=== PATIENT | male | born 1950 | race Caucasian/White ===

== ENCOUNTER 2018-02-07 23:52 | Emergency (ER) | payer OTHER ==
[~2018-02-07] VITALS: Ht 172.7 cm; Wt 72.7 kg
[~2018-02-07 23:52] MED LIST: AMLO-511 PO; ARIP15TA2 PO; ASPI81TA39 PO; DIVA-76 PO; ENAL20 PO; LORA10TA7 PO; METO25XL PO; SIMV-261 PO; SODI44SP18 NASAL
[2018-02-08 00:36] VITALS: BP 155/62
[2018-02-08 00:49] LABS: GLUCOSE,POINT OF CARE 134 MG/DL (70-110)
[2018-02-08 01:28] LABS: BASOPHILS % (AUTO) 0.8 % (0.0-2.0); EOSINOPHILS % (AUTO) 2.4 % (1.0-6.0); HEMATOCRIT 37.9 % (41-53); LYMPHOCYTES # (AUTO) 2.6 K/uL (1.0-4.8); LYMPHOCYTES % (AUTO) 29.2 % (22.0-44.0); MEAN CORPUSCULAR HEMOGLOBIN 30.4 pg (26.0-34.0); MEAN CORPUSCULAR HGB CONC 34.3 G/dL (31.0-37.0); MEAN CORPUSCULAR VOLUME 89 fL (80-100); MONOCYTES % (AUTO) 10.6 % (2.0-9.0); NEUTROPHILS # (AUTO) 5.2 K/uL (1.8-7.7); PLATELET COUNT (AUTO) 280 K/uL (150-450); RED BLOOD CELL COUNT(AUTO) 4.27 MIL/uL (4.50-5.90); RED CELL DISTRIBUTION WIDTH 13.3 % (11.5-14.5)
[2018-02-08 01:39] LABS: ANION GAP 3 mmol/L (8-16); CALCIUM, TOTAL 8.7 mg/dL (8.8-10.5); CARBON DIOXIDE 33 mmol/L (22-29); CHLORIDE 104 mmol/L (98-107); CREATININE 1.07 mg/dL (0.60-1.30); GLOMERULAR FILTR. RATE CALC > 60 mL/min (>60); GLUCOSE,RANDOM 106 mg/dL (70-110); SODIUM SERUM 140 mmol/L (136-145); UREA NITROGEN, BLOOD 24 mg/dL (7-18)
[2018-02-08 01:46] LABS: ALANINE AMINOTRANSFERASE 38 U/L (12-78); ALBUMIN 3.6 g/dL (3.4-5.0); ALKALINE PHOSPHATASE 73 U/L (46-116); ASPARTATE AMINOTRANSFERASE 43 U/L (15-37); BILIRUBIN,TOTAL 0.5 mg/dL (0.1-1.0); VALPROIC ACID 25 mcg/mL (50-100)
== END 2018-02-08 02:21 | disposition home or self-care (01) ==
LOC: EMS 23:58
DX: F25.1 Schizoaffective disorder, depressive type (principal); I10 Essential (primary) hypertension; E11.9 Type 2 diabetes mellitus without complications; E78.00 Pure hypercholesterolemia, unspecified; Z79.899 Other long term (current) drug therapy
CPT/HCPCS: 36415; 80053; 80164; 82962; 85025; 99284; G0480

== ENCOUNTER 2018-02-09 16:33 | Inpatient (IN) | payer OTHER, MEDICAID ==
[~2018-02-09] VITALS: Ht 172.7 cm; Wt 74.5 kg
[2018-02-09 18:00] VITALS: BP 153/82
[2018-02-09] MEDS ORDERED: MAGNESIUM HYDROXIDE SUSPENSION 30 ML UDCUP PO PRN (18:00)
[2018-02-09] MEDS ORDERED: NICOTINE 14 MG/24 HOUR PATCH TD PRN (18:00)
[2018-02-09] MEDS ORDERED: DOCUSATE SODIUM 100 MG CAPSULE PO PRN (18:00)
[2018-02-09] MEDS ORDERED: ACETAMINOPHEN 325 MG TABLET PO PRN (18:00)
[2018-02-09] MEDS ORDERED: CloNIDine HCL 0.1 MG TABLET PO PRN (18:00)
[2018-02-09] MEDS ORDERED: MAG HYDROX/AL HYDROX/SIMETH ES 30 ML SUSPENSION UDCUP PO PRN (18:00)
[2018-02-09] MEDS ORDERED: PETROLATUM,WHITE 71 GM JELLY TP PRN (18:00)
[2018-02-09] MEDS ORDERED: ONDANSETRON HCL 4 MG TABLET PO PRN (18:00)
[2018-02-09] MEDS ORDERED: LOPERAMIDE HCL 2 MG CAPSULE PO PRN (18:00)
[2018-02-09] MEDS ORDERED: ALBUTEROL SULFATE HFA 90 MCG/PUFF 8 GM INHALER IH PRN (18:00)
[2018-02-09] MEDS ORDERED: GuaiFENesin/D-METHORPHAN [SUGAR-FREE] 200-20MG/10 ML SYRUP UDCUP PO PRN (18:00)
[2018-02-09] MEDS ORDERED: PNEUMOCOCCAL VACCINE POLYVALENT 0.5 ML VIAL [PPSV23] IM ONE (19:30)
[2018-02-09] MEDS: AmLODIPine BESYLATE 5 MG TABLET PO SCH (20:57)
[2018-02-09] MEDS ORDERED: SIMVASTATIN 40 MG TABLET PO SCH (21:00)
[2018-02-09] MEDS ORDERED: SIMVASTATIN 20 MG TABLET PO SCH ×3 (21:00→21:15)
[2018-02-10 01:01] VITALS: BP 145/80
[2018-02-10] MEDS: ZOLPIDEM TARTRATE 10 MG TABLET PO PRN (01:07)
[2018-02-10 08:14] VITALS: BP 126/65
[2018-02-10] MEDS: AmLODIPine BESYLATE 5 MG TABLET PO SCH (08:17)
[2018-02-10] MEDS: ENALAPRIL MALEATE 20 MG TABLET PO SCH (08:17)
[2018-02-10] MEDS: ASPIRIN 81 MG CHEWABLE TABLET PO SCH (08:17)
[2018-02-10] MEDS: LORATADINE 10 MG TABLET PO SCH (08:17)
[2018-02-10] MEDS: METOPROLOL SUCCINATE 25 MG ER TABLET PO SCH (08:17)
[2018-02-10 08:31] LABS: BASOPHILS % (AUTO) 0.5 % (0.0-2.0); EOSINOPHILS % (AUTO) 4.4 % (1.0-6.0); HEMOGLOBIN 12.1 g/dL (13.5-17.5); LYMPHOCYTES # (AUTO) 2.6 K/uL (1.0-4.8); LYMPHOCYTES % (AUTO) 29.6 % (22.0-44.0); MEAN CORPUSCULAR HEMOGLOBIN 30.2 pg (26.0-34.0); MEAN CORPUSCULAR HGB CONC 34.6 G/dL (31.0-37.0); MEAN CORPUSCULAR VOLUME 88 fL (80-100); MONOCYTES # (AUTO) 0.8 K/uL (0.1-1.0); MONOCYTES % (AUTO) 8.9 % (2.0-9.0); NEUTROPHILS % (AUTO) 56.6 % (40.0-70.0); PLATELET COUNT (AUTO) 239 K/uL (150-450); RED CELL DISTRIBUTION WIDTH 13.6 % (11.5-14.5)
[2018-02-10 08:36] LABS: HEMOGLOBIN A1C 6.2 % (4.5-6.2)
[2018-02-10 08:55] LABS: ALANINE AMINOTRANSFERASE 35 U/L (12-78); ALKALINE PHOSPHATASE 57 U/L (46-116); ANION GAP 3 mmol/L (8-16); ASPARTATE AMINOTRANSFERASE 25 U/L (15-37); BILIRUBIN,TOTAL 0.2 mg/dL (0.1-1.0); CALCIUM, TOTAL 8.1 mg/dL (8.8-10.5); CARBON DIOXIDE 29 mmol/L (22-29); CHLORIDE 105 mmol/L (98-107); CHOL/HDL RATIO 2.7 (4.2-7.3); CHOLESTEROL 123 mg/dL (131-200); CREATININE 0.85 mg/dL (0.60-1.30); FREE T4 (FREE THYROXINE) 0.94 ng/dL (0.76-1.46); GLOMERULAR FILTR. RATE CALC > 60 mL/min (>60); GLUCOSE,RANDOM 137 mg/dL (70-110); HDL CHOLESTEROL 46 mg/dL (40-60); LDL CHOL (CALC.) 56 mg/dL (0-130); POTASSIUM 3.7 mmol/L (3.5-5.1); SODIUM SERUM 137 mmol/L (136-145); THYROID STIMULATING HORMONE 1.85 uIU/mL (0.36-3.74); TOTAL PROTEIN, SERUM 5.9 g/dL (6.4-8.2); TRIGLYCERIDES 105 mg/dL (15-150); UREA NITROGEN, BLOOD 17 mg/dL (7-18)
[2018-02-10] MEDS: ARIPiprazole 15 MG TABLET PO SCH (10:17)
[2018-02-10] MEDS: DIVALPROEX SODIUM 250 MG DR TABLET PO SCH ×2 (10:20→17:04)
[2018-02-10 16:00] VITALS: BP 121/66
[2018-02-10] MEDS: LORazepam 2 MG TABLET PO PRN (17:04)
[2018-02-10] MEDS: SIMVASTATIN 40 MG TABLET PO SCH (20:03)
[2018-02-11 00:45] VITALS: BP 133/69
[2018-02-11] MEDS: ZOLPIDEM TARTRATE 10 MG TABLET PO PRN ×2 (00:45→20:39)
[2018-02-11] MEDS: LORazepam 2 MG TABLET PO PRN ×4 (00:45→20:39)
[2018-02-11] MEDS: DENTURE ADHESIVE 68 GM CREAM DT PRN (06:45)
[2018-02-11 08:05] VITALS: BP 128/67
[2018-02-11] MEDS: ENALAPRIL MALEATE 20 MG TABLET PO SCH (08:30)
[2018-02-11] MEDS: ASPIRIN 81 MG CHEWABLE TABLET PO SCH (08:31)
[2018-02-11] MEDS: AmLODIPine BESYLATE 5 MG TABLET PO SCH (08:31)
[2018-02-11] MEDS: DIVALPROEX SODIUM 250 MG DR TABLET PO SCH ×2 (08:31→16:22)
[2018-02-11] MEDS: LORATADINE 10 MG TABLET PO SCH (08:31)
[2018-02-11] MEDS: ARIPiprazole 15 MG TABLET PO SCH (08:31)
[2018-02-11] MEDS: METOPROLOL SUCCINATE 25 MG ER TABLET PO SCH (08:31)
[2018-02-11 16:00] VITALS: BP 132/69
[2018-02-11] MEDS: SIMVASTATIN 40 MG TABLET PO SCH (20:39)
[2018-02-12 01:14] VITALS: BP 144/79
[2018-02-12 08:09] VITALS: BP 140/80
[2018-02-12] MEDS: LORATADINE 10 MG TABLET PO SCH (08:27)
[2018-02-12] MEDS: METOPROLOL SUCCINATE 25 MG ER TABLET PO SCH (08:27)
[2018-02-12] MEDS: DIVALPROEX SODIUM 250 MG DR TABLET PO SCH ×2 (08:27→16:47)
[2018-02-12] MEDS: ASPIRIN 81 MG CHEWABLE TABLET PO SCH (08:27)
[2018-02-12] MEDS: ARIPiprazole 15 MG TABLET PO SCH (08:27)
[2018-02-12] MEDS: AmLODIPine BESYLATE 5 MG TABLET PO SCH (08:27)
[2018-02-12] MEDS: ENALAPRIL MALEATE 20 MG TABLET PO SCH (08:28)
[2018-02-12 16:00] VITALS: BP 127/66
[2018-02-12] MEDS: FERROUS SULFATE 325 MG EC TABLET PO SCH (16:47)
[2018-02-12] MEDS: LORazepam 2 MG TABLET PO PRN ×2 (16:47→20:52)
[2018-02-12] MEDS: ZOLPIDEM TARTRATE 10 MG TABLET PO PRN (20:52)
[2018-02-12] MEDS: SIMVASTATIN 40 MG TABLET PO SCH (20:52)
[2018-02-13 00:15] VITALS: BP 136/92
[2018-02-13] MEDS: LORazepam 2 MG TABLET PO PRN ×2 (03:38→16:48)
[2018-02-13] MEDS: FERROUS SULFATE 325 MG EC TABLET PO SCH ×3 (06:59→16:48)
[2018-02-13 08:03] VITALS: BP 131/73
[2018-02-13] MEDS: ARIPiprazole 15 MG TABLET PO SCH (09:05)
[2018-02-13] MEDS: METOPROLOL SUCCINATE 25 MG ER TABLET PO SCH (09:05)
[2018-02-13] MEDS: ENALAPRIL MALEATE 20 MG TABLET PO SCH (09:05)
[2018-02-13] MEDS: DIVALPROEX SODIUM 250 MG DR TABLET PO SCH ×2 (09:05→16:48)
[2018-02-13] MEDS: AmLODIPine BESYLATE 5 MG TABLET PO SCH (09:05)
[2018-02-13] MEDS: LORATADINE 10 MG TABLET PO SCH (09:05)
[2018-02-13] MEDS: ASPIRIN 81 MG CHEWABLE TABLET PO SCH (09:05)
[2018-02-13] MEDS: DENTURE ADHESIVE 68 GM CREAM DT PRN (09:28)
[2018-02-13] MEDS ORDERED: ARIPiprazole LAUROXIL ER SUSPENSION 882 MG/3.2 ML SYRINGE IM SCH (12:00)
[2018-02-13 16:00] VITALS: BP 130/77
[2018-02-13] MEDS: SIMVASTATIN 40 MG TABLET PO SCH (20:25)
[2018-02-14 00:39] VITALS: BP 132/79
[2018-02-14] MEDS: FERROUS SULFATE 325 MG EC TABLET PO SCH ×3 (07:00→16:23)
[2018-02-14 08:03] VITALS: BP 136/68
[2018-02-14] MEDS: ARIPiprazole 15 MG TABLET PO SCH (08:10)
[2018-02-14] MEDS: AmLODIPine BESYLATE 5 MG TABLET PO SCH (08:10)
[2018-02-14] MEDS: DIVALPROEX SODIUM 250 MG DR TABLET PO SCH ×2 (08:10→16:23)
[2018-02-14] MEDS: METOPROLOL SUCCINATE 25 MG ER TABLET PO SCH (08:10)
[2018-02-14] MEDS: LORATADINE 10 MG TABLET PO SCH (08:10)
[2018-02-14] MEDS: ASPIRIN 81 MG CHEWABLE TABLET PO SCH (08:10)
[2018-02-14] MEDS: ENALAPRIL MALEATE 20 MG TABLET PO SCH (08:11)
[2018-02-14 16:00] VITALS: BP 136/75
[2018-02-14] MEDS: LORazepam 2 MG TABLET PO PRN (16:23)
[2018-02-14] MEDS: ZOLPIDEM TARTRATE 10 MG TABLET PO PRN (20:42)
[2018-02-14] MEDS: SIMVASTATIN 40 MG TABLET PO SCH (20:42)
[2018-02-14] MEDS: IBUPROFEN 400 MG TABLET PO PRN (21:50)
[2018-02-15 00:26] VITALS: BP 134/74
[2018-02-15] MEDS: LORazepam 2 MG TABLET PO PRN ×2 (00:28→06:15)
[2018-02-15] MEDS: FERROUS SULFATE 325 MG EC TABLET PO SCH ×3 (06:15→16:44)
[2018-02-15] MEDS: DENTURE ADHESIVE 68 GM CREAM DT PRN (06:17)
[2018-02-15] MEDS: DIVALPROEX SODIUM 250 MG DR TABLET PO SCH ×2 (08:22→16:44)
[2018-02-15] MEDS: ARIPiprazole 15 MG TABLET PO SCH (08:22)
[2018-02-15] MEDS: LORATADINE 10 MG TABLET PO SCH (08:22)
[2018-02-15] MEDS: ASPIRIN 81 MG CHEWABLE TABLET PO SCH (08:22)
[2018-02-15] MEDS: AmLODIPine BESYLATE 5 MG TABLET PO SCH (08:23)
[2018-02-15] MEDS: METOPROLOL SUCCINATE 25 MG ER TABLET PO SCH (08:23)
[2018-02-15] MEDS: ENALAPRIL MALEATE 20 MG TABLET PO SCH (08:23)
[2018-02-15 08:44] VITALS: BP 125/61
[2018-02-15 16:04] VITALS: BP 158/55
[2018-02-15] MEDS: SIMVASTATIN 40 MG TABLET PO SCH (20:11)
[2018-02-16 00:48] VITALS: BP 133/76
[2018-02-16] MEDS: LORazepam 2 MG TABLET PO PRN ×2 (04:35→16:43)
[2018-02-16] MEDS: FERROUS SULFATE 325 MG EC TABLET PO SCH ×3 (06:09→16:43)
[2018-02-16] MEDS: DENTURE ADHESIVE 68 GM CREAM DT PRN (06:09)
[2018-02-16] MEDS: DIVALPROEX SODIUM 250 MG DR TABLET PO SCH ×2 (08:07→16:43)
[2018-02-16] MEDS: ASPIRIN 81 MG CHEWABLE TABLET PO SCH (08:07)
[2018-02-16] MEDS: LORATADINE 10 MG TABLET PO SCH (08:07)
[2018-02-16] MEDS: AmLODIPine BESYLATE 5 MG TABLET PO SCH (08:07)
[2018-02-16] MEDS: ENALAPRIL MALEATE 20 MG TABLET PO SCH (08:07)
[2018-02-16] MEDS: METOPROLOL SUCCINATE 25 MG ER TABLET PO SCH (08:07)
[2018-02-16] MEDS: ARIPiprazole 15 MG TABLET PO SCH (08:07)
[2018-02-16 09:06] VITALS: BP 114/70
[2018-02-16 17:16] VITALS: BP 139/81
[2018-02-16] MEDS: SIMVASTATIN 40 MG TABLET PO SCH (20:42)
[2018-02-17 04:53] VITALS: BP 133/67
[2018-02-17] MEDS: LORazepam 2 MG TABLET PO PRN ×3 (04:58→20:33)
[2018-02-17] MEDS: DENTURE ADHESIVE 68 GM CREAM DT PRN (05:57)
[2018-02-17] MEDS: FERROUS SULFATE 325 MG EC TABLET PO SCH ×3 (06:10→16:33)
[2018-02-17 08:04] VITALS: BP 131/60
[2018-02-17] MEDS: DIVALPROEX SODIUM 250 MG DR TABLET PO SCH (08:31)
[2018-02-17] MEDS: LORATADINE 10 MG TABLET PO SCH (08:31)
[2018-02-17] MEDS: AmLODIPine BESYLATE 5 MG TABLET PO SCH (08:31)
[2018-02-17] MEDS: METOPROLOL SUCCINATE 25 MG ER TABLET PO SCH (08:31)
[2018-02-17] MEDS: ARIPiprazole 15 MG TABLET PO SCH (08:31)
[2018-02-17] MEDS: ASPIRIN 81 MG CHEWABLE TABLET PO SCH (08:31)
[2018-02-17] MEDS: ENALAPRIL MALEATE 20 MG TABLET PO SCH (08:31)
[2018-02-17 16:00] VITALS: BP 125/76
[2018-02-17] MEDS: IBUPROFEN 400 MG TABLET PO PRN (20:33)
[2018-02-17] MEDS: SIMVASTATIN 40 MG TABLET PO SCH (20:33)
[2018-02-17] MEDS: DIVALPROEX SODIUM 500 MG DR TABLET PO SCH (20:35)
[2018-02-18 00:25] VITALS: BP 130/83
[2018-02-18] MEDS: DENTURE ADHESIVE 68 GM CREAM DT PRN (00:55)
[2018-02-18] MEDS: LORazepam 2 MG TABLET PO PRN ×2 (03:07→21:18)
[2018-02-18] MEDS: FERROUS SULFATE 325 MG EC TABLET PO SCH ×3 (06:40→16:29)
[2018-02-18] MEDS: AmLODIPine BESYLATE 5 MG TABLET PO SCH (08:09)
[2018-02-18] MEDS: ARIPiprazole 15 MG TABLET PO SCH (08:09)
[2018-02-18] MEDS: METOPROLOL SUCCINATE 25 MG ER TABLET PO SCH (08:09)
[2018-02-18] MEDS: LORATADINE 10 MG TABLET PO SCH (08:10)
[2018-02-18] MEDS: DIVALPROEX SODIUM 500 MG DR TABLET PO SCH ×2 (08:10→20:11)
[2018-02-18] MEDS: ENALAPRIL MALEATE 20 MG TABLET PO SCH (08:10)
[2018-02-18] MEDS: ASPIRIN 81 MG CHEWABLE TABLET PO SCH (08:10)
[2018-02-18 16:00] VITALS: BP 136/87
[2018-02-18] MEDS: SIMVASTATIN 40 MG TABLET PO SCH (20:09)
[2018-02-19] MEDS: ZOLPIDEM TARTRATE 10 MG TABLET PO PRN (00:58)
[2018-02-19] MEDS: LORazepam 2 MG TABLET PO PRN (03:31)
[2018-02-19] MEDS: DENTURE ADHESIVE 68 GM CREAM DT PRN (04:27)
[2018-02-19] MEDS: FERROUS SULFATE 325 MG EC TABLET PO SCH ×2 (06:29→12:20)
[2018-02-19 06:42] VITALS: BP 132/86
[2018-02-19] MEDS: ARIPiprazole 15 MG TABLET PO SCH (08:04)
[2018-02-19 08:05] VITALS: BP 130/82
[2018-02-19] MEDS: DIVALPROEX SODIUM 500 MG DR TABLET PO SCH (08:05)
[2018-02-19] MEDS: AmLODIPine BESYLATE 5 MG TABLET PO SCH (08:05)
[2018-02-19] MEDS: LORATADINE 10 MG TABLET PO SCH (08:05)
[2018-02-19] MEDS: ENALAPRIL MALEATE 20 MG TABLET PO SCH (08:05)
[2018-02-19] MEDS: ASPIRIN 81 MG CHEWABLE TABLET PO SCH (08:05)
[2018-02-19] MEDS: METOPROLOL SUCCINATE 25 MG ER TABLET PO SCH (08:05)
[2018-02-19] MEDS ORDERED: ARIP882S IM ×2 (10:57→11:33)
[2018-02-19] MEDS ORDERED: DIVA-78 PO ×2 (10:57→11:31)
[2018-02-19] MEDS ORDERED: ARIP15TA2 PO (10:57)
[2018-02-19] MEDS ORDERED: FERR-89 PO (11:31)
== END 2018-02-19 13:15 | disposition home or self-care (01) | DRG 885 ==
LOC: B3A 16:50
PROVIDERS: ADMIT Psychiatry & Neurology Child & Adolescent Psychiatry
PROC: 3E0234Z Introduction of Serum, Toxoid and Vaccine into Muscle, Percutaneous Approach (ICD-10-PCS; principal; 2018-02-10)
PROC: 3E02340 Introduction of Influenza Vaccine into Muscle, Percutaneous Approach (ICD-10-PCS; 2018-02-10)
DX: F25.0 Schizoaffective disorder, bipolar type (principal); F15.20 Other stimulant dependence, uncomplicated; F17.200 Nicotine dependence, unspecified, uncomplicated; Z79.899 Other long term (current) drug therapy; I10 Essential (primary) hypertension; E78.5 Hyperlipidemia, unspecified; E78.00 Pure hypercholesterolemia, unspecified; D64.9 Anemia, unspecified; J30.9 Allergic rhinitis, unspecified; Z71.6 Tobacco abuse counseling; Z23 Encounter for immunization
CPT/HCPCS: 83036; 84439; 84443; 87081; 90686; 90732

== ENCOUNTER 2018-04-05 02:17 | Inpatient (IN) | payer OTHER, MEDICAID ==
[~2018-04-05] VITALS: Ht 172.7 cm; Wt 71.7 kg
[~2018-04-05 02:17] MED LIST changes: +ARIP882S IM; -DIVA-76 PO; +DIVA-78 PO; +FERR-89 PO; -SODI44SP18 NASAL
[2018-04-05 03:14] LABS: BASOPHILS % (AUTO) 0.5 % (0.0-2.0); EOSINOPHILS % (AUTO) 1.2 % (1.0-6.0); HEMATOCRIT 39.5 % (41-53); HEMOGLOBIN 13.6 g/dL (13.5-17.5); LYMPHOCYTES # (AUTO) 1.9 K/uL (1.0-4.8); LYMPHOCYTES % (AUTO) 14.4 % (22.0-44.0); MEAN CORPUSCULAR HEMOGLOBIN 30.1 pg (26.0-34.0); MEAN CORPUSCULAR HGB CONC 34.5 G/dL (31.0-37.0); MEAN CORPUSCULAR VOLUME 87 fL (80-100); MONOCYTES # (AUTO) 1.2 K/uL (0.1-1.0); MONOCYTES % (AUTO) 9.5 % (2.0-9.0); NEUTROPHILS # (AUTO) 9.8 K/uL (1.8-7.7); NEUTROPHILS % (AUTO) 74.4 % (40.0-70.0); PLATELET COUNT (AUTO) 252 K/uL (150-450); RED BLOOD CELL COUNT(AUTO) 4.52 MIL/uL (4.50-5.90); RED CELL DISTRIBUTION WIDTH 13.7 % (11.5-14.5)
[2018-04-05 03:23] LABS: ANION GAP 9 mmol/L (8-16); CALCIUM, TOTAL 9.5 mg/dL (8.8-10.5); CARBON DIOXIDE 27 mmol/L (22-29); CHLORIDE 102 mmol/L (98-107); CREATININE 0.94 mg/dL (0.60-1.30); GLOMERULAR FILTR. RATE CALC > 60 mL/min (>60); GLUCOSE,RANDOM 140 mg/dL (70-110); POTASSIUM 4.5 mmol/L (3.5-5.1); SODIUM SERUM 138 mmol/L (136-145); UREA NITROGEN, BLOOD 22 mg/dL (7-18)
[2018-04-05 03:29] LABS: ALANINE AMINOTRANSFERASE 31 U/L (12-78); ALBUMIN 3.7 g/dL (3.4-5.0); ALKALINE PHOSPHATASE 70 U/L (46-116); ASPARTATE AMINOTRANSFERASE 26 U/L (15-37); BILIRUBIN,TOTAL 0.2 mg/dL (0.1-1.0); TOTAL PROTEIN, SERUM 7.4 g/dL (6.4-8.2)
[2018-04-05 03:31] LABS: VALPROIC ACID < 3 mcg/mL (50-100)
[2018-04-05 03:41] LABS: AMPHET/METH SCREEN,URINE NEGATIVE (NEGATIVE); BARBITURATE SCREEN, URINE NEGATIVE (NEGATIVE); BENZODIAZEPINES SCREEN,URINE NEGATIVE (NEGATIVE); CANNABINOID SCREEN,URINE POSITIVE (NEGATIVE); COCAINE SCREEN,URINE NEGATIVE (NEGATIVE); METHADONE SCREEN, URINE NEGATIVE (NEGATIVE); OPIATE SCREEN,URINE NEGATIVE (NEGATIVE)
[2018-04-05 03:42] LABS: PHENCYCLIDINE SCREEN,URINE NEGATIVE (NEGATIVE)
[2018-04-05] MEDS ORDERED: HALOPERIDOL 5 MG TABLET PO PRN (04:45)
[2018-04-05 10:11] VITALS: BP 140/82
[2018-04-05] MEDS ORDERED: DOCUSATE SODIUM 100 MG CAPSULE PO PRN (14:45)
[2018-04-05] MEDS ORDERED: GuaiFENesin/D-METHORPHAN [SUGAR-FREE] 200-20MG/10 ML SYRUP UDCUP PO PRN (14:45)
[2018-04-05] MEDS ORDERED: NICOTINE 14 MG/24 HOUR PATCH TD PRN (14:45)
[2018-04-05] MEDS ORDERED: ALBUTEROL SULFATE HFA 90 MCG/PUFF 8 GM INHALER IH PRN (14:45)
[2018-04-05] MEDS ORDERED: ACETAMINOPHEN 325 MG TABLET PO PRN (14:45)
[2018-04-05] MEDS ORDERED: MAGNESIUM HYDROXIDE SUSPENSION 30 ML UDCUP PO PRN (14:45)
[2018-04-05] MEDS ORDERED: PETROLATUM,WHITE 71 GM JELLY TP PRN (14:45)
[2018-04-05] MEDS ORDERED: IBUPROFEN 400 MG TABLET PO PRN (14:45)
[2018-04-05] MEDS ORDERED: ONDANSETRON HCL 4 MG TABLET PO PRN (14:45)
[2018-04-05] MEDS ORDERED: CloNIDine HCL 0.1 MG TABLET PO PRN (14:45)
[2018-04-05 14:54] LABS: GLUCOMETER DEV NAME(LOC) BV3N.; GLUCOSE,POINT OF CARE 129 MG/DL (70-110)
[2018-04-05 16:09] VITALS: BP 137/75
[2018-04-05] MEDS: FERROUS SULFATE 325 MG EC TABLET PO SCH (17:02)
[2018-04-05] MEDS: LORazepam 2 MG TABLET PO PRN (17:02)
[2018-04-05] MEDS: SIMVASTATIN 40 MG TABLET PO SCH (20:18)
[2018-04-05] MEDS: ZOLPIDEM TARTRATE 10 MG TABLET PO PRN (20:18)
[2018-04-06 03:58] VITALS: BP 140/72
[2018-04-06] MEDS: DENTURE ADHESIVE 68 GM CREAM DT PRN (06:09)
[2018-04-06] MEDS: FERROUS SULFATE 325 MG EC TABLET PO SCH ×3 (06:09→16:35)
[2018-04-06 09:06] VITALS: BP 140/77
[2018-04-06] MEDS: LORATADINE 10 MG TABLET PO SCH (09:34)
[2018-04-06] MEDS: AmLODIPine BESYLATE 5 MG TABLET PO SCH (09:34)
[2018-04-06] MEDS: METOPROLOL SUCCINATE 25 MG ER TABLET PO SCH (09:35)
[2018-04-06] MEDS: ASPIRIN 81 MG CHEWABLE TABLET PO SCH (09:35)
[2018-04-06] MEDS: ENALAPRIL MALEATE 20 MG TABLET PO SCH (09:35)
[2018-04-06] MEDS: ARIPiprazole 15 MG TABLET PO SCH (13:05)
[2018-04-06 16:24] VITALS: BP 129/77
[2018-04-06] MEDS: LORazepam 2 MG TABLET PO PRN (16:35)
[2018-04-06] MEDS: SIMVASTATIN 40 MG TABLET PO SCH (20:39)
[2018-04-06] MEDS: ZOLPIDEM TARTRATE 10 MG TABLET PO PRN (20:39)
[2018-04-06] MEDS: DIVALPROEX SODIUM 500 MG DR TABLET PO SCH (20:39)
[2018-04-07 01:15] VITALS: BP 135/72
[2018-04-07] MEDS: FERROUS SULFATE 325 MG EC TABLET PO SCH ×3 (06:00→16:30)
[2018-04-07] MEDS: DENTURE ADHESIVE 68 GM CREAM DT PRN (06:01)
[2018-04-07 08:06] VITALS: BP 135/67
[2018-04-07] MEDS: ARIPiprazole 15 MG TABLET PO SCH (08:46)
[2018-04-07] MEDS: METOPROLOL SUCCINATE 25 MG ER TABLET PO SCH (08:46)
[2018-04-07] MEDS: LORATADINE 10 MG TABLET PO SCH (08:46)
[2018-04-07] MEDS: ENALAPRIL MALEATE 20 MG TABLET PO SCH (08:47)
[2018-04-07] MEDS: AmLODIPine BESYLATE 5 MG TABLET PO SCH (08:47)
[2018-04-07] MEDS: ASPIRIN 81 MG CHEWABLE TABLET PO SCH (08:47)
[2018-04-07] MEDS: DIVALPROEX SODIUM 500 MG DR TABLET PO SCH ×2 (08:47→20:16)
[2018-04-07 16:00] VITALS: BP 109/75
[2018-04-07] MEDS: SIMVASTATIN 40 MG TABLET PO SCH (20:16)
[2018-04-07] MEDS: LOPERAMIDE HCL 2 MG CAPSULE PO PRN (21:54)
[2018-04-08] MEDS: MAG HYDROX/AL HYDROX/SIMETH ES 30 ML SUSPENSION UDCUP PO PRN ×2 (01:02→10:28)
[2018-04-08 01:33] VITALS: BP 133/78
[2018-04-08] MEDS: LOPERAMIDE HCL 2 MG CAPSULE PO PRN ×3 (04:07→17:46)
[2018-04-08] MEDS: FERROUS SULFATE 325 MG EC TABLET PO SCH ×3 (06:13→16:34)
[2018-04-08] MEDS: DENTURE ADHESIVE 68 GM CREAM DT PRN (06:13)
[2018-04-08] MEDS: LORATADINE 10 MG TABLET PO SCH (08:48)
[2018-04-08] MEDS: ENALAPRIL MALEATE 20 MG TABLET PO SCH (08:48)
[2018-04-08] MEDS: DIVALPROEX SODIUM 500 MG DR TABLET PO SCH ×2 (08:48→20:45)
[2018-04-08] MEDS: ASPIRIN 81 MG CHEWABLE TABLET PO SCH (08:48)
[2018-04-08] MEDS: AmLODIPine BESYLATE 5 MG TABLET PO SCH (08:48)
[2018-04-08] MEDS: METOPROLOL SUCCINATE 25 MG ER TABLET PO SCH (08:48)
[2018-04-08] MEDS: ARIPiprazole 15 MG TABLET PO SCH (08:48)
[2018-04-08 09:00] VITALS: BP 129/64
[2018-04-08 16:00] VITALS: BP 116/62
[2018-04-08] MEDS: LORazepam 2 MG TABLET PO PRN (16:34)
[2018-04-08] MEDS: SIMVASTATIN 40 MG TABLET PO SCH (20:45)
[2018-04-09 01:56] VITALS: BP 122/68
[2018-04-09] MEDS: LOPERAMIDE HCL 2 MG CAPSULE PO PRN ×3 (01:59→17:15)
[2018-04-09] MEDS: LORazepam 2 MG TABLET PO PRN (01:59)
[2018-04-09] MEDS: ZOLPIDEM TARTRATE 10 MG TABLET PO PRN (02:00)
[2018-04-09] MEDS: FERROUS SULFATE 325 MG EC TABLET PO SCH ×3 (06:49→16:55)
[2018-04-09 08:04] VITALS: BP 118/62
[2018-04-09] MEDS: ARIPiprazole 15 MG TABLET PO SCH (08:41)
[2018-04-09] MEDS: ASPIRIN 81 MG CHEWABLE TABLET PO SCH (08:41)
[2018-04-09] MEDS: LORATADINE 10 MG TABLET PO SCH (08:41)
[2018-04-09] MEDS: METOPROLOL SUCCINATE 25 MG ER TABLET PO SCH (08:41)
[2018-04-09] MEDS: DIVALPROEX SODIUM 500 MG DR TABLET PO SCH ×2 (08:41→20:31)
[2018-04-09] MEDS: ENALAPRIL MALEATE 20 MG TABLET PO SCH (08:41)
[2018-04-09] MEDS: AmLODIPine BESYLATE 5 MG TABLET PO SCH (08:41)
[2018-04-09 16:00] VITALS: BP 112/67
[2018-04-09] MEDS: SIMVASTATIN 40 MG TABLET PO SCH (20:31)
[2018-04-10 00:10] VITALS: BP 128/65
[2018-04-10] MEDS: LOPERAMIDE HCL 2 MG CAPSULE PO PRN (03:07)
[2018-04-10] MEDS: MAG HYDROX/AL HYDROX/SIMETH ES 30 ML SUSPENSION UDCUP PO PRN (05:18)
[2018-04-10] MEDS: FERROUS SULFATE 325 MG EC TABLET PO SCH ×2 (06:23→12:03)
[2018-04-10 08:23] LABS: BASOPHILS % (AUTO) 0.4 % (0.0-2.0); EOSINOPHILS % (AUTO) 6.7 % (1.0-6.0); HEMATOCRIT 42.6 % (41-53); HEMOGLOBIN 14.7 g/dL (13.5-17.5); LYMPHOCYTES # (AUTO) 2.2 K/uL (1.0-4.8); LYMPHOCYTES % (AUTO) 24.7 % (22.0-44.0); MEAN CORPUSCULAR HEMOGLOBIN 30.4 pg (26.0-34.0); MEAN CORPUSCULAR HGB CONC 34.4 G/dL (31.0-37.0); MEAN CORPUSCULAR VOLUME 88 fL (80-100); MONOCYTES # (AUTO) 1.3 K/uL (0.1-1.0); MONOCYTES % (AUTO) 14.3 % (2.0-9.0); NEUTROPHILS # (AUTO) 4.9 K/uL (1.8-7.7); NEUTROPHILS % (AUTO) 53.9 % (40.0-70.0); PLATELET COUNT (AUTO) 299 K/uL (150-450); RED BLOOD CELL COUNT(AUTO) 4.83 MIL/uL (4.50-5.90)
[2018-04-10 08:24] VITALS: BP 117/71
[2018-04-10] MEDS: LORATADINE 10 MG TABLET PO SCH (09:02)
[2018-04-10] MEDS: AmLODIPine BESYLATE 5 MG TABLET PO SCH (09:02)
[2018-04-10] MEDS: ENALAPRIL MALEATE 20 MG TABLET PO SCH (09:02)
[2018-04-10] MEDS: DIVALPROEX SODIUM 500 MG DR TABLET PO SCH (09:02)
[2018-04-10] MEDS: METOPROLOL SUCCINATE 25 MG ER TABLET PO SCH (09:02)
[2018-04-10] MEDS: ARIPiprazole 15 MG TABLET PO SCH (09:02)
[2018-04-10] MEDS: ASPIRIN 81 MG CHEWABLE TABLET PO SCH (09:04)
[2018-04-11] MEDS ORDERED: CEPH250 PO (20:02)
[2018-04-11] MEDS ORDERED: SILD25 PO (20:02)
[2018-04-11] MEDS ORDERED: HYDR-4031 PO (20:02)
[2018-04-13] MEDS ORDERED: ONDA4 PO (10:38)
[2018-04-13] MEDS ORDERED: CIP250 PO (10:39)
[2018-04-13] MEDS ORDERED: METR500 PO (10:40)
== END 2018-04-10 16:05 | disposition home or self-care (01) | DRG 885 ==
LOC: EMS 02:18 → B3A 06:00
PROVIDERS: ADMIT Psychiatry & Neurology Child & Adolescent Psychiatry; ATTEND Psychiatry & Neurology Child & Adolescent Psychiatry
DX: F25.1 Schizoaffective disorder, depressive type (principal); R45.851 Suicidal ideations; E78.00 Pure hypercholesterolemia, unspecified; E78.5 Hyperlipidemia, unspecified; F17.200 Nicotine dependence, unspecified, uncomplicated; E11.9 Type 2 diabetes mellitus without complications; D72.829 Elevated white blood cell count, unspecified; D64.9 Anemia, unspecified; J30.9 Allergic rhinitis, unspecified; I10 Essential (primary) hypertension; Z71.6 Tobacco abuse counseling
CPT/HCPCS: 84443; G0480

== ENCOUNTER 2018-04-28 22:06 | Emergency (ER) | payer OTHER ==
[~2018-04-28] VITALS: Ht 175.3 cm; Wt 105.0 kg
[~2018-04-28 22:06] MED LIST changes: -ARIP882S IM; +CEPH250 PO; +CIP250 PO; +HYDR-4031 PO; +METR500 PO; +ONDA4 PO; +SILD25 PO
[2018-04-28 22:13] VITALS: BP 154/100
== END 2018-04-29 01:09 | disposition left against medical advice (07) ==
LOC: EMS 22:07
DX: F29 Unspecified psychosis not due to a substance or known physiological condition (principal); F31.9 Bipolar disorder, unspecified; E11.9 Type 2 diabetes mellitus without complications; E78.00 Pure hypercholesterolemia, unspecified; I10 Essential (primary) hypertension; F17.210 Nicotine dependence, cigarettes, uncomplicated; Z53.21 Procedure and treatment not carried out due to patient leaving prior to being seen by health care provider

== ENCOUNTER 2018-06-05 14:41 | Emergency (ER) | payer MEDICARE, MEDICAID | END 2018-06-05 16:02 | disposition left against medical advice (07) | LOC: EMS 14:41 | DX: Z53.21 Procedure and treatment not carried out due to patient leaving prior to being seen by health care provider (principal) ==

== ENCOUNTER 2018-06-19 16:31 | Emergency (ER) | payer MEDICARE, MEDICAID ==
[~2018-06-19] VITALS: Ht 172.7 cm; Wt 68.2 kg
[2018-06-19 17:32] VITALS: BP 150/93
== END 2018-06-19 18:03 | disposition home or self-care (01) ==
LOC: EMS 16:32
DX: M54.41 Lumbago with sciatica, right side (principal); G89.29 Other chronic pain; E11.9 Type 2 diabetes mellitus without complications; I10 Essential (primary) hypertension; F32.9 Major depressive disorder, single episode, unspecified; E78.00 Pure hypercholesterolemia, unspecified; Z79.82 Long term (current) use of aspirin

== ENCOUNTER 2018-06-30 10:24 | Inpatient (IN) | payer MEDICARE, OTHER, MEDICAID ==
[~2018-06-30] VITALS: Ht 172.7 cm; Wt 66.2 kg
[~2018-06-30 10:24] MED LIST changes: -CEPH250 PO; -METR500 PO; -ONDA4 PO
[2018-06-30] MEDS ORDERED: HALOPERIDOL LACTATE 5 MG/ML VIAL IM ONE ×2 (10:45→11:15)
[2018-06-30] MEDS ORDERED: DiphenhydrAMINE HCL 50 MG/ML VIAL IM ONE (10:45)
[2018-06-30] MEDS ORDERED: LORazepam 2 MG/ML VIAL IM ONE ×2 (10:45→11:15)
[2018-06-30 11:03] LABS: AMPHET/METH SCREEN,URINE NEGATIVE (NEGATIVE); BARBITURATE SCREEN, URINE NEGATIVE (NEGATIVE); BENZODIAZEPINES SCREEN,URINE NEGATIVE (NEGATIVE); CANNABINOID SCREEN,URINE NEGATIVE (NEGATIVE); COCAINE SCREEN,URINE NEGATIVE (NEGATIVE); METHADONE SCREEN, URINE NEGATIVE (NEGATIVE); OPIATE SCREEN,URINE NEGATIVE (NEGATIVE)
[2018-06-30 11:04] LABS: BASOPHILS % (AUTO) 1.2 % (0.0-2.0); HEMATOCRIT 43.6 % (41-53); HEMOGLOBIN 14.6 g/dL (13.5-17.5); LYMPHOCYTES # (AUTO) 2.7 K/uL (1.0-4.8); LYMPHOCYTES % (AUTO) 23.6 % (22.0-44.0); MEAN CORPUSCULAR HEMOGLOBIN 29.2 pg (26.0-34.0); MEAN CORPUSCULAR HGB CONC 33.5 G/dL (31.0-37.0); MEAN CORPUSCULAR VOLUME 87 fL (80-100); MONOCYTES # (AUTO) 0.8 K/uL (0.1-1.0); MONOCYTES % (AUTO) 6.5 % (2.0-9.0); NEUTROPHILS # (AUTO) 7.7 K/uL (1.8-7.7); NEUTROPHILS % (AUTO) 66.7 % (40.0-70.0); PLATELET COUNT (AUTO) 334 K/uL (150-450); RED BLOOD CELL COUNT(AUTO) 4.99 MIL/uL (4.50-5.90); RED CELL DISTRIBUTION WIDTH 13.5 % (11.5-14.5)
[2018-06-30 11:08] LABS: PHENCYCLIDINE SCREEN,URINE NEGATIVE (NEGATIVE)
[2018-06-30 11:24] LABS: ANION GAP 13 mmol/L (8-16); CALCIUM, TOTAL 9.2 mg/dL (8.8-10.5); CARBON DIOXIDE 25 mmol/L (22-29); CHLORIDE 104 mmol/L (98-107); CREATININE 0.85 mg/dL (0.60-1.30); GLOMERULAR FILTR. RATE CALC > 60 mL/min (>60); GLUCOSE,RANDOM 119 mg/dL (70-110); POTASSIUM 3.9 mmol/L (3.5-5.1); SODIUM SERUM 142 mmol/L (136-145); UREA NITROGEN, BLOOD 16 mg/dL (7-18)
[2018-06-30 11:30] LABS: ALANINE AMINOTRANSFERASE 30 U/L (12-78); ALKALINE PHOSPHATASE 111 U/L (46-116); ASPARTATE AMINOTRANSFERASE 21 U/L (15-37); BILIRUBIN,TOTAL 0.3 mg/dL (0.1-1.0); TOTAL PROTEIN, SERUM 7.5 g/dL (6.4-8.2)
[2018-06-30 11:31] LABS: VALPROIC ACID < 3 mcg/mL (50-100)
[2018-06-30 17:40] VITALS: BP 160/100
[2018-06-30 17:59] LABS: GLUCOMETER DEV NAME(LOC) BV3N.; GLUCOSE,POINT OF CARE 85 MG/DL (70-110)
[2018-06-30] MEDS ORDERED: DOCUSATE SODIUM 100 MG CAPSULE PO PRN (18:00)
[2018-06-30] MEDS ORDERED: ACETAMINOPHEN 325 MG TABLET PO PRN (18:00)
[2018-06-30] MEDS ORDERED: MAGNESIUM HYDROXIDE SUSPENSION 30 ML UDCUP PO PRN (18:00)
[2018-06-30] MEDS ORDERED: ALBUTEROL SULFATE HFA 90 MCG/PUFF 8 GM INHALER IH PRN (18:00)
[2018-06-30] MEDS ORDERED: GuaiFENesin/D-METHORPHAN [SUGAR-FREE] 200-20MG/10 ML SYRUP UDCUP PO PRN (18:00)
[2018-06-30] MEDS ORDERED: ONDANSETRON HCL 4 MG TABLET PO PRN (18:00)
[2018-06-30] MEDS: ENALAPRIL MALEATE 20 MG TABLET PO SCH (18:00)
[2018-06-30] MEDS ORDERED: CloNIDine HCL 0.1 MG TABLET PO PRN (18:00)
[2018-06-30] MEDS ORDERED: NICOTINE 14 MG/24 HOUR PATCH TD PRN (18:00)
[2018-06-30] MEDS ORDERED: PETROLATUM,WHITE 28 GM JELLY TP PRN (18:00)
[2018-06-30] MEDS: METOPROLOL SUCCINATE 25 MG ER TABLET PO SCH (18:27)
[2018-06-30] MEDS: AmLODIPine BESYLATE 5 MG TABLET PO SCH (18:28)
[2018-06-30 18:40] VITALS: BP 160/76
[2018-06-30 19:40] VITALS: BP 148/92
[2018-06-30 20:40] VITALS: BP 155/84
[2018-06-30] MEDS ORDERED: SIMVASTATIN 20 MG TABLET PO SCH (21:00)
[2018-06-30] MEDS ORDERED: SIMVASTATIN 40 MG TABLET PO SCH (21:00)
[2018-07-01] VITALS (8 sets, daily range): BP systolic 113–150; BP diastolic 64–79
[2018-07-01] MEDS: IBUPROFEN 400 MG TABLET PO PRN ×2 (06:28→14:53)
[2018-07-01] MEDS ORDERED: FERROUS SULFATE 325 MG EC TABLET PO SCH (07:00)
[2018-07-01] MEDS: METOPROLOL SUCCINATE 25 MG ER TABLET PO SCH (08:34)
[2018-07-01] MEDS: LORATADINE 10 MG TABLET PO SCH (08:34)
[2018-07-01] MEDS: ENALAPRIL MALEATE 20 MG TABLET PO SCH (08:34)
[2018-07-01] MEDS: AmLODIPine BESYLATE 5 MG TABLET PO SCH (08:34)
[2018-07-01 08:39] LABS: BASOPHILS % (AUTO) 0.7 % (0.0-2.0); EOSINOPHILS % (AUTO) 2.3 % (1.0-6.0); HEMATOCRIT 43.5 % (41-53); HEMOGLOBIN 14.5 g/dL (13.5-17.5); LYMPHOCYTES # (AUTO) 2.3 K/uL (1.0-4.8); LYMPHOCYTES % (AUTO) 21.1 % (22.0-44.0); MEAN CORPUSCULAR HEMOGLOBIN 29.3 pg (26.0-34.0); MEAN CORPUSCULAR HGB CONC 33.4 G/dL (31.0-37.0); MEAN CORPUSCULAR VOLUME 88 fL (80-100); MONOCYTES # (AUTO) 0.9 K/uL (0.1-1.0); MONOCYTES % (AUTO) 8.2 % (2.0-9.0); NEUTROPHILS # (AUTO) 7.5 K/uL (1.8-7.7); NEUTROPHILS % (AUTO) 67.7 % (40.0-70.0); PLATELET COUNT (AUTO) 314 K/uL (150-450); RED BLOOD CELL COUNT(AUTO) 4.96 MIL/uL (4.50-5.90); RED CELL DISTRIBUTION WIDTH 13.7 % (11.5-14.5)
[2018-07-01] MEDS ORDERED: ASPIRIN 81 MG CHEWABLE TABLET PO SCH (09:00)
[2018-07-01 09:04] LABS: ALANINE AMINOTRANSFERASE 26 U/L (12-78); ALBUMIN 3.4 g/dL (3.4-5.0); ALKALINE PHOSPHATASE 114 U/L (46-116); ANION GAP 7 mmol/L (8-16); ASPARTATE AMINOTRANSFERASE 20 U/L (15-37); BILIRUBIN,TOTAL 0.8 mg/dL (0.1-1.0); CALCIUM, TOTAL 9.2 mg/dL (8.8-10.5); CARBON DIOXIDE 28 mmol/L (22-29); CHLORIDE 106 mmol/L (98-107); CHOL/HDL RATIO 3.9 (4.2-7.3); CHOLESTEROL 185 mg/dL (131-200); CREATININE 1.02 mg/dL (0.60-1.30); GLOMERULAR FILTR. RATE CALC > 60 mL/min (>60); GLUCOSE,RANDOM 90 mg/dL (70-110); HDL CHOLESTEROL 48 mg/dL (40-60); HEMOGLOBIN A1C 5.9 % (4.5-6.2); LDL CHOL (CALC.) 121 mg/dL (0-130); POTASSIUM 4.5 mmol/L (3.5-5.1); SODIUM SERUM 141 mmol/L (136-145); THYROID STIMULATING HORMONE 2.26 uIU/mL (0.36-3.74); TOTAL PROTEIN, SERUM 6.7 g/dL (6.4-8.2); TRIGLYCERIDES 82 mg/dL (15-150); UREA NITROGEN, BLOOD 20 mg/dL (7-18)
[2018-07-01] MEDS: ARIPiprazole 15 MG TABLET PO SCH (12:37)
[2018-07-01] MEDS: FERROUS SULFATE 325 MG EC TABLET PO SCH ×2 (12:37→16:43)
[2018-07-01] MEDS: HALOPERIDOL 5 MG TABLET PO PRN (16:42)
[2018-07-01] MEDS: LORazepam 2 MG TABLET PO PRN (16:43)
[2018-07-01] MEDS: SIMVASTATIN 40 MG TABLET PO SCH (20:31)
[2018-07-01] MEDS: DIVALPROEX SODIUM 500 MG DR TABLET PO SCH (20:31)
[2018-07-02] VITALS (7 sets, daily range): BP systolic 128–135; BP diastolic 60–74
[2018-07-02] MEDS: FERROUS SULFATE 325 MG EC TABLET PO SCH ×3 (06:29→16:51)
[2018-07-02] MEDS: ENALAPRIL MALEATE 20 MG TABLET PO SCH (09:13)
[2018-07-02] MEDS: ARIPiprazole 15 MG TABLET PO SCH (09:13)
[2018-07-02] MEDS: DIVALPROEX SODIUM 500 MG DR TABLET PO SCH ×2 (09:13→20:38)
[2018-07-02] MEDS: LORATADINE 10 MG TABLET PO SCH (09:13)
[2018-07-02] MEDS: AmLODIPine BESYLATE 5 MG TABLET PO SCH (09:13)
[2018-07-02] MEDS: METOPROLOL SUCCINATE 25 MG ER TABLET PO SCH (09:14)
[2018-07-02] MEDS: ASPIRIN 81 MG CHEWABLE TABLET PO SCH (09:14)
[2018-07-02] MEDS: IBUPROFEN 400 MG TABLET PO PRN ×2 (09:59→18:16)
[2018-07-02] MEDS: LORazepam 2 MG TABLET PO PRN (16:51)
[2018-07-02] MEDS: SIMVASTATIN 40 MG TABLET PO SCH (20:38)
[2018-07-02] MEDS: ZOLPIDEM TARTRATE 10 MG TABLET PO PRN (20:38)
[2018-07-03 01:13] VITALS: BP 158/71
[2018-07-03 01:20] VITALS: BP 158/71
[2018-07-03] MEDS: MAG HYDROX/AL HYDROX/SIMETH ES 30 ML SUSPENSION UDCUP PO PRN ×2 (02:14→14:00)
[2018-07-03] MEDS: FERROUS SULFATE 325 MG EC TABLET PO SCH ×3 (06:38→16:57)
[2018-07-03 08:29] VITALS: BP 150/69
[2018-07-03 09:24] VITALS: BP 150/69
[2018-07-03] MEDS: DIVALPROEX SODIUM 500 MG DR TABLET PO SCH ×2 (09:26→20:24)
[2018-07-03] MEDS: LORATADINE 10 MG TABLET PO SCH (09:26)
[2018-07-03] MEDS: ARIPiprazole 15 MG TABLET PO SCH (09:26)
[2018-07-03] MEDS: METOPROLOL SUCCINATE 25 MG ER TABLET PO SCH (09:26)
[2018-07-03] MEDS: ENALAPRIL MALEATE 20 MG TABLET PO SCH (09:26)
[2018-07-03] MEDS: AmLODIPine BESYLATE 5 MG TABLET PO SCH (09:26)
[2018-07-03] MEDS: ASPIRIN 81 MG CHEWABLE TABLET PO SCH (09:27)
[2018-07-03 16:13] VITALS: BP 156/76
[2018-07-03] MEDS: HALOPERIDOL 5 MG TABLET PO PRN (16:57)
[2018-07-03] MEDS: LORazepam 2 MG TABLET PO PRN (16:58)
[2018-07-03] MEDS ORDERED: ONDANSETRON HCL 4 MG/2 ML VIAL IM ONE (18:45)
[2018-07-03] MEDS: SIMVASTATIN 40 MG TABLET PO SCH (20:25)
[2018-07-03] MEDS: ZOLPIDEM TARTRATE 10 MG TABLET PO PRN (21:08)
[2018-07-03] MEDS: LOPERAMIDE HCL 2 MG CAPSULE PO PRN (23:26)
[2018-07-04 05:03] VITALS: BP 148/72
[2018-07-04] MEDS: FERROUS SULFATE 325 MG EC TABLET PO SCH ×3 (06:39→16:51)
[2018-07-04 08:00] VITALS: BP 156/79
[2018-07-04] MEDS: ARIPiprazole 15 MG TABLET PO SCH (08:19)
[2018-07-04] MEDS: ASPIRIN 81 MG CHEWABLE TABLET PO SCH (08:19)
[2018-07-04] MEDS: METOPROLOL SUCCINATE 25 MG ER TABLET PO SCH (08:19)
[2018-07-04] MEDS: ENALAPRIL MALEATE 20 MG TABLET PO SCH (08:19)
[2018-07-04] MEDS: AmLODIPine BESYLATE 5 MG TABLET PO SCH (08:19)
[2018-07-04] MEDS: LORATADINE 10 MG TABLET PO SCH (08:21)
[2018-07-04] MEDS: DIVALPROEX SODIUM 500 MG DR TABLET PO SCH ×2 (09:16→20:40)
[2018-07-04 16:24] VITALS: BP 116/67
[2018-07-04] MEDS: SIMVASTATIN 40 MG TABLET PO SCH (20:40)
[2018-07-05 06:10] VITALS: BP 130/74
[2018-07-05 06:16] VITALS: BP 130/74
[2018-07-05] MEDS: FERROUS SULFATE 325 MG EC TABLET PO SCH ×3 (06:26→16:54)
[2018-07-05 08:17] VITALS: BP 130/60
[2018-07-05 08:20] VITALS: BP 130/60
[2018-07-05] MEDS: ARIPiprazole 15 MG TABLET PO SCH (09:08)
[2018-07-05] MEDS: DIVALPROEX SODIUM 500 MG DR TABLET PO SCH ×2 (09:08→20:25)
[2018-07-05] MEDS: LORATADINE 10 MG TABLET PO SCH (09:09)
[2018-07-05] MEDS: AmLODIPine BESYLATE 5 MG TABLET PO SCH (09:09)
[2018-07-05] MEDS: ASPIRIN 81 MG CHEWABLE TABLET PO SCH (09:09)
[2018-07-05] MEDS: METOPROLOL SUCCINATE 25 MG ER TABLET PO SCH (09:09)
[2018-07-05] MEDS: ENALAPRIL MALEATE 20 MG TABLET PO SCH (09:09)
[2018-07-05 16:02] VITALS: BP 135/66
[2018-07-05 16:29] VITALS: BP 135/66
[2018-07-05] MEDS: SIMVASTATIN 40 MG TABLET PO SCH (20:25)
[2018-07-06 00:10] VITALS: BP 132/74
[2018-07-06 00:12] VITALS: BP 132/74
[2018-07-06] MEDS: FERROUS SULFATE 325 MG EC TABLET PO SCH ×3 (06:33→16:50)
[2018-07-06 08:05] VITALS: BP 131/61
[2018-07-06 08:17] VITALS: BP 131/61
[2018-07-06] MEDS: AmLODIPine BESYLATE 5 MG TABLET PO SCH (08:57)
[2018-07-06] MEDS: LORATADINE 10 MG TABLET PO SCH (08:57)
[2018-07-06] MEDS: ARIPiprazole 15 MG TABLET PO SCH (08:57)
[2018-07-06] MEDS: METOPROLOL SUCCINATE 25 MG ER TABLET PO SCH (08:57)
[2018-07-06] MEDS: ENALAPRIL MALEATE 20 MG TABLET PO SCH (08:57)
[2018-07-06] MEDS: DIVALPROEX SODIUM 500 MG DR TABLET PO SCH ×2 (08:57→20:59)
[2018-07-06] MEDS: ASPIRIN 81 MG CHEWABLE TABLET PO SCH (09:02)
[2018-07-06 17:18] VITALS: BP 112/63
[2018-07-06] MEDS: LOPERAMIDE HCL 2 MG CAPSULE PO PRN (17:20)
[2018-07-06] MEDS: SIMVASTATIN 40 MG TABLET PO SCH (20:59)
[2018-07-07 02:22] VITALS: BP 133/77
[2018-07-07] MEDS: FERROUS SULFATE 325 MG EC TABLET PO SCH ×3 (06:15→16:28)
[2018-07-07 08:39] VITALS: BP 122/55
[2018-07-07] MEDS: METOPROLOL SUCCINATE 25 MG ER TABLET PO SCH (08:49)
[2018-07-07] MEDS: LORATADINE 10 MG TABLET PO SCH (08:49)
[2018-07-07] MEDS: ENALAPRIL MALEATE 20 MG TABLET PO SCH (08:49)
[2018-07-07] MEDS: ASPIRIN 81 MG CHEWABLE TABLET PO SCH (08:49)
[2018-07-07] MEDS: DIVALPROEX SODIUM 500 MG DR TABLET PO SCH ×2 (08:49→20:06)
[2018-07-07] MEDS: ARIPiprazole 15 MG TABLET PO SCH (08:49)
[2018-07-07] MEDS: AmLODIPine BESYLATE 5 MG TABLET PO SCH (08:49)
[2018-07-07 16:00] VITALS: BP 120/85
[2018-07-07] MEDS: LORazepam 2 MG TABLET PO PRN (16:28)
[2018-07-07] MEDS: SIMVASTATIN 40 MG TABLET PO SCH (20:07)
[2018-07-07] MEDS: ZOLPIDEM TARTRATE 10 MG TABLET PO PRN (20:07)
[2018-07-08 01:35] VITALS: BP 136/82
[2018-07-08] MEDS: FERROUS SULFATE 325 MG EC TABLET PO SCH ×3 (06:19→16:09)
[2018-07-08 08:17] VITALS: BP 135/61
[2018-07-08] MEDS: ARIPiprazole 15 MG TABLET PO SCH (08:27)
[2018-07-08] MEDS: LORATADINE 10 MG TABLET PO SCH (08:28)
[2018-07-08] MEDS: AmLODIPine BESYLATE 5 MG TABLET PO SCH (08:28)
[2018-07-08] MEDS: DIVALPROEX SODIUM 500 MG DR TABLET PO SCH ×2 (08:28→20:06)
[2018-07-08] MEDS: ENALAPRIL MALEATE 20 MG TABLET PO SCH (08:28)
[2018-07-08] MEDS: ASPIRIN 81 MG CHEWABLE TABLET PO SCH (08:28)
[2018-07-08] MEDS: METOPROLOL SUCCINATE 25 MG ER TABLET PO SCH (08:28)
[2018-07-08 16:18] VITALS: BP 128/66
[2018-07-08] MEDS: SIMVASTATIN 40 MG TABLET PO SCH (20:06)
[2018-07-09 00:01] VITALS: BP 136/82
[2018-07-09] MEDS: ZOLPIDEM TARTRATE 10 MG TABLET PO PRN ×2 (00:04→20:32)
[2018-07-09] MEDS: LOPERAMIDE HCL 2 MG CAPSULE PO PRN (04:33)
[2018-07-09] MEDS: FERROUS SULFATE 325 MG EC TABLET PO SCH ×3 (06:13→16:24)
[2018-07-09 07:58] VITALS: BP 110/76
[2018-07-09] MEDS: ARIPiprazole 15 MG TABLET PO SCH (08:12)
[2018-07-09] MEDS: DIVALPROEX SODIUM 500 MG DR TABLET PO SCH ×2 (08:12→20:32)
[2018-07-09] MEDS: METOPROLOL SUCCINATE 25 MG ER TABLET PO SCH (08:13)
[2018-07-09] MEDS: ENALAPRIL MALEATE 20 MG TABLET PO SCH (08:13)
[2018-07-09] MEDS: ASPIRIN 81 MG CHEWABLE TABLET PO SCH (08:13)
[2018-07-09] MEDS: LORATADINE 10 MG TABLET PO SCH (08:13)
[2018-07-09] MEDS: AmLODIPine BESYLATE 5 MG TABLET PO SCH (08:17)
[2018-07-09] MEDS ORDERED: MAGNESIUM OXIDE 400 MG TABLET PO ONE (13:15)
[2018-07-09 16:00] VITALS: BP 135/90
[2018-07-09] MEDS: LORazepam 2 MG TABLET PO PRN (16:24)
[2018-07-09] MEDS: SIMVASTATIN 40 MG TABLET PO SCH (20:32)
[2018-07-10 02:53] VITALS: BP 125/79
[2018-07-10] MEDS: FERROUS SULFATE 325 MG EC TABLET PO SCH ×3 (06:51→16:54)
[2018-07-10] MEDS: METOPROLOL SUCCINATE 25 MG ER TABLET PO SCH (08:42)
[2018-07-10] MEDS: AmLODIPine BESYLATE 5 MG TABLET PO SCH (08:42)
[2018-07-10] MEDS: ASPIRIN 81 MG CHEWABLE TABLET PO SCH (08:42)
[2018-07-10] MEDS: ENALAPRIL MALEATE 20 MG TABLET PO SCH (08:43)
[2018-07-10] MEDS: LORATADINE 10 MG TABLET PO SCH (08:43)
[2018-07-10] MEDS: ARIPiprazole 15 MG TABLET PO SCH (08:43)
[2018-07-10] MEDS: DIVALPROEX SODIUM 500 MG DR TABLET PO SCH ×2 (08:43→20:55)
[2018-07-10 09:15] LABS: ALANINE AMINOTRANSFERASE 19 U/L (12-78); ALBUMIN 3.4 g/dL (3.4-5.0); ALKALINE PHOSPHATASE 72 U/L (46-116); ANION GAP 7 mmol/L (8-16); ASPARTATE AMINOTRANSFERASE 11 U/L (15-37); BILIRUBIN,TOTAL 0.3 mg/dL (0.1-1.0); CALCIUM, TOTAL 9.1 mg/dL (8.8-10.5); CARBON DIOXIDE 30 mmol/L (22-29); CHLORIDE 106 mmol/L (98-107); GLOMERULAR FILTR. RATE CALC > 60 mL/min (>60); GLUCOSE,RANDOM 129 mg/dL (70-110); POTASSIUM 4.2 mmol/L (3.5-5.1); SODIUM SERUM 143 mmol/L (136-145); TOTAL PROTEIN, SERUM 6.9 g/dL (6.4-8.2); UREA NITROGEN, BLOOD 20 mg/dL (7-18)
[2018-07-10 09:25] VITALS: BP 145/71
[2018-07-10 16:00] VITALS: BP 134/83
[2018-07-10] MEDS: LORazepam 2 MG TABLET PO PRN (16:54)
[2018-07-10] MEDS: HALOPERIDOL 5 MG TABLET PO PRN (16:54)
[2018-07-10] MEDS: SIMVASTATIN 40 MG TABLET PO SCH (20:55)
[2018-07-10] MEDS: ZOLPIDEM TARTRATE 10 MG TABLET PO PRN (20:55)
[2018-07-11 05:37] VITALS: BP 128/81
[2018-07-11] MEDS: FERROUS SULFATE 325 MG EC TABLET PO SCH ×3 (06:56→16:20)
[2018-07-11] MEDS: DENTURE ADHESIVE 68 GM CREAM DT PRN (07:17)
[2018-07-11 08:07] VITALS: BP 135/79
[2018-07-11] MEDS: ASPIRIN 81 MG CHEWABLE TABLET PO SCH (08:07)
[2018-07-11] MEDS: LORazepam 2 MG TABLET PO PRN ×2 (08:07→16:21)
[2018-07-11] MEDS: ARIPiprazole 15 MG TABLET PO SCH (08:07)
[2018-07-11] MEDS: AmLODIPine BESYLATE 5 MG TABLET PO SCH (08:07)
[2018-07-11] MEDS: METOPROLOL SUCCINATE 25 MG ER TABLET PO SCH (08:07)
[2018-07-11] MEDS: LORATADINE 10 MG TABLET PO SCH (08:07)
[2018-07-11] MEDS: ENALAPRIL MALEATE 20 MG TABLET PO SCH (08:07)
[2018-07-11] MEDS: DIVALPROEX SODIUM 500 MG DR TABLET PO SCH (08:07)
[2018-07-11 16:02] VITALS: BP 137/90
[2018-07-11] MEDS: HALOPERIDOL 5 MG TABLET PO PRN (16:21)
[2018-07-11] MEDS: DIVALPROEX SODIUM 250 MG ER TABLET PO SCH (16:21)
[2018-07-11] MEDS: ZOLPIDEM TARTRATE 10 MG TABLET PO PRN (20:30)
[2018-07-11] MEDS: SIMVASTATIN 40 MG TABLET PO SCH (20:30)
[2018-07-12 04:44] VITALS: BP 136/82
[2018-07-12] MEDS: FERROUS SULFATE 325 MG EC TABLET PO SCH ×3 (06:22→17:03)
[2018-07-12] MEDS: DENTURE ADHESIVE 68 GM CREAM DT PRN (06:35)
[2018-07-12] MEDS: IBUPROFEN 400 MG TABLET PO PRN (06:36)
[2018-07-12] MEDS: ASPIRIN 81 MG CHEWABLE TABLET PO SCH (08:13)
[2018-07-12 08:16] VITALS: BP 133/68
[2018-07-12] MEDS: METOPROLOL SUCCINATE 25 MG ER TABLET PO SCH (08:17)
[2018-07-12] MEDS: DIVALPROEX SODIUM 250 MG ER TABLET PO SCH ×4 (08:17→17:03)
[2018-07-12] MEDS: LORATADINE 10 MG TABLET PO SCH (08:17)
[2018-07-12] MEDS: AmLODIPine BESYLATE 5 MG TABLET PO SCH (08:17)
[2018-07-12] MEDS: ARIPiprazole 15 MG TABLET PO SCH (08:17)
[2018-07-12] MEDS: ENALAPRIL MALEATE 20 MG TABLET PO SCH (08:20)
[2018-07-12 16:19] VITALS: BP 134/79
[2018-07-12] MEDS: HALOPERIDOL 5 MG TABLET PO PRN (17:04)
[2018-07-12] MEDS: LORazepam 2 MG TABLET PO PRN (17:04)
[2018-07-12] MEDS: SIMVASTATIN 40 MG TABLET PO SCH (20:59)
[2018-07-12] MEDS: ZOLPIDEM TARTRATE 10 MG TABLET PO PRN (21:00)
[2018-07-13 01:08] VITALS: BP 142/96
[2018-07-13] MEDS: LORazepam 2 MG TABLET PO PRN ×3 (01:14→16:55)
[2018-07-13] MEDS: IBUPROFEN 400 MG TABLET PO PRN (01:14)
[2018-07-13] MEDS: DENTURE ADHESIVE 68 GM CREAM DT PRN ×3 (05:41→12:28)
[2018-07-13] MEDS: FERROUS SULFATE 325 MG EC TABLET PO SCH ×3 (06:26→16:55)
[2018-07-13] MEDS: DIVALPROEX SODIUM 250 MG ER TABLET PO SCH ×4 (08:04→16:55)
[2018-07-13] MEDS: ARIPiprazole 15 MG TABLET PO SCH (08:04)
[2018-07-13] MEDS: ENALAPRIL MALEATE 20 MG TABLET PO SCH (08:05)
[2018-07-13] MEDS: LORATADINE 10 MG TABLET PO SCH (08:05)
[2018-07-13] MEDS: AmLODIPine BESYLATE 5 MG TABLET PO SCH (08:05)
[2018-07-13] MEDS: METOPROLOL SUCCINATE 25 MG ER TABLET PO SCH (08:05)
[2018-07-13] MEDS: ASPIRIN 81 MG CHEWABLE TABLET PO SCH (08:05)
[2018-07-13 08:10] VITALS: BP 142/72
[2018-07-13 16:49] VITALS: BP 124/60
[2018-07-13] MEDS: HALOPERIDOL 5 MG TABLET PO PRN (16:55)
[2018-07-13] MEDS: SIMVASTATIN 40 MG TABLET PO SCH (20:07)
[2018-07-13] MEDS: ZOLPIDEM TARTRATE 10 MG TABLET PO PRN (20:07)
[2018-07-14 01:02] VITALS: BP 122/72
[2018-07-14] MEDS: DENTURE ADHESIVE 68 GM CREAM DT PRN ×2 (01:25→12:22)
[2018-07-14] MEDS: HALOPERIDOL 5 MG TABLET PO PRN (01:25)
[2018-07-14] MEDS: LORazepam 2 MG TABLET PO PRN (01:25)
[2018-07-14] MEDS: FERROUS SULFATE 325 MG EC TABLET PO SCH ×2 (06:26→12:22)
[2018-07-14] MEDS: ARIPiprazole 15 MG TABLET PO SCH (08:40)
[2018-07-14] MEDS: LORATADINE 10 MG TABLET PO SCH (08:40)
[2018-07-14] MEDS: ENALAPRIL MALEATE 20 MG TABLET PO SCH (08:40)
[2018-07-14] MEDS: AmLODIPine BESYLATE 5 MG TABLET PO SCH (08:41)
[2018-07-14] MEDS: ASPIRIN 81 MG CHEWABLE TABLET PO SCH (08:44)
[2018-07-14 08:52] VITALS: BP 110/68
[2018-07-14] MEDS: DIVALPROEX SODIUM 250 MG ER TABLET PO SCH (09:56)
[2018-07-14] MEDS: METOPROLOL SUCCINATE 25 MG ER TABLET PO SCH (09:56)
[2018-07-14] MEDS ORDERED: DIVA250T45 PO (13:23)
[2018-07-14] MEDS ORDERED: ENAL20 PO (13:25)
== END 2018-07-14 16:05 | disposition home or self-care (01) | DRG 885 ==
LOC: EMS 10:24 → B3A 15:56 → UNDOADMIN 15:56 → B3A 07-06 16:11
PROVIDERS: ADMIT Psychiatry & Neurology Psychiatry; ATTEND Psychiatry & Neurology Psychiatry
DX: F25.0 Schizoaffective disorder, bipolar type (principal); D64.9 Anemia, unspecified; E11.9 Type 2 diabetes mellitus without complications; E78.00 Pure hypercholesterolemia, unspecified; E78.5 Hyperlipidemia, unspecified; F41.9 Anxiety disorder, unspecified; F10.10 Alcohol abuse, uncomplicated; R11.2 Nausea with vomiting, unspecified; G89.29 Other chronic pain; R25.2 Cramp and spasm; I10 Essential (primary) hypertension; M54.30 Sciatica, unspecified side; Z79.899 Other long term (current) drug therapy; Z91.19 Patient's noncompliance with other medical treatment and regimen; Z78.1 Physical restraint status
CPT/HCPCS: 83036; 84443; 96372; 99291; G0480; J1200; J1630; J2060; J2405; Q0162

== ENCOUNTER 2019-03-21 08:59 | Inpatient (IN) | payer OTHER, MEDICAID ==
[~2019-03-21] VITALS: Ht 172.7 cm; Wt 78.9 kg
[~2019-03-21 08:59] MED LIST changes: -AMLO-511 PO; +AMLO5TAB9 PO; -CIP250 PO; -DIVA-78 PO; +DIVA250T45 PO; -HYDR-4031 PO; -SILD25 PO
[2019-03-21] MEDS ORDERED: GABA-529 PO (09:53)
[2019-03-21 10:16] LABS: BASOPHILS % (AUTO) 0.7 % (0.0-2.0); EOSINOPHILS % (AUTO) 0.7 % (1.0-6.0); HEMATOCRIT 43.2 % (41-53); HEMOGLOBIN 14.6 g/dL (13.5-17.5); LYMPHOCYTES # (AUTO) 2.1 K/uL (1.0-4.8); LYMPHOCYTES % (AUTO) 14.7 % (22.0-44.0); MEAN CORPUSCULAR HEMOGLOBIN 29.4 pg (26.0-34.0); MEAN CORPUSCULAR HGB CONC 33.8 G/dL (31.0-37.0); MEAN CORPUSCULAR VOLUME 87 fL (80-100); MONOCYTES # (AUTO) 0.9 K/uL (0.1-1.0); MONOCYTES % (AUTO) 6.2 % (2.0-9.0); NEUTROPHILS # (AUTO) 10.9 K/uL (1.8-7.7); NEUTROPHILS % (AUTO) 77.7 % (40.0-70.0); PLATELET COUNT (AUTO) 297 K/uL (150-450); RED BLOOD CELL COUNT(AUTO) 4.96 MIL/uL (4.50-5.90)
[2019-03-21 10:19] LABS: ANION GAP 8 mmol/L (8-16); CALCIUM, TOTAL 9.4 mg/dL (8.8-10.5); CARBON DIOXIDE 25 mmol/L (22-29); CHLORIDE 104 mmol/L (98-107); CREATININE 0.87 mg/dL (0.60-1.30); GLOMERULAR FILTR. RATE CALC > 60 mL/min (>60); GLUCOSE,RANDOM 126 mg/dL (70-110); POTASSIUM 3.9 mmol/L (3.5-5.1); SODIUM SERUM 137 mmol/L (136-145); UREA NITROGEN, BLOOD 16 mg/dL (7-18)
[2019-03-21 10:24] LABS: GLUCOSE,POINT OF CARE 123 MG/DL (70-110)
[2019-03-21 10:25] LABS: ALANINE AMINOTRANSFERASE 30 U/L (12-78); ALKALINE PHOSPHATASE 113 U/L (46-116); ASPARTATE AMINOTRANSFERASE 10 U/L (15-37); BILIRUBIN,TOTAL 0.4 mg/dL (0.1-1.0); TOTAL PROTEIN, SERUM 7.6 g/dL (6.4-8.2); VALPROIC ACID < 3 mcg/mL (50-100)
[2019-03-21] MEDS: DiphenhydrAMINE HCL 25 MG CAPSULE PO ONE ×2 (12:39→12:45)
[2019-03-21] MEDS: HALOPERIDOL 5 MG TABLET PO ONE ×2 (12:40→12:45)
[2019-03-21 12:58] LABS: APPEARANCE,URINE CLEAR (CLEAR); BILIRUBIN,URINE NEGATIVE (NEGATIVE); GLUCOSE, URINE (UA) NEGATIVE (NEGATIVE); KETONES,URINE NEGATIVE (NEGATIVE); LEUKOCYTE ESTERASE ,URINE NEGATIVE (NEGATIVE); NITRATE,URINE NEGATIVE (NEGATIVE); OCCULT BLOOD,URINE NEGATIVE (NEGATIVE); PH,URINE 5.5 (5.0-8.0); UROBILINOGEN,URINE 0.2 mg/dL (<=1.0)
[2019-03-21 13:04] LABS: AMPHET/METH SCREEN,URINE NEGATIVE (NEGATIVE); BARBITURATE SCREEN, URINE NEGATIVE (NEGATIVE); BENZODIAZEPINES SCREEN,URINE NEGATIVE (NEGATIVE); CANNABINOID SCREEN,URINE NEGATIVE (NEGATIVE); COCAINE SCREEN,URINE NEGATIVE (NEGATIVE); METHADONE SCREEN, URINE NEGATIVE (NEGATIVE); OPIATE SCREEN,URINE NEGATIVE (NEGATIVE); PHENCYCLIDINE SCREEN,URINE NEGATIVE (NEGATIVE)
[2019-03-21 13:13] LABS: PROTEIN,URINE NEGATIVE (NEGATIVE)
[2019-03-21] MEDS ORDERED: MAGNESIUM HYDROXIDE SUSPENSION 30 ML UDCUP PO PRN (23:30)
[2019-03-21] MEDS ORDERED: GuaiFENesin/D-METHORPHAN [SUGAR-FREE] 200-20MG/10 ML SYRUP UDCUP PO PRN (23:30)
[2019-03-21] MEDS ORDERED: CloNIDine HCL 0.1 MG TABLET PO PRN (23:30)
[2019-03-21] MEDS ORDERED: ONDANSETRON HCL 4 MG TABLET PO PRN (23:30)
[2019-03-21] MEDS ORDERED: DOCUSATE SODIUM 100 MG CAPSULE PO PRN (23:30)
[2019-03-21] MEDS ORDERED: MAG HYDROX/AL HYDROX/SIMETH ES 30 ML SUSPENSION UDCUP PO PRN (23:30)
[2019-03-21] MEDS ORDERED: LOPERAMIDE HCL 2 MG CAPSULE PO PRN (23:30)
[2019-03-21] MEDS ORDERED: ALBUTEROL SULFATE HFA 90 MCG/PUFF 8 GM INHALER IH PRN (23:30)
[2019-03-21] MEDS ORDERED: NICOTINE 14 MG/24 HOUR PATCH TD PRN (23:30)
[2019-03-22] MEDS ORDERED: -PHARMACY VACCINE NOTE- MISC ONE (04:45)
[2019-03-22] MEDS ORDERED: INFLUENZA VIRUS VACCINE QVS 2019-20 (3YR+)/PF 60 MCG/0.5 ML SYRINGE IM ONE (04:45)
[2019-03-22] MEDS: FERROUS SULFATE 325 MG EC TABLET PO SCH ×3 (06:55→16:30)
[2019-03-22 07:04] VITALS: BP 151/83
[2019-03-22 07:43] LABS: BASOPHILS % (AUTO) 0.6 % (0.0-2.0); EOSINOPHILS % (AUTO) 3.4 % (1.0-6.0); HEMATOCRIT 39.9 % (41-53); HEMOGLOBIN 13.5 g/dL (13.5-17.5); LYMPHOCYTES # (AUTO) 2.4 K/uL (1.0-4.8); LYMPHOCYTES % (AUTO) 29.9 % (22.0-44.0); MEAN CORPUSCULAR HEMOGLOBIN 29.1 pg (26.0-34.0); MEAN CORPUSCULAR HGB CONC 33.7 G/dL (31.0-37.0); MEAN CORPUSCULAR VOLUME 86 fL (80-100); MONOCYTES # (AUTO) 0.8 K/uL (0.1-1.0); MONOCYTES % (AUTO) 9.6 % (2.0-9.0); NEUTROPHILS # (AUTO) 4.5 K/uL (1.8-7.7); NEUTROPHILS % (AUTO) 56.5 % (40.0-70.0); PLATELET COUNT (AUTO) 272 K/uL (150-450); RED BLOOD CELL COUNT(AUTO) 4.62 MIL/uL (4.50-5.90); RED CELL DISTRIBUTION WIDTH 14.5 % (11.5-14.5)
[2019-03-22 08:07] LABS: HEMOGLOBIN A1C 6.2 % (4.5-6.2)
[2019-03-22 08:10] VITALS: BP 154/95
[2019-03-22 08:12] LABS: ALANINE AMINOTRANSFERASE 25 U/L (12-78); ALBUMIN 3.5 g/dL (3.4-5.0); ALKALINE PHOSPHATASE 109 U/L (46-116); ANION GAP 8 mmol/L (8-16); ASPARTATE AMINOTRANSFERASE 14 U/L (15-37); BILIRUBIN,TOTAL 0.7 mg/dL (0.1-1.0); CARBON DIOXIDE 26 mmol/L (22-29); CHLORIDE 104 mmol/L (98-107); CHOL/HDL RATIO 4.4 (4.2-7.3); CHOLESTEROL 171 mg/dL (131-200); CREATININE 0.81 mg/dL (0.60-1.30); GLOMERULAR FILTR. RATE CALC > 60 mL/min (>60); GLUCOSE,RANDOM 109 mg/dL (70-110); HDL CHOLESTEROL 39 mg/dL (40-60); LDL CHOL (CALC.) 121 mg/dL (0-130); POTASSIUM 3.9 mmol/L (3.5-5.1); SODIUM SERUM 138 mmol/L (136-145); THYROID STIMULATING HORMONE 1.14 uIU/mL (0.36-3.74); TOTAL PROTEIN, SERUM 6.8 g/dL (6.4-8.2); TRIGLYCERIDES 55 mg/dL (15-150); UREA NITROGEN, BLOOD 15 mg/dL (7-18)
[2019-03-22] MEDS: ENALAPRIL MALEATE 20 MG TABLET PO SCH (08:17)
[2019-03-22] MEDS: AmLODIPine BESYLATE 5 MG TABLET PO SCH (08:17)
[2019-03-22] MEDS: ASPIRIN 81 MG CHEWABLE TABLET PO SCH (08:17)
[2019-03-22] MEDS: METOPROLOL SUCCINATE 25 MG ER TABLET PO SCH (08:17)
[2019-03-22] MEDS: IBUPROFEN 400 MG TABLET PO PRN (08:55)
[2019-03-22] MEDS: LORATADINE 10 MG TABLET PO SCH (09:00)
[2019-03-22 12:30] VITALS: BP 147/78
[2019-03-22 16:03] VITALS: BP 110/68
[2019-03-22] MEDS: DIVALPROEX SODIUM 500 MG ER TABLET PO SCH (16:30)
[2019-03-22] MEDS: SIMVASTATIN 40 MG TABLET PO SCH (20:36)
[2019-03-22] MEDS: ZOLPIDEM TARTRATE 10 MG TABLET PO PRN (21:12)
[2019-03-23 06:36] VITALS: BP 16/125
[2019-03-23] MEDS: FERROUS SULFATE 325 MG EC TABLET PO SCH ×3 (06:43→16:32)
[2019-03-23 07:44] LABS: BASOPHILS % (AUTO) 0.6 % (0.0-2.0); EOSINOPHILS % (AUTO) 2.9 % (1.0-6.0); HEMATOCRIT 41.5 % (41-53); HEMOGLOBIN 14.1 g/dL (13.5-17.5); LYMPHOCYTES # (AUTO) 2.8 K/uL (1.0-4.8); LYMPHOCYTES % (AUTO) 32.4 % (22.0-44.0); MEAN CORPUSCULAR HEMOGLOBIN 29.5 pg (26.0-34.0); MEAN CORPUSCULAR HGB CONC 34.1 G/dL (31.0-37.0); MEAN CORPUSCULAR VOLUME 87 fL (80-100); MONOCYTES # (AUTO) 0.7 K/uL (0.1-1.0); MONOCYTES % (AUTO) 8.6 % (2.0-9.0); NEUTROPHILS # (AUTO) 4.8 K/uL (1.8-7.7); NEUTROPHILS % (AUTO) 55.5 % (40.0-70.0); PLATELET COUNT (AUTO) 309 K/uL (150-450); RED BLOOD CELL COUNT(AUTO) 4.78 MIL/uL (4.50-5.90); RED CELL DISTRIBUTION WIDTH 14.1 % (11.5-14.5)
[2019-03-23] MEDS: ARIPiprazole 15 MG TABLET PO SCH (08:24)
[2019-03-23] MEDS: METOPROLOL SUCCINATE 25 MG ER TABLET PO SCH (08:25)
[2019-03-23] MEDS: AmLODIPine BESYLATE 5 MG TABLET PO SCH (08:25)
[2019-03-23] MEDS: ASPIRIN 81 MG CHEWABLE TABLET PO SCH (08:25)
[2019-03-23] MEDS: DIVALPROEX SODIUM 500 MG ER TABLET PO SCH ×2 (08:25→16:32)
[2019-03-23] MEDS: LORATADINE 10 MG TABLET PO SCH (08:25)
[2019-03-23] MEDS: ENALAPRIL MALEATE 20 MG TABLET PO SCH (08:25)
[2019-03-23 08:44] VITALS: BP 130/82
[2019-03-23] MEDS: DENTURE ADHESIVE 68 GM CREAM DT PRN (12:36)
[2019-03-23 16:04] VITALS: BP 136/60
[2019-03-23] MEDS: SIMVASTATIN 40 MG TABLET PO SCH (20:33)
[2019-03-24 01:05] VITALS: BP 145/85
[2019-03-24] MEDS: ZOLPIDEM TARTRATE 10 MG TABLET PO PRN ×2 (01:07→23:58)
[2019-03-24] MEDS: FERROUS SULFATE 325 MG EC TABLET PO SCH ×3 (06:53→16:19)
[2019-03-24 08:10] VITALS: BP 157/78
[2019-03-24] MEDS: ARIPiprazole 15 MG TABLET PO SCH (08:51)
[2019-03-24] MEDS: ENALAPRIL MALEATE 20 MG TABLET PO SCH (08:51)
[2019-03-24] MEDS: METOPROLOL SUCCINATE 25 MG ER TABLET PO SCH (08:51)
[2019-03-24] MEDS: ASPIRIN 81 MG CHEWABLE TABLET PO SCH (08:51)
[2019-03-24] MEDS: DIVALPROEX SODIUM 500 MG ER TABLET PO SCH ×2 (08:51→16:19)
[2019-03-24] MEDS: AmLODIPine BESYLATE 5 MG TABLET PO SCH (08:51)
[2019-03-24] MEDS: LORATADINE 10 MG TABLET PO SCH (10:51)
[2019-03-24] MEDS: LORazepam 2 MG TABLET PO PRN (14:11)
[2019-03-24 16:19] VITALS: BP 136/88
[2019-03-24] MEDS: ACETAMINOPHEN 325 MG TABLET PO PRN (16:19)
[2019-03-24] MEDS: DENTURE ADHESIVE 68 GM CREAM DT PRN (16:19)
[2019-03-24 16:49] VITALS: BP 136/88
[2019-03-24] MEDS: IBUPROFEN 400 MG TABLET PO PRN (19:02)
[2019-03-24] MEDS: SIMVASTATIN 40 MG TABLET PO SCH (20:25)
[2019-03-25 00:29] VITALS: BP 154/74
[2019-03-25] MEDS: FERROUS SULFATE 325 MG EC TABLET PO SCH ×3 (06:50→16:35)
[2019-03-25 08:15] VITALS: BP 127/72
[2019-03-25] MEDS: DIVALPROEX SODIUM 500 MG ER TABLET PO SCH ×2 (08:19→16:35)
[2019-03-25] MEDS: ENALAPRIL MALEATE 20 MG TABLET PO SCH (08:19)
[2019-03-25] MEDS: ASPIRIN 81 MG CHEWABLE TABLET PO SCH (08:19)
[2019-03-25] MEDS: METOPROLOL SUCCINATE 25 MG ER TABLET PO SCH (08:19)
[2019-03-25] MEDS: LORATADINE 10 MG TABLET PO SCH (08:19)
[2019-03-25] MEDS: ARIPiprazole 15 MG TABLET PO SCH (08:20)
[2019-03-25] MEDS: AmLODIPine BESYLATE 5 MG TABLET PO SCH (08:20)
[2019-03-25 11:19] VITALS: BP 145/70
[2019-03-25] MEDS: IBUPROFEN 400 MG TABLET PO PRN ×2 (11:19→19:55)
[2019-03-25 16:04] VITALS: BP 119/80
[2019-03-25] MEDS: ACETAMINOPHEN 325 MG TABLET PO PRN (16:04)
[2019-03-25 19:52] VITALS: BP 142/72
[2019-03-25] MEDS: SIMVASTATIN 40 MG TABLET PO SCH (20:55)
[2019-03-25] MEDS: DENTURE ADHESIVE 68 GM CREAM DT PRN (21:06)
[2019-03-25] MEDS: ZOLPIDEM TARTRATE 10 MG TABLET PO PRN (22:37)
[2019-03-26] MEDS: FERROUS SULFATE 325 MG EC TABLET PO SCH ×3 (06:19→16:37)
[2019-03-26 06:40] VITALS: BP 138/79
[2019-03-26 08:18] VITALS: BP 131/70
[2019-03-26] MEDS: LORATADINE 10 MG TABLET PO SCH (08:27)
[2019-03-26] MEDS: ENALAPRIL MALEATE 20 MG TABLET PO SCH (08:27)
[2019-03-26] MEDS: ASPIRIN 81 MG CHEWABLE TABLET PO SCH (08:27)
[2019-03-26] MEDS: METOPROLOL SUCCINATE 25 MG ER TABLET PO SCH (08:27)
[2019-03-26] MEDS: DIVALPROEX SODIUM 500 MG ER TABLET PO SCH ×2 (08:27→16:37)
[2019-03-26] MEDS: AmLODIPine BESYLATE 5 MG TABLET PO SCH (08:28)
[2019-03-26] MEDS: ARIPiprazole 15 MG TABLET PO SCH (08:28)
[2019-03-26 16:24] VITALS: BP 148/75
[2019-03-26] MEDS: IBUPROFEN 400 MG TABLET PO PRN (16:37)
[2019-03-26] MEDS: ACETAMINOPHEN 325 MG TABLET PO PRN (19:03)
[2019-03-26] MEDS: SIMVASTATIN 40 MG TABLET PO SCH (20:15)
[2019-03-26] MEDS: DENTURE ADHESIVE 68 GM CREAM DT PRN (20:16)
[2019-03-27 00:35] VITALS: BP 150/88
[2019-03-27] MEDS: IBUPROFEN 400 MG TABLET PO PRN (00:41)
[2019-03-27] MEDS: FERROUS SULFATE 325 MG EC TABLET PO SCH ×3 (06:54→17:10)
[2019-03-27] MEDS: LORATADINE 10 MG TABLET PO SCH (08:04)
[2019-03-27] MEDS: METOPROLOL SUCCINATE 25 MG ER TABLET PO SCH (08:04)
[2019-03-27] MEDS: ENALAPRIL MALEATE 20 MG TABLET PO SCH (08:04)
[2019-03-27] MEDS: AmLODIPine BESYLATE 5 MG TABLET PO SCH (08:04)
[2019-03-27] MEDS: DIVALPROEX SODIUM 500 MG ER TABLET PO SCH ×2 (08:04→17:10)
[2019-03-27] MEDS: ARIPiprazole 15 MG TABLET PO SCH (08:04)
[2019-03-27] MEDS: ASPIRIN 81 MG CHEWABLE TABLET PO SCH (08:04)
[2019-03-27 08:08] VITALS: BP 137/97
[2019-03-27 16:20] VITALS: BP 145/75
[2019-03-27] MEDS: SIMVASTATIN 40 MG TABLET PO SCH (20:11)
[2019-03-27] MEDS: ZOLPIDEM TARTRATE 10 MG TABLET PO PRN (21:06)
[2019-03-28 01:09] VITALS: BP 150/76
[2019-03-28] MEDS: FERROUS SULFATE 325 MG EC TABLET PO SCH ×3 (06:54→16:11)
[2019-03-28 08:23] VITALS: BP 132/73
[2019-03-28] MEDS: ARIPiprazole 15 MG TABLET PO SCH (08:55)
[2019-03-28] MEDS: METOPROLOL SUCCINATE 25 MG ER TABLET PO SCH (08:56)
[2019-03-28] MEDS: ASPIRIN 81 MG CHEWABLE TABLET PO SCH (08:56)
[2019-03-28] MEDS: DIVALPROEX SODIUM 500 MG ER TABLET PO SCH ×2 (08:56→16:11)
[2019-03-28] MEDS: LORATADINE 10 MG TABLET PO SCH (08:57)
[2019-03-28] MEDS: ENALAPRIL MALEATE 20 MG TABLET PO SCH (09:51)
[2019-03-28] MEDS: AmLODIPine BESYLATE 5 MG TABLET PO SCH (09:51)
[2019-03-28] MEDS: ACETAMINOPHEN 325 MG TABLET PO PRN (12:17)
[2019-03-28 16:06] VITALS: BP 124/62
[2019-03-28 16:11] VITALS: BP 124/62
[2019-03-28] MEDS: IBUPROFEN 400 MG TABLET PO PRN (16:11)
[2019-03-28] MEDS: SIMVASTATIN 40 MG TABLET PO SCH (20:56)
[2019-03-28] MEDS: ZOLPIDEM TARTRATE 10 MG TABLET PO PRN (22:03)
[2019-03-29 05:17] VITALS: BP 140/93
[2019-03-29] MEDS: FERROUS SULFATE 325 MG EC TABLET PO SCH ×3 (07:10→16:36)
[2019-03-29 08:41] VITALS: BP 137/77
[2019-03-29] MEDS: AmLODIPine BESYLATE 5 MG TABLET PO SCH (08:44)
[2019-03-29] MEDS: ENALAPRIL MALEATE 20 MG TABLET PO SCH (08:44)
[2019-03-29] MEDS: ASPIRIN 81 MG CHEWABLE TABLET PO SCH (08:44)
[2019-03-29] MEDS: ARIPiprazole 15 MG TABLET PO SCH (08:44)
[2019-03-29] MEDS: METOPROLOL SUCCINATE 25 MG ER TABLET PO SCH (08:44)
[2019-03-29] MEDS: DIVALPROEX SODIUM 500 MG ER TABLET PO SCH ×2 (08:44→16:36)
[2019-03-29] MEDS: LORATADINE 10 MG TABLET PO SCH (08:44)
[2019-03-29] MEDS: ACETAMINOPHEN 325 MG TABLET PO PRN (13:45)
[2019-03-29] MEDS: IBUPROFEN 400 MG TABLET PO PRN (14:56)
[2019-03-29] MEDS: LORazepam 2 MG TABLET PO PRN (14:56)
[2019-03-29 16:01] VITALS: BP 122/65
[2019-03-29] MEDS: SIMVASTATIN 40 MG TABLET PO SCH (20:45)
[2019-03-30 02:34] VITALS: BP 137/92
[2019-03-30] MEDS: FERROUS SULFATE 325 MG EC TABLET PO SCH ×3 (07:07→16:45)
[2019-03-30 08:13] VITALS: BP 160/74
[2019-03-30] MEDS: DIVALPROEX SODIUM 500 MG ER TABLET PO SCH ×2 (09:53→16:45)
[2019-03-30] MEDS: LORATADINE 10 MG TABLET PO SCH (09:53)
[2019-03-30] MEDS: ARIPiprazole 15 MG TABLET PO SCH (09:53)
[2019-03-30] MEDS: AmLODIPine BESYLATE 5 MG TABLET PO SCH (09:53)
[2019-03-30] MEDS: METOPROLOL SUCCINATE 25 MG ER TABLET PO SCH (09:53)
[2019-03-30] MEDS: ENALAPRIL MALEATE 20 MG TABLET PO SCH (09:53)
[2019-03-30] MEDS: ASPIRIN 81 MG CHEWABLE TABLET PO SCH (09:53)
[2019-03-30] MEDS ORDERED: TUBERCULIN, PURIFIED PROTEIN DERIVATIVE 5 TU/0.1 ML SYRINGE ID ONE (11:15)
[2019-03-30] MEDS: ACETAMINOPHEN 325 MG TABLET PO PRN ×2 (13:32→23:04)
[2019-03-30] MEDS: IBUPROFEN 400 MG TABLET PO PRN (14:39)
[2019-03-30 16:10] VITALS: BP 140/63
[2019-03-30] MEDS: SIMVASTATIN 40 MG TABLET PO SCH (20:44)
[2019-03-31 01:04] VITALS: BP 114/77
[2019-03-31] MEDS: FERROUS SULFATE 325 MG EC TABLET PO SCH ×3 (06:53→16:08)
[2019-03-31] MEDS: LORATADINE 10 MG TABLET PO SCH (08:05)
[2019-03-31] MEDS: DIVALPROEX SODIUM 500 MG ER TABLET PO SCH ×2 (08:06→16:08)
[2019-03-31] MEDS: METOPROLOL SUCCINATE 25 MG ER TABLET PO SCH (08:06)
[2019-03-31] MEDS: ASPIRIN 81 MG CHEWABLE TABLET PO SCH (08:06)
[2019-03-31] MEDS: ENALAPRIL MALEATE 20 MG TABLET PO SCH (08:06)
[2019-03-31] MEDS: AmLODIPine BESYLATE 5 MG TABLET PO SCH (08:06)
[2019-03-31] MEDS: ARIPiprazole 15 MG TABLET PO SCH (08:12)
[2019-03-31 08:24] VITALS: BP 139/71
[2019-03-31 16:22] VITALS: BP 126/67
[2019-03-31] MEDS: SIMVASTATIN 40 MG TABLET PO SCH (20:05)
[2019-04-01 00:08] VITALS: BP 145/97
[2019-04-01] MEDS: FERROUS SULFATE 325 MG EC TABLET PO SCH ×3 (06:44→16:18)
[2019-04-01] MEDS: ARIPiprazole 15 MG TABLET PO SCH (08:09)
[2019-04-01] MEDS: LORATADINE 10 MG TABLET PO SCH (08:10)
[2019-04-01] MEDS: AmLODIPine BESYLATE 5 MG TABLET PO SCH (08:10)
[2019-04-01] MEDS: DIVALPROEX SODIUM 500 MG ER TABLET PO SCH ×2 (08:10→16:18)
[2019-04-01] MEDS: ENALAPRIL MALEATE 20 MG TABLET PO SCH (08:10)
[2019-04-01] MEDS: ASPIRIN 81 MG CHEWABLE TABLET PO SCH (08:10)
[2019-04-01] MEDS: METOPROLOL SUCCINATE 25 MG ER TABLET PO SCH (08:10)
[2019-04-01 08:17] VITALS: BP 143/85
[2019-04-01 16:04] VITALS: BP 140/75
[2019-04-01] MEDS: SIMVASTATIN 40 MG TABLET PO SCH (20:25)
[2019-04-02 01:30] VITALS: BP 138/82
[2019-04-02] MEDS: FERROUS SULFATE 325 MG EC TABLET PO SCH ×3 (06:51→16:18)
[2019-04-02] MEDS: ENALAPRIL MALEATE 20 MG TABLET PO SCH (08:24)
[2019-04-02] MEDS: METOPROLOL SUCCINATE 25 MG ER TABLET PO SCH (08:24)
[2019-04-02] MEDS: ARIPiprazole 15 MG TABLET PO SCH (08:24)
[2019-04-02] MEDS: AmLODIPine BESYLATE 5 MG TABLET PO SCH (08:24)
[2019-04-02] MEDS: DIVALPROEX SODIUM 500 MG ER TABLET PO SCH ×2 (08:25→16:18)
[2019-04-02] MEDS: LORATADINE 10 MG TABLET PO SCH (08:25)
[2019-04-02] MEDS: ASPIRIN 81 MG CHEWABLE TABLET PO SCH (08:25)
[2019-04-02 08:41] VITALS: BP 148/81
[2019-04-02 16:05] VITALS: BP 133/84
[2019-04-02] MEDS: DENTURE ADHESIVE 68 GM CREAM DT PRN (16:20)
[2019-04-02] MEDS: ACETAMINOPHEN 325 MG TABLET PO PRN (17:37)
[2019-04-02] MEDS: SIMVASTATIN 40 MG TABLET PO SCH (20:26)
[2019-04-03 00:03] VITALS: BP 137/82
[2019-04-03] MEDS: FERROUS SULFATE 325 MG EC TABLET PO SCH ×3 (06:55→16:55)
[2019-04-03 08:12] VITALS: BP 109/92
[2019-04-03] MEDS: METOPROLOL SUCCINATE 25 MG ER TABLET PO SCH (08:34)
[2019-04-03] MEDS: ARIPiprazole 15 MG TABLET PO SCH (08:34)
[2019-04-03] MEDS: ASPIRIN 81 MG CHEWABLE TABLET PO SCH (08:34)
[2019-04-03] MEDS: DIVALPROEX SODIUM 500 MG ER TABLET PO SCH ×2 (08:34→16:55)
[2019-04-03] MEDS: LORATADINE 10 MG TABLET PO SCH (08:35)
[2019-04-03] MEDS: AmLODIPine BESYLATE 5 MG TABLET PO SCH (08:36)
[2019-04-03] MEDS: ENALAPRIL MALEATE 20 MG TABLET PO SCH (10:00)
[2019-04-03 18:00] VITALS: BP 140/85
[2019-04-03] MEDS: SIMVASTATIN 40 MG TABLET PO SCH (21:47)
[2019-04-04 00:52] VITALS: BP 140/72
[2019-04-04] MEDS: FERROUS SULFATE 325 MG EC TABLET PO SCH ×3 (06:18→16:15)
[2019-04-04] MEDS: METOPROLOL SUCCINATE 25 MG ER TABLET PO SCH (08:23)
[2019-04-04] MEDS: AmLODIPine BESYLATE 5 MG TABLET PO SCH (08:24)
[2019-04-04] MEDS: DIVALPROEX SODIUM 500 MG ER TABLET PO SCH ×2 (08:24→16:15)
[2019-04-04] MEDS: ARIPiprazole 15 MG TABLET PO SCH (08:24)
[2019-04-04] MEDS: ENALAPRIL MALEATE 20 MG TABLET PO SCH (08:24)
[2019-04-04] MEDS: ASPIRIN 81 MG CHEWABLE TABLET PO SCH (08:24)
[2019-04-04] MEDS: LORATADINE 10 MG TABLET PO SCH (09:30)
[2019-04-04 10:01] VITALS: BP 160/73
[2019-04-04 11:02] VITALS: BP 150/78
[2019-04-04] MEDS ORDERED: AmLODIPine BESYLATE 5 MG TABLET PO ONE (11:15)
[2019-04-04 12:42] VITALS: BP 139/76
[2019-04-04] MEDS: HALOPERIDOL 5 MG TABLET PO PRN (13:15)
[2019-04-04] MEDS: LORazepam 2 MG TABLET PO PRN (13:15)
[2019-04-04 16:16] VITALS: BP 160/85
[2019-04-04] MEDS: SIMVASTATIN 40 MG TABLET PO SCH (20:04)
[2019-04-04 20:43] VITALS: BP 151/82
[2019-04-05] MEDS: DENTURE ADHESIVE 68 GM CREAM DT PRN (00:45)
[2019-04-05] MEDS: ZOLPIDEM TARTRATE 10 MG TABLET PO PRN (00:54)
[2019-04-05 00:59] VITALS: BP 141/87
[2019-04-05] MEDS: FERROUS SULFATE 325 MG EC TABLET PO SCH ×3 (06:59→19:36)
[2019-04-05] MEDS: ARIPiprazole 15 MG TABLET PO SCH (08:01)
[2019-04-05] MEDS: METOPROLOL SUCCINATE 25 MG ER TABLET PO SCH (08:02)
[2019-04-05] MEDS: LORATADINE 10 MG TABLET PO SCH (08:02)
[2019-04-05] MEDS: AmLODIPine BESYLATE 10 MG TABLET PO SCH (08:02)
[2019-04-05] MEDS: ENALAPRIL MALEATE 20 MG TABLET PO SCH (08:02)
[2019-04-05] MEDS: DIVALPROEX SODIUM 500 MG ER TABLET PO SCH ×2 (08:02→19:36)
[2019-04-05] MEDS: ASPIRIN 81 MG CHEWABLE TABLET PO SCH (08:03)
[2019-04-05 08:51] VITALS: BP 135/65
[2019-04-05] MEDS: LORazepam 2 MG TABLET PO PRN (12:18)
[2019-04-05 14:43] LABS: GLUCOMETER DEV NAME(LOC) BV2S.; GLUCOSE,POINT OF CARE 161 MG/DL (70-110)
[2019-04-05] MEDS: SIMVASTATIN 40 MG TABLET PO SCH (20:00)
[2019-04-06] MEDS: ZOLPIDEM TARTRATE 10 MG TABLET PO PRN (00:13)
[2019-04-06 00:16] VITALS: BP 132/84
[2019-04-06] MEDS: HALOPERIDOL 5 MG TABLET PO PRN ×2 (00:58→08:32)
[2019-04-06] MEDS: FERROUS SULFATE 325 MG EC TABLET PO SCH ×3 (07:20→16:03)
[2019-04-06] MEDS: ARIPiprazole 15 MG TABLET PO SCH (08:31)
[2019-04-06] MEDS: ASPIRIN 81 MG CHEWABLE TABLET PO SCH (08:31)
[2019-04-06] MEDS: AmLODIPine BESYLATE 10 MG TABLET PO SCH (08:31)
[2019-04-06] MEDS: METOPROLOL SUCCINATE 25 MG ER TABLET PO SCH (08:31)
[2019-04-06] MEDS: LORATADINE 10 MG TABLET PO SCH (08:32)
[2019-04-06] MEDS: ENALAPRIL MALEATE 20 MG TABLET PO SCH (08:32)
[2019-04-06] MEDS: DIVALPROEX SODIUM 500 MG ER TABLET PO SCH ×2 (08:32→16:03)
[2019-04-06 08:46] VITALS: BP 148/85
[2019-04-06] MEDS: LORazepam 2 MG TABLET PO PRN ×2 (09:39→20:39)
[2019-04-06 16:02] VITALS: BP 122/68
[2019-04-06] MEDS: SIMVASTATIN 40 MG TABLET PO SCH (20:10)
[2019-04-07 05:38] VITALS: BP 140/76
[2019-04-07] MEDS: FERROUS SULFATE 325 MG EC TABLET PO SCH ×3 (06:56→16:52)
[2019-04-07] MEDS: ARIPiprazole 15 MG TABLET PO SCH (08:23)
[2019-04-07] MEDS: AmLODIPine BESYLATE 10 MG TABLET PO SCH (08:24)
[2019-04-07] MEDS: ASPIRIN 81 MG CHEWABLE TABLET PO SCH (08:24)
[2019-04-07] MEDS: LORATADINE 10 MG TABLET PO SCH (08:24)
[2019-04-07] MEDS: METOPROLOL SUCCINATE 25 MG ER TABLET PO SCH (08:24)
[2019-04-07] MEDS: ENALAPRIL MALEATE 20 MG TABLET PO SCH (08:25)
[2019-04-07] MEDS: DIVALPROEX SODIUM 500 MG ER TABLET PO SCH ×2 (08:27→16:52)
[2019-04-07 08:39] VITALS: BP 146/79
[2019-04-07 16:05] VITALS: BP 128/67
[2019-04-07] MEDS: SIMVASTATIN 40 MG TABLET PO SCH (20:21)
[2019-04-07] MEDS: ZOLPIDEM TARTRATE 10 MG TABLET PO PRN (21:07)
[2019-04-07] MEDS: DENTURE ADHESIVE 68 GM CREAM DT PRN (21:21)
[2019-04-08 00:21] VITALS: BP 128/80
[2019-04-08] MEDS: FERROUS SULFATE 325 MG EC TABLET PO SCH ×3 (06:08→17:11)
[2019-04-08] MEDS: DENTURE ADHESIVE 68 GM CREAM DT PRN (06:09)
[2019-04-08] MEDS: AmLODIPine BESYLATE 10 MG TABLET PO SCH (08:06)
[2019-04-08] MEDS: METOPROLOL SUCCINATE 25 MG ER TABLET PO SCH (08:06)
[2019-04-08] MEDS: ENALAPRIL MALEATE 20 MG TABLET PO SCH (08:06)
[2019-04-08] MEDS: ARIPiprazole 15 MG TABLET PO SCH (08:06)
[2019-04-08] MEDS: LORATADINE 10 MG TABLET PO SCH (08:06)
[2019-04-08] MEDS: DIVALPROEX SODIUM 500 MG ER TABLET PO SCH ×2 (08:06→17:11)
[2019-04-08] MEDS: ASPIRIN 81 MG CHEWABLE TABLET PO SCH (08:06)
[2019-04-08 08:20] VITALS: BP 167/102
[2019-04-08] MEDS ORDERED: TUBERCULIN, PURIFIED PROTEIN DERIVATIVE 5 TU/0.1 ML SYRINGE ID ONE (13:30)
[2019-04-08 14:00] VITALS: BP 137/96
[2019-04-08 16:18] VITALS: BP 147/94
[2019-04-08] MEDS: SIMVASTATIN 40 MG TABLET PO SCH (20:05)
[2019-04-08 21:04] VITALS: BP 134/74
[2019-04-08] MEDS: ZOLPIDEM TARTRATE 10 MG TABLET PO PRN (21:44)
[2019-04-09 00:10] VITALS: BP 142/84
[2019-04-09] MEDS: FERROUS SULFATE 325 MG EC TABLET PO SCH ×3 (06:58→16:20)
[2019-04-09 07:47] LABS: APPEARANCE,URINE CLEAR (CLEAR); BILIRUBIN,URINE NEGATIVE (NEGATIVE); GLUCOSE, URINE (UA) NEGATIVE (NEGATIVE); KETONES,URINE NEGATIVE (NEGATIVE); LEUKOCYTE ESTERASE ,URINE NEGATIVE (NEGATIVE); NITRATE,URINE NEGATIVE (NEGATIVE); OCCULT BLOOD,URINE NEGATIVE (NEGATIVE); PH,URINE 7.5 (5.0-8.0); PROTEIN,URINE NEGATIVE (NEGATIVE); UROBILINOGEN,URINE 0.2 mg/dL (<=1.0)
[2019-04-09] MEDS: METOPROLOL SUCCINATE 25 MG ER TABLET PO SCH (08:02)
[2019-04-09] MEDS: ENALAPRIL MALEATE 20 MG TABLET PO SCH (08:02)
[2019-04-09] MEDS: AmLODIPine BESYLATE 10 MG TABLET PO SCH (08:02)
[2019-04-09] MEDS: ASPIRIN 81 MG CHEWABLE TABLET PO SCH (08:02)
[2019-04-09] MEDS: DIVALPROEX SODIUM 500 MG ER TABLET PO SCH ×2 (08:02→16:20)
[2019-04-09] MEDS: LORATADINE 10 MG TABLET PO SCH (08:02)
[2019-04-09] MEDS: ARIPiprazole 15 MG TABLET PO SCH (08:02)
[2019-04-09 08:09] VITALS: BP 140/75
[2019-04-09] MEDS ORDERED: PredniSONE 10 MG TABLET PO ONE (09:15)
[2019-04-09] MEDS ORDERED: DiphenhydrAMINE HCL 25 MG CAPSULE PO ONE (09:15)
[2019-04-09] MEDS ORDERED: FAMOTIDINE 20 MG TABLET PO ONE (09:15)
[2019-04-09] MEDS: LORazepam 2 MG TABLET PO PRN ×2 (13:56→18:37)
[2019-04-09 16:08] VITALS: BP 138/76
[2019-04-09] MEDS: DENTURE ADHESIVE 68 GM CREAM DT PRN (17:21)
[2019-04-09] MEDS: SIMVASTATIN 40 MG TABLET PO SCH (20:12)
[2019-04-09] MEDS: ZOLPIDEM TARTRATE 10 MG TABLET PO PRN (20:47)
[2019-04-10 00:42] VITALS: BP 136/75
[2019-04-10] MEDS: FERROUS SULFATE 325 MG EC TABLET PO SCH ×3 (07:10→17:10)
[2019-04-10] MEDS: ASPIRIN 81 MG CHEWABLE TABLET PO SCH (08:07)
[2019-04-10] MEDS: LORATADINE 10 MG TABLET PO SCH (08:07)
[2019-04-10] MEDS: ARIPiprazole 15 MG TABLET PO SCH (08:07)
[2019-04-10] MEDS: ENALAPRIL MALEATE 20 MG TABLET PO SCH (08:07)
[2019-04-10] MEDS: METOPROLOL SUCCINATE 25 MG ER TABLET PO SCH (08:07)
[2019-04-10] MEDS: AmLODIPine BESYLATE 10 MG TABLET PO SCH (08:07)
[2019-04-10] MEDS: DIVALPROEX SODIUM 500 MG ER TABLET PO SCH ×2 (08:07→17:10)
[2019-04-10 08:52] VITALS: BP 160/75
[2019-04-10] MEDS: PETROLATUM,WHITE 28 GM JELLY TP PRN (09:39)
[2019-04-10] MEDS: LORazepam 2 MG TABLET PO PRN (10:58)
[2019-04-10] MEDS: DENTURE ADHESIVE 68 GM CREAM DT PRN (13:04)
[2019-04-10 16:05] VITALS: BP 138/72
[2019-04-10] MEDS: ZOLPIDEM TARTRATE 10 MG TABLET PO PRN (20:36)
[2019-04-10] MEDS: SIMVASTATIN 40 MG TABLET PO SCH (20:36)
[2019-04-11 01:02] VITALS: BP 138/79
[2019-04-11] MEDS: FERROUS SULFATE 325 MG EC TABLET PO SCH ×3 (06:43→17:00)
[2019-04-11] MEDS: METOPROLOL SUCCINATE 25 MG ER TABLET PO SCH (08:10)
[2019-04-11] MEDS: DIVALPROEX SODIUM 500 MG ER TABLET PO SCH ×2 (08:10→17:00)
[2019-04-11] MEDS: AmLODIPine BESYLATE 10 MG TABLET PO SCH (08:10)
[2019-04-11] MEDS: ENALAPRIL MALEATE 20 MG TABLET PO SCH (08:10)
[2019-04-11] MEDS: ARIPiprazole 15 MG TABLET PO SCH (08:10)
[2019-04-11] MEDS: LORATADINE 10 MG TABLET PO SCH (08:10)
[2019-04-11] MEDS: ASPIRIN 81 MG CHEWABLE TABLET PO SCH (08:10)
[2019-04-11] MEDS: LORazepam 2 MG TABLET PO PRN (08:10)
[2019-04-11 08:16] VITALS: BP 140/65
[2019-04-11] MEDS: DENTURE ADHESIVE 68 GM CREAM DT PRN (17:01)
[2019-04-11 17:57] VITALS: BP 137/81
[2019-04-11] MEDS: SIMVASTATIN 40 MG TABLET PO SCH (20:12)
[2019-04-12] MEDS: DENTURE ADHESIVE 68 GM CREAM DT PRN (00:04)
[2019-04-12] MEDS: HALOPERIDOL 5 MG TABLET PO PRN (01:03)
[2019-04-12] MEDS: LORazepam 2 MG TABLET PO PRN (05:16)
[2019-04-12] MEDS: FERROUS SULFATE 325 MG EC TABLET PO SCH ×3 (07:08→16:43)
[2019-04-12] MEDS: ENALAPRIL MALEATE 20 MG TABLET PO SCH (08:12)
[2019-04-12] MEDS: ASPIRIN 81 MG CHEWABLE TABLET PO SCH (08:13)
[2019-04-12] MEDS: AmLODIPine BESYLATE 10 MG TABLET PO SCH (08:13)
[2019-04-12] MEDS: LORATADINE 10 MG TABLET PO SCH (08:13)
[2019-04-12] MEDS: METOPROLOL SUCCINATE 25 MG ER TABLET PO SCH (08:13)
[2019-04-12] MEDS: ARIPiprazole 15 MG TABLET PO SCH (08:13)
[2019-04-12] MEDS: DIVALPROEX SODIUM 500 MG ER TABLET PO SCH ×2 (08:13→16:43)
[2019-04-12 08:39] VITALS: BP_SYST 128; BP_SYST 157; BP_DIAS 77
[2019-04-12 16:05] VITALS: BP 120/53
[2019-04-12] MEDS: SIMVASTATIN 40 MG TABLET PO SCH (20:03)
[2019-04-12] MEDS: ZOLPIDEM TARTRATE 10 MG TABLET PO PRN (21:27)
[2019-04-13] MEDS: DENTURE ADHESIVE 68 GM CREAM DT PRN ×2 (03:24→18:32)
[2019-04-13] MEDS: LORazepam 2 MG TABLET PO PRN (04:06)
[2019-04-13 06:16] VITALS: BP 144/93
[2019-04-13] MEDS: FERROUS SULFATE 325 MG EC TABLET PO SCH ×3 (06:51→17:27)
[2019-04-13 08:22] VITALS: BP 142/77
[2019-04-13] MEDS: METOPROLOL SUCCINATE 25 MG ER TABLET PO SCH (08:30)
[2019-04-13] MEDS: ARIPiprazole 15 MG TABLET PO SCH (08:30)
[2019-04-13] MEDS: ENALAPRIL MALEATE 20 MG TABLET PO SCH (08:30)
[2019-04-13] MEDS: ASPIRIN 81 MG CHEWABLE TABLET PO SCH (08:30)
[2019-04-13] MEDS: DIVALPROEX SODIUM 500 MG ER TABLET PO SCH ×2 (08:30→17:27)
[2019-04-13] MEDS: LORATADINE 10 MG TABLET PO SCH (08:31)
[2019-04-13] MEDS: AmLODIPine BESYLATE 10 MG TABLET PO SCH (08:35)
[2019-04-13 16:27] VITALS: BP 130/71
[2019-04-13] MEDS: PETROLATUM,WHITE 28 GM JELLY TP PRN (19:57)
[2019-04-13] MEDS: ZOLPIDEM TARTRATE 10 MG TABLET PO PRN (20:38)
[2019-04-13] MEDS: SIMVASTATIN 40 MG TABLET PO SCH (20:38)
[2019-04-14 00:01] VITALS: BP 140/88
[2019-04-14] MEDS: LORazepam 2 MG TABLET PO PRN (01:50)
[2019-04-14] MEDS: FERROUS SULFATE 325 MG EC TABLET PO SCH ×3 (06:42→16:47)
[2019-04-14 07:45] VITALS: BP 139/66
[2019-04-14] MEDS: DIVALPROEX SODIUM 500 MG ER TABLET PO SCH ×2 (09:58→16:47)
[2019-04-14] MEDS: ENALAPRIL MALEATE 20 MG TABLET PO SCH (09:58)
[2019-04-14] MEDS: LORATADINE 10 MG TABLET PO SCH (09:58)
[2019-04-14] MEDS: ARIPiprazole 15 MG TABLET PO SCH (09:58)
[2019-04-14] MEDS: AmLODIPine BESYLATE 10 MG TABLET PO SCH (09:58)
[2019-04-14] MEDS: METOPROLOL SUCCINATE 25 MG ER TABLET PO SCH (09:58)
[2019-04-14] MEDS: ASPIRIN 81 MG CHEWABLE TABLET PO SCH (09:59)
[2019-04-14 16:04] VITALS: BP 123/70
[2019-04-14] MEDS: SIMVASTATIN 40 MG TABLET PO SCH (20:38)
[2019-04-15 00:01] VITALS: BP 138/78
[2019-04-15] MEDS: ZOLPIDEM TARTRATE 10 MG TABLET PO PRN ×2 (00:02→21:25)
[2019-04-15] MEDS: LORazepam 2 MG TABLET PO PRN ×2 (00:02→16:35)
[2019-04-15] MEDS: FERROUS SULFATE 325 MG EC TABLET PO SCH ×3 (06:48→16:35)
[2019-04-15] MEDS: AmLODIPine BESYLATE 10 MG TABLET PO SCH (08:23)
[2019-04-15] MEDS: METOPROLOL SUCCINATE 25 MG ER TABLET PO SCH (08:23)
[2019-04-15] MEDS: ARIPiprazole 15 MG TABLET PO SCH (08:24)
[2019-04-15] MEDS: ASPIRIN 81 MG CHEWABLE TABLET PO SCH (08:24)
[2019-04-15] MEDS: LORATADINE 10 MG TABLET PO SCH (08:24)
[2019-04-15] MEDS: DIVALPROEX SODIUM 500 MG ER TABLET PO SCH ×2 (08:24→16:35)
[2019-04-15] MEDS: ENALAPRIL MALEATE 20 MG TABLET PO SCH (08:24)
[2019-04-15 08:30] VITALS: BP 145/94
[2019-04-15 16:00] VITALS: BP 141/73
[2019-04-15] MEDS: SIMVASTATIN 40 MG TABLET PO SCH (20:18)
[2019-04-16] MEDS: FERROUS SULFATE 325 MG EC TABLET PO SCH ×3 (06:34→16:37)
[2019-04-16 06:46] VITALS: BP 135/92
[2019-04-16] MEDS: ENALAPRIL MALEATE 20 MG TABLET PO SCH (08:05)
[2019-04-16] MEDS: ARIPiprazole 15 MG TABLET PO SCH (08:05)
[2019-04-16] MEDS: METOPROLOL SUCCINATE 25 MG ER TABLET PO SCH (08:05)
[2019-04-16] MEDS: ASPIRIN 81 MG CHEWABLE TABLET PO SCH (08:05)
[2019-04-16] MEDS: DIVALPROEX SODIUM 500 MG ER TABLET PO SCH ×2 (08:05→16:37)
[2019-04-16] MEDS: AmLODIPine BESYLATE 10 MG TABLET PO SCH (08:06)
[2019-04-16 08:54] VITALS: BP 151/80
[2019-04-16] MEDS: LORATADINE 10 MG TABLET PO SCH (09:07)
[2019-04-16] MEDS: LORazepam 2 MG TABLET PO PRN ×2 (11:27→23:01)
[2019-04-16 16:00] VITALS: BP 132/70
[2019-04-16] MEDS: SIMVASTATIN 40 MG TABLET PO SCH (20:51)
[2019-04-16] MEDS: HALOPERIDOL 5 MG TABLET PO PRN (23:01)
[2019-04-17] MEDS: ZOLPIDEM TARTRATE 10 MG TABLET PO PRN (00:11)
[2019-04-17 00:12] VITALS: BP 133/85
[2019-04-17] MEDS: FERROUS SULFATE 325 MG EC TABLET PO SCH ×3 (06:51→17:05)
[2019-04-17] MEDS: ARIPiprazole 15 MG TABLET PO SCH (09:00)
[2019-04-17] MEDS: LORATADINE 10 MG TABLET PO SCH (09:00)
[2019-04-17] MEDS: ASPIRIN 81 MG CHEWABLE TABLET PO SCH (09:00)
[2019-04-17] MEDS ORDERED: HALOPERIDOL LACTATE 5 MG/ML VIAL IM ONE (09:00)
[2019-04-17] MEDS: ENALAPRIL MALEATE 20 MG TABLET PO SCH (09:00)
[2019-04-17] MEDS: DIVALPROEX SODIUM 500 MG ER TABLET PO SCH ×2 (09:00→17:05)
[2019-04-17] MEDS: METOPROLOL SUCCINATE 25 MG ER TABLET PO SCH (09:00)
[2019-04-17] MEDS: AmLODIPine BESYLATE 10 MG TABLET PO SCH (09:00)
[2019-04-17] MEDS: LORazepam 2 MG TABLET PO PRN (12:22)
[2019-04-17] MEDS ORDERED: HALOPERIDOL LACTATE 5 MG/ML VIAL IM PRN ×2 (12:45)
[2019-04-17 16:11] VITALS: BP 105/60
[2019-04-17] MEDS: SIMVASTATIN 40 MG TABLET PO SCH (20:29)
[2019-04-18] MEDS: ZOLPIDEM TARTRATE 10 MG TABLET PO PRN
[2019-04-18] MEDS: HALOPERIDOL 5 MG TABLET PO PRN
[2019-04-18 05:33] VITALS: BP 147/95
[2019-04-18] MEDS: FERROUS SULFATE 325 MG EC TABLET PO SCH ×3 (06:26→16:22)
[2019-04-18 08:50] VITALS: BP 141/92
[2019-04-18] MEDS: ENALAPRIL MALEATE 20 MG TABLET PO SCH (08:51)
[2019-04-18] MEDS: AmLODIPine BESYLATE 10 MG TABLET PO SCH (08:52)
[2019-04-18] MEDS: METOPROLOL SUCCINATE 25 MG ER TABLET PO SCH (08:52)
[2019-04-18] MEDS: ASPIRIN 81 MG CHEWABLE TABLET PO SCH (08:52)
[2019-04-18] MEDS: LORATADINE 10 MG TABLET PO SCH (08:52)
[2019-04-18] MEDS: DIVALPROEX SODIUM 500 MG ER TABLET PO SCH ×2 (08:52→16:22)
[2019-04-18] MEDS: LORazepam 2 MG TABLET PO PRN ×2 (08:52→16:22)
[2019-04-18] MEDS: ARIPiprazole 15 MG TABLET PO SCH (08:52)
[2019-04-18] MEDS ORDERED: DiphenhydrAMINE HCL 50 MG/ML VIAL ONE (09:49)
[2019-04-18] MEDS ORDERED: LORazepam 2 MG/ML VIAL ONE (09:49)
[2019-04-18] MEDS ORDERED: LORazepam 2 MG/ML VIAL IM ONE ×2 (10:00→17:45)
[2019-04-18] MEDS ORDERED: DiphenhydrAMINE HCL 50 MG/ML VIAL IM ONE ×2 (10:00→17:45)
[2019-04-18] MEDS ORDERED: HALOPERIDOL LACTATE 5 MG/ML VIAL IM ONE ×3 (10:00→17:45)
[2019-04-18] MEDS: BACITRACIN 28.4 GM OINTMENT TP SCH (16:39)
[2019-04-18] MEDS: SIMVASTATIN 40 MG TABLET PO SCH (21:00)
[2019-04-19] MEDS: FERROUS SULFATE 325 MG EC TABLET PO SCH ×3 (07:00→17:36)
[2019-04-19 08:23] VITALS: BP 139/78
[2019-04-19] MEDS: ASPIRIN 81 MG CHEWABLE TABLET PO SCH (08:41)
[2019-04-19] MEDS: AmLODIPine BESYLATE 10 MG TABLET PO SCH (08:41)
[2019-04-19] MEDS: ENALAPRIL MALEATE 20 MG TABLET PO SCH (08:41)
[2019-04-19] MEDS: ARIPiprazole 15 MG TABLET PO SCH (08:41)
[2019-04-19] MEDS: DIVALPROEX SODIUM 500 MG ER TABLET PO SCH ×2 (08:41→17:36)
[2019-04-19] MEDS: METOPROLOL SUCCINATE 25 MG ER TABLET PO SCH (08:41)
[2019-04-19] MEDS: BACITRACIN 28.4 GM OINTMENT TP SCH ×2 (08:41→17:35)
[2019-04-19] MEDS: LORATADINE 10 MG TABLET PO SCH (08:41)
[2019-04-19 16:33] VITALS: BP 129/71
[2019-04-19] MEDS: LORazepam 2 MG TABLET PO PRN (17:36)
[2019-04-19] MEDS: SIMVASTATIN 40 MG TABLET PO SCH (20:44)
[2019-04-19] MEDS: ZOLPIDEM TARTRATE 10 MG TABLET PO PRN (20:44)
[2019-04-20 05:59] VITALS: BP 127/78
[2019-04-20] MEDS: FERROUS SULFATE 325 MG EC TABLET PO SCH ×3 (06:32→16:55)
[2019-04-20] MEDS: DIVALPROEX SODIUM 500 MG ER TABLET PO SCH ×2 (09:21→16:55)
[2019-04-20] MEDS: AmLODIPine BESYLATE 10 MG TABLET PO SCH (09:22)
[2019-04-20] MEDS: ASPIRIN 81 MG CHEWABLE TABLET PO SCH (09:22)
[2019-04-20] MEDS: ENALAPRIL MALEATE 20 MG TABLET PO SCH (09:22)
[2019-04-20] MEDS: METOPROLOL SUCCINATE 25 MG ER TABLET PO SCH (09:22)
[2019-04-20] MEDS: ARIPiprazole 15 MG TABLET PO SCH (09:22)
[2019-04-20] MEDS: BACITRACIN 28.4 GM OINTMENT TP SCH ×2 (09:25→17:00)
[2019-04-20] MEDS: LORATADINE 10 MG TABLET PO SCH (09:25)
[2019-04-20 15:11] VITALS: BP 148/70
[2019-04-20] MEDS: HALOPERIDOL 5 MG TABLET PO PRN (16:55)
[2019-04-20] MEDS: LORazepam 2 MG TABLET PO PRN ×2 (16:55→22:24)
[2019-04-20] MEDS: DENTURE ADHESIVE 68 GM CREAM DT PRN (17:39)
[2019-04-20] MEDS: SIMVASTATIN 40 MG TABLET PO SCH (20:31)
[2019-04-20] MEDS: ZOLPIDEM TARTRATE 10 MG TABLET PO PRN (22:24)
[2019-04-21 00:12] VITALS: BP 137/82
[2019-04-21] MEDS: FERROUS SULFATE 325 MG EC TABLET PO SCH ×3 (06:42→16:52)
[2019-04-21 08:00] VITALS: BP 125/61
[2019-04-21] MEDS: ARIPiprazole 15 MG TABLET PO SCH (09:04)
[2019-04-21] MEDS: MULTIVITAMINS WITH MINERALS, THERAPEUTIC TABLET PO SCH (09:05)
[2019-04-21] MEDS: AmLODIPine BESYLATE 10 MG TABLET PO SCH (09:05)
[2019-04-21] MEDS: ASPIRIN 81 MG CHEWABLE TABLET PO SCH (09:05)
[2019-04-21] MEDS: LORATADINE 10 MG TABLET PO SCH (09:05)
[2019-04-21] MEDS: ENALAPRIL MALEATE 20 MG TABLET PO SCH (09:05)
[2019-04-21] MEDS: DIVALPROEX SODIUM 500 MG ER TABLET PO SCH ×2 (09:05→16:52)
[2019-04-21] MEDS: METOPROLOL SUCCINATE 25 MG ER TABLET PO SCH (09:05)
[2019-04-21] MEDS: BACITRACIN 28.4 GM OINTMENT TP SCH ×2 (09:07→16:52)
[2019-04-21 16:00] VITALS: BP 120/68
[2019-04-21] MEDS: HALOPERIDOL 5 MG TABLET PO PRN (16:52)
[2019-04-21] MEDS: LORazepam 2 MG TABLET PO PRN (16:52)
[2019-04-21] MEDS: SIMVASTATIN 40 MG TABLET PO SCH (20:42)
[2019-04-21] MEDS: ZOLPIDEM TARTRATE 10 MG TABLET PO PRN (23:51)
[2019-04-22 00:22] VITALS: BP 135/78
[2019-04-22] MEDS: FERROUS SULFATE 325 MG EC TABLET PO SCH ×3 (06:42→17:06)
[2019-04-22] MEDS: IBUPROFEN 400 MG TABLET PO PRN (07:07)
[2019-04-22 08:00] VITALS: BP 109/61
[2019-04-22] MEDS: MULTIVITAMINS WITH MINERALS, THERAPEUTIC TABLET PO SCH (08:55)
[2019-04-22] MEDS: DIVALPROEX SODIUM 500 MG ER TABLET PO SCH ×2 (08:55→17:06)
[2019-04-22] MEDS: ASPIRIN 81 MG CHEWABLE TABLET PO SCH (08:55)
[2019-04-22] MEDS: LORATADINE 10 MG TABLET PO SCH (08:56)
[2019-04-22] MEDS: AmLODIPine BESYLATE 10 MG TABLET PO SCH (08:56)
[2019-04-22] MEDS: ARIPiprazole 15 MG TABLET PO SCH (08:56)
[2019-04-22] MEDS: METOPROLOL SUCCINATE 25 MG ER TABLET PO SCH (08:56)
[2019-04-22] MEDS: ENALAPRIL MALEATE 20 MG TABLET PO SCH (08:56)
[2019-04-22] MEDS: BACITRACIN 28.4 GM OINTMENT TP SCH ×2 (10:02→17:06)
[2019-04-22 16:09] VITALS: BP 133/74
[2019-04-22] MEDS ORDERED: FLUTICASONE PROPIONATE 50 MCG/SPRAY 16 GM NASAL SPRAY NASAL PRN (20:00)
[2019-04-22] MEDS: SIMVASTATIN 40 MG TABLET PO SCH (20:30)
[2019-04-22] MEDS: ZOLPIDEM TARTRATE 10 MG TABLET PO PRN (21:00)
[2019-04-23 00:19] VITALS: BP 140/70
[2019-04-23] MEDS: HALOPERIDOL 5 MG TABLET PO PRN ×2 (03:40→16:56)
[2019-04-23] MEDS: LORazepam 2 MG TABLET PO PRN ×2 (03:41→16:56)
[2019-04-23] MEDS: FERROUS SULFATE 325 MG EC TABLET PO SCH ×3 (06:38→16:56)
[2019-04-23 08:15] VITALS: BP 123/78
[2019-04-23] MEDS: MULTIVITAMINS WITH MINERALS, THERAPEUTIC TABLET PO SCH (08:27)
[2019-04-23] MEDS: ASPIRIN 81 MG CHEWABLE TABLET PO SCH (08:27)
[2019-04-23] MEDS: DIVALPROEX SODIUM 500 MG ER TABLET PO SCH ×2 (08:27→16:56)
[2019-04-23] MEDS: BACITRACIN 28.4 GM OINTMENT TP SCH ×2 (08:28→17:00)
[2019-04-23] MEDS: ARIPiprazole 15 MG TABLET PO SCH (08:28)
[2019-04-23] MEDS: AmLODIPine BESYLATE 10 MG TABLET PO SCH (08:28)
[2019-04-23] MEDS: ENALAPRIL MALEATE 20 MG TABLET PO SCH (08:28)
[2019-04-23] MEDS: METOPROLOL SUCCINATE 25 MG ER TABLET PO SCH (08:28)
[2019-04-23] MEDS: LORATADINE 10 MG TABLET PO SCH (12:24)
[2019-04-23 16:20] VITALS: BP 122/64
[2019-04-23] MEDS: SIMVASTATIN 40 MG TABLET PO SCH (20:12)
[2019-04-24 03:51] VITALS: BP 137/75
[2019-04-24] MEDS: FERROUS SULFATE 325 MG EC TABLET PO SCH ×3 (06:51→16:59)
[2019-04-24] MEDS: ARIPiprazole 15 MG TABLET PO SCH (09:01)
[2019-04-24] MEDS: AmLODIPine BESYLATE 10 MG TABLET PO SCH (09:01)
[2019-04-24] MEDS: ASPIRIN 81 MG CHEWABLE TABLET PO SCH (09:02)
[2019-04-24] MEDS: ENALAPRIL MALEATE 20 MG TABLET PO SCH (09:02)
[2019-04-24] MEDS: DIVALPROEX SODIUM 500 MG ER TABLET PO SCH ×3 (09:02→16:59)
[2019-04-24] MEDS: LORATADINE 10 MG TABLET PO SCH (09:02)
[2019-04-24] MEDS: MULTIVITAMINS WITH MINERALS, THERAPEUTIC TABLET PO SCH (09:02)
[2019-04-24] MEDS: BACITRACIN 28.4 GM OINTMENT TP SCH ×2 (09:02→16:59)
[2019-04-24] MEDS: METOPROLOL SUCCINATE 25 MG ER TABLET PO SCH (09:02)
[2019-04-24 10:12] VITALS: BP 123/72
[2019-04-24] MEDS: LORazepam 2 MG TABLET PO PRN ×2 (12:59→16:59)
[2019-04-24 16:30] VITALS: BP 119/67
[2019-04-24] MEDS: HALOPERIDOL 5 MG TABLET PO PRN (16:59)
[2019-04-24 18:36] VITALS: BP 119/67
[2019-04-24] MEDS: SIMVASTATIN 40 MG TABLET PO SCH (20:28)
[2019-04-25] MEDS: FERROUS SULFATE 325 MG EC TABLET PO SCH ×3 (06:52→16:40)
[2019-04-25 08:14] VITALS: BP 140/71
[2019-04-25] MEDS: BACITRACIN 28.4 GM OINTMENT TP SCH (09:00)
[2019-04-25] MEDS: ARIPiprazole 15 MG TABLET PO SCH (09:30)
[2019-04-25] MEDS: LORATADINE 10 MG TABLET PO SCH (09:30)
[2019-04-25] MEDS: ASPIRIN 81 MG CHEWABLE TABLET PO SCH (09:31)
[2019-04-25] MEDS: AmLODIPine BESYLATE 10 MG TABLET PO SCH (09:31)
[2019-04-25] MEDS: DIVALPROEX SODIUM 500 MG ER TABLET PO SCH ×3 (09:31→16:40)
[2019-04-25] MEDS: METOPROLOL SUCCINATE 25 MG ER TABLET PO SCH (09:31)
[2019-04-25] MEDS: MULTIVITAMINS WITH MINERALS, THERAPEUTIC TABLET PO SCH (09:31)
[2019-04-25] MEDS: ENALAPRIL MALEATE 20 MG TABLET PO SCH (09:33)
[2019-04-25] MEDS: LORazepam 2 MG TABLET PO PRN ×2 (10:10→16:40)
[2019-04-25 16:42] VITALS: BP 135/72
[2019-04-25] MEDS: ZOLPIDEM TARTRATE 10 MG TABLET PO PRN (21:22)
[2019-04-25] MEDS: SIMVASTATIN 40 MG TABLET PO SCH (21:22)
[2019-04-26] MEDS: LORazepam 2 MG TABLET PO PRN ×2 (03:46→10:10)
[2019-04-26 05:42] VITALS: BP 132/86
[2019-04-26] MEDS: IBUPROFEN 400 MG TABLET PO PRN ×2 (06:27→09:31)
[2019-04-26] MEDS: FERROUS SULFATE 325 MG EC TABLET PO SCH ×3 (06:48→16:50)
[2019-04-26 08:25] VITALS: BP 124/69
[2019-04-26] MEDS: ARIPiprazole 15 MG TABLET PO SCH (08:42)
[2019-04-26] MEDS: ENALAPRIL MALEATE 20 MG TABLET PO SCH (08:43)
[2019-04-26] MEDS: ASPIRIN 81 MG CHEWABLE TABLET PO SCH (08:43)
[2019-04-26] MEDS: DIVALPROEX SODIUM 500 MG ER TABLET PO SCH ×3 (08:43→16:50)
[2019-04-26] MEDS: AmLODIPine BESYLATE 10 MG TABLET PO SCH (08:43)
[2019-04-26] MEDS: METOPROLOL SUCCINATE 25 MG ER TABLET PO SCH (08:43)
[2019-04-26] MEDS: LORATADINE 10 MG TABLET PO SCH (08:43)
[2019-04-26] MEDS: MULTIVITAMINS WITH MINERALS, THERAPEUTIC TABLET PO SCH (08:44)
[2019-04-26] MEDS: DENTURE ADHESIVE 68 GM CREAM DT PRN (09:29)
[2019-04-26 16:06] VITALS: BP 128/69
[2019-04-26] MEDS: SIMVASTATIN 40 MG TABLET PO SCH (20:40)
[2019-04-27 05:39] VITALS: BP 151/94
[2019-04-27 06:24] VITALS: BP 136/84
[2019-04-27] MEDS: FERROUS SULFATE 325 MG EC TABLET PO SCH ×3 (06:36→16:04)
[2019-04-27] MEDS: METOPROLOL SUCCINATE 25 MG ER TABLET PO SCH (08:14)
[2019-04-27] MEDS: ENALAPRIL MALEATE 20 MG TABLET PO SCH (08:14)
[2019-04-27] MEDS: ASPIRIN 81 MG CHEWABLE TABLET PO SCH (08:14)
[2019-04-27] MEDS: LORATADINE 10 MG TABLET PO SCH (08:14)
[2019-04-27] MEDS: DIVALPROEX SODIUM 500 MG ER TABLET PO SCH ×3 (08:14→16:04)
[2019-04-27] MEDS: MULTIVITAMINS WITH MINERALS, THERAPEUTIC TABLET PO SCH (08:14)
[2019-04-27] MEDS: AmLODIPine BESYLATE 10 MG TABLET PO SCH (08:14)
[2019-04-27] MEDS: ARIPiprazole 15 MG TABLET PO SCH (08:14)
[2019-04-27 08:46] VITALS: BP 142/86
[2019-04-27] MEDS: DENTURE ADHESIVE 68 GM CREAM DT PRN (12:57)
[2019-04-27] MEDS: LORazepam 2 MG TABLET PO PRN (16:04)
[2019-04-27 16:19] VITALS: BP 141/88
[2019-04-27] MEDS: SIMVASTATIN 40 MG TABLET PO SCH (20:42)
[2019-04-28 05:59] VITALS: BP 140/75
[2019-04-28] MEDS: FERROUS SULFATE 325 MG EC TABLET PO SCH ×3 (06:03→16:44)
[2019-04-28] MEDS: DENTURE ADHESIVE 68 GM CREAM DT PRN ×2 (07:24→17:43)
[2019-04-28 08:31] VITALS: BP 127/76
[2019-04-28] MEDS: DIVALPROEX SODIUM 500 MG ER TABLET PO SCH ×3 (09:05→16:44)
[2019-04-28] MEDS: AmLODIPine BESYLATE 10 MG TABLET PO SCH (09:06)
[2019-04-28] MEDS: METOPROLOL SUCCINATE 25 MG ER TABLET PO SCH (09:06)
[2019-04-28] MEDS: ARIPiprazole 15 MG TABLET PO SCH (09:06)
[2019-04-28] MEDS: MULTIVITAMINS WITH MINERALS, THERAPEUTIC TABLET PO SCH (09:06)
[2019-04-28] MEDS: LORATADINE 10 MG TABLET PO SCH (09:06)
[2019-04-28] MEDS: ASPIRIN 81 MG CHEWABLE TABLET PO SCH (09:07)
[2019-04-28] MEDS: ENALAPRIL MALEATE 20 MG TABLET PO SCH (09:08)
[2019-04-28 16:11] VITALS: BP 127/73
[2019-04-28] MEDS: LORazepam 2 MG TABLET PO PRN (16:44)
[2019-04-28] MEDS: HALOPERIDOL 5 MG TABLET PO PRN (16:44)
[2019-04-28] MEDS: SIMVASTATIN 40 MG TABLET PO SCH (20:57)
[2019-04-29] MEDS: DENTURE ADHESIVE 68 GM CREAM DT PRN (04:58)
[2019-04-29 05:05] VITALS: BP 130/73
[2019-04-29] MEDS: FERROUS SULFATE 325 MG EC TABLET PO SCH ×3 (06:47→16:12)
[2019-04-29] MEDS: DIVALPROEX SODIUM 500 MG ER TABLET PO SCH ×3 (08:14→16:12)
[2019-04-29] MEDS: MULTIVITAMINS WITH MINERALS, THERAPEUTIC TABLET PO SCH (08:14)
[2019-04-29] MEDS: ENALAPRIL MALEATE 20 MG TABLET PO SCH (08:14)
[2019-04-29] MEDS: LORATADINE 10 MG TABLET PO SCH (08:14)
[2019-04-29] MEDS: METOPROLOL SUCCINATE 25 MG ER TABLET PO SCH (08:14)
[2019-04-29] MEDS: ARIPiprazole 15 MG TABLET PO SCH (08:14)
[2019-04-29] MEDS: AmLODIPine BESYLATE 10 MG TABLET PO SCH (08:14)
[2019-04-29] MEDS: ASPIRIN 81 MG CHEWABLE TABLET PO SCH (08:15)
[2019-04-29] MEDS: LORazepam 2 MG TABLET PO PRN ×2 (08:15→16:12)
[2019-04-29 08:29] VITALS: BP 138/74
[2019-04-29 16:25] VITALS: BP 148/72
[2019-04-29] MEDS: SIMVASTATIN 40 MG TABLET PO SCH (20:13)
[2019-04-29] MEDS: ZOLPIDEM TARTRATE 10 MG TABLET PO PRN (20:13)
[2019-04-30 00:20] VITALS: BP 139/88
[2019-04-30] MEDS: FERROUS SULFATE 325 MG EC TABLET PO SCH ×3 (06:56→17:03)
[2019-04-30] MEDS: ARIPiprazole 15 MG TABLET PO SCH (08:24)
[2019-04-30] MEDS: ASPIRIN 81 MG CHEWABLE TABLET PO SCH (08:25)
[2019-04-30] MEDS: LORazepam 2 MG TABLET PO PRN (08:25)
[2019-04-30] MEDS: MULTIVITAMINS WITH MINERALS, THERAPEUTIC TABLET PO SCH (08:25)
[2019-04-30] MEDS: AmLODIPine BESYLATE 10 MG TABLET PO SCH (08:25)
[2019-04-30] MEDS: ENALAPRIL MALEATE 20 MG TABLET PO SCH (08:25)
[2019-04-30] MEDS: LORATADINE 10 MG TABLET PO SCH (08:25)
[2019-04-30] MEDS: METOPROLOL SUCCINATE 25 MG ER TABLET PO SCH (08:25)
[2019-04-30] MEDS: DIVALPROEX SODIUM 500 MG ER TABLET PO SCH ×3 (08:25→17:03)
[2019-04-30 08:38] VITALS: BP 133/67
[2019-04-30 16:17] VITALS: BP 121/68
[2019-04-30] MEDS: ZOLPIDEM TARTRATE 10 MG TABLET PO PRN (20:45)
[2019-04-30] MEDS: SIMVASTATIN 40 MG TABLET PO SCH (20:45)
[2019-05-01 04:31] VITALS: BP 144/77
[2019-05-01] MEDS: FERROUS SULFATE 325 MG EC TABLET PO SCH ×3 (07:00→16:48)
[2019-05-01] MEDS: METOPROLOL SUCCINATE 25 MG ER TABLET PO SCH (08:44)
[2019-05-01] MEDS: LORATADINE 10 MG TABLET PO SCH (08:44)
[2019-05-01] MEDS: ASPIRIN 81 MG CHEWABLE TABLET PO SCH (08:44)
[2019-05-01] MEDS: DIVALPROEX SODIUM 500 MG ER TABLET PO SCH ×3 (08:44→16:48)
[2019-05-01] MEDS: ARIPiprazole 15 MG TABLET PO SCH (08:44)
[2019-05-01] MEDS: AmLODIPine BESYLATE 10 MG TABLET PO SCH (08:44)
[2019-05-01] MEDS: MULTIVITAMINS WITH MINERALS, THERAPEUTIC TABLET PO SCH (08:44)
[2019-05-01] MEDS: ENALAPRIL MALEATE 20 MG TABLET PO SCH (08:45)
[2019-05-01] MEDS: DENTURE ADHESIVE 68 GM CREAM DT PRN ×2 (08:53→21:56)
[2019-05-01] MEDS: PETROLATUM,WHITE 28 GM JELLY TP PRN (08:53)
[2019-05-01 13:08] VITALS: BP 136/82
[2019-05-01 16:11] VITALS: BP 130/68
[2019-05-01] MEDS: SIMVASTATIN 40 MG TABLET PO SCH (20:09)
[2019-05-02 00:51] VITALS: BP 126/82
[2019-05-02] MEDS: FERROUS SULFATE 325 MG EC TABLET PO SCH ×3 (06:23→16:14)
[2019-05-02 08:00] VITALS: BP 150/79
[2019-05-02] MEDS: ARIPiprazole 15 MG TABLET PO SCH (08:19)
[2019-05-02] MEDS: LORazepam 2 MG TABLET PO PRN (08:19)
[2019-05-02] MEDS: DIVALPROEX SODIUM 500 MG ER TABLET PO SCH ×3 (08:20→16:14)
[2019-05-02] MEDS: AmLODIPine BESYLATE 10 MG TABLET PO SCH (08:20)
[2019-05-02] MEDS: LORATADINE 10 MG TABLET PO SCH (08:20)
[2019-05-02] MEDS: HALOPERIDOL 5 MG TABLET PO PRN (08:20)
[2019-05-02] MEDS: ENALAPRIL MALEATE 20 MG TABLET PO SCH (08:20)
[2019-05-02] MEDS: ASPIRIN 81 MG CHEWABLE TABLET PO SCH (08:20)
[2019-05-02] MEDS: METOPROLOL SUCCINATE 25 MG ER TABLET PO SCH (08:20)
[2019-05-02] MEDS: MULTIVITAMINS WITH MINERALS, THERAPEUTIC TABLET PO SCH (08:20)
[2019-05-02 16:07] VITALS: BP 147/95
[2019-05-02] MEDS: SIMVASTATIN 40 MG TABLET PO SCH (20:14)
[2019-05-03] MEDS: DENTURE ADHESIVE 68 GM CREAM DT PRN ×3 (00:46→20:16)
[2019-05-03 02:10] VITALS: BP 133/68
[2019-05-03] MEDS: PETROLATUM,WHITE 28 GM JELLY TP PRN (06:36)
[2019-05-03] MEDS: FERROUS SULFATE 325 MG EC TABLET PO SCH ×3 (06:51→16:20)
[2019-05-03] MEDS: ASPIRIN 81 MG CHEWABLE TABLET PO SCH (08:25)
[2019-05-03] MEDS: METOPROLOL SUCCINATE 25 MG ER TABLET PO SCH (08:26)
[2019-05-03] MEDS: LORATADINE 10 MG TABLET PO SCH (08:26)
[2019-05-03] MEDS: LORazepam 2 MG TABLET PO PRN (08:26)
[2019-05-03] MEDS: ARIPiprazole 15 MG TABLET PO SCH (08:26)
[2019-05-03] MEDS: MULTIVITAMINS WITH MINERALS, THERAPEUTIC TABLET PO SCH (08:26)
[2019-05-03] MEDS: ENALAPRIL MALEATE 20 MG TABLET PO SCH (08:26)
[2019-05-03] MEDS: AmLODIPine BESYLATE 10 MG TABLET PO SCH (08:26)
[2019-05-03] MEDS: DIVALPROEX SODIUM 500 MG ER TABLET PO SCH ×3 (08:26→16:20)
[2019-05-03 09:09] VITALS: BP 139/71
[2019-05-03 16:09] VITALS: BP 123/60
[2019-05-03] MEDS: SIMVASTATIN 40 MG TABLET PO SCH (20:12)
[2019-05-03] MEDS: ZOLPIDEM TARTRATE 10 MG TABLET PO PRN (20:12)
[2019-05-04 00:19] VITALS: BP 135/67
[2019-05-04] MEDS ORDERED: DiphenhydrAMINE HCL 50 MG/ML VIAL ONE (05:21)
[2019-05-04] MEDS ORDERED: LORazepam 2 MG/ML VIAL ONE (05:21)
[2019-05-04] MEDS ORDERED: HALOPERIDOL LACTATE 5 MG/ML VIAL IM ONE (05:30)
[2019-05-04] MEDS ORDERED: DiphenhydrAMINE HCL 50 MG/ML VIAL IM ONE (05:30)
[2019-05-04] MEDS ORDERED: LORazepam 2 MG/ML VIAL IM ONE (05:30)
[2019-05-04] MEDS: FERROUS SULFATE 325 MG EC TABLET PO SCH ×3 (06:17→16:03)
[2019-05-04 08:00] VITALS: BP 131/66
[2019-05-04] MEDS: DIVALPROEX SODIUM 500 MG ER TABLET PO SCH ×3 (09:16→16:03)
[2019-05-04] MEDS: ENALAPRIL MALEATE 20 MG TABLET PO SCH (09:17)
[2019-05-04] MEDS: AmLODIPine BESYLATE 10 MG TABLET PO SCH (09:17)
[2019-05-04] MEDS: LORazepam 2 MG TABLET PO PRN ×3 (09:17→21:00)
[2019-05-04] MEDS: ARIPiprazole 15 MG TABLET PO SCH (09:17)
[2019-05-04] MEDS: ASPIRIN 81 MG CHEWABLE TABLET PO SCH (09:18)
[2019-05-04] MEDS: LORATADINE 10 MG TABLET PO SCH (09:18)
[2019-05-04] MEDS: HALOPERIDOL 5 MG TABLET PO PRN (09:21)
[2019-05-04] MEDS: METOPROLOL SUCCINATE 25 MG ER TABLET PO SCH (09:21)
[2019-05-04] MEDS: MULTIVITAMINS WITH MINERALS, THERAPEUTIC TABLET PO SCH (09:26)
[2019-05-04 16:10] VITALS: BP 142/72
[2019-05-04] MEDS: SIMVASTATIN 40 MG TABLET PO SCH (20:40)
[2019-05-04] MEDS: ZOLPIDEM TARTRATE 10 MG TABLET PO PRN (20:40)
[2019-05-05 02:21] VITALS: BP 141/88
[2019-05-05] MEDS: FERROUS SULFATE 325 MG EC TABLET PO SCH ×3 (06:59→16:36)
[2019-05-05] MEDS: DIVALPROEX SODIUM 500 MG ER TABLET PO SCH ×3 (08:05→16:36)
[2019-05-05] MEDS: ASPIRIN 81 MG CHEWABLE TABLET PO SCH (08:05)
[2019-05-05] MEDS: METOPROLOL SUCCINATE 25 MG ER TABLET PO SCH (08:05)
[2019-05-05] MEDS: LORATADINE 10 MG TABLET PO SCH (08:05)
[2019-05-05] MEDS: MULTIVITAMINS WITH MINERALS, THERAPEUTIC TABLET PO SCH (08:05)
[2019-05-05] MEDS: ARIPiprazole 15 MG TABLET PO SCH (08:06)
[2019-05-05] MEDS: AmLODIPine BESYLATE 10 MG TABLET PO SCH (08:06)
[2019-05-05] MEDS: ENALAPRIL MALEATE 20 MG TABLET PO SCH (08:06)
[2019-05-05 08:18] VITALS: BP 139/72
[2019-05-05 16:00] VITALS: BP 127/72
[2019-05-05] MEDS: LORazepam 2 MG TABLET PO PRN (16:36)
[2019-05-05] MEDS: SIMVASTATIN 40 MG TABLET PO SCH (20:31)
[2019-05-06 03:50] VITALS: BP 136/96
[2019-05-06] MEDS: FERROUS SULFATE 325 MG EC TABLET PO SCH ×3 (06:53→16:17)
[2019-05-06] MEDS: AmLODIPine BESYLATE 10 MG TABLET PO SCH (08:36)
[2019-05-06] MEDS: ASPIRIN 81 MG CHEWABLE TABLET PO SCH (08:36)
[2019-05-06] MEDS: LORATADINE 10 MG TABLET PO SCH (08:36)
[2019-05-06] MEDS: MULTIVITAMINS WITH MINERALS, THERAPEUTIC TABLET PO SCH (08:36)
[2019-05-06] MEDS: DIVALPROEX SODIUM 500 MG ER TABLET PO SCH ×3 (08:36→16:17)
[2019-05-06] MEDS: ARIPiprazole 15 MG TABLET PO SCH (08:37)
[2019-05-06] MEDS: METOPROLOL SUCCINATE 25 MG ER TABLET PO SCH (08:37)
[2019-05-06 08:48] VITALS: BP 108/64
[2019-05-06] MEDS: ENALAPRIL MALEATE 20 MG TABLET PO SCH (08:55)
[2019-05-06] MEDS: DENTURE ADHESIVE 68 GM CREAM DT PRN (09:19)
[2019-05-06] MEDS: LORazepam 2 MG TABLET PO PRN (16:17)
[2019-05-06 16:24] VITALS: BP 148/83
[2019-05-06] MEDS: SIMVASTATIN 40 MG TABLET PO SCH (20:49)
[2019-05-07 05:14] VITALS: BP 135/87
[2019-05-07] MEDS: FERROUS SULFATE 325 MG EC TABLET PO SCH ×3 (06:32→16:37)
[2019-05-07 07:50] LABS: ALANINE AMINOTRANSFERASE 33 U/L (12-78); ALBUMIN 3.7 g/dL (3.4-5.0); ALKALINE PHOSPHATASE 79 U/L (46-116); ANION GAP 9 mmol/L (8-16); ASPARTATE AMINOTRANSFERASE 20 U/L (15-37); BILIRUBIN,TOTAL 0.2 mg/dL (0.1-1.0); CALCIUM, TOTAL 9.1 mg/dL (8.8-10.5); CARBON DIOXIDE 27 mmol/L (22-29); CHLORIDE 102 mmol/L (98-107); CREATININE 0.89 mg/dL (0.60-1.30); GLOMERULAR FILTR. RATE CALC > 60 mL/min (>60); GLUCOSE,RANDOM 138 mg/dL (70-110); POTASSIUM 4.4 mmol/L (3.5-5.1); SODIUM SERUM 138 mmol/L (136-145); TOTAL PROTEIN, SERUM 7.2 g/dL (6.4-8.2); UREA NITROGEN, BLOOD 24 mg/dL (7-18); VALPROIC ACID 63 mcg/mL (50-100)
[2019-05-07 08:15] VITALS: BP 118/63
[2019-05-07] MEDS: ARIPiprazole 15 MG TABLET PO SCH (08:38)
[2019-05-07] MEDS: METOPROLOL SUCCINATE 25 MG ER TABLET PO SCH (08:38)
[2019-05-07] MEDS: AmLODIPine BESYLATE 10 MG TABLET PO SCH (08:39)
[2019-05-07] MEDS: DIVALPROEX SODIUM 500 MG ER TABLET PO SCH ×3 (08:39→16:37)
[2019-05-07] MEDS: MULTIVITAMINS WITH MINERALS, THERAPEUTIC TABLET PO SCH (08:39)
[2019-05-07] MEDS: ASPIRIN 81 MG CHEWABLE TABLET PO SCH (08:39)
[2019-05-07] MEDS: LORATADINE 10 MG TABLET PO SCH (08:40)
[2019-05-07] MEDS: ENALAPRIL MALEATE 20 MG TABLET PO SCH (08:41)
[2019-05-07 16:27] VITALS: BP 130/69
[2019-05-07] MEDS: LORazepam 2 MG TABLET PO PRN (16:37)
[2019-05-07] MEDS: SIMVASTATIN 40 MG TABLET PO SCH (20:13)
[2019-05-08 01:37] VITALS: BP 147/79
[2019-05-08] MEDS: FERROUS SULFATE 325 MG EC TABLET PO SCH ×3 (06:15→17:15)
[2019-05-08] MEDS: METOPROLOL SUCCINATE 25 MG ER TABLET PO SCH (08:15)
[2019-05-08] MEDS: DIVALPROEX SODIUM 500 MG ER TABLET PO SCH ×3 (08:15→17:16)
[2019-05-08] MEDS: AmLODIPine BESYLATE 10 MG TABLET PO SCH (08:15)
[2019-05-08] MEDS: ENALAPRIL MALEATE 20 MG TABLET PO SCH (08:15)
[2019-05-08] MEDS: ASPIRIN 81 MG CHEWABLE TABLET PO SCH (08:16)
[2019-05-08] MEDS: ARIPiprazole 15 MG TABLET PO SCH (08:16)
[2019-05-08] MEDS: MULTIVITAMINS WITH MINERALS, THERAPEUTIC TABLET PO SCH (08:16)
[2019-05-08] MEDS: LORATADINE 10 MG TABLET PO SCH (08:24)
[2019-05-08 09:07] VITALS: BP 130/63
[2019-05-08 16:12] VITALS: BP 136/86
[2019-05-08] MEDS: LORazepam 2 MG TABLET PO PRN (17:15)
[2019-05-08] MEDS: HALOPERIDOL 5 MG TABLET PO PRN (17:15)
[2019-05-08] MEDS: SIMVASTATIN 40 MG TABLET PO SCH (20:17)
[2019-05-09 01:30] VITALS: BP 144/74
[2019-05-09] MEDS: FERROUS SULFATE 325 MG EC TABLET PO SCH ×3 (06:46→16:02)
[2019-05-09] MEDS: DENTURE ADHESIVE 68 GM CREAM DT PRN ×2 (06:55→13:31)
[2019-05-09 08:15] VITALS: BP 119/79
[2019-05-09] MEDS: AmLODIPine BESYLATE 10 MG TABLET PO SCH (09:34)
[2019-05-09] MEDS: LORATADINE 10 MG TABLET PO SCH (09:34)
[2019-05-09] MEDS: ARIPiprazole 15 MG TABLET PO SCH (09:34)
[2019-05-09] MEDS: MULTIVITAMINS WITH MINERALS, THERAPEUTIC TABLET PO SCH (09:34)
[2019-05-09] MEDS: METOPROLOL SUCCINATE 25 MG ER TABLET PO SCH (09:34)
[2019-05-09] MEDS: ASPIRIN 81 MG CHEWABLE TABLET PO SCH (09:35)
[2019-05-09] MEDS: DIVALPROEX SODIUM 500 MG ER TABLET PO SCH ×3 (09:35→16:02)
[2019-05-09] MEDS: ENALAPRIL MALEATE 20 MG TABLET PO SCH (11:30)
[2019-05-09] MEDS: PETROLATUM,WHITE 28 GM JELLY TP PRN (11:32)
[2019-05-09 16:00] VITALS: BP 145/75
[2019-05-09] MEDS: LORazepam 2 MG TABLET PO PRN (16:02)
[2019-05-09] MEDS: HALOPERIDOL 5 MG TABLET PO PRN (16:02)
[2019-05-09] MEDS: SIMVASTATIN 40 MG TABLET PO SCH (20:13)
[2019-05-10 03:00] VITALS: BP 137/78
[2019-05-10] MEDS: FERROUS SULFATE 325 MG EC TABLET PO SCH ×3 (06:43→16:35)
[2019-05-10] MEDS: DENTURE ADHESIVE 68 GM CREAM DT PRN ×3 (06:50→19:22)
[2019-05-10 08:00] VITALS: BP 113/68
[2019-05-10] MEDS: DIVALPROEX SODIUM 500 MG ER TABLET PO SCH ×3 (09:22→16:35)
[2019-05-10] MEDS: METOPROLOL SUCCINATE 25 MG ER TABLET PO SCH (09:22)
[2019-05-10] MEDS: LORATADINE 10 MG TABLET PO SCH (09:22)
[2019-05-10] MEDS: AmLODIPine BESYLATE 10 MG TABLET PO SCH (09:22)
[2019-05-10] MEDS: MULTIVITAMINS WITH MINERALS, THERAPEUTIC TABLET PO SCH (09:22)
[2019-05-10] MEDS: ARIPiprazole 15 MG TABLET PO SCH (09:22)
[2019-05-10] MEDS: ASPIRIN 81 MG CHEWABLE TABLET PO SCH (09:22)
[2019-05-10] MEDS: ENALAPRIL MALEATE 20 MG TABLET PO SCH (12:42)
[2019-05-10 16:35] VITALS: BP 160/90
[2019-05-10] MEDS: HALOPERIDOL 5 MG TABLET PO PRN (16:36)
[2019-05-10] MEDS: LORazepam 2 MG TABLET PO PRN (16:36)
[2019-05-10] MEDS: SIMVASTATIN 40 MG TABLET PO SCH (20:11)
[2019-05-11 04:54] VITALS: BP 142/79
[2019-05-11] MEDS: FERROUS SULFATE 325 MG EC TABLET PO SCH ×3 (06:48→17:19)
[2019-05-11] MEDS: MULTIVITAMINS WITH MINERALS, THERAPEUTIC TABLET PO SCH (09:09)
[2019-05-11] MEDS: METOPROLOL SUCCINATE 25 MG ER TABLET PO SCH (09:09)
[2019-05-11] MEDS: AmLODIPine BESYLATE 10 MG TABLET PO SCH (09:09)
[2019-05-11] MEDS: ARIPiprazole 15 MG TABLET PO SCH (09:09)
[2019-05-11] MEDS: ASPIRIN 81 MG CHEWABLE TABLET PO SCH (09:10)
[2019-05-11] MEDS: ENALAPRIL MALEATE 20 MG TABLET PO SCH (09:11)
[2019-05-11] MEDS: DIVALPROEX SODIUM 500 MG ER TABLET PO SCH ×3 (09:11→17:18)
[2019-05-11] MEDS: LORATADINE 10 MG TABLET PO SCH (09:11)
[2019-05-11 09:32] VITALS: BP 134/75
[2019-05-11] MEDS: HALOPERIDOL 5 MG TABLET PO PRN (09:57)
[2019-05-11] MEDS: LORazepam 2 MG TABLET PO PRN (09:57)
[2019-05-11 16:35] VITALS: BP 145/80
[2019-05-11] MEDS: DENTURE ADHESIVE 68 GM CREAM DT PRN (19:43)
[2019-05-11] MEDS: SIMVASTATIN 40 MG TABLET PO SCH (21:26)
[2019-05-12 00:35] VITALS: BP 137/82
[2019-05-12] MEDS: FERROUS SULFATE 325 MG EC TABLET PO SCH ×3 (06:21→17:38)
[2019-05-12 08:26] VITALS: BP 144/78
[2019-05-12] MEDS: DIVALPROEX SODIUM 500 MG ER TABLET PO SCH ×2 (09:08→12:41)
[2019-05-12] MEDS: MULTIVITAMINS WITH MINERALS, THERAPEUTIC TABLET PO SCH (09:08)
[2019-05-12] MEDS: LORATADINE 10 MG TABLET PO SCH (09:08)
[2019-05-12] MEDS: METOPROLOL SUCCINATE 25 MG ER TABLET PO SCH (09:08)
[2019-05-12] MEDS: AmLODIPine BESYLATE 10 MG TABLET PO SCH (09:08)
[2019-05-12] MEDS: ARIPiprazole 15 MG TABLET PO SCH (09:08)
[2019-05-12] MEDS: ENALAPRIL MALEATE 20 MG TABLET PO SCH (09:09)
[2019-05-12] MEDS: ASPIRIN 81 MG CHEWABLE TABLET PO SCH (09:09)
[2019-05-12 16:19] VITALS: BP 138/78
[2019-05-12] MEDS: DIVALPROEX SODIUM 250 MG ER TABLET PO SCH (17:38)
[2019-05-12] MEDS: SIMVASTATIN 40 MG TABLET PO SCH (21:27)
[2019-05-12] MEDS: PETROLATUM,WHITE 28 GM JELLY TP PRN (22:21)
[2019-05-13] MEDS: ZOLPIDEM TARTRATE 10 MG TABLET PO PRN ×2 (02:56→20:28)
[2019-05-13 06:44] VITALS: BP 143/68
[2019-05-13] MEDS: FERROUS SULFATE 325 MG EC TABLET PO SCH ×3 (06:44→16:44)
[2019-05-13] MEDS: DENTURE ADHESIVE 68 GM CREAM DT PRN (07:12)
[2019-05-13] MEDS: ENALAPRIL MALEATE 20 MG TABLET PO SCH (08:10)
[2019-05-13] MEDS: MULTIVITAMINS WITH MINERALS, THERAPEUTIC TABLET PO SCH (08:10)
[2019-05-13] MEDS: LORATADINE 10 MG TABLET PO SCH (08:11)
[2019-05-13] MEDS: AmLODIPine BESYLATE 10 MG TABLET PO SCH (08:11)
[2019-05-13] MEDS: DIVALPROEX SODIUM 250 MG ER TABLET PO SCH ×3 (08:11→16:44)
[2019-05-13] MEDS: METOPROLOL SUCCINATE 25 MG ER TABLET PO SCH (08:11)
[2019-05-13] MEDS: ARIPiprazole 15 MG TABLET PO SCH (08:11)
[2019-05-13] MEDS: ASPIRIN 81 MG CHEWABLE TABLET PO SCH (08:12)
[2019-05-13 08:36] VITALS: BP 119/73
[2019-05-13 16:13] VITALS: BP 148/75
[2019-05-13] MEDS: LORazepam 2 MG TABLET PO PRN ×2 (16:44→20:44)
[2019-05-13] MEDS: HALOPERIDOL 5 MG TABLET PO PRN (16:44)
[2019-05-13] MEDS: SIMVASTATIN 40 MG TABLET PO SCH (20:28)
[2019-05-14 01:08] VITALS: BP 137/72
[2019-05-14] MEDS: FERROUS SULFATE 325 MG EC TABLET PO SCH ×3 (07:21→16:14)
[2019-05-14] MEDS: MULTIVITAMINS WITH MINERALS, THERAPEUTIC TABLET PO SCH (08:18)
[2019-05-14] MEDS: AmLODIPine BESYLATE 10 MG TABLET PO SCH (08:18)
[2019-05-14] MEDS: ARIPiprazole 15 MG TABLET PO SCH (08:18)
[2019-05-14] MEDS: METOPROLOL SUCCINATE 25 MG ER TABLET PO SCH (08:19)
[2019-05-14] MEDS: ASPIRIN 81 MG CHEWABLE TABLET PO SCH (08:19)
[2019-05-14] MEDS: LORATADINE 10 MG TABLET PO SCH (08:19)
[2019-05-14] MEDS: DIVALPROEX SODIUM 250 MG ER TABLET PO SCH ×3 (08:23→16:14)
[2019-05-14] MEDS: ENALAPRIL MALEATE 20 MG TABLET PO SCH (08:24)
[2019-05-14 09:18] VITALS: BP 142/79
[2019-05-14] MEDS: LORazepam 2 MG TABLET PO PRN ×3 (09:18→20:31)
[2019-05-14] MEDS: HALOPERIDOL 5 MG TABLET PO PRN ×2 (09:18→16:14)
[2019-05-14] MEDS ORDERED: FluPHENAZine DECANOATE 25 MG/ML IM ONE (10:15)
[2019-05-14 16:45] VITALS: BP 150/76
[2019-05-14] MEDS: SIMVASTATIN 40 MG TABLET PO SCH (20:30)
[2019-05-14] MEDS: ZOLPIDEM TARTRATE 10 MG TABLET PO PRN (20:31)
[2019-05-15 02:34] VITALS: BP 136/70
[2019-05-15] MEDS ORDERED: LORazepam 2 MG/ML VIAL ONE (06:11)
[2019-05-15] MEDS ORDERED: DiphenhydrAMINE HCL 50 MG/ML VIAL ONE (06:12)
[2019-05-15] MEDS ORDERED: LORazepam 2 MG/ML VIAL IM ONE (06:15)
[2019-05-15] MEDS ORDERED: DiphenhydrAMINE HCL 50 MG/ML VIAL IM ONE (06:15)
[2019-05-15] MEDS: FERROUS SULFATE 325 MG EC TABLET PO SCH ×3 (06:30→16:07)
[2019-05-15 08:37] VITALS: BP 117/61
[2019-05-15] MEDS: AmLODIPine BESYLATE 10 MG TABLET PO SCH (08:58)
[2019-05-15] MEDS: LORATADINE 10 MG TABLET PO SCH (08:58)
[2019-05-15] MEDS: METOPROLOL SUCCINATE 25 MG ER TABLET PO SCH (08:58)
[2019-05-15] MEDS: MULTIVITAMINS WITH MINERALS, THERAPEUTIC TABLET PO SCH (08:58)
[2019-05-15] MEDS: ASPIRIN 81 MG CHEWABLE TABLET PO SCH (08:59)
[2019-05-15] MEDS: ENALAPRIL MALEATE 20 MG TABLET PO SCH (08:59)
[2019-05-15] MEDS: DIVALPROEX SODIUM 250 MG ER TABLET PO SCH ×3 (08:59→16:07)
[2019-05-15] MEDS: ARIPiprazole 15 MG TABLET PO SCH (08:59)
[2019-05-15] MEDS: HALOPERIDOL 5 MG TABLET PO PRN (16:07)
[2019-05-15] MEDS: LORazepam 2 MG TABLET PO PRN ×2 (16:07→21:33)
[2019-05-15 16:17] VITALS: BP 117/60
[2019-05-15] MEDS: SIMVASTATIN 40 MG TABLET PO SCH (20:40)
[2019-05-15] MEDS: ZOLPIDEM TARTRATE 10 MG TABLET PO PRN (21:34)
[2019-05-16 03:10] VITALS: BP 137/87
[2019-05-16] MEDS: FERROUS SULFATE 325 MG EC TABLET PO SCH ×3 (06:43→16:36)
[2019-05-16] MEDS: ARIPiprazole 15 MG TABLET PO SCH (08:00)
[2019-05-16] MEDS: LORazepam 2 MG TABLET PO PRN ×3 (08:00→20:55)
[2019-05-16] MEDS: LORATADINE 10 MG TABLET PO SCH (08:01)
[2019-05-16] MEDS: MULTIVITAMINS WITH MINERALS, THERAPEUTIC TABLET PO SCH (08:01)
[2019-05-16] MEDS: METOPROLOL SUCCINATE 25 MG ER TABLET PO SCH (08:01)
[2019-05-16] MEDS: AmLODIPine BESYLATE 10 MG TABLET PO SCH (08:02)
[2019-05-16] MEDS: DIVALPROEX SODIUM 250 MG ER TABLET PO SCH ×3 (08:02→16:35)
[2019-05-16] MEDS: ASPIRIN 81 MG CHEWABLE TABLET PO SCH (08:02)
[2019-05-16] MEDS: ENALAPRIL MALEATE 20 MG TABLET PO SCH (08:03)
[2019-05-16 08:30] VITALS: BP 130/58
[2019-05-16] MEDS: HALOPERIDOL 5 MG TABLET PO PRN (16:36)
[2019-05-16] MEDS: ZOLPIDEM TARTRATE 10 MG TABLET PO PRN (20:54)
[2019-05-16] MEDS: SIMVASTATIN 40 MG TABLET PO SCH (20:54)
[2019-05-17] MEDS: FERROUS SULFATE 325 MG EC TABLET PO SCH ×3 (06:36→17:57)
[2019-05-17 07:25] VITALS: BP 137/56
[2019-05-17] MEDS: LORATADINE 10 MG TABLET PO SCH (08:05)
[2019-05-17] MEDS: METOPROLOL SUCCINATE 25 MG ER TABLET PO SCH (08:05)
[2019-05-17] MEDS: DIVALPROEX SODIUM 250 MG ER TABLET PO SCH ×3 (08:06→18:28)
[2019-05-17] MEDS: MULTIVITAMINS WITH MINERALS, THERAPEUTIC TABLET PO SCH (08:06)
[2019-05-17] MEDS: ENALAPRIL MALEATE 20 MG TABLET PO SCH (08:06)
[2019-05-17] MEDS: ASPIRIN 81 MG CHEWABLE TABLET PO SCH (08:06)
[2019-05-17] MEDS: AmLODIPine BESYLATE 10 MG TABLET PO SCH (08:13)
[2019-05-17] MEDS: ARIPiprazole 15 MG TABLET PO SCH (08:13)
[2019-05-17 09:01] VITALS: BP 137/56
[2019-05-17] MEDS ORDERED: LORazepam 2 MG/ML VIAL ONE (12:05)
[2019-05-17] MEDS ORDERED: LORazepam 2 MG/ML VIAL IM ONE (12:15)
[2019-05-17] MEDS ORDERED: DiphenhydrAMINE HCL 50 MG/ML VIAL IM ONE (12:15)
[2019-05-17] MEDS ORDERED: HALOPERIDOL LACTATE 5 MG/ML VIAL IM ONE (12:15)
[2019-05-17] MEDS: SIMVASTATIN 40 MG TABLET PO SCH (21:12)
[2019-05-18 01:59] VITALS: BP 155/71
[2019-05-18] MEDS: FERROUS SULFATE 325 MG EC TABLET PO SCH ×3 (06:42→16:44)
[2019-05-18 08:33] VITALS: BP 142/83
[2019-05-18] MEDS: DIVALPROEX SODIUM 250 MG ER TABLET PO SCH ×3 (10:10→16:44)
[2019-05-18] MEDS: ARIPiprazole 15 MG TABLET PO SCH (10:10)
[2019-05-18] MEDS: LORATADINE 10 MG TABLET PO SCH (10:11)
[2019-05-18] MEDS: ENALAPRIL MALEATE 20 MG TABLET PO SCH (10:11)
[2019-05-18] MEDS: METOPROLOL SUCCINATE 25 MG ER TABLET PO SCH (10:11)
[2019-05-18] MEDS: AmLODIPine BESYLATE 10 MG TABLET PO SCH (10:11)
[2019-05-18] MEDS: MULTIVITAMINS WITH MINERALS, THERAPEUTIC TABLET PO SCH (10:11)
[2019-05-18] MEDS: ASPIRIN 81 MG CHEWABLE TABLET PO SCH (10:11)
[2019-05-18 16:23] VITALS: BP 148/78
[2019-05-18] MEDS: HALOPERIDOL 5 MG TABLET PO PRN (16:44)
[2019-05-18] MEDS: LORazepam 2 MG TABLET PO PRN (16:44)
[2019-05-18] MEDS: DENTURE ADHESIVE 68 GM CREAM DT PRN ×2 (16:46→20:18)
[2019-05-18 17:43] VITALS: BP 141/81
[2019-05-18] MEDS: SIMVASTATIN 40 MG TABLET PO SCH (20:17)
[2019-05-18] MEDS: ZOLPIDEM TARTRATE 10 MG TABLET PO PRN (20:17)
[2019-05-19 01:55] VITALS: BP 139/89
[2019-05-19] MEDS: FERROUS SULFATE 325 MG EC TABLET PO SCH ×3 (07:02→16:29)
[2019-05-19] MEDS: DIVALPROEX SODIUM 250 MG ER TABLET PO SCH ×3 (08:50→16:29)
[2019-05-19] MEDS: ARIPiprazole 15 MG TABLET PO SCH (08:50)
[2019-05-19] MEDS: MULTIVITAMINS WITH MINERALS, THERAPEUTIC TABLET PO SCH (08:50)
[2019-05-19] MEDS: LORATADINE 10 MG TABLET PO SCH (08:51)
[2019-05-19] MEDS: ASPIRIN 81 MG CHEWABLE TABLET PO SCH (08:51)
[2019-05-19] MEDS: AmLODIPine BESYLATE 10 MG TABLET PO SCH (08:51)
[2019-05-19] MEDS: METOPROLOL SUCCINATE 25 MG ER TABLET PO SCH (08:51)
[2019-05-19] MEDS: ENALAPRIL MALEATE 20 MG TABLET PO SCH (08:55)
[2019-05-19] MEDS ORDERED: DiphenhydrAMINE HCL 50 MG/ML VIAL IM ONE (09:00)
[2019-05-19] MEDS ORDERED: LORazepam 2 MG/ML VIAL IM ONE (09:00)
[2019-05-19 09:05] VITALS: BP 157/78
[2019-05-19 16:09] VITALS: BP 145/72
[2019-05-19] MEDS: LORazepam 2 MG TABLET PO PRN (16:29)
[2019-05-19] MEDS: HALOPERIDOL 5 MG TABLET PO PRN (16:29)
[2019-05-19] MEDS: DENTURE ADHESIVE 68 GM CREAM DT PRN (17:28)
[2019-05-19] MEDS: SIMVASTATIN 40 MG TABLET PO SCH (20:54)
[2019-05-20 00:02] VITALS: BP 137/91
[2019-05-20] MEDS: LORazepam 2 MG TABLET PO PRN ×3 (01:33→20:37)
[2019-05-20] MEDS: ZOLPIDEM TARTRATE 10 MG TABLET PO PRN ×2 (01:33→20:37)
[2019-05-20] MEDS: FERROUS SULFATE 325 MG EC TABLET PO SCH ×3 (06:36→16:14)
[2019-05-20 08:08] VITALS: BP 144/68
[2019-05-20] MEDS: LORATADINE 10 MG TABLET PO SCH (09:33)
[2019-05-20] MEDS: DIVALPROEX SODIUM 250 MG ER TABLET PO SCH ×3 (09:33→16:14)
[2019-05-20] MEDS: METOPROLOL SUCCINATE 25 MG ER TABLET PO SCH (09:33)
[2019-05-20] MEDS: ARIPiprazole 15 MG TABLET PO SCH (09:34)
[2019-05-20] MEDS: ENALAPRIL MALEATE 20 MG TABLET PO SCH (09:34)
[2019-05-20] MEDS: MULTIVITAMINS WITH MINERALS, THERAPEUTIC TABLET PO SCH (09:34)
[2019-05-20] MEDS: AmLODIPine BESYLATE 10 MG TABLET PO SCH (09:34)
[2019-05-20] MEDS: ASPIRIN 81 MG CHEWABLE TABLET PO SCH (09:34)
[2019-05-20] MEDS: HALOPERIDOL 5 MG TABLET PO PRN (16:14)
[2019-05-20 16:23] VITALS: BP 131/77
[2019-05-20] MEDS: DENTURE ADHESIVE 68 GM CREAM DT PRN (18:08)
[2019-05-20] MEDS: SIMVASTATIN 40 MG TABLET PO SCH (20:37)
[2019-05-21 05:59] VITALS: BP 136/69
[2019-05-21] MEDS: FERROUS SULFATE 325 MG EC TABLET PO SCH ×3 (07:26→16:45)
[2019-05-21] MEDS: AmLODIPine BESYLATE 10 MG TABLET PO SCH (09:22)
[2019-05-21] MEDS: LORazepam 2 MG TABLET PO PRN ×3 (09:22→20:46)
[2019-05-21] MEDS: MULTIVITAMINS WITH MINERALS, THERAPEUTIC TABLET PO SCH (09:22)
[2019-05-21] MEDS: ENALAPRIL MALEATE 20 MG TABLET PO SCH (09:22)
[2019-05-21] MEDS: LORATADINE 10 MG TABLET PO SCH (09:22)
[2019-05-21] MEDS: ASPIRIN 81 MG CHEWABLE TABLET PO SCH (09:23)
[2019-05-21] MEDS: ARIPiprazole 15 MG TABLET PO SCH (09:23)
[2019-05-21] MEDS: DIVALPROEX SODIUM 250 MG ER TABLET PO SCH ×3 (09:23→16:44)
[2019-05-21] MEDS: METOPROLOL SUCCINATE 25 MG ER TABLET PO SCH (09:23)
[2019-05-21 16:12] VITALS: BP 139/70
[2019-05-21] MEDS: HALOPERIDOL 5 MG TABLET PO PRN (16:45)
[2019-05-21] MEDS: DENTURE ADHESIVE 68 GM CREAM DT PRN (16:45)
[2019-05-21] MEDS: SIMVASTATIN 40 MG TABLET PO SCH (20:30)
[2019-05-22] MEDS: FERROUS SULFATE 325 MG EC TABLET PO SCH ×3 (07:05→16:25)
[2019-05-22 08:53] VITALS: BP 131/107
[2019-05-22 08:57] LABS: BASOPHILS % (AUTO) 0.4 % (0.0-2.0); EOSINOPHILS % (AUTO) 1.6 % (1.0-6.0); HEMATOCRIT 39.6 % (41-53); HEMOGLOBIN 13.3 g/dL (13.5-17.5); LYMPHOCYTES # (AUTO) 1.9 K/uL (1.0-4.8); LYMPHOCYTES % (AUTO) 13.3 % (22.0-44.0); MEAN CORPUSCULAR HEMOGLOBIN 30.1 pg (26.0-34.0); MEAN CORPUSCULAR HGB CONC 33.4 G/dL (31.0-37.0); MEAN CORPUSCULAR VOLUME 90 fL (80-100); MONOCYTES # (AUTO) 1.7 K/uL (0.1-1.0); MONOCYTES % (AUTO) 11.8 % (2.0-9.0); NEUTROPHILS # (AUTO) 10.4 K/uL (1.8-7.7); NEUTROPHILS % (AUTO) 72.9 % (40.0-70.0); PLATELET COUNT (AUTO) 197 K/uL (150-450); RED BLOOD CELL COUNT(AUTO) 4.41 MIL/uL (4.50-5.90); RED CELL DISTRIBUTION WIDTH 14.6 % (11.5-14.5)
[2019-05-22] MEDS: ARIPiprazole 15 MG TABLET PO SCH (09:24)
[2019-05-22] MEDS: AmLODIPine BESYLATE 10 MG TABLET PO SCH (09:25)
[2019-05-22] MEDS: MULTIVITAMINS WITH MINERALS, THERAPEUTIC TABLET PO SCH (09:25)
[2019-05-22] MEDS: ENALAPRIL MALEATE 20 MG TABLET PO SCH (09:26)
[2019-05-22] MEDS: DIVALPROEX SODIUM 250 MG ER TABLET PO SCH ×3 (09:26→16:25)
[2019-05-22] MEDS: METOPROLOL SUCCINATE 25 MG ER TABLET PO SCH (09:26)
[2019-05-22] MEDS: ASPIRIN 81 MG CHEWABLE TABLET PO SCH (09:26)
[2019-05-22] MEDS: LORATADINE 10 MG TABLET PO SCH (09:26)
[2019-05-22 10:07] VITALS: BP 142/76
[2019-05-22] MEDS: LORazepam 2 MG TABLET PO PRN (16:26)
[2019-05-22 17:57] VITALS: BP 125/66
[2019-05-22] MEDS: SIMVASTATIN 40 MG TABLET PO SCH (20:30)
[2019-05-23 05:46] VITALS: BP 126/84
[2019-05-23] MEDS: DENTURE ADHESIVE 68 GM CREAM DT PRN (06:04)
[2019-05-23] MEDS: FERROUS SULFATE 325 MG EC TABLET PO SCH ×3 (06:25→16:15)
[2019-05-23] MEDS: LORazepam 2 MG TABLET PO PRN ×2 (06:25→16:15)
[2019-05-23 07:43] LABS: BASOPHILS % (AUTO) 0.2 % (0.0-2.0); EOSINOPHILS % (AUTO) 0.8 % (1.0-6.0); HEMATOCRIT 34.6 % (41-53); HEMOGLOBIN 11.5 g/dL (13.5-17.5); LYMPHOCYTES # (AUTO) 2.1 K/uL (1.0-4.8); MEAN CORPUSCULAR HEMOGLOBIN 29.7 pg (26.0-34.0); MEAN CORPUSCULAR HGB CONC 33.3 G/dL (31.0-37.0); MEAN CORPUSCULAR VOLUME 89 fL (80-100); MONOCYTES # (AUTO) 2.1 K/uL (0.1-1.0); MONOCYTES % (AUTO) 13.4 % (2.0-9.0); NEUTROPHILS # (AUTO) 11.5 K/uL (1.8-7.7); NEUTROPHILS % (AUTO) 72.6 % (40.0-70.0); PLATELET COUNT (AUTO) 156 K/uL (150-450); RED BLOOD CELL COUNT(AUTO) 3.88 MIL/uL (4.50-5.90); RED CELL DISTRIBUTION WIDTH 14.6 % (11.5-14.5)
[2019-05-23 08:00] VITALS: BP 147/75
[2019-05-23] MEDS ORDERED: CloZAPine 25 MG TABLET PO SCH (09:00)
[2019-05-23] MEDS: LORATADINE 10 MG TABLET PO SCH (09:25)
[2019-05-23] MEDS: ENALAPRIL MALEATE 20 MG TABLET PO SCH (09:25)
[2019-05-23] MEDS: METOPROLOL SUCCINATE 25 MG ER TABLET PO SCH (09:25)
[2019-05-23] MEDS: ASPIRIN 81 MG CHEWABLE TABLET PO SCH (09:26)
[2019-05-23] MEDS: DIVALPROEX SODIUM 250 MG ER TABLET PO SCH ×3 (09:27→16:14)
[2019-05-23] MEDS: AmLODIPine BESYLATE 10 MG TABLET PO SCH (09:27)
[2019-05-23] MEDS: MULTIVITAMINS WITH MINERALS, THERAPEUTIC TABLET PO SCH (09:27)
[2019-05-23] MEDS: ARIPiprazole 15 MG TABLET PO SCH (09:27)
[2019-05-23 16:00] VITALS: BP 116/66
[2019-05-23] MEDS: HALOPERIDOL 5 MG TABLET PO PRN (16:14)
[2019-05-23] MEDS: SIMVASTATIN 40 MG TABLET PO SCH (21:00)
[2019-05-24] MEDS: FERROUS SULFATE 325 MG EC TABLET PO SCH ×3 (06:35→17:13)
[2019-05-24] MEDS: AmLODIPine BESYLATE 10 MG TABLET PO SCH (08:20)
[2019-05-24] MEDS: ASPIRIN 81 MG CHEWABLE TABLET PO SCH (08:21)
[2019-05-24] MEDS: DIVALPROEX SODIUM 250 MG ER TABLET PO SCH ×3 (08:21→17:13)
[2019-05-24] MEDS: ENALAPRIL MALEATE 20 MG TABLET PO SCH (08:21)
[2019-05-24] MEDS: LORATADINE 10 MG TABLET PO SCH (08:22)
[2019-05-24] MEDS: MULTIVITAMINS WITH MINERALS, THERAPEUTIC TABLET PO SCH (08:22)
[2019-05-24] MEDS: ARIPiprazole 15 MG TABLET PO SCH (08:22)
[2019-05-24] MEDS: METOPROLOL SUCCINATE 25 MG ER TABLET PO SCH (08:23)
[2019-05-24 08:31] VITALS: BP 152/64
[2019-05-24] MEDS ORDERED: CloZAPine 25 MG TABLET PO SCH ×2 (09:00→21:00)
[2019-05-24 14:33] VITALS: BP 130/73
[2019-05-24] MEDS: LORazepam 2 MG TABLET PO PRN (17:14)
[2019-05-24] MEDS: SIMVASTATIN 40 MG TABLET PO SCH ×2 (21:00→22:22)
[2019-05-25 00:30] VITALS: BP 132/78
[2019-05-25] MEDS: FERROUS SULFATE 325 MG EC TABLET PO SCH ×3 (06:54→16:40)
[2019-05-25 07:45] LABS: BASOPHILS % (AUTO) 0.6 % (0.0-2.0); EOSINOPHILS % (AUTO) 2.8 % (1.0-6.0); HEMATOCRIT 37.2 % (41-53); HEMOGLOBIN 12.3 g/dL (13.5-17.5); LYMPHOCYTES # (AUTO) 2.4 K/uL (1.0-4.8); LYMPHOCYTES % (AUTO) 21.7 % (22.0-44.0); MEAN CORPUSCULAR HEMOGLOBIN 29.7 pg (26.0-34.0); MEAN CORPUSCULAR HGB CONC 33.1 G/dL (31.0-37.0); MEAN CORPUSCULAR VOLUME 90 fL (80-100); MONOCYTES # (AUTO) 1.5 K/uL (0.1-1.0); MONOCYTES % (AUTO) 13.1 % (2.0-9.0); NEUTROPHILS # (AUTO) 6.9 K/uL (1.8-7.7); NEUTROPHILS % (AUTO) 61.8 % (40.0-70.0); PLATELET COUNT (AUTO) 203 K/uL (150-450); RED BLOOD CELL COUNT(AUTO) 4.15 MIL/uL (4.50-5.90)
[2019-05-25] MEDS: LORATADINE 10 MG TABLET PO SCH (08:25)
[2019-05-25] MEDS: METOPROLOL SUCCINATE 25 MG ER TABLET PO SCH (08:25)
[2019-05-25] MEDS: MULTIVITAMINS WITH MINERALS, THERAPEUTIC TABLET PO SCH (08:25)
[2019-05-25] MEDS: AmLODIPine BESYLATE 10 MG TABLET PO SCH (08:26)
[2019-05-25] MEDS: ARIPiprazole 15 MG TABLET PO SCH (08:26)
[2019-05-25] MEDS: DIVALPROEX SODIUM 250 MG ER TABLET PO SCH ×3 (08:26→16:40)
[2019-05-25] MEDS: ASPIRIN 81 MG CHEWABLE TABLET PO SCH (08:26)
[2019-05-25] MEDS: CEPHALEXIN MONOHYDRATE 500 MG CAPSULE PO SCH ×2 (08:27→16:40)
[2019-05-25] MEDS: ENALAPRIL MALEATE 20 MG TABLET PO SCH (08:30)
[2019-05-25 08:40] VITALS: BP 129/86
[2019-05-25 08:52] LABS: INFLUENZA TYPE A NEGATIVE FOR TYPE A (NEGATIVE); INFLUENZA TYPE B NEGATIVE FOR TYPE B (NEGATIVE)
[2019-05-25] MEDS ORDERED: CloZAPine 25 MG TABLET PO SCH ×2 (09:00→21:00)
[2019-05-25 16:17] VITALS: BP 127/66
[2019-05-25] MEDS: LORazepam 2 MG TABLET PO PRN ×2 (16:40→20:42)
[2019-05-25] MEDS: SIMVASTATIN 40 MG TABLET PO SCH (20:36)
[2019-05-25] MEDS: ZOLPIDEM TARTRATE 10 MG TABLET PO PRN (20:37)
[2019-05-26 00:18] VITALS: BP 121/60
[2019-05-26] MEDS: DENTURE ADHESIVE 68 GM CREAM DT PRN ×2 (04:24→16:37)
[2019-05-26] MEDS: FERROUS SULFATE 325 MG EC TABLET PO SCH ×3 (06:41→16:37)
[2019-05-26 08:25] VITALS: BP 137/72
[2019-05-26] MEDS: DIVALPROEX SODIUM 250 MG ER TABLET PO SCH ×3 (09:05→16:37)
[2019-05-26] MEDS: ARIPiprazole 15 MG TABLET PO SCH (09:05)
[2019-05-26] MEDS: ASPIRIN 81 MG CHEWABLE TABLET PO SCH (09:06)
[2019-05-26] MEDS: MULTIVITAMINS WITH MINERALS, THERAPEUTIC TABLET PO SCH (09:06)
[2019-05-26] MEDS: METOPROLOL SUCCINATE 25 MG ER TABLET PO SCH (09:06)
[2019-05-26] MEDS: CloZAPine 25 MG TABLET PO SCH ×2 (09:06→21:49)
[2019-05-26] MEDS: AmLODIPine BESYLATE 10 MG TABLET PO SCH (09:06)
[2019-05-26] MEDS: LORATADINE 10 MG TABLET PO SCH (09:06)
[2019-05-26] MEDS: CEPHALEXIN MONOHYDRATE 500 MG CAPSULE PO SCH ×2 (09:06→16:37)
[2019-05-26] MEDS: ENALAPRIL MALEATE 20 MG TABLET PO SCH (09:10)
[2019-05-26] MEDS ORDERED: AMLO10TA7 PO (11:50)
[2019-05-26 16:25] VITALS: BP 125/65
[2019-05-26] MEDS: SIMVASTATIN 40 MG TABLET PO SCH (21:48)
[2019-05-26] MEDS: PETROLATUM,WHITE 28 GM JELLY TP PRN (21:54)
[2019-05-27 01:58] VITALS: BP 149/80
[2019-05-27] MEDS: FERROUS SULFATE 325 MG EC TABLET PO SCH ×3 (06:26→16:48)
[2019-05-27 08:33] VITALS: BP 134/64
[2019-05-27] MEDS: DIVALPROEX SODIUM 250 MG ER TABLET PO SCH ×3 (08:34→16:47)
[2019-05-27] MEDS: LORATADINE 10 MG TABLET PO SCH (08:34)
[2019-05-27] MEDS: ARIPiprazole 15 MG TABLET PO SCH (08:35)
[2019-05-27] MEDS: CEPHALEXIN MONOHYDRATE 500 MG CAPSULE PO SCH ×2 (08:36→16:48)
[2019-05-27] MEDS: ASPIRIN 81 MG CHEWABLE TABLET PO SCH (08:36)
[2019-05-27] MEDS: MULTIVITAMINS WITH MINERALS, THERAPEUTIC TABLET PO SCH (08:36)
[2019-05-27] MEDS: CloZAPine 25 MG TABLET PO SCH ×2 (08:36→20:50)
[2019-05-27] MEDS: AmLODIPine BESYLATE 10 MG TABLET PO SCH (08:36)
[2019-05-27] MEDS: METOPROLOL SUCCINATE 25 MG ER TABLET PO SCH (08:36)
[2019-05-27] MEDS: ENALAPRIL MALEATE 20 MG TABLET PO SCH (08:37)
[2019-05-27 16:14] VITALS: BP 140/60
[2019-05-27] MEDS: LORazepam 2 MG TABLET PO PRN ×2 (16:48→20:50)
[2019-05-27] MEDS: HALOPERIDOL 5 MG TABLET PO PRN (16:48)
[2019-05-27] MEDS: SIMVASTATIN 40 MG TABLET PO SCH (20:50)
[2019-05-28] MEDS: FERROUS SULFATE 325 MG EC TABLET PO SCH ×3 (07:01→17:05)
[2019-05-28 08:46] VITALS: BP 135/66
[2019-05-28] MEDS ORDERED: CloZAPine 25 MG TABLET PO SCH (09:00)
[2019-05-28] MEDS: MULTIVITAMINS WITH MINERALS, THERAPEUTIC TABLET PO SCH (09:22)
[2019-05-28] MEDS: DIVALPROEX SODIUM 250 MG ER TABLET PO SCH ×3 (09:23→17:05)
[2019-05-28] MEDS: CEPHALEXIN MONOHYDRATE 500 MG CAPSULE PO SCH ×2 (09:23→17:05)
[2019-05-28] MEDS: METOPROLOL SUCCINATE 25 MG ER TABLET PO SCH (09:24)
[2019-05-28] MEDS: ARIPiprazole 15 MG TABLET PO SCH (09:24)
[2019-05-28] MEDS: LORATADINE 10 MG TABLET PO SCH (09:24)
[2019-05-28] MEDS: ASPIRIN 81 MG CHEWABLE TABLET PO SCH (09:25)
[2019-05-28] MEDS: ENALAPRIL MALEATE 20 MG TABLET PO SCH (09:25)
[2019-05-28] MEDS: AmLODIPine BESYLATE 10 MG TABLET PO SCH (09:25)
[2019-05-28 16:00] VITALS: BP 126/68
[2019-05-28] MEDS: LORazepam 2 MG TABLET PO PRN ×2 (17:05→21:45)
[2019-05-28] MEDS: SIMVASTATIN 40 MG TABLET PO SCH (20:25)
[2019-05-28] MEDS: ZOLPIDEM TARTRATE 10 MG TABLET PO PRN (20:26)
[2019-05-28] MEDS ORDERED: CloZAPine 100 MG TABLET PO SCH (21:00)
[2019-05-29 03:22] VITALS: BP 125/55
[2019-05-29] MEDS: FERROUS SULFATE 325 MG EC TABLET PO SCH ×3 (06:33→16:14)
[2019-05-29] MEDS: ASPIRIN 81 MG CHEWABLE TABLET PO SCH (08:34)
[2019-05-29] MEDS: ARIPiprazole 15 MG TABLET PO SCH (08:34)
[2019-05-29] MEDS: LORATADINE 10 MG TABLET PO SCH (08:35)
[2019-05-29] MEDS: DIVALPROEX SODIUM 250 MG ER TABLET PO SCH ×3 (08:35→16:14)
[2019-05-29] MEDS: AmLODIPine BESYLATE 10 MG TABLET PO SCH (08:35)
[2019-05-29] MEDS: CEPHALEXIN MONOHYDRATE 500 MG CAPSULE PO SCH ×2 (08:35→16:14)
[2019-05-29] MEDS: MULTIVITAMINS WITH MINERALS, THERAPEUTIC TABLET PO SCH (08:35)
[2019-05-29] MEDS: METOPROLOL SUCCINATE 25 MG ER TABLET PO SCH (08:35)
[2019-05-29] MEDS ORDERED: CloZAPine 25 MG TABLET PO SCH (09:00)
[2019-05-29] MEDS: ENALAPRIL MALEATE 20 MG TABLET PO SCH (09:55)
[2019-05-29 10:31] VITALS: BP 110/68
[2019-05-29 16:00] VITALS: BP 135/84
[2019-05-29] MEDS: LORazepam 2 MG TABLET PO PRN ×2 (16:14→20:50)
[2019-05-29] MEDS: HALOPERIDOL 5 MG TABLET PO PRN (16:14)
[2019-05-29] MEDS: DENTURE ADHESIVE 68 GM CREAM DT PRN (17:38)
[2019-05-29] MEDS: SIMVASTATIN 40 MG TABLET PO SCH (20:50)
[2019-05-29] MEDS ORDERED: CloZAPine 100 MG TABLET PO SCH (21:00)
[2019-05-30 04:26] VITALS: BP 127/60
[2019-05-30] MEDS: FERROUS SULFATE 325 MG EC TABLET PO SCH ×3 (06:44→16:40)
[2019-05-30] MEDS: ARIPiprazole 15 MG TABLET PO SCH (08:02)
[2019-05-30] MEDS: LORATADINE 10 MG TABLET PO SCH (08:02)
[2019-05-30] MEDS: METOPROLOL SUCCINATE 25 MG ER TABLET PO SCH (08:02)
[2019-05-30] MEDS: AmLODIPine BESYLATE 10 MG TABLET PO SCH (08:02)
[2019-05-30] MEDS: DIVALPROEX SODIUM 250 MG ER TABLET PO SCH ×3 (08:02→16:40)
[2019-05-30] MEDS: MULTIVITAMINS WITH MINERALS, THERAPEUTIC TABLET PO SCH (08:02)
[2019-05-30] MEDS: ENALAPRIL MALEATE 20 MG TABLET PO SCH (08:03)
[2019-05-30] MEDS: LORazepam 2 MG TABLET PO PRN (08:03)
[2019-05-30] MEDS: ASPIRIN 81 MG CHEWABLE TABLET PO SCH (08:03)
[2019-05-30 08:29] LABS: BASOPHILS % (AUTO) 0.4 % (0.0-2.0); EOSINOPHILS % (AUTO) 3.5 % (1.0-6.0); HEMOGLOBIN 12.8 g/dL (13.5-17.5); LYMPHOCYTES # (AUTO) 1.9 K/uL (1.0-4.8); MEAN CORPUSCULAR HEMOGLOBIN 29.9 pg (26.0-34.0); MEAN CORPUSCULAR HGB CONC 33.6 G/dL (31.0-37.0); MEAN CORPUSCULAR VOLUME 89 fL (80-100); MONOCYTES # (AUTO) 1.6 K/uL (0.1-1.0); MONOCYTES % (AUTO) 10.3 % (2.0-9.0); NEUTROPHILS # (AUTO) 11.7 K/uL (1.8-7.7); NEUTROPHILS % (AUTO) 73.8 % (40.0-70.0); PLATELET COUNT (AUTO) 283 K/uL (150-450); RED BLOOD CELL COUNT(AUTO) 4.27 MIL/uL (4.50-5.90)
[2019-05-30 08:45] VITALS: BP 121/57
[2019-05-30] MEDS: CEPHALEXIN MONOHYDRATE 500 MG CAPSULE PO SCH ×2 (08:51→16:40)
[2019-05-30] MEDS ORDERED: CloZAPine 25 MG TABLET PO SCH (09:00)
[2019-05-30] MEDS ORDERED: FluPHENAZine DECANOATE 25 MG/ML IM SCH (09:00)
[2019-05-30] MEDS: DENTURE ADHESIVE 68 GM CREAM DT PRN (10:13)
[2019-05-30 16:36] VITALS: BP 122/66
[2019-05-30] MEDS: SIMVASTATIN 40 MG TABLET PO SCH (20:52)
[2019-05-30] MEDS ORDERED: CloZAPine 100 MG TABLET PO SCH (21:00)
[2019-05-31 06:22] VITALS: BP 136/84
[2019-05-31] MEDS: FERROUS SULFATE 325 MG EC TABLET PO SCH ×3 (07:03→17:05)
[2019-05-31] MEDS: MULTIVITAMINS WITH MINERALS, THERAPEUTIC TABLET PO SCH (08:13)
[2019-05-31] MEDS: METOPROLOL SUCCINATE 25 MG ER TABLET PO SCH (08:13)
[2019-05-31] MEDS: CEPHALEXIN MONOHYDRATE 500 MG CAPSULE PO SCH ×2 (08:13→17:05)
[2019-05-31] MEDS: ASPIRIN 81 MG CHEWABLE TABLET PO SCH (08:13)
[2019-05-31] MEDS: ARIPiprazole 15 MG TABLET PO SCH (08:14)
[2019-05-31] MEDS: AmLODIPine BESYLATE 10 MG TABLET PO SCH (08:14)
[2019-05-31] MEDS: LORazepam 2 MG TABLET PO PRN ×2 (08:14→17:07)
[2019-05-31] MEDS: DIVALPROEX SODIUM 250 MG ER TABLET PO SCH ×3 (08:14→17:05)
[2019-05-31] MEDS: ENALAPRIL MALEATE 20 MG TABLET PO SCH (08:14)
[2019-05-31] MEDS: CloZAPine 100 MG TABLET PO SCH ×2 (08:14→21:07)
[2019-05-31] MEDS: LORATADINE 10 MG TABLET PO SCH (08:16)
[2019-05-31 16:13] VITALS: BP 125/68
[2019-05-31] MEDS: SIMVASTATIN 40 MG TABLET PO SCH (21:06)
[2019-05-31] MEDS: ZOLPIDEM TARTRATE 10 MG TABLET PO PRN (21:07)
[2019-06-01 00:22] VITALS: BP 103/57
[2019-06-01] MEDS: FERROUS SULFATE 325 MG EC TABLET PO SCH ×3 (06:29→16:48)
[2019-06-01 08:29] VITALS: BP 117/58
[2019-06-01] MEDS: ARIPiprazole 15 MG TABLET PO SCH (09:01)
[2019-06-01] MEDS: LORATADINE 10 MG TABLET PO SCH (09:01)
[2019-06-01] MEDS: CloZAPine 100 MG TABLET PO SCH ×2 (09:02→20:22)
[2019-06-01] MEDS: ENALAPRIL MALEATE 20 MG TABLET PO SCH (09:02)
[2019-06-01] MEDS: AmLODIPine BESYLATE 10 MG TABLET PO SCH (09:02)
[2019-06-01] MEDS: ASPIRIN 81 MG CHEWABLE TABLET PO SCH (09:02)
[2019-06-01] MEDS: DIVALPROEX SODIUM 250 MG ER TABLET PO SCH ×3 (09:02→16:48)
[2019-06-01] MEDS: METOPROLOL SUCCINATE 25 MG ER TABLET PO SCH (09:02)
[2019-06-01] MEDS: CEPHALEXIN MONOHYDRATE 500 MG CAPSULE PO SCH ×2 (09:03→16:48)
[2019-06-01] MEDS: MULTIVITAMINS WITH MINERALS, THERAPEUTIC TABLET PO SCH (09:03)
[2019-06-01 16:17] VITALS: BP 127/63
[2019-06-01] MEDS ORDERED: DiphenhydrAMINE HCL 50 MG/ML VIAL IM ONE (18:00)
[2019-06-01] MEDS ORDERED: LORazepam 2 MG/ML VIAL ONE (18:00)
[2019-06-01] MEDS ORDERED: DiphenhydrAMINE HCL 50 MG/ML VIAL ONE (18:00)
[2019-06-01] MEDS ORDERED: LORazepam 2 MG/ML VIAL IM ONE (18:00)
[2019-06-01] MEDS: SIMVASTATIN 40 MG TABLET PO SCH (20:22)
[2019-06-02] MEDS: FERROUS SULFATE 325 MG EC TABLET PO SCH ×3 (05:54→16:54)
[2019-06-02] MEDS ORDERED: CloZAPine 25 MG TABLET PO SCH (09:00)
[2019-06-02 09:20] VITALS: BP 132/69
[2019-06-02] MEDS: LORATADINE 10 MG TABLET PO SCH (10:01)
[2019-06-02] MEDS: METOPROLOL SUCCINATE 25 MG ER TABLET PO SCH (10:01)
[2019-06-02] MEDS: DIVALPROEX SODIUM 250 MG ER TABLET PO SCH ×3 (10:01→17:00)
[2019-06-02] MEDS: MULTIVITAMINS WITH MINERALS, THERAPEUTIC TABLET PO SCH (10:01)
[2019-06-02] MEDS: ARIPiprazole 15 MG TABLET PO SCH (10:01)
[2019-06-02] MEDS: ASPIRIN 81 MG CHEWABLE TABLET PO SCH (10:02)
[2019-06-02] MEDS: AmLODIPine BESYLATE 10 MG TABLET PO SCH (10:02)
[2019-06-02] MEDS: ENALAPRIL MALEATE 20 MG TABLET PO SCH (10:03)
[2019-06-02] MEDS: CEPHALEXIN MONOHYDRATE 500 MG CAPSULE PO SCH ×2 (10:03→16:54)
[2019-06-02 17:59] VITALS: BP 121/76
[2019-06-02] MEDS ORDERED: CloZAPine 100 MG TABLET PO SCH (21:00)
[2019-06-02] MEDS: SIMVASTATIN 40 MG TABLET PO SCH (21:45)
[2019-06-03 01:28] VITALS: BP 125/72
[2019-06-03] MEDS: FERROUS SULFATE 325 MG EC TABLET PO SCH ×3 (06:37→16:45)
[2019-06-03 08:13] VITALS: BP 126/61
[2019-06-03] MEDS ORDERED: CloZAPine 25 MG TABLET PO SCH (09:00)
[2019-06-03] MEDS: CEPHALEXIN MONOHYDRATE 500 MG CAPSULE PO SCH (09:02)
[2019-06-03] MEDS: ARIPiprazole 15 MG TABLET PO SCH (09:02)
[2019-06-03] MEDS: LORazepam 2 MG TABLET PO PRN (09:02)
[2019-06-03] MEDS: AmLODIPine BESYLATE 10 MG TABLET PO SCH (09:02)
[2019-06-03] MEDS: LORATADINE 10 MG TABLET PO SCH (09:02)
[2019-06-03] MEDS: ENALAPRIL MALEATE 20 MG TABLET PO SCH (09:02)
[2019-06-03] MEDS: DIVALPROEX SODIUM 250 MG ER TABLET PO SCH ×3 (09:02→16:45)
[2019-06-03] MEDS: METOPROLOL SUCCINATE 25 MG ER TABLET PO SCH (09:02)
[2019-06-03] MEDS: MULTIVITAMINS WITH MINERALS, THERAPEUTIC TABLET PO SCH (09:03)
[2019-06-03] MEDS: ASPIRIN 81 MG CHEWABLE TABLET PO SCH (09:03)
[2019-06-03 16:46] VITALS: BP 100/60
[2019-06-03] MEDS: DENTURE ADHESIVE 68 GM CREAM DT PRN (17:17)
[2019-06-03] MEDS: CloZAPine 100 MG TABLET PO SCH (22:20)
[2019-06-03] MEDS: SIMVASTATIN 40 MG TABLET PO SCH (22:20)
[2019-06-03] MEDS: BENZTROPINE MESYLATE 1 MG TABLET PO SCH (22:20)
[2019-06-04 05:45] VITALS: BP 122/58
[2019-06-04] MEDS: FERROUS SULFATE 325 MG EC TABLET PO SCH ×3 (07:00→16:56)
[2019-06-04 08:23] VITALS: BP 137/71
[2019-06-04] MEDS: AmLODIPine BESYLATE 10 MG TABLET PO SCH (08:40)
[2019-06-04] MEDS: DIVALPROEX SODIUM 250 MG ER TABLET PO SCH ×3 (08:40→16:55)
[2019-06-04] MEDS: METOPROLOL SUCCINATE 25 MG ER TABLET PO SCH (08:40)
[2019-06-04] MEDS: ARIPiprazole 15 MG TABLET PO SCH (08:41)
[2019-06-04] MEDS: LORATADINE 10 MG TABLET PO SCH (08:41)
[2019-06-04] MEDS: ASPIRIN 81 MG CHEWABLE TABLET PO SCH (08:41)
[2019-06-04] MEDS: MULTIVITAMINS WITH MINERALS, THERAPEUTIC TABLET PO SCH (08:41)
[2019-06-04] MEDS: ENALAPRIL MALEATE 20 MG TABLET PO SCH (08:42)
[2019-06-04] MEDS ORDERED: CloZAPine 100 MG TABLET PO SCH ×2 (09:00→21:00)
[2019-06-04 16:12] VITALS: BP 134/69
[2019-06-04] MEDS: DENTURE ADHESIVE 68 GM CREAM DT PRN (16:55)
[2019-06-04] MEDS: LORazepam 2 MG TABLET PO PRN (16:56)
[2019-06-04] MEDS: CloZAPine 100 MG TABLET PO SCH (20:28)
[2019-06-04] MEDS: BENZTROPINE MESYLATE 1 MG TABLET PO SCH (20:28)
[2019-06-04] MEDS: SIMVASTATIN 40 MG TABLET PO SCH (20:29)
[2019-06-05 00:54] VITALS: BP 115/56
[2019-06-05] MEDS: FERROUS SULFATE 325 MG EC TABLET PO SCH ×3 (07:11→16:27)
[2019-06-05] MEDS: MULTIVITAMINS WITH MINERALS, THERAPEUTIC TABLET PO SCH (08:19)
[2019-06-05] MEDS: LORATADINE 10 MG TABLET PO SCH (08:19)
[2019-06-05] MEDS: ENALAPRIL MALEATE 20 MG TABLET PO SCH (08:19)
[2019-06-05] MEDS: ARIPiprazole 15 MG TABLET PO SCH (08:19)
[2019-06-05] MEDS: METOPROLOL SUCCINATE 25 MG ER TABLET PO SCH (08:19)
[2019-06-05] MEDS: AmLODIPine BESYLATE 10 MG TABLET PO SCH (08:19)
[2019-06-05] MEDS: ASPIRIN 81 MG CHEWABLE TABLET PO SCH (08:20)
[2019-06-05] MEDS: DIVALPROEX SODIUM 250 MG ER TABLET PO SCH ×3 (08:20→16:27)
[2019-06-05 08:38] VITALS: BP 120/67
[2019-06-05 16:16] VITALS: BP 117/62
[2019-06-05] MEDS: SIMVASTATIN 40 MG TABLET PO SCH (20:37)
[2019-06-05] MEDS: BENZTROPINE MESYLATE 1 MG TABLET PO SCH (20:38)
[2019-06-05] MEDS: CloZAPine 100 MG TABLET PO SCH (20:38)
[2019-06-06 04:44] VITALS: BP 134/62
[2019-06-06] MEDS: FERROUS SULFATE 325 MG EC TABLET PO SCH ×3 (07:17→16:32)
[2019-06-06 07:26] LABS: BASOPHILS % (AUTO) 0.4 % (0.0-2.0); EOSINOPHILS % (AUTO) 3.8 % (1.0-6.0); HEMATOCRIT 37.2 % (41-53); HEMOGLOBIN 12.3 g/dL (13.5-17.5); LYMPHOCYTES # (AUTO) 2.1 K/uL (1.0-4.8); LYMPHOCYTES % (AUTO) 14.4 % (22.0-44.0); MEAN CORPUSCULAR HEMOGLOBIN 29.4 pg (26.0-34.0); MEAN CORPUSCULAR VOLUME 89 fL (80-100); MONOCYTES # (AUTO) 1.1 K/uL (0.1-1.0); MONOCYTES % (AUTO) 7.5 % (2.0-9.0); NEUTROPHILS # (AUTO) 10.8 K/uL (1.8-7.7); NEUTROPHILS % (AUTO) 73.9 % (40.0-70.0); PLATELET COUNT (AUTO) 298 K/uL (150-450); RED BLOOD CELL COUNT(AUTO) 4.17 MIL/uL (4.50-5.90); RED CELL DISTRIBUTION WIDTH 14.4 % (11.5-14.5)
[2019-06-06 08:19] VITALS: BP 143/78
[2019-06-06] MEDS: ASPIRIN 81 MG CHEWABLE TABLET PO SCH (08:53)
[2019-06-06] MEDS: LORATADINE 10 MG TABLET PO SCH (08:53)
[2019-06-06] MEDS: DIVALPROEX SODIUM 250 MG ER TABLET PO SCH ×3 (08:53→16:32)
[2019-06-06] MEDS: MULTIVITAMINS WITH MINERALS, THERAPEUTIC TABLET PO SCH (08:53)
[2019-06-06] MEDS: ARIPiprazole 15 MG TABLET PO SCH (08:53)
[2019-06-06] MEDS: METOPROLOL SUCCINATE 25 MG ER TABLET PO SCH (08:54)
[2019-06-06] MEDS: AmLODIPine BESYLATE 10 MG TABLET PO SCH (08:54)
[2019-06-06 09:22] LABS: BAND NEUTROPHILS % (MANUAL) 6 % (0-5); BASOPHILS % (MANUAL) 1 % (0-2); EOSINOPHILS % (MANUAL) 3 % (1-6); LYMPHOCYTES % (MANUAL) 20 % (22-44); MONOCYTES % (MANUAL) 3 % (2-9); SEGMENTED NEUTROPHILS % 67 % (40-70)
[2019-06-06] MEDS: ENALAPRIL MALEATE 20 MG TABLET PO SCH (09:51)
[2019-06-06 16:00] VITALS: BP 139/68
[2019-06-06] MEDS: DENTURE ADHESIVE 68 GM CREAM DT PRN (16:33)
[2019-06-06] MEDS: LORazepam 2 MG TABLET PO PRN (16:33)
[2019-06-06] MEDS: BENZTROPINE MESYLATE 1 MG TABLET PO SCH (20:15)
[2019-06-06] MEDS: SIMVASTATIN 40 MG TABLET PO SCH (20:15)
[2019-06-06] MEDS: CloZAPine 100 MG TABLET PO SCH (20:15)
[2019-06-07 02:24] VITALS: BP 129/80
[2019-06-07] MEDS: FERROUS SULFATE 325 MG EC TABLET PO SCH ×3 (06:50→16:10)
[2019-06-07 08:26] VITALS: BP 101/68
[2019-06-07] MEDS: DIVALPROEX SODIUM 250 MG ER TABLET PO SCH ×3 (09:24→16:10)
[2019-06-07] MEDS: LORATADINE 10 MG TABLET PO SCH (09:25)
[2019-06-07] MEDS: ASPIRIN 81 MG CHEWABLE TABLET PO SCH (09:25)
[2019-06-07] MEDS: ARIPiprazole 15 MG TABLET PO SCH (09:25)
[2019-06-07] MEDS: METOPROLOL SUCCINATE 25 MG ER TABLET PO SCH (09:27)
[2019-06-07] MEDS: MULTIVITAMINS WITH MINERALS, THERAPEUTIC TABLET PO SCH (09:27)
[2019-06-07] MEDS: AmLODIPine BESYLATE 10 MG TABLET PO SCH (09:27)
[2019-06-07] MEDS: ENALAPRIL MALEATE 20 MG TABLET PO SCH (09:28)
[2019-06-07 16:00] VITALS: BP 105/65
[2019-06-07] MEDS: LORazepam 2 MG TABLET PO PRN ×2 (16:10→20:20)
[2019-06-07] MEDS: DENTURE ADHESIVE 68 GM CREAM DT PRN (19:41)
[2019-06-07] MEDS: BENZTROPINE MESYLATE 1 MG TABLET PO SCH (20:19)
[2019-06-07] MEDS: SIMVASTATIN 40 MG TABLET PO SCH (20:19)
[2019-06-07] MEDS: CloZAPine 100 MG TABLET PO SCH (20:19)
[2019-06-08 05:20] VITALS: BP 114/67
[2019-06-08] MEDS: FERROUS SULFATE 325 MG EC TABLET PO SCH ×3 (06:45→16:27)
[2019-06-08] MEDS: DENTURE ADHESIVE 68 GM CREAM DT PRN (07:11)
[2019-06-08] MEDS: ASPIRIN 81 MG CHEWABLE TABLET PO SCH (09:18)
[2019-06-08] MEDS: METOPROLOL SUCCINATE 25 MG ER TABLET PO SCH (09:18)
[2019-06-08] MEDS: AmLODIPine BESYLATE 10 MG TABLET PO SCH (09:18)
[2019-06-08] MEDS: DIVALPROEX SODIUM 250 MG ER TABLET PO SCH ×3 (09:18→16:28)
[2019-06-08] MEDS: MULTIVITAMINS WITH MINERALS, THERAPEUTIC TABLET PO SCH (09:18)
[2019-06-08] MEDS: ARIPiprazole 15 MG TABLET PO SCH (09:18)
[2019-06-08] MEDS: LORATADINE 10 MG TABLET PO SCH (09:18)
[2019-06-08] MEDS: ENALAPRIL MALEATE 20 MG TABLET PO SCH (09:19)
[2019-06-08 10:11] VITALS: BP 123/72
[2019-06-08 16:16] VITALS: BP 113/64
[2019-06-08] MEDS: LORazepam 2 MG TABLET PO PRN (18:44)
[2019-06-08] MEDS: BENZTROPINE MESYLATE 1 MG TABLET PO SCH (20:18)
[2019-06-08] MEDS: CloZAPine 100 MG TABLET PO SCH (20:19)
[2019-06-08] MEDS: SIMVASTATIN 40 MG TABLET PO SCH (20:20)
[2019-06-09 01:23] VITALS: BP 110/68
[2019-06-09] MEDS: FERROUS SULFATE 325 MG EC TABLET PO SCH ×3 (06:46→18:22)
[2019-06-09] MEDS: METOPROLOL SUCCINATE 25 MG ER TABLET PO SCH (08:27)
[2019-06-09] MEDS: ARIPiprazole 15 MG TABLET PO SCH (08:28)
[2019-06-09] MEDS: AmLODIPine BESYLATE 10 MG TABLET PO SCH (08:28)
[2019-06-09] MEDS: LORATADINE 10 MG TABLET PO SCH (08:28)
[2019-06-09] MEDS: MULTIVITAMINS WITH MINERALS, THERAPEUTIC TABLET PO SCH (08:28)
[2019-06-09] MEDS: ENALAPRIL MALEATE 20 MG TABLET PO SCH (08:28)
[2019-06-09] MEDS: DIVALPROEX SODIUM 250 MG ER TABLET PO SCH ×3 (08:28→18:22)
[2019-06-09] MEDS: ASPIRIN 81 MG CHEWABLE TABLET PO SCH (08:28)
[2019-06-09 10:09] VITALS: BP 139/68
[2019-06-09 16:19] VITALS: BP 139/73
[2019-06-09] MEDS: SIMVASTATIN 40 MG TABLET PO SCH (21:36)
[2019-06-09] MEDS: BENZTROPINE MESYLATE 1 MG TABLET PO SCH (21:36)
[2019-06-09] MEDS: CloZAPine 100 MG TABLET PO SCH (21:36)
[2019-06-10 05:05] VITALS: BP 131/72
[2019-06-10] MEDS: FERROUS SULFATE 325 MG EC TABLET PO SCH ×3 (06:00→16:56)
[2019-06-10 08:07] VITALS: BP 98/52
[2019-06-10] MEDS: METOPROLOL SUCCINATE 25 MG ER TABLET PO SCH (08:40)
[2019-06-10] MEDS: MULTIVITAMINS WITH MINERALS, THERAPEUTIC TABLET PO SCH (08:40)
[2019-06-10] MEDS: ASPIRIN 81 MG CHEWABLE TABLET PO SCH (08:41)
[2019-06-10] MEDS: DIVALPROEX SODIUM 250 MG ER TABLET PO SCH ×3 (08:42→16:56)
[2019-06-10] MEDS: AmLODIPine BESYLATE 10 MG TABLET PO SCH (08:42)
[2019-06-10] MEDS: LORATADINE 10 MG TABLET PO SCH (08:42)
[2019-06-10] MEDS: ARIPiprazole 15 MG TABLET PO SCH (08:42)
[2019-06-10] MEDS ORDERED: BENZTROPINE MESYLATE 1 MG TABLET PO SCH (09:30)
[2019-06-10] MEDS: ENALAPRIL MALEATE 20 MG TABLET PO SCH (09:46)
[2019-06-10] MEDS: BENZTROPINE MESYLATE 1 MG TABLET PO SCH ×2 (09:47→16:56)
[2019-06-10] MEDS ORDERED: BENZTROPINE MESYLATE 2 MG TABLET PO SCH (17:00)
[2019-06-10 17:09] VITALS: BP 112/60
[2019-06-10] MEDS: SIMVASTATIN 40 MG TABLET PO SCH (21:14)
[2019-06-10] MEDS: CloZAPine 100 MG TABLET PO SCH (21:14)
[2019-06-11 01:38] VITALS: BP 114/71
[2019-06-11] MEDS: FERROUS SULFATE 325 MG EC TABLET PO SCH ×3 (06:52→16:43)
[2019-06-11] MEDS: ARIPiprazole 15 MG TABLET PO SCH (08:41)
[2019-06-11] MEDS: LORATADINE 10 MG TABLET PO SCH (08:41)
[2019-06-11] MEDS: METOPROLOL SUCCINATE 25 MG ER TABLET PO SCH (08:41)
[2019-06-11] MEDS: AmLODIPine BESYLATE 10 MG TABLET PO SCH (08:41)
[2019-06-11] MEDS: BENZTROPINE MESYLATE 1 MG TABLET PO SCH ×2 (08:41→16:43)
[2019-06-11] MEDS: ENALAPRIL MALEATE 20 MG TABLET PO SCH (08:41)
[2019-06-11] MEDS: DIVALPROEX SODIUM 250 MG ER TABLET PO SCH ×3 (08:41→16:43)
[2019-06-11] MEDS: LORazepam 2 MG TABLET PO PRN ×2 (08:41→16:44)
[2019-06-11] MEDS: ASPIRIN 81 MG CHEWABLE TABLET PO SCH (08:42)
[2019-06-11] MEDS: MULTIVITAMINS WITH MINERALS, THERAPEUTIC TABLET PO SCH (08:42)
[2019-06-11 09:04] VITALS: BP 124/62
[2019-06-11] MEDS: CloZAPine 25 MG TABLET PO SCH (10:30)
[2019-06-11 16:19] VITALS: BP 116/62
[2019-06-11] MEDS: DENTURE ADHESIVE 68 GM CREAM DT PRN (18:08)
[2019-06-11] MEDS: SIMVASTATIN 40 MG TABLET PO SCH (20:27)
[2019-06-11] MEDS: CloZAPine 100 MG TABLET PO SCH (20:27)
[2019-06-11] MEDS: ZOLPIDEM TARTRATE 10 MG TABLET PO PRN (20:27)
[2019-06-12 03:38] VITALS: BP 134/75
[2019-06-12] MEDS: FERROUS SULFATE 325 MG EC TABLET PO SCH ×2 (06:45→12:00)
[2019-06-12 08:00] VITALS: BP 143/89
[2019-06-12] MEDS: ARIPiprazole 15 MG TABLET PO SCH (09:01)
[2019-06-12] MEDS: METOPROLOL SUCCINATE 25 MG ER TABLET PO SCH (09:01)
[2019-06-12] MEDS: CloZAPine 25 MG TABLET PO SCH (09:01)
[2019-06-12] MEDS: ASPIRIN 81 MG CHEWABLE TABLET PO SCH (09:01)
[2019-06-12] MEDS: LORATADINE 10 MG TABLET PO SCH (09:01)
[2019-06-12] MEDS: ENALAPRIL MALEATE 20 MG TABLET PO SCH (09:01)
[2019-06-12] MEDS: AmLODIPine BESYLATE 10 MG TABLET PO SCH (09:01)
[2019-06-12] MEDS: DIVALPROEX SODIUM 250 MG ER TABLET PO SCH ×2 (09:01→13:00)
[2019-06-12] MEDS: BENZTROPINE MESYLATE 1 MG TABLET PO SCH (09:01)
[2019-06-12] MEDS: MULTIVITAMINS WITH MINERALS, THERAPEUTIC TABLET PO SCH (09:02)
[2019-06-13] MEDS ORDERED: CloZAPine 100 MG TABLET PO SCH (09:00)
== END 2019-06-12 20:45 | disposition short-term general hospital (02) | DRG 885 ==
LOC: EMS 09:01 → B2X 16:48 → B2S 03-25 20:25 → B3A 04-18 10:30
PROVIDERS: ADMIT Psychiatry & Neurology Child & Adolescent Psychiatry; ATTEND Psychiatry & Neurology Child & Adolescent Psychiatry
DX: F25.1 Schizoaffective disorder, depressive type (principal); G93.40 Encephalopathy, unspecified; N39.0 Urinary tract infection, site not specified; I10 Essential (primary) hypertension; E11.9 Type 2 diabetes mellitus without complications; D64.9 Anemia, unspecified; E78.5 Hyperlipidemia, unspecified; E78.00 Pure hypercholesterolemia, unspecified; F41.9 Anxiety disorder, unspecified; R45.850 Homicidal ideations; Z59.0 Homelessness; Z74.01 Bed confinement status; Z91.19 Patient's noncompliance with other medical treatment and regimen; Z79.899 Other long term (current) drug therapy
CPT/HCPCS: 83036; 84443; 85007; 87086; 87804; G0480; J1200; J1630; J2060; J2680; J3230

== ENCOUNTER 2019-04-05 15:12 | Emergency (ER) | payer OTHER ==
[~2019-04-05] VITALS: Ht 182.9 cm; Wt 80.5 kg
[~2019-04-05 15:12] MED LIST changes: +GABA-529 PO
[2019-04-05 15:44] LABS: BASOPHILS % (AUTO) 0.6 % (0.0-2.0); EOSINOPHILS % (AUTO) 1.4 % (1.0-6.0); HEMATOCRIT 39.8 % (41-53); HEMOGLOBIN 13.8 g/dL (13.5-17.5); LYMPHOCYTES # (AUTO) 2.4 K/uL (1.0-4.8); LYMPHOCYTES % (AUTO) 22.4 % (22.0-44.0); MEAN CORPUSCULAR HEMOGLOBIN 29.9 pg (26.0-34.0); MEAN CORPUSCULAR HGB CONC 34.6 G/dL (31.0-37.0); MEAN CORPUSCULAR VOLUME 87 fL (80-100); MONOCYTES # (AUTO) 0.8 K/uL (0.1-1.0); MONOCYTES % (AUTO) 7.7 % (2.0-9.0); NEUTROPHILS # (AUTO) 7.2 K/uL (1.8-7.7); NEUTROPHILS % (AUTO) 67.9 % (40.0-70.0); PLATELET COUNT (AUTO) 244 K/uL (150-450); RED CELL DISTRIBUTION WIDTH 13.8 % (11.5-14.5)
[2019-04-05 15:51] LABS: APPEARANCE,URINE CLEAR (CLEAR); BILIRUBIN,URINE NEGATIVE (NEGATIVE); GLUCOSE, URINE (UA) NEGATIVE (NEGATIVE); KETONES,URINE NEGATIVE (NEGATIVE); LEUKOCYTE ESTERASE ,URINE NEGATIVE (NEGATIVE); NITRATE,URINE NEGATIVE (NEGATIVE); OCCULT BLOOD,URINE NEGATIVE (NEGATIVE); PROTEIN,URINE NEGATIVE (NEGATIVE); UROBILINOGEN,URINE 0.2 mg/dL (<=1.0)
[2019-04-05 15:53] LABS: ANION GAP 5 mmol/L (8-16); CALCIUM, TOTAL 9.1 mg/dL (8.8-10.5); CARBON DIOXIDE 31 mmol/L (22-29); CHLORIDE 104 mmol/L (98-107); CREATININE 1.02 mg/dL (0.60-1.30); GLOMERULAR FILTR. RATE CALC > 60 mL/min (>60); GLUCOSE,RANDOM 76 mg/dL (70-110); SODIUM SERUM 140 mmol/L (136-145); UREA NITROGEN, BLOOD 24 mg/dL (7-18)
[2019-04-05 15:58] LABS: AMPHET/METH SCREEN,URINE NEGATIVE (NEGATIVE); BARBITURATE SCREEN, URINE NEGATIVE (NEGATIVE); BENZODIAZEPINES SCREEN,URINE NEGATIVE (NEGATIVE); CANNABINOID SCREEN,URINE NEGATIVE (NEGATIVE); COCAINE SCREEN,URINE NEGATIVE (NEGATIVE); METHADONE SCREEN, URINE NEGATIVE (NEGATIVE); OPIATE SCREEN,URINE NEGATIVE (NEGATIVE)
[2019-04-05 15:58] LABS: ALANINE AMINOTRANSFERASE 25 U/L (12-78); ALBUMIN 3.7 g/dL (3.4-5.0); ALKALINE PHOSPHATASE 82 U/L (46-116); ASPARTATE AMINOTRANSFERASE 12 U/L (15-37); BILIRUBIN,TOTAL 0.2 mg/dL (0.1-1.0); TOTAL PROTEIN, SERUM 7.1 g/dL (6.4-8.2); VALPROIC ACID 77 mcg/mL (50-100)
[2019-04-05 15:59] LABS: PHENCYCLIDINE SCREEN,URINE NEGATIVE (NEGATIVE)
[2019-04-05 16:09] LABS: GLUCOSE,POINT OF CARE 92 MG/DL (70-110)
[2019-04-05 17:00] VITALS: BP 151/88
== END 2019-04-05 18:32 | disposition home or self-care (01) ==
LOC: EMS 15:14
DX: F25.1 Schizoaffective disorder, depressive type (principal); E11.9 Type 2 diabetes mellitus without complications; E78.00 Pure hypercholesterolemia, unspecified; I10 Essential (primary) hypertension; F31.9 Bipolar disorder, unspecified; Z79.899 Other long term (current) drug therapy; Z79.82 Long term (current) use of aspirin; Z98.890 Other specified postprocedural states
CPT/HCPCS: 36415; 80053; 80164; 80307; 81003; 82962; 85025; 99284; G0480

== ENCOUNTER 2019-05-24 18:47 | Emergency (ER) | payer OTHER ==
[~2019-05-24] VITALS: Ht 182.9 cm; Wt 77.3 kg
[2019-05-24 20:36] LABS: APPEARANCE,URINE CLEAR (CLEAR); BILIRUBIN,URINE NEGATIVE (NEGATIVE); GLUCOSE, URINE (UA) NEGATIVE (NEGATIVE); KETONES,URINE NEGATIVE (NEGATIVE); LEUKOCYTE ESTERASE ,URINE SMALL (NEGATIVE); NITRATE,URINE NEGATIVE (NEGATIVE); OCCULT BLOOD,URINE NEGATIVE (NEGATIVE); PH,URINE 7.5 (5.0-8.0); PROTEIN,URINE NEGATIVE (NEGATIVE); UROBILINOGEN,URINE 0.2 mg/dL (<=1.0)
[2019-05-24 20:40] LABS: BACTERIA,URINE None Seen /HPF (None Seen); RBC,URINE None Seen /HPF (0-2)
[2019-05-24 20:41] LABS: SQUAMOUS EPITHELIAL CELL,UR Rare /LPF (None Seen)
[2019-05-24 20:51] VITALS: BP 135/78
[2019-05-24] MEDS ORDERED: CEPHALEXIN MONOHYDRATE 500 MG CAPSULE PO ONE (21:15)
== END 2019-05-24 21:57 | disposition home or self-care (01) ==
LOC: EMS 18:48
DX: N39.0 Urinary tract infection, site not specified (principal); E11.9 Type 2 diabetes mellitus without complications; E78.00 Pure hypercholesterolemia, unspecified; I10 Essential (primary) hypertension; F20.9 Schizophrenia, unspecified; F31.9 Bipolar disorder, unspecified; Z79.899 Other long term (current) drug therapy
CPT/HCPCS: 87086

== ENCOUNTER 2019-06-16 14:33 | Inpatient (IN) | payer OTHER, MEDICAID ==
[~2019-06-16] VITALS: Ht 172.7 cm; Wt 76.1 kg
[~2019-06-16 14:33] MED LIST changes: +AMLO-258 PO; -AMLO5TAB9 PO; +DIVA-85 PO; -DIVA250T45 PO; +GABA-1216 PO; -GABA-529 PO
[2019-06-16] MEDS ORDERED: HALOPERIDOL 5 MG TABLET PO PRN (16:30)
[2019-06-16 21:28] VITALS: BP 154/86
[2019-06-16] MEDS ORDERED: CloNIDine HCL 0.1 MG TABLET PO PRN (22:00)
[2019-06-17] MEDS: MULTIVITAMINS WITH IRON TABLET PO SCH (08:41)
[2019-06-17] MEDS: LEVOFLOXACIN 750 MG TABLET PO SCH (08:41)
[2019-06-17] MEDS: FAMOTIDINE 20 MG TABLET PO SCH (08:42)
[2019-06-17] MEDS ORDERED: CloZAPine 25 MG TABLET PO SCH ×2 (09:00→21:00)
[2019-06-17] MEDS ORDERED: PETROLATUM,WHITE 28 GM JELLY TP PRN (09:15)
[2019-06-17] MEDS ORDERED: ONDANSETRON HCL 4 MG TABLET PO PRN (09:15)
[2019-06-17] MEDS ORDERED: GuaiFENesin/D-METHORPHAN [SUGAR-FREE] 200-20MG/10 ML SYRUP UDCUP PO PRN (09:15)
[2019-06-17] MEDS ORDERED: NICOTINE 14 MG/24 HOUR PATCH TD PRN (09:15)
[2019-06-17] MEDS ORDERED: CloNIDine HCL 0.1 MG TABLET PO PRN (09:15)
[2019-06-17] MEDS ORDERED: LOPERAMIDE HCL 2 MG CAPSULE PO PRN (09:15)
[2019-06-17] MEDS ORDERED: ALBUTEROL SULFATE HFA 90 MCG/PUFF 8 GM INHALER IH PRN (09:15)
[2019-06-17 10:36] VITALS: BP 150/83
[2019-06-17] MEDS: FERROUS SULFATE 325 MG EC TABLET PO SCH ×2 (12:50→17:16)
[2019-06-17] MEDS: LORATADINE 10 MG TABLET PO SCH (12:50)
[2019-06-17] MEDS: DIVALPROEX SODIUM 250 MG DR TABLET PO SCH ×2 (12:50→17:15)
[2019-06-17] MEDS: BENZTROPINE MESYLATE 1 MG TABLET PO SCH (17:15)
[2019-06-17 21:02] VITALS: BP 148/85
[2019-06-17] MEDS: SIMVASTATIN 40 MG TABLET PO SCH (21:11)
[2019-06-18] MEDS: FERROUS SULFATE 325 MG EC TABLET PO SCH ×3 (07:00→16:16)
[2019-06-18 08:00] VITALS: BP 105/69
[2019-06-18] MEDS ORDERED: ENALAPRIL MALEATE 20 MG TABLET PO SCH (09:00)
[2019-06-18] MEDS: ARIPiprazole 15 MG TABLET PO SCH (09:10)
[2019-06-18] MEDS: BENZTROPINE MESYLATE 1 MG TABLET PO SCH ×2 (09:10→16:16)
[2019-06-18] MEDS: CloZAPine 25 MG TABLET PO SCH ×2 (09:10→20:09)
[2019-06-18] MEDS: AmLODIPine BESYLATE 10 MG TABLET PO SCH ×2 (09:10→09:28)
[2019-06-18] MEDS: ASPIRIN 81 MG CHEWABLE TABLET PO SCH (09:10)
[2019-06-18] MEDS: LEVOFLOXACIN 750 MG TABLET PO SCH (09:11)
[2019-06-18] MEDS: LORATADINE 10 MG TABLET PO SCH (09:11)
[2019-06-18] MEDS: DIVALPROEX SODIUM 250 MG DR TABLET PO SCH ×3 (09:11→16:16)
[2019-06-18] MEDS: MULTIVITAMINS WITH IRON TABLET PO SCH (09:11)
[2019-06-18] MEDS: FAMOTIDINE 20 MG TABLET PO SCH (09:11)
[2019-06-18 09:25] VITALS: BP 141/75
[2019-06-18] MEDS: METOPROLOL SUCCINATE 25 MG ER TABLET PO SCH (09:27)
[2019-06-18 16:41] VITALS: BP 140/90
[2019-06-18] MEDS: SIMVASTATIN 40 MG TABLET PO SCH (20:09)
[2019-06-19] MEDS: FERROUS SULFATE 325 MG EC TABLET PO SCH ×3 (06:46→17:55)
[2019-06-19 08:00] VITALS: BP 136/78
[2019-06-19] MEDS: BENZTROPINE MESYLATE 1 MG TABLET PO SCH ×2 (09:05→15:54)
[2019-06-19] MEDS: LORATADINE 10 MG TABLET PO SCH (09:05)
[2019-06-19] MEDS: DIVALPROEX SODIUM 250 MG DR TABLET PO SCH ×3 (09:05→15:54)
[2019-06-19] MEDS: MULTIVITAMINS WITH IRON TABLET PO SCH (09:05)
[2019-06-19] MEDS: AmLODIPine BESYLATE 10 MG TABLET PO SCH (09:05)
[2019-06-19] MEDS: ARIPiprazole 15 MG TABLET PO SCH (09:05)
[2019-06-19] MEDS: FAMOTIDINE 20 MG TABLET PO SCH (09:05)
[2019-06-19] MEDS: METOPROLOL SUCCINATE 25 MG ER TABLET PO SCH (09:05)
[2019-06-19] MEDS: CloZAPine 25 MG TABLET PO SCH ×2 (09:06→20:09)
[2019-06-19] MEDS: LEVOFLOXACIN 750 MG TABLET PO SCH (09:06)
[2019-06-19] MEDS: ASPIRIN 81 MG CHEWABLE TABLET PO SCH (09:06)
[2019-06-19 16:35] VITALS: BP 114/64
[2019-06-19] MEDS: SIMVASTATIN 40 MG TABLET PO SCH (20:09)
[2019-06-20] MEDS: FERROUS SULFATE 325 MG EC TABLET PO SCH ×3 (06:52→18:45)
[2019-06-20 07:16] LABS: EOSINOPHILS % (AUTO) 4.7 % (1.0-6.0); HEMATOCRIT 34.5 % (41-53); HEMOGLOBIN 11.8 g/dL (13.5-17.5); LYMPHOCYTES # (AUTO) 2.5 K/uL (1.0-4.8); LYMPHOCYTES % (AUTO) 30.2 % (22.0-44.0); MEAN CORPUSCULAR HEMOGLOBIN 30.3 pg (26.0-34.0); MEAN CORPUSCULAR HGB CONC 34.2 G/dL (31.0-37.0); MEAN CORPUSCULAR VOLUME 89 fL (80-100); MONOCYTES # (AUTO) 0.9 K/uL (0.1-1.0); MONOCYTES % (AUTO) 11.5 % (2.0-9.0); NEUTROPHILS # (AUTO) 4.3 K/uL (1.8-7.7); NEUTROPHILS % (AUTO) 52.6 % (40.0-70.0); PLATELET COUNT (AUTO) 236 K/uL (150-450); RED BLOOD CELL COUNT(AUTO) 3.89 MIL/uL (4.50-5.90); RED CELL DISTRIBUTION WIDTH 14.5 % (11.5-14.5)
[2019-06-20] MEDS: LEVOFLOXACIN 750 MG TABLET PO SCH (07:43)
[2019-06-20] MEDS: FAMOTIDINE 20 MG TABLET PO SCH (07:54)
[2019-06-20] MEDS: DENTURE ADHESIVE 68 GM CREAM DT PRN (07:54)
[2019-06-20] MEDS: BENZTROPINE MESYLATE 1 MG TABLET PO SCH ×2 (07:55→16:00)
[2019-06-20] MEDS: ASPIRIN 81 MG CHEWABLE TABLET PO SCH (07:55)
[2019-06-20] MEDS: AmLODIPine BESYLATE 10 MG TABLET PO SCH (07:55)
[2019-06-20] MEDS: ARIPiprazole 15 MG TABLET PO SCH (07:57)
[2019-06-20] MEDS: LORATADINE 10 MG TABLET PO SCH (07:58)
[2019-06-20] MEDS: DIVALPROEX SODIUM 250 MG DR TABLET PO SCH ×3 (07:59→16:00)
[2019-06-20 08:02] VITALS: BP 133/70
[2019-06-20] MEDS: MULTIVITAMINS WITH IRON TABLET PO SCH (08:07)
[2019-06-20] MEDS: METOPROLOL SUCCINATE 25 MG ER TABLET PO SCH (08:14)
[2019-06-20] MEDS ORDERED: CloZAPine 25 MG TABLET PO SCH (09:00)
[2019-06-20 18:49] VITALS: BP 147/87
[2019-06-20] MEDS: SIMVASTATIN 40 MG TABLET PO SCH (20:23)
[2019-06-20] MEDS ORDERED: CloZAPine 100 MG TABLET PO SCH (21:00)
[2019-06-21] MEDS: FERROUS SULFATE 325 MG EC TABLET PO SCH ×3 (06:36→17:35)
[2019-06-21 08:05] VITALS: BP 143/83
[2019-06-21] MEDS: LEVOFLOXACIN 750 MG TABLET PO SCH (08:24)
[2019-06-21] MEDS: METOPROLOL SUCCINATE 25 MG ER TABLET PO SCH (08:24)
[2019-06-21] MEDS: DIVALPROEX SODIUM 250 MG DR TABLET PO SCH ×3 (08:25→16:49)
[2019-06-21] MEDS: ASPIRIN 81 MG CHEWABLE TABLET PO SCH (08:25)
[2019-06-21] MEDS: MULTIVITAMINS WITH IRON TABLET PO SCH (08:25)
[2019-06-21] MEDS: AmLODIPine BESYLATE 10 MG TABLET PO SCH (08:25)
[2019-06-21] MEDS: FAMOTIDINE 20 MG TABLET PO SCH (08:25)
[2019-06-21] MEDS: ARIPiprazole 15 MG TABLET PO SCH (08:25)
[2019-06-21] MEDS: LORATADINE 10 MG TABLET PO SCH (08:25)
[2019-06-21] MEDS: BENZTROPINE MESYLATE 1 MG TABLET PO SCH ×2 (08:26→16:49)
[2019-06-21] MEDS ORDERED: CloZAPine 25 MG TABLET PO SCH (09:00)
[2019-06-21 16:19] VITALS: BP 141/81
[2019-06-21] MEDS: SIMVASTATIN 40 MG TABLET PO SCH (20:15)
[2019-06-21] MEDS ORDERED: CloZAPine 100 MG TABLET PO SCH (21:00)
[2019-06-22] MEDS: FERROUS SULFATE 325 MG EC TABLET PO SCH ×3 (06:53→16:37)
[2019-06-22] MEDS ORDERED: CloZAPine 25 MG TABLET PO SCH (09:00)
[2019-06-22] MEDS: MULTIVITAMINS WITH IRON TABLET PO SCH (09:28)
[2019-06-22] MEDS: LORATADINE 10 MG TABLET PO SCH (09:28)
[2019-06-22] MEDS: BENZTROPINE MESYLATE 1 MG TABLET PO SCH ×2 (09:28→16:37)
[2019-06-22] MEDS: ARIPiprazole 15 MG TABLET PO SCH (09:28)
[2019-06-22] MEDS: FAMOTIDINE 20 MG TABLET PO SCH (09:28)
[2019-06-22] MEDS: DIVALPROEX SODIUM 250 MG DR TABLET PO SCH ×3 (09:28→16:37)
[2019-06-22] MEDS: AmLODIPine BESYLATE 10 MG TABLET PO SCH (09:28)
[2019-06-22] MEDS: LEVOFLOXACIN 750 MG TABLET PO SCH (09:29)
[2019-06-22] MEDS: METOPROLOL SUCCINATE 25 MG ER TABLET PO SCH (09:29)
[2019-06-22] MEDS: ASPIRIN 81 MG CHEWABLE TABLET PO SCH (09:29)
[2019-06-22 10:16] VITALS: BP 121/81
[2019-06-22 16:26] VITALS: BP 136/63
[2019-06-22] MEDS: SIMVASTATIN 40 MG TABLET PO SCH (20:10)
[2019-06-22] MEDS ORDERED: CloZAPine 100 MG TABLET PO SCH (21:00)
[2019-06-23 02:45] VITALS: BP 142/79
[2019-06-23] MEDS: FERROUS SULFATE 325 MG EC TABLET PO SCH ×3 (06:52→16:42)
[2019-06-23] MEDS: CloZAPine 100 MG TABLET PO SCH ×2 (08:34→20:14)
[2019-06-23] MEDS: LORATADINE 10 MG TABLET PO SCH (08:34)
[2019-06-23] MEDS: METOPROLOL SUCCINATE 25 MG ER TABLET PO SCH (08:34)
[2019-06-23] MEDS: ASPIRIN 81 MG CHEWABLE TABLET PO SCH (08:34)
[2019-06-23] MEDS: FAMOTIDINE 20 MG TABLET PO SCH (08:35)
[2019-06-23] MEDS: ARIPiprazole 15 MG TABLET PO SCH (08:35)
[2019-06-23] MEDS: BENZTROPINE MESYLATE 1 MG TABLET PO SCH ×2 (08:35→16:42)
[2019-06-23] MEDS: AmLODIPine BESYLATE 10 MG TABLET PO SCH (08:35)
[2019-06-23] MEDS: DIVALPROEX SODIUM 250 MG DR TABLET PO SCH ×3 (08:35→16:42)
[2019-06-23] MEDS: MULTIVITAMINS WITH IRON TABLET PO SCH (08:35)
[2019-06-23 10:16] VITALS: BP 128/64
[2019-06-23 17:53] VITALS: BP 157/93
[2019-06-23] MEDS: DENTURE ADHESIVE 68 GM CREAM DT PRN (17:56)
[2019-06-23] MEDS: SIMVASTATIN 40 MG TABLET PO SCH (20:14)
[2019-06-24] MEDS: DENTURE ADHESIVE 68 GM CREAM DT PRN (04:10)
[2019-06-24] MEDS: FERROUS SULFATE 325 MG EC TABLET PO SCH ×3 (07:03→16:13)
[2019-06-24 08:37] VITALS: BP 151/80
[2019-06-24] MEDS: ARIPiprazole 15 MG TABLET PO SCH (08:43)
[2019-06-24] MEDS: MULTIVITAMINS WITH IRON TABLET PO SCH (08:43)
[2019-06-24] MEDS: FAMOTIDINE 20 MG TABLET PO SCH (08:43)
[2019-06-24] MEDS: CloZAPine 100 MG TABLET PO SCH ×2 (08:43→20:21)
[2019-06-24] MEDS: ASPIRIN 81 MG CHEWABLE TABLET PO SCH (08:44)
[2019-06-24] MEDS: DIVALPROEX SODIUM 250 MG DR TABLET PO SCH ×3 (08:44→16:13)
[2019-06-24] MEDS: LORATADINE 10 MG TABLET PO SCH (08:44)
[2019-06-24] MEDS: BENZTROPINE MESYLATE 1 MG TABLET PO SCH ×2 (08:44→16:13)
[2019-06-24] MEDS: METOPROLOL SUCCINATE 25 MG ER TABLET PO SCH (08:44)
[2019-06-24] MEDS: AmLODIPine BESYLATE 10 MG TABLET PO SCH (08:44)
[2019-06-24] MEDS: SIMVASTATIN 40 MG TABLET PO SCH (20:21)
[2019-06-25] MEDS: FERROUS SULFATE 325 MG EC TABLET PO SCH ×3 (06:54→16:10)
[2019-06-25 07:09] LABS: ANION GAP 10 mmol/L (8-16); CALCIUM, TOTAL 8.8 mg/dL (8.8-10.5); CARBON DIOXIDE 25 mmol/L (22-29); CHLORIDE 103 mmol/L (98-107); CREATININE 0.95 mg/dL (0.60-1.30); GLOMERULAR FILTR. RATE CALC > 60 mL/min (>60); GLUCOSE,RANDOM 119 mg/dL (70-110); POTASSIUM 4.2 mmol/L (3.5-5.1); SODIUM SERUM 138 mmol/L (136-145); UREA NITROGEN, BLOOD 23 mg/dL (7-18)
[2019-06-25 08:00] VITALS: BP 151/67
[2019-06-25] MEDS: METOPROLOL SUCCINATE 25 MG ER TABLET PO SCH (08:09)
[2019-06-25] MEDS: BENZTROPINE MESYLATE 1 MG TABLET PO SCH ×2 (08:10→16:10)
[2019-06-25] MEDS: ASPIRIN 81 MG CHEWABLE TABLET PO SCH (08:11)
[2019-06-25] MEDS: ARIPiprazole 15 MG TABLET PO SCH (08:11)
[2019-06-25] MEDS: DIVALPROEX SODIUM 250 MG DR TABLET PO SCH ×3 (08:11→16:10)
[2019-06-25] MEDS: FAMOTIDINE 20 MG TABLET PO SCH (08:12)
[2019-06-25] MEDS: MULTIVITAMINS WITH IRON TABLET PO SCH (08:12)
[2019-06-25] MEDS: LORATADINE 10 MG TABLET PO SCH (08:12)
[2019-06-25] MEDS: AmLODIPine BESYLATE 10 MG TABLET PO SCH (08:14)
[2019-06-25] MEDS ORDERED: CloZAPine 25 MG TABLET PO SCH (09:00)
[2019-06-25 16:50] VITALS: BP 106/53
[2019-06-25] MEDS: SIMVASTATIN 40 MG TABLET PO SCH (20:03)
[2019-06-25] MEDS ORDERED: CloZAPine 100 MG TABLET PO SCH (21:00)
[2019-06-26] MEDS: FERROUS SULFATE 325 MG EC TABLET PO SCH ×3 (06:55→17:27)
[2019-06-26 08:00] VITALS: BP 147/85
[2019-06-26] MEDS: MULTIVITAMINS WITH IRON TABLET PO SCH (08:03)
[2019-06-26] MEDS: LORATADINE 10 MG TABLET PO SCH (08:03)
[2019-06-26] MEDS: ASPIRIN 81 MG CHEWABLE TABLET PO SCH (08:03)
[2019-06-26] MEDS: FAMOTIDINE 20 MG TABLET PO SCH (08:03)
[2019-06-26] MEDS: ARIPiprazole 15 MG TABLET PO SCH (08:03)
[2019-06-26] MEDS: AmLODIPine BESYLATE 10 MG TABLET PO SCH (08:03)
[2019-06-26] MEDS: DIVALPROEX SODIUM 250 MG DR TABLET PO SCH ×3 (08:04→16:07)
[2019-06-26] MEDS: BENZTROPINE MESYLATE 1 MG TABLET PO SCH ×2 (08:04→16:06)
[2019-06-26] MEDS: METOPROLOL SUCCINATE 25 MG ER TABLET PO SCH (08:04)
[2019-06-26] MEDS ORDERED: CloZAPine 25 MG TABLET PO SCH (09:00)
[2019-06-26 16:36] VITALS: BP 140/70
[2019-06-26] MEDS: SIMVASTATIN 40 MG TABLET PO SCH (20:22)
[2019-06-26] MEDS ORDERED: CloZAPine 100 MG TABLET PO SCH (21:00)
[2019-06-27] MEDS: FERROUS SULFATE 325 MG EC TABLET PO SCH ×3 (06:50→16:26)
[2019-06-27] MEDS: ARIPiprazole 15 MG TABLET PO SCH (08:55)
[2019-06-27] MEDS: BENZTROPINE MESYLATE 1 MG TABLET PO SCH ×2 (08:56→16:26)
[2019-06-27] MEDS: FAMOTIDINE 20 MG TABLET PO SCH (08:56)
[2019-06-27] MEDS: AmLODIPine BESYLATE 10 MG TABLET PO SCH (08:56)
[2019-06-27] MEDS: METOPROLOL SUCCINATE 25 MG ER TABLET PO SCH (08:56)
[2019-06-27] MEDS: ASPIRIN 81 MG CHEWABLE TABLET PO SCH (08:56)
[2019-06-27] MEDS: MULTIVITAMINS WITH IRON TABLET PO SCH (08:56)
[2019-06-27] MEDS: CloZAPine 100 MG TABLET PO SCH ×2 (08:57→20:23)
[2019-06-27] MEDS: DIVALPROEX SODIUM 250 MG DR TABLET PO SCH ×3 (08:58→16:26)
[2019-06-27] MEDS: LORATADINE 10 MG TABLET PO SCH (08:58)
[2019-06-27 09:56] VITALS: BP 147/79
[2019-06-27 19:05] VITALS: BP 138/72
[2019-06-27] MEDS: SIMVASTATIN 40 MG TABLET PO SCH (20:23)
[2019-06-28 04:31] VITALS: BP 136/74
[2019-06-28] MEDS: FERROUS SULFATE 325 MG EC TABLET PO SCH ×3 (06:35→17:48)
[2019-06-28] MEDS: ASPIRIN 81 MG CHEWABLE TABLET PO SCH (09:14)
[2019-06-28] MEDS: BENZTROPINE MESYLATE 1 MG TABLET PO SCH ×2 (09:14→17:48)
[2019-06-28] MEDS: AmLODIPine BESYLATE 10 MG TABLET PO SCH (09:14)
[2019-06-28] MEDS: CloZAPine 100 MG TABLET PO SCH ×2 (09:14→20:48)
[2019-06-28] MEDS: LORATADINE 10 MG TABLET PO SCH (09:14)
[2019-06-28] MEDS: ARIPiprazole 15 MG TABLET PO SCH (09:15)
[2019-06-28] MEDS: FAMOTIDINE 20 MG TABLET PO SCH (09:15)
[2019-06-28] MEDS: DIVALPROEX SODIUM 250 MG DR TABLET PO SCH ×3 (09:15→17:48)
[2019-06-28] MEDS: MULTIVITAMINS WITH IRON TABLET PO SCH (09:15)
[2019-06-28] MEDS: METOPROLOL SUCCINATE 25 MG ER TABLET PO SCH (09:16)
[2019-06-28 09:24] LABS: EOSINOPHILS % (AUTO) 6.8 % (1.0-6.0); HEMATOCRIT 40.2 % (41-53); HEMOGLOBIN 13.4 g/dL (13.5-17.5); LYMPHOCYTES # (AUTO) 2.2 K/uL (1.0-4.8); MEAN CORPUSCULAR HEMOGLOBIN 29.8 pg (26.0-34.0); MEAN CORPUSCULAR HGB CONC 33.3 G/dL (31.0-37.0); MEAN CORPUSCULAR VOLUME 89 fL (80-100); MONOCYTES # (AUTO) 0.5 K/uL (0.1-1.0); NEUTROPHILS # (AUTO) 4.4 K/uL (1.8-7.7); NEUTROPHILS % (AUTO) 57.2 % (40.0-70.0); PLATELET COUNT (AUTO) 170 K/uL (150-450); RED BLOOD CELL COUNT(AUTO) 4.49 MIL/uL (4.50-5.90); RED CELL DISTRIBUTION WIDTH 14.7 % (11.5-14.5)
[2019-06-28 10:51] VITALS: BP 143/72
[2019-06-28] MEDS: DENTURE ADHESIVE 68 GM CREAM DT PRN (12:59)
[2019-06-28 17:35] VITALS: BP 142/76
[2019-06-28] MEDS ORDERED: DiphenhydrAMINE HCL 50 MG/ML VIAL ONE (20:42)
[2019-06-28] MEDS ORDERED: LORazepam 2 MG/ML VIAL ONE (20:42)
[2019-06-28] MEDS ORDERED: HALOPERIDOL LACTATE 5 MG/ML VIAL ONE (20:42)
[2019-06-28] MEDS: DiphenhydrAMINE HCL 50 MG/ML VIAL IM PRN (20:45)
[2019-06-28] MEDS: HALOPERIDOL LACTATE 5 MG/ML VIAL IM PRN (20:45)
[2019-06-28] MEDS: LORazepam 2 MG/ML VIAL IM PRN (20:45)
[2019-06-28] MEDS: SIMVASTATIN 40 MG TABLET PO SCH (20:48)
[2019-06-29] MEDS: FERROUS SULFATE 325 MG EC TABLET PO SCH ×3 (06:51→16:22)
[2019-06-29] MEDS: LORATADINE 10 MG TABLET PO SCH (08:02)
[2019-06-29] MEDS: AmLODIPine BESYLATE 10 MG TABLET PO SCH (08:02)
[2019-06-29] MEDS: FAMOTIDINE 20 MG TABLET PO SCH (08:02)
[2019-06-29] MEDS: MULTIVITAMINS WITH IRON TABLET PO SCH (08:02)
[2019-06-29] MEDS: METOPROLOL SUCCINATE 25 MG ER TABLET PO SCH (08:03)
[2019-06-29] MEDS: BENZTROPINE MESYLATE 1 MG TABLET PO SCH ×2 (08:03→16:22)
[2019-06-29] MEDS: ASPIRIN 81 MG CHEWABLE TABLET PO SCH (08:03)
[2019-06-29] MEDS: DIVALPROEX SODIUM 250 MG DR TABLET PO SCH ×3 (08:03→16:22)
[2019-06-29] MEDS: CloZAPine 100 MG TABLET PO SCH ×2 (09:00→20:30)
[2019-06-29] MEDS: ARIPiprazole 15 MG TABLET PO SCH (09:00)
[2019-06-29 09:43] VITALS: BP 137/66
[2019-06-29] MEDS: DiphenhydrAMINE HCL 50 MG/ML VIAL IM PRN (10:00)
[2019-06-29] MEDS: HALOPERIDOL LACTATE 5 MG/ML VIAL IM PRN (10:00)
[2019-06-29] MEDS: LORazepam 2 MG/ML VIAL IM PRN (10:00)
[2019-06-29 16:00] VITALS: BP 140/74
[2019-06-29] MEDS: SIMVASTATIN 40 MG TABLET PO SCH (20:30)
[2019-06-29 22:45] LABS: GLUCOMETER DEV NAME(LOC) 3E.C; GLUCOSE,POINT OF CARE 139 MG/DL (70-110)
[2019-06-30 03:02] VITALS: BP 150/80
[2019-06-30] MEDS: FERROUS SULFATE 325 MG EC TABLET PO SCH ×2 (06:37→17:44)
[2019-06-30 08:00] VITALS: BP 135/72
[2019-06-30] MEDS: DIVALPROEX SODIUM 250 MG DR TABLET PO SCH ×3 (09:00→17:45)
[2019-06-30] MEDS: ARIPiprazole 10 MG TABLET PO SCH (09:00)
[2019-06-30] MEDS: CloZAPine 100 MG TABLET PO SCH ×2 (09:00→20:28)
[2019-06-30] MEDS: AmLODIPine BESYLATE 10 MG TABLET PO SCH (09:00)
[2019-06-30] MEDS: METOPROLOL SUCCINATE 25 MG ER TABLET PO SCH (09:00)
[2019-06-30] MEDS: LORATADINE 10 MG TABLET PO SCH (09:00)
[2019-06-30] MEDS: ASPIRIN 81 MG CHEWABLE TABLET PO SCH (09:00)
[2019-06-30] MEDS: BENZTROPINE MESYLATE 1 MG TABLET PO SCH ×2 (09:00→17:45)
[2019-06-30] MEDS: MULTIVITAMINS WITH IRON TABLET PO SCH (09:00)
[2019-06-30] MEDS: FAMOTIDINE 20 MG TABLET PO SCH (09:00)
[2019-06-30] MEDS: DiphenhydrAMINE HCL 50 MG/ML VIAL IM PRN ×2 (11:51→20:19)
[2019-06-30] MEDS: HALOPERIDOL LACTATE 5 MG/ML VIAL IM PRN ×2 (11:54→20:20)
[2019-06-30 16:34] VITALS: BP 146/76
[2019-06-30] MEDS: SIMVASTATIN 40 MG TABLET PO SCH (20:16)
[2019-07-01 03:14] VITALS: BP 115/63
[2019-07-01] MEDS: FERROUS SULFATE 325 MG EC TABLET PO SCH ×2 (07:04→17:48)
[2019-07-01] MEDS: MULTIVITAMINS WITH IRON TABLET PO SCH (08:28)
[2019-07-01] MEDS: FAMOTIDINE 20 MG TABLET PO SCH (08:28)
[2019-07-01] MEDS: DIVALPROEX SODIUM 250 MG DR TABLET PO SCH ×3 (08:29→17:47)
[2019-07-01] MEDS: CloZAPine 100 MG TABLET PO SCH ×2 (08:29→20:01)
[2019-07-01] MEDS: AmLODIPine BESYLATE 10 MG TABLET PO SCH (08:29)
[2019-07-01] MEDS: LORATADINE 10 MG TABLET PO SCH (08:30)
[2019-07-01] MEDS: BENZTROPINE MESYLATE 1 MG TABLET PO SCH ×2 (08:30→17:47)
[2019-07-01] MEDS: ASPIRIN 81 MG CHEWABLE TABLET PO SCH (08:30)
[2019-07-01] MEDS: ARIPiprazole 10 MG TABLET PO SCH (08:34)
[2019-07-01 09:27] VITALS: BP 121/61
[2019-07-01] MEDS: METOPROLOL SUCCINATE 25 MG ER TABLET PO SCH (09:42)
[2019-07-01 16:33] VITALS: BP 119/60
[2019-07-01] MEDS: SIMVASTATIN 40 MG TABLET PO SCH (20:00)
[2019-07-01] MEDS: DENTURE ADHESIVE 68 GM CREAM DT PRN (20:04)
[2019-07-02] MEDS: FERROUS SULFATE 325 MG EC TABLET PO SCH ×2 (06:44→16:46)
[2019-07-02] MEDS: ARIPiprazole 10 MG TABLET PO SCH (08:08)
[2019-07-02] MEDS: AmLODIPine BESYLATE 10 MG TABLET PO SCH (08:09)
[2019-07-02] MEDS: MULTIVITAMINS WITH IRON TABLET PO SCH (08:09)
[2019-07-02] MEDS: LORATADINE 10 MG TABLET PO SCH (08:09)
[2019-07-02] MEDS: CloZAPine 100 MG TABLET PO SCH ×2 (08:09→20:09)
[2019-07-02] MEDS: FAMOTIDINE 20 MG TABLET PO SCH (08:09)
[2019-07-02] MEDS: ASPIRIN 81 MG CHEWABLE TABLET PO SCH (08:09)
[2019-07-02] MEDS: DIVALPROEX SODIUM 250 MG DR TABLET PO SCH ×3 (08:10→16:47)
[2019-07-02] MEDS: BENZTROPINE MESYLATE 1 MG TABLET PO SCH ×2 (08:42→16:46)
[2019-07-02] MEDS: METOPROLOL SUCCINATE 25 MG ER TABLET PO SCH (08:42)
[2019-07-02 09:36] VITALS: BP 139/79
[2019-07-02 19:13] VITALS: BP 115/82
[2019-07-02] MEDS: SIMVASTATIN 40 MG TABLET PO SCH (20:09)
[2019-07-02] MEDS: DENTURE ADHESIVE 68 GM CREAM DT PRN (20:26)
[2019-07-03 01:50] VITALS: BP 145/80
[2019-07-03] MEDS: FERROUS SULFATE 325 MG EC TABLET PO SCH ×2 (06:56→17:45)
[2019-07-03 08:00] VITALS: BP 122/63
[2019-07-03] MEDS: FAMOTIDINE 20 MG TABLET PO SCH (09:24)
[2019-07-03] MEDS: BENZTROPINE MESYLATE 1 MG TABLET PO SCH ×2 (09:24→17:45)
[2019-07-03] MEDS: MULTIVITAMINS WITH IRON TABLET PO SCH (09:24)
[2019-07-03] MEDS: LORATADINE 10 MG TABLET PO SCH (09:24)
[2019-07-03] MEDS: AmLODIPine BESYLATE 10 MG TABLET PO SCH (09:25)
[2019-07-03] MEDS: DIVALPROEX SODIUM 250 MG DR TABLET PO SCH ×3 (09:25→17:45)
[2019-07-03] MEDS: ARIPiprazole 10 MG TABLET PO SCH (09:25)
[2019-07-03] MEDS: ASPIRIN 81 MG CHEWABLE TABLET PO SCH (09:25)
[2019-07-03] MEDS: CloZAPine 100 MG TABLET PO SCH ×2 (09:25→21:00)
[2019-07-03] MEDS: METOPROLOL SUCCINATE 25 MG ER TABLET PO SCH (09:28)
[2019-07-03 18:02] VITALS: BP 135/81
[2019-07-03] MEDS: SIMVASTATIN 40 MG TABLET PO SCH (22:07)
[2019-07-03] MEDS: HALOPERIDOL LACTATE 5 MG/ML VIAL IM PRN (22:09)
[2019-07-03] MEDS: DiphenhydrAMINE HCL 50 MG/ML VIAL IM PRN (22:09)
[2019-07-04] MEDS: FERROUS SULFATE 325 MG EC TABLET PO SCH ×2 (07:01→17:20)
[2019-07-04 08:50] VITALS: BP 122/62
[2019-07-04] MEDS: METOPROLOL SUCCINATE 25 MG ER TABLET PO SCH ×2 (09:00→09:22)
[2019-07-04] MEDS: FAMOTIDINE 20 MG TABLET PO SCH ×2 (09:00→09:28)
[2019-07-04] MEDS: LORATADINE 10 MG TABLET PO SCH ×2 (09:00→09:26)
[2019-07-04] MEDS: ASPIRIN 81 MG CHEWABLE TABLET PO SCH ×2 (09:00→09:26)
[2019-07-04] MEDS: ARIPiprazole 10 MG TABLET PO SCH ×2 (09:00→09:25)
[2019-07-04] MEDS: MULTIVITAMINS WITH IRON TABLET PO SCH ×2 (09:00→09:25)
[2019-07-04] MEDS: AmLODIPine BESYLATE 10 MG TABLET PO SCH ×2 (09:00→09:26)
[2019-07-04] MEDS: DIVALPROEX SODIUM 250 MG DR TABLET PO SCH ×4 (09:00→17:21)
[2019-07-04] MEDS: CloZAPine 100 MG TABLET PO SCH ×3 (09:00→20:43)
[2019-07-04] MEDS: BENZTROPINE MESYLATE 1 MG TABLET PO SCH ×3 (09:00→17:21)
[2019-07-04] MEDS: DiphenhydrAMINE HCL 50 MG/ML VIAL IM PRN ×2 (12:47→20:57)
[2019-07-04] MEDS: HALOPERIDOL LACTATE 5 MG/ML VIAL IM PRN ×2 (12:47→20:57)
[2019-07-04 16:30] VITALS: BP 150/76
[2019-07-04] MEDS: SIMVASTATIN 40 MG TABLET PO SCH (20:42)
[2019-07-05] MEDS: FERROUS SULFATE 325 MG EC TABLET PO SCH ×2 (06:39→17:45)
[2019-07-05 07:06] LABS: BASOPHILS % (AUTO) 1.1 % (0.0-2.0); EOSINOPHILS % (AUTO) 6.9 % (1.0-6.0); HEMOGLOBIN 13.7 g/dL (13.5-17.5); LYMPHOCYTES # (AUTO) 2.2 K/uL (1.0-4.8); LYMPHOCYTES % (AUTO) 32.4 % (22.0-44.0); MEAN CORPUSCULAR HEMOGLOBIN 30.5 pg (26.0-34.0); MEAN CORPUSCULAR HGB CONC 34.2 G/dL (31.0-37.0); MEAN CORPUSCULAR VOLUME 89 fL (80-100); MONOCYTES # (AUTO) 0.7 K/uL (0.1-1.0); MONOCYTES % (AUTO) 10.8 % (2.0-9.0); NEUTROPHILS # (AUTO) 3.3 K/uL (1.8-7.7); NEUTROPHILS % (AUTO) 48.8 % (40.0-70.0); PLATELET COUNT (AUTO) 198 K/uL (150-450); RED BLOOD CELL COUNT(AUTO) 4.48 MIL/uL (4.50-5.90); RED CELL DISTRIBUTION WIDTH 14.4 % (11.5-14.5)
[2019-07-05] MEDS: AmLODIPine BESYLATE 10 MG TABLET PO SCH (07:37)
[2019-07-05] MEDS: BENZTROPINE MESYLATE 1 MG TABLET PO SCH ×2 (07:37→16:34)
[2019-07-05] MEDS: FAMOTIDINE 20 MG TABLET PO SCH (07:37)
[2019-07-05] MEDS: MULTIVITAMINS WITH IRON TABLET PO SCH (07:37)
[2019-07-05] MEDS: DIVALPROEX SODIUM 250 MG DR TABLET PO SCH ×3 (07:37→16:34)
[2019-07-05] MEDS: ASPIRIN 81 MG CHEWABLE TABLET PO SCH (07:37)
[2019-07-05] MEDS: LORATADINE 10 MG TABLET PO SCH (07:37)
[2019-07-05] MEDS: METOPROLOL SUCCINATE 25 MG ER TABLET PO SCH (07:41)
[2019-07-05 08:43] VITALS: BP 133/74
[2019-07-05] MEDS: CloZAPine 100 MG TABLET PO SCH ×2 (09:00→20:53)
[2019-07-05] MEDS: ARIPiprazole 10 MG TABLET PO SCH (09:00)
[2019-07-05] MEDS: DiphenhydrAMINE HCL 50 MG/ML VIAL IM PRN (10:21)
[2019-07-05] MEDS: HALOPERIDOL LACTATE 5 MG/ML VIAL IM PRN (10:23)
[2019-07-05 17:43] VITALS: BP 150/98
[2019-07-05] MEDS: SIMVASTATIN 40 MG TABLET PO SCH (20:53)
[2019-07-06] MEDS: FERROUS SULFATE 325 MG EC TABLET PO SCH ×2 (06:32→17:39)
[2019-07-06] MEDS: AmLODIPine BESYLATE 10 MG TABLET PO SCH (09:00)
[2019-07-06] MEDS: FAMOTIDINE 20 MG TABLET PO SCH (09:00)
[2019-07-06] MEDS: DIVALPROEX SODIUM 250 MG DR TABLET PO SCH ×3 (10:25→17:38)
[2019-07-06] MEDS: LORATADINE 10 MG TABLET PO SCH (10:26)
[2019-07-06] MEDS: MULTIVITAMINS WITH IRON TABLET PO SCH (10:26)
[2019-07-06] MEDS: ASPIRIN 81 MG CHEWABLE TABLET PO SCH (10:26)
[2019-07-06] MEDS: CloZAPine 100 MG TABLET PO SCH ×2 (10:26→20:40)
[2019-07-06] MEDS: BENZTROPINE MESYLATE 1 MG TABLET PO SCH ×2 (10:26→17:38)
[2019-07-06] MEDS: ARIPiprazole 10 MG TABLET PO SCH (10:26)
[2019-07-06] MEDS: METOPROLOL SUCCINATE 25 MG ER TABLET PO SCH (10:30)
[2019-07-06 11:30] VITALS: BP 145/77
[2019-07-06 17:00] VITALS: BP 123/72
[2019-07-06] MEDS: SIMVASTATIN 40 MG TABLET PO SCH (20:27)
[2019-07-06] MEDS: DiphenhydrAMINE HCL 50 MG/ML VIAL IM PRN (20:41)
[2019-07-06] MEDS: HALOPERIDOL LACTATE 5 MG/ML VIAL IM PRN (20:41)
[2019-07-07] MEDS: FERROUS SULFATE 325 MG EC TABLET PO SCH ×2 (07:06→17:35)
[2019-07-07 08:00] VITALS: BP 164/90
[2019-07-07] MEDS ORDERED: METOPROLOL SUCCINATE 25 MG ER TABLET PO SCH (09:00)
[2019-07-07] MEDS: METOPROLOL SUCCINATE 25 MG ER TABLET PO SCH (09:08)
[2019-07-07] MEDS: MULTIVITAMINS WITH IRON TABLET PO SCH (09:11)
[2019-07-07] MEDS: CloZAPine 100 MG TABLET PO SCH ×2 (09:11→20:54)
[2019-07-07] MEDS: BENZTROPINE MESYLATE 1 MG TABLET PO SCH ×2 (09:11→17:35)
[2019-07-07] MEDS: AmLODIPine BESYLATE 10 MG TABLET PO SCH (09:11)
[2019-07-07] MEDS: FAMOTIDINE 20 MG TABLET PO SCH (09:11)
[2019-07-07] MEDS: LORATADINE 10 MG TABLET PO SCH (09:11)
[2019-07-07] MEDS: ASPIRIN 81 MG CHEWABLE TABLET PO SCH (09:11)
[2019-07-07] MEDS: DIVALPROEX SODIUM 250 MG DR TABLET PO SCH ×3 (09:12→17:35)
[2019-07-07 16:53] VITALS: BP 127/66
[2019-07-07] MEDS: SIMVASTATIN 40 MG TABLET PO SCH (20:54)
[2019-07-07] MEDS: DiphenhydrAMINE HCL 50 MG/ML VIAL IM PRN (20:55)
[2019-07-07] MEDS: HALOPERIDOL LACTATE 5 MG/ML VIAL IM PRN (20:56)
[2019-07-08] MEDS: FERROUS SULFATE 325 MG EC TABLET PO SCH ×2 (06:48→16:49)
[2019-07-08] MEDS: METOPROLOL SUCCINATE 25 MG ER TABLET PO SCH (08:11)
[2019-07-08] MEDS: LORATADINE 10 MG TABLET PO SCH (08:12)
[2019-07-08] MEDS: ASPIRIN 81 MG CHEWABLE TABLET PO SCH (08:12)
[2019-07-08] MEDS: AmLODIPine BESYLATE 10 MG TABLET PO SCH (08:12)
[2019-07-08] MEDS: BENZTROPINE MESYLATE 1 MG TABLET PO SCH ×2 (08:12→16:49)
[2019-07-08] MEDS: CloZAPine 100 MG TABLET PO SCH ×2 (08:12→20:58)
[2019-07-08] MEDS: MULTIVITAMINS WITH IRON TABLET PO SCH (08:12)
[2019-07-08] MEDS: DIVALPROEX SODIUM 250 MG DR TABLET PO SCH ×3 (08:12→16:49)
[2019-07-08] MEDS: FAMOTIDINE 20 MG TABLET PO SCH (08:12)
[2019-07-08 08:49] VITALS: BP 146/77
[2019-07-08 17:26] VITALS: BP 107/73
[2019-07-08] MEDS: SIMVASTATIN 40 MG TABLET PO SCH (20:58)
[2019-07-09] MEDS: FERROUS SULFATE 325 MG EC TABLET PO SCH ×2 (06:51→17:00)
[2019-07-09] MEDS: FAMOTIDINE 20 MG TABLET PO SCH (08:53)
[2019-07-09] MEDS: MULTIVITAMINS WITH IRON TABLET PO SCH (08:53)
[2019-07-09] MEDS: BENZTROPINE MESYLATE 1 MG TABLET PO SCH ×2 (08:53→17:00)
[2019-07-09] MEDS: DIVALPROEX SODIUM 250 MG DR TABLET PO SCH ×3 (08:54→16:59)
[2019-07-09] MEDS: CloZAPine 100 MG TABLET PO SCH ×2 (08:54→21:00)
[2019-07-09] MEDS: LORATADINE 10 MG TABLET PO SCH (08:54)
[2019-07-09] MEDS: ASPIRIN 81 MG CHEWABLE TABLET PO SCH (08:54)
[2019-07-09] MEDS: AmLODIPine BESYLATE 10 MG TABLET PO SCH (08:54)
[2019-07-09] MEDS: METOPROLOL SUCCINATE 25 MG ER TABLET PO SCH (08:57)
[2019-07-09 13:06] VITALS: BP 140/62
[2019-07-09 15:30] VITALS: BP 150/80
[2019-07-09] MEDS: SIMVASTATIN 40 MG TABLET PO SCH (21:00)
[2019-07-10] MEDS: FERROUS SULFATE 325 MG EC TABLET PO SCH ×2 (06:50→16:21)
[2019-07-10 08:00] VITALS: BP 133/61
[2019-07-10] MEDS: METOPROLOL SUCCINATE 25 MG ER TABLET PO SCH (10:07)
[2019-07-10] MEDS: BENZTROPINE MESYLATE 1 MG TABLET PO SCH ×2 (10:08→16:21)
[2019-07-10] MEDS: CloZAPine 100 MG TABLET PO SCH ×2 (10:09→20:22)
[2019-07-10] MEDS: ASPIRIN 81 MG CHEWABLE TABLET PO SCH (10:09)
[2019-07-10] MEDS: AmLODIPine BESYLATE 10 MG TABLET PO SCH (10:09)
[2019-07-10] MEDS: DIVALPROEX SODIUM 250 MG DR TABLET PO SCH ×3 (10:10→16:21)
[2019-07-10] MEDS: LORATADINE 10 MG TABLET PO SCH (10:10)
[2019-07-10] MEDS: MULTIVITAMINS WITH IRON TABLET PO SCH (10:10)
[2019-07-10] MEDS: FAMOTIDINE 20 MG TABLET PO SCH (10:10)
[2019-07-10 17:52] VITALS: BP 103/73
[2019-07-10] MEDS: SIMVASTATIN 40 MG TABLET PO SCH (20:22)
[2019-07-11] MEDS: FERROUS SULFATE 325 MG EC TABLET PO SCH ×2 (07:05→16:47)
[2019-07-11] MEDS: FAMOTIDINE 20 MG TABLET PO SCH (09:00)
[2019-07-11] MEDS: MULTIVITAMINS WITH IRON TABLET PO SCH (09:05)
[2019-07-11] MEDS: DIVALPROEX SODIUM 250 MG DR TABLET PO SCH ×3 (09:06→16:47)
[2019-07-11] MEDS: ASPIRIN 81 MG CHEWABLE TABLET PO SCH (09:07)
[2019-07-11] MEDS: BENZTROPINE MESYLATE 1 MG TABLET PO SCH ×2 (09:07→16:47)
[2019-07-11] MEDS: AmLODIPine BESYLATE 10 MG TABLET PO SCH (09:07)
[2019-07-11] MEDS: LORATADINE 10 MG TABLET PO SCH (09:07)
[2019-07-11] MEDS: METOPROLOL SUCCINATE 25 MG ER TABLET PO SCH (09:08)
[2019-07-11 09:24] VITALS: BP 135/73
[2019-07-11] MEDS: CloZAPine 100 MG TABLET PO SCH ×2 (09:31→20:12)
[2019-07-11] MEDS: DENTURE ADHESIVE 68 GM CREAM DT PRN (13:24)
[2019-07-11] MEDS: SIMVASTATIN 40 MG TABLET PO SCH (20:07)
[2019-07-11] MEDS: DiphenhydrAMINE HCL 50 MG/ML VIAL IM PRN (20:14)
[2019-07-11] MEDS: HALOPERIDOL LACTATE 5 MG/ML VIAL IM PRN (20:15)
[2019-07-12] MEDS: FERROUS SULFATE 325 MG EC TABLET PO SCH ×2 (06:41→16:27)
[2019-07-12 07:57] LABS: BASOPHILS % (AUTO) 0.5 % (0.0-2.0); EOSINOPHILS % (AUTO) 8.7 % (1.0-6.0); HEMATOCRIT 41.7 % (41-53); HEMOGLOBIN 13.6 g/dL (13.5-17.5); LYMPHOCYTES # (AUTO) 2.5 K/uL (1.0-4.8); LYMPHOCYTES % (AUTO) 25.8 % (22.0-44.0); MEAN CORPUSCULAR HEMOGLOBIN 29.4 pg (26.0-34.0); MEAN CORPUSCULAR HGB CONC 32.6 G/dL (31.0-37.0); MEAN CORPUSCULAR VOLUME 90 fL (80-100); MONOCYTES # (AUTO) 0.9 K/uL (0.1-1.0); MONOCYTES % (AUTO) 9.3 % (2.0-9.0); NEUTROPHILS # (AUTO) 5.3 K/uL (1.8-7.7); NEUTROPHILS % (AUTO) 55.7 % (40.0-70.0); PLATELET COUNT (AUTO) 222 K/uL (150-450); RED BLOOD CELL COUNT(AUTO) 4.62 MIL/uL (4.50-5.90); RED CELL DISTRIBUTION WIDTH 14.4 % (11.5-14.5)
[2019-07-12] MEDS: FAMOTIDINE 20 MG TABLET PO SCH (09:00)
[2019-07-12] MEDS: ASPIRIN 81 MG CHEWABLE TABLET PO SCH (09:01)
[2019-07-12] MEDS: LORATADINE 10 MG TABLET PO SCH (09:01)
[2019-07-12] MEDS: DIVALPROEX SODIUM 250 MG DR TABLET PO SCH ×3 (09:01→16:27)
[2019-07-12] MEDS: BENZTROPINE MESYLATE 1 MG TABLET PO SCH ×2 (09:01→16:27)
[2019-07-12] MEDS: MULTIVITAMINS WITH IRON TABLET PO SCH (09:01)
[2019-07-12] MEDS: AmLODIPine BESYLATE 10 MG TABLET PO SCH (09:02)
[2019-07-12] MEDS: METOPROLOL SUCCINATE 25 MG ER TABLET PO SCH (09:02)
[2019-07-12] MEDS: CloZAPine 100 MG TABLET PO SCH ×2 (09:02→20:59)
[2019-07-12 09:36] VITALS: BP 153/62
[2019-07-12 16:13] VITALS: BP 135/72
[2019-07-12] MEDS: SIMVASTATIN 40 MG TABLET PO SCH (20:59)
[2019-07-12] MEDS: HALOPERIDOL LACTATE 5 MG/ML VIAL IM PRN (21:06)
[2019-07-12] MEDS: DiphenhydrAMINE HCL 50 MG/ML VIAL IM PRN (21:07)
[2019-07-13] MEDS: FERROUS SULFATE 325 MG EC TABLET PO SCH ×2 (06:59→16:50)
[2019-07-13] MEDS: DENTURE ADHESIVE 68 GM CREAM DT PRN (08:47)
[2019-07-13] MEDS: METOPROLOL SUCCINATE 25 MG ER TABLET PO SCH (08:47)
[2019-07-13] MEDS: ASPIRIN 81 MG CHEWABLE TABLET PO SCH (08:50)
[2019-07-13] MEDS: BENZTROPINE MESYLATE 1 MG TABLET PO SCH ×2 (08:50→16:50)
[2019-07-13] MEDS: LORATADINE 10 MG TABLET PO SCH (08:50)
[2019-07-13] MEDS: AmLODIPine BESYLATE 10 MG TABLET PO SCH (08:50)
[2019-07-13] MEDS: DIVALPROEX SODIUM 250 MG DR TABLET PO SCH ×3 (08:50→16:50)
[2019-07-13] MEDS: MULTIVITAMINS WITH IRON TABLET PO SCH (08:50)
[2019-07-13] MEDS: CloZAPine 100 MG TABLET PO SCH ×2 (08:51→20:42)
[2019-07-13] MEDS: FAMOTIDINE 20 MG TABLET PO SCH (08:51)
[2019-07-13 10:00] VITALS: BP 155/74
[2019-07-13 16:42] VITALS: BP 131/65
[2019-07-13] MEDS: SIMVASTATIN 40 MG TABLET PO SCH (20:42)
[2019-07-14] MEDS: FERROUS SULFATE 325 MG EC TABLET PO SCH ×2 (06:53→17:36)
[2019-07-14] MEDS: FAMOTIDINE 20 MG TABLET PO SCH (07:33)
[2019-07-14] MEDS: LORATADINE 10 MG TABLET PO SCH (07:33)
[2019-07-14] MEDS: MULTIVITAMINS WITH IRON TABLET PO SCH (07:33)
[2019-07-14] MEDS: BENZTROPINE MESYLATE 1 MG TABLET PO SCH ×2 (07:34→16:35)
[2019-07-14] MEDS: CloZAPine 100 MG TABLET PO SCH ×2 (07:34→21:14)
[2019-07-14] MEDS: ASPIRIN 81 MG CHEWABLE TABLET PO SCH (07:34)
[2019-07-14] MEDS: METOPROLOL SUCCINATE 25 MG ER TABLET PO SCH (07:34)
[2019-07-14] MEDS: DIVALPROEX SODIUM 250 MG DR TABLET PO SCH ×3 (07:34→16:34)
[2019-07-14] MEDS: AmLODIPine BESYLATE 10 MG TABLET PO SCH (07:34)
[2019-07-14] MEDS: DENTURE ADHESIVE 68 GM CREAM DT PRN (07:35)
[2019-07-14 08:00] VITALS: BP 160/76
[2019-07-14 16:22] VITALS: BP 163/91
[2019-07-14] MEDS: SIMVASTATIN 40 MG TABLET PO SCH (21:14)
[2019-07-15] MEDS: FERROUS SULFATE 325 MG EC TABLET PO SCH ×2 (06:58→17:30)
[2019-07-15 08:00] VITALS: BP 101/52
[2019-07-15] MEDS: FAMOTIDINE 20 MG TABLET PO SCH (10:41)
[2019-07-15] MEDS: BENZTROPINE MESYLATE 1 MG TABLET PO SCH ×2 (10:41→17:00)
[2019-07-15] MEDS: AmLODIPine BESYLATE 10 MG TABLET PO SCH (10:41)
[2019-07-15] MEDS: ASPIRIN 81 MG CHEWABLE TABLET PO SCH (10:41)
[2019-07-15] MEDS: DIVALPROEX SODIUM 250 MG DR TABLET PO SCH ×3 (10:41→17:00)
[2019-07-15] MEDS: CloZAPine 100 MG TABLET PO SCH ×2 (10:42→20:32)
[2019-07-15] MEDS: LORATADINE 10 MG TABLET PO SCH (10:42)
[2019-07-15] MEDS: METOPROLOL SUCCINATE 25 MG ER TABLET PO SCH (10:42)
[2019-07-15] MEDS: MULTIVITAMINS WITH IRON TABLET PO SCH (10:42)
[2019-07-15] MEDS: SIMVASTATIN 40 MG TABLET PO SCH (20:32)
[2019-07-16] MEDS: FERROUS SULFATE 325 MG EC TABLET PO SCH ×2 (07:00→16:16)
[2019-07-16] MEDS: MULTIVITAMINS WITH IRON TABLET PO SCH (09:00)
[2019-07-16] MEDS: DIVALPROEX SODIUM 250 MG DR TABLET PO SCH ×3 (09:00→16:17)
[2019-07-16] MEDS: BENZTROPINE MESYLATE 1 MG TABLET PO SCH ×2 (09:00→16:16)
[2019-07-16] MEDS: ASPIRIN 81 MG CHEWABLE TABLET PO SCH (09:00)
[2019-07-16] MEDS: AmLODIPine BESYLATE 10 MG TABLET PO SCH (09:00)
[2019-07-16] MEDS: METOPROLOL SUCCINATE 25 MG ER TABLET PO SCH (09:00)
[2019-07-16] MEDS: CloZAPine 100 MG TABLET PO SCH ×2 (09:00→20:13)
[2019-07-16] MEDS: LORATADINE 10 MG TABLET PO SCH (09:00)
[2019-07-16] MEDS: FAMOTIDINE 20 MG TABLET PO SCH (09:00)
[2019-07-16] MEDS: DiphenhydrAMINE HCL 50 MG/ML VIAL IM PRN (10:15)
[2019-07-16] MEDS: HALOPERIDOL LACTATE 5 MG/ML VIAL IM PRN (10:18)
[2019-07-16 18:24] VITALS: BP 144/78
[2019-07-16] MEDS: SIMVASTATIN 40 MG TABLET PO SCH (20:15)
[2019-07-17] MEDS: FERROUS SULFATE 325 MG EC TABLET PO SCH ×2 (07:01→16:41)
[2019-07-17 08:00] VITALS: BP 125/61
[2019-07-17] MEDS: AmLODIPine BESYLATE 10 MG TABLET PO SCH (09:00)
[2019-07-17] MEDS: METOPROLOL SUCCINATE 25 MG ER TABLET PO SCH (09:00)
[2019-07-17] MEDS: DIVALPROEX SODIUM 250 MG DR TABLET PO SCH ×3 (09:00→16:42)
[2019-07-17] MEDS: CloZAPine 100 MG TABLET PO SCH ×2 (09:00→20:06)
[2019-07-17] MEDS: LORATADINE 10 MG TABLET PO SCH (09:00)
[2019-07-17] MEDS: FAMOTIDINE 20 MG TABLET PO SCH (09:00)
[2019-07-17] MEDS: MULTIVITAMINS WITH IRON TABLET PO SCH (09:00)
[2019-07-17] MEDS: BENZTROPINE MESYLATE 1 MG TABLET PO SCH ×2 (09:00→16:41)
[2019-07-17] MEDS: ASPIRIN 81 MG CHEWABLE TABLET PO SCH (09:00)
[2019-07-17] MEDS: DENTURE ADHESIVE 68 GM CREAM DT PRN (11:18)
[2019-07-17] MEDS: DiphenhydrAMINE HCL 50 MG/ML VIAL IM PRN (11:21)
[2019-07-17] MEDS: HALOPERIDOL LACTATE 5 MG/ML VIAL IM PRN (11:21)
[2019-07-17] MEDS: DOCUSATE SODIUM 100 MG CAPSULE PO PRN (16:41)
[2019-07-17 16:42] VITALS: BP 132/77
[2019-07-17] MEDS: SIMVASTATIN 40 MG TABLET PO SCH (20:06)
[2019-07-18] MEDS: FERROUS SULFATE 325 MG EC TABLET PO SCH ×2 (06:52→18:33)
[2019-07-18 08:00] VITALS: BP 132/63
[2019-07-18] MEDS: ASPIRIN 81 MG CHEWABLE TABLET PO SCH (09:00)
[2019-07-18] MEDS: CloZAPine 100 MG TABLET PO SCH ×2 (09:00→20:31)
[2019-07-18] MEDS: METOPROLOL SUCCINATE 25 MG ER TABLET PO SCH (09:00)
[2019-07-18] MEDS: MULTIVITAMINS WITH IRON TABLET PO SCH (09:00)
[2019-07-18] MEDS: BENZTROPINE MESYLATE 1 MG TABLET PO SCH ×2 (09:00→16:21)
[2019-07-18] MEDS: AmLODIPine BESYLATE 10 MG TABLET PO SCH (09:00)
[2019-07-18] MEDS: DIVALPROEX SODIUM 250 MG DR TABLET PO SCH ×3 (09:00→16:21)
[2019-07-18] MEDS: LORATADINE 10 MG TABLET PO SCH (09:00)
[2019-07-18] MEDS: FAMOTIDINE 20 MG TABLET PO SCH (09:00)
[2019-07-18] MEDS: DiphenhydrAMINE HCL 50 MG/ML VIAL IM PRN (11:36)
[2019-07-18] MEDS: HALOPERIDOL LACTATE 5 MG/ML VIAL IM PRN (11:37)
[2019-07-18 16:30] VITALS: BP 128/72
[2019-07-18] MEDS: SIMVASTATIN 40 MG TABLET PO SCH (20:32)
[2019-07-19] MEDS: ZOLPIDEM TARTRATE 10 MG TABLET PO PRN (00:42)
[2019-07-19 00:44] VITALS: BP 139/72
[2019-07-19] MEDS: FERROUS SULFATE 325 MG EC TABLET PO SCH ×2 (07:02→17:30)
[2019-07-19 07:39] LABS: BASOPHILS % (AUTO) 0.8 % (0.0-2.0); EOSINOPHILS % (AUTO) 7.1 % (1.0-6.0); HEMATOCRIT 36.8 % (41-53); HEMOGLOBIN 12.8 g/dL (13.5-17.5); LYMPHOCYTES # (AUTO) 2.5 K/uL (1.0-4.8); LYMPHOCYTES % (AUTO) 28.9 % (22.0-44.0); MEAN CORPUSCULAR HGB CONC 34.8 G/dL (31.0-37.0); MEAN CORPUSCULAR VOLUME 89 fL (80-100); MONOCYTES # (AUTO) 0.9 K/uL (0.1-1.0); MONOCYTES % (AUTO) 10.4 % (2.0-9.0); NEUTROPHILS # (AUTO) 4.5 K/uL (1.8-7.7); NEUTROPHILS % (AUTO) 52.8 % (40.0-70.0); PLATELET COUNT (AUTO) 214 K/uL (150-450); RED BLOOD CELL COUNT(AUTO) 4.13 MIL/uL (4.50-5.90); RED CELL DISTRIBUTION WIDTH 14.1 % (11.5-14.5)
[2019-07-19] MEDS: METOPROLOL SUCCINATE 25 MG ER TABLET PO SCH (09:00)
[2019-07-19] MEDS: MULTIVITAMINS WITH IRON TABLET PO SCH (09:00)
[2019-07-19] MEDS: DIVALPROEX SODIUM 250 MG DR TABLET PO SCH ×3 (09:00→17:29)
[2019-07-19] MEDS: AmLODIPine BESYLATE 10 MG TABLET PO SCH (09:00)
[2019-07-19] MEDS: LORATADINE 10 MG TABLET PO SCH (09:00)
[2019-07-19] MEDS: CloZAPine 100 MG TABLET PO SCH ×2 (09:00→20:52)
[2019-07-19] MEDS: BENZTROPINE MESYLATE 1 MG TABLET PO SCH ×2 (09:00→17:29)
[2019-07-19] MEDS: FAMOTIDINE 20 MG TABLET PO SCH (09:00)
[2019-07-19] MEDS: ASPIRIN 81 MG CHEWABLE TABLET PO SCH (09:00)
[2019-07-19 09:29] VITALS: BP 116/58
[2019-07-19] MEDS: DiphenhydrAMINE HCL 50 MG/ML VIAL IM PRN (11:30)
[2019-07-19] MEDS: HALOPERIDOL LACTATE 5 MG/ML VIAL IM PRN (11:32)
[2019-07-19] MEDS: SIMVASTATIN 40 MG TABLET PO SCH (20:52)
[2019-07-20] MEDS: FERROUS SULFATE 325 MG EC TABLET PO SCH ×2 (06:36→16:25)
[2019-07-20 08:30] VITALS: BP 134/80
[2019-07-20] MEDS: METOPROLOL SUCCINATE 25 MG ER TABLET PO SCH (09:00)
[2019-07-20] MEDS: LORATADINE 10 MG TABLET PO SCH (09:00)
[2019-07-20] MEDS: BENZTROPINE MESYLATE 1 MG TABLET PO SCH ×2 (09:00→16:25)
[2019-07-20] MEDS: CloZAPine 100 MG TABLET PO SCH ×2 (09:00→20:17)
[2019-07-20] MEDS: FAMOTIDINE 20 MG TABLET PO SCH (09:00)
[2019-07-20] MEDS: ASPIRIN 81 MG CHEWABLE TABLET PO SCH (09:00)
[2019-07-20] MEDS: MULTIVITAMINS WITH IRON TABLET PO SCH (09:00)
[2019-07-20] MEDS: AmLODIPine BESYLATE 10 MG TABLET PO SCH (09:00)
[2019-07-20] MEDS: DIVALPROEX SODIUM 250 MG DR TABLET PO SCH ×3 (09:00→16:25)
[2019-07-20] MEDS: DiphenhydrAMINE HCL 50 MG/ML VIAL IM PRN (09:48)
[2019-07-20] MEDS: HALOPERIDOL LACTATE 5 MG/ML VIAL IM PRN (09:50)
[2019-07-20 17:00] VITALS: BP 99/65
[2019-07-20] MEDS: DENTURE ADHESIVE 68 GM CREAM DT PRN (17:44)
[2019-07-20] MEDS: SIMVASTATIN 40 MG TABLET PO SCH (20:17)
[2019-07-20] MEDS: ZOLPIDEM TARTRATE 10 MG TABLET PO PRN (23:41)
[2019-07-21] MEDS: FERROUS SULFATE 325 MG EC TABLET PO SCH ×2 (06:56→16:55)
[2019-07-21 08:00] VITALS: BP 116/72
[2019-07-21] MEDS: MULTIVITAMINS WITH IRON TABLET PO SCH ×2 (09:00→09:56)
[2019-07-21] MEDS: CloZAPine 100 MG TABLET PO SCH ×2 (09:00→20:48)
[2019-07-21] MEDS: LORATADINE 10 MG TABLET PO SCH ×2 (09:00→09:56)
[2019-07-21] MEDS: METOPROLOL SUCCINATE 25 MG ER TABLET PO SCH ×2 (09:00→10:00)
[2019-07-21] MEDS: BENZTROPINE MESYLATE 1 MG TABLET PO SCH ×3 (09:00→16:55)
[2019-07-21] MEDS: AmLODIPine BESYLATE 10 MG TABLET PO SCH ×2 (09:00→09:57)
[2019-07-21] MEDS: ASPIRIN 81 MG CHEWABLE TABLET PO SCH ×2 (09:00→09:56)
[2019-07-21] MEDS: FAMOTIDINE 20 MG TABLET PO SCH ×2 (09:00→10:02)
[2019-07-21] MEDS: DIVALPROEX SODIUM 250 MG DR TABLET PO SCH ×5 (09:00→16:55)
[2019-07-21] MEDS: DiphenhydrAMINE HCL 50 MG/ML VIAL IM PRN (09:31)
[2019-07-21] MEDS: HALOPERIDOL LACTATE 5 MG/ML VIAL IM PRN (09:32)
[2019-07-21 16:38] VITALS: BP 147/78
[2019-07-21 17:23] VITALS: BP 147/78
[2019-07-21] MEDS: SIMVASTATIN 40 MG TABLET PO SCH (20:48)
[2019-07-21] MEDS: ZOLPIDEM TARTRATE 10 MG TABLET PO PRN (23:03)
[2019-07-22] MEDS: FERROUS SULFATE 325 MG EC TABLET PO SCH ×2 (07:00→17:14)
[2019-07-22] MEDS: METOPROLOL SUCCINATE 25 MG ER TABLET PO SCH (10:18)
[2019-07-22] MEDS: CloZAPine 100 MG TABLET PO SCH ×2 (10:19→20:31)
[2019-07-22] MEDS: DIVALPROEX SODIUM 250 MG DR TABLET PO SCH ×3 (10:20→17:13)
[2019-07-22] MEDS: MULTIVITAMINS WITH IRON TABLET PO SCH (10:20)
[2019-07-22] MEDS: BENZTROPINE MESYLATE 1 MG TABLET PO SCH ×2 (10:20→17:13)
[2019-07-22] MEDS: AmLODIPine BESYLATE 10 MG TABLET PO SCH (10:20)
[2019-07-22] MEDS: LORATADINE 10 MG TABLET PO SCH (10:21)
[2019-07-22] MEDS: ASPIRIN 81 MG CHEWABLE TABLET PO SCH (10:21)
[2019-07-22] MEDS: FAMOTIDINE 20 MG TABLET PO SCH (10:22)
[2019-07-22] MEDS: DENTURE ADHESIVE 68 GM CREAM DT PRN ×2 (13:45→18:10)
[2019-07-22 13:54] VITALS: BP 125/65
[2019-07-22 18:13] VITALS: BP 105/67
[2019-07-22] MEDS: SIMVASTATIN 40 MG TABLET PO SCH (20:31)
[2019-07-23] MEDS: ZOLPIDEM TARTRATE 10 MG TABLET PO PRN ×2 (02:00→23:21)
[2019-07-23] MEDS: FERROUS SULFATE 325 MG EC TABLET PO SCH ×2 (07:00→16:45)
[2019-07-23] MEDS: DENTURE ADHESIVE 68 GM CREAM DT PRN ×3 (07:00→17:42)
[2019-07-23] MEDS: ASPIRIN 81 MG CHEWABLE TABLET PO SCH (08:37)
[2019-07-23] MEDS: LORATADINE 10 MG TABLET PO SCH (08:37)
[2019-07-23] MEDS: METOPROLOL SUCCINATE 25 MG ER TABLET PO SCH (08:37)
[2019-07-23] MEDS: FAMOTIDINE 20 MG TABLET PO SCH (08:38)
[2019-07-23] MEDS: DIVALPROEX SODIUM 250 MG DR TABLET PO SCH ×3 (08:38→16:45)
[2019-07-23] MEDS: BENZTROPINE MESYLATE 1 MG TABLET PO SCH ×2 (08:38→16:45)
[2019-07-23] MEDS: AmLODIPine BESYLATE 10 MG TABLET PO SCH (08:38)
[2019-07-23] MEDS: MULTIVITAMINS WITH IRON TABLET PO SCH (08:38)
[2019-07-23] MEDS: CloZAPine 100 MG TABLET PO SCH ×2 (08:38→20:19)
[2019-07-23 09:42] VITALS: BP 105/61
[2019-07-23 17:48] VITALS: BP 116/67
[2019-07-23] MEDS: SIMVASTATIN 40 MG TABLET PO SCH (20:20)
[2019-07-24] MEDS: FERROUS SULFATE 325 MG EC TABLET PO SCH ×2 (07:06→17:50)
[2019-07-24 08:00] VITALS: BP 107/67
[2019-07-24] MEDS: DIVALPROEX SODIUM 250 MG DR TABLET PO SCH ×3 (10:55→17:50)
[2019-07-24] MEDS: LORATADINE 10 MG TABLET PO SCH (10:55)
[2019-07-24] MEDS: AmLODIPine BESYLATE 10 MG TABLET PO SCH (10:55)
[2019-07-24] MEDS: MULTIVITAMINS WITH IRON TABLET PO SCH (10:55)
[2019-07-24] MEDS: BENZTROPINE MESYLATE 1 MG TABLET PO SCH ×2 (10:55→17:51)
[2019-07-24] MEDS: ASPIRIN 81 MG CHEWABLE TABLET PO SCH (10:55)
[2019-07-24] MEDS: CloZAPine 100 MG TABLET PO SCH ×2 (10:55→22:24)
[2019-07-24] MEDS: FAMOTIDINE 20 MG TABLET PO SCH (10:55)
[2019-07-24] MEDS: METOPROLOL SUCCINATE 25 MG ER TABLET PO SCH (10:56)
[2019-07-24 18:50] VITALS: BP 129/78
[2019-07-24] MEDS: SIMVASTATIN 40 MG TABLET PO SCH (22:24)
[2019-07-24] MEDS: ZOLPIDEM TARTRATE 10 MG TABLET PO PRN (23:56)
[2019-07-25 00:10] VITALS: BP 158/75
[2019-07-25] MEDS: FERROUS SULFATE 325 MG EC TABLET PO SCH ×2 (06:55→17:53)
[2019-07-25] MEDS: FAMOTIDINE 20 MG TABLET PO SCH (09:00)
[2019-07-25] MEDS: ASPIRIN 81 MG CHEWABLE TABLET PO SCH (09:21)
[2019-07-25] MEDS: LORATADINE 10 MG TABLET PO SCH (09:21)
[2019-07-25] MEDS: METOPROLOL SUCCINATE 25 MG ER TABLET PO SCH (09:22)
[2019-07-25] MEDS: CloZAPine 100 MG TABLET PO SCH ×2 (09:22→20:17)
[2019-07-25] MEDS: MULTIVITAMINS WITH IRON TABLET PO SCH (09:23)
[2019-07-25] MEDS: AmLODIPine BESYLATE 10 MG TABLET PO SCH (09:23)
[2019-07-25] MEDS: DIVALPROEX SODIUM 250 MG DR TABLET PO SCH ×3 (09:23→17:08)
[2019-07-25] MEDS: BENZTROPINE MESYLATE 1 MG TABLET PO SCH ×2 (09:23→17:08)
[2019-07-25 11:24] VITALS: BP 142/73
[2019-07-25 16:46] VITALS: BP 140/61
[2019-07-25] MEDS: DENTURE ADHESIVE 68 GM CREAM DT PRN (20:15)
[2019-07-25] MEDS: SIMVASTATIN 40 MG TABLET PO SCH (20:17)
[2019-07-26 01:03] VITALS: BP 134/71
[2019-07-26] MEDS: ZOLPIDEM TARTRATE 10 MG TABLET PO PRN (01:03)
[2019-07-26] MEDS: FERROUS SULFATE 325 MG EC TABLET PO SCH ×2 (06:56→16:53)
[2019-07-26 07:09] LABS: BASOPHILS % (AUTO) 0.6 % (0.0-2.0); EOSINOPHILS % (AUTO) 3.6 % (1.0-6.0); HEMATOCRIT 36.2 % (41-53); HEMOGLOBIN 12.7 g/dL (13.5-17.5); LYMPHOCYTES # (AUTO) 2.1 K/uL (1.0-4.8); LYMPHOCYTES % (AUTO) 20.6 % (22.0-44.0); MEAN CORPUSCULAR HEMOGLOBIN 31.1 pg (26.0-34.0); MEAN CORPUSCULAR HGB CONC 35.1 G/dL (31.0-37.0); MEAN CORPUSCULAR VOLUME 89 fL (80-100); MONOCYTES % (AUTO) 10.2 % (2.0-9.0); NEUTROPHILS # (AUTO) 6.7 K/uL (1.8-7.7); PLATELET COUNT (AUTO) 223 K/uL (150-450); RED BLOOD CELL COUNT(AUTO) 4.08 MIL/uL (4.50-5.90); RED CELL DISTRIBUTION WIDTH 14.1 % (11.5-14.5)
[2019-07-26] MEDS: DIVALPROEX SODIUM 250 MG DR TABLET PO SCH ×3 (08:29→16:53)
[2019-07-26] MEDS: AmLODIPine BESYLATE 10 MG TABLET PO SCH (08:29)
[2019-07-26] MEDS: MULTIVITAMINS WITH IRON TABLET PO SCH (08:29)
[2019-07-26] MEDS: FAMOTIDINE 20 MG TABLET PO SCH ×2 (08:29→08:38)
[2019-07-26] MEDS: ASPIRIN 81 MG CHEWABLE TABLET PO SCH (08:30)
[2019-07-26] MEDS: CloZAPine 100 MG TABLET PO SCH ×2 (08:30→21:27)
[2019-07-26] MEDS: LORATADINE 10 MG TABLET PO SCH (08:30)
[2019-07-26] MEDS: METOPROLOL SUCCINATE 25 MG ER TABLET PO SCH (08:30)
[2019-07-26] MEDS: BENZTROPINE MESYLATE 1 MG TABLET PO SCH ×2 (08:30→16:53)
[2019-07-26 10:11] VITALS: BP 131/70
[2019-07-26 17:29] VITALS: BP 147/73
[2019-07-26] MEDS: SIMVASTATIN 40 MG TABLET PO SCH (21:28)
[2019-07-27] MEDS: LORazepam 2 MG TABLET PO PRN ×2 (00:40→08:58)
[2019-07-27 06:23] VITALS: BP 151/82
[2019-07-27] MEDS: FERROUS SULFATE 325 MG EC TABLET PO SCH ×2 (06:53→16:42)
[2019-07-27] MEDS: FAMOTIDINE 20 MG TABLET PO SCH (08:49)
[2019-07-27] MEDS: MULTIVITAMINS WITH IRON TABLET PO SCH (08:49)
[2019-07-27] MEDS: AmLODIPine BESYLATE 10 MG TABLET PO SCH (08:50)
[2019-07-27] MEDS: BENZTROPINE MESYLATE 1 MG TABLET PO SCH ×2 (08:50→16:03)
[2019-07-27] MEDS: CloZAPine 100 MG TABLET PO SCH ×2 (08:50→20:01)
[2019-07-27] MEDS: METOPROLOL SUCCINATE 25 MG ER TABLET PO SCH (08:53)
[2019-07-27] MEDS: ASPIRIN 81 MG CHEWABLE TABLET PO SCH (08:54)
[2019-07-27] MEDS: LORATADINE 10 MG TABLET PO SCH (08:55)
[2019-07-27] MEDS: DIVALPROEX SODIUM 250 MG DR TABLET PO SCH ×3 (08:58→16:04)
[2019-07-27 09:28] VITALS: BP 148/75
[2019-07-27 12:34] VITALS: BP 149/71
[2019-07-27 12:46] LABS: GLUCOMETER DEV NAME(LOC) 3E.I 2; GLUCOSE,POINT OF CARE 119 MG/DL (70-110)
[2019-07-27 17:00] VITALS: BP 148/97
[2019-07-27] MEDS: SIMVASTATIN 40 MG TABLET PO SCH (20:01)
[2019-07-28 01:30] VITALS: BP 165/99
[2019-07-28] MEDS: LORazepam 2 MG TABLET PO PRN (01:33)
[2019-07-28] MEDS: FERROUS SULFATE 325 MG EC TABLET PO SCH ×2 (06:43→16:59)
[2019-07-28 08:22] LABS: ALANINE AMINOTRANSFERASE 19 U/L (12-78); ALBUMIN 3.2 g/dL (3.4-5.0); ALKALINE PHOSPHATASE 76 U/L (46-116); ANION GAP 7 mmol/L (8-16); ASPARTATE AMINOTRANSFERASE 10 U/L (15-37); BILIRUBIN,TOTAL 0.3 mg/dL (0.1-1.0); CALCIUM, TOTAL 9.2 mg/dL (8.8-10.5); CARBON DIOXIDE 30 mmol/L (22-29); CHLORIDE 105 mmol/L (98-107); CREATININE 1.07 mg/dL (0.60-1.30); GLOMERULAR FILTR. RATE CALC > 60 mL/min (>60); GLUCOSE,RANDOM 124 mg/dL (70-110); SODIUM SERUM 142 mmol/L (136-145); TOTAL PROTEIN, SERUM 6.9 g/dL (6.4-8.2); UREA NITROGEN, BLOOD 21 mg/dL (7-18); VALPROIC ACID 58 mcg/mL (50-100)
[2019-07-28] MEDS: DIVALPROEX SODIUM 250 MG DR TABLET PO SCH ×3 (09:00→16:21)
[2019-07-28] MEDS: MULTIVITAMINS WITH IRON TABLET PO SCH (12:14)
[2019-07-28] MEDS: ASPIRIN 81 MG CHEWABLE TABLET PO SCH (12:15)
[2019-07-28] MEDS: BENZTROPINE MESYLATE 1 MG TABLET PO SCH ×2 (12:15→16:21)
[2019-07-28] MEDS: LORATADINE 10 MG TABLET PO SCH (12:15)
[2019-07-28] MEDS: FAMOTIDINE 20 MG TABLET PO SCH (12:15)
[2019-07-28] MEDS: CloZAPine 100 MG TABLET PO SCH ×2 (12:15→20:30)
[2019-07-28] MEDS: AmLODIPine BESYLATE 10 MG TABLET PO SCH (12:16)
[2019-07-28] MEDS: METOPROLOL SUCCINATE 25 MG ER TABLET PO SCH (12:16)
[2019-07-28 12:46] VITALS: BP 144/81
[2019-07-28] MEDS: SIMVASTATIN 40 MG TABLET PO SCH (20:30)
[2019-07-28 21:41] VITALS: BP 135/73
[2019-07-29] MEDS: FERROUS SULFATE 325 MG EC TABLET PO SCH ×2 (06:55→16:34)
[2019-07-29] MEDS: AmLODIPine BESYLATE 10 MG TABLET PO SCH (09:00)
[2019-07-29] MEDS: DIVALPROEX SODIUM 250 MG DR TABLET PO SCH ×3 (09:00→16:35)
[2019-07-29] MEDS: FAMOTIDINE 20 MG TABLET PO SCH (09:00)
[2019-07-29] MEDS: METOPROLOL SUCCINATE 25 MG ER TABLET PO SCH (09:00)
[2019-07-29] MEDS: LORATADINE 10 MG TABLET PO SCH (09:00)
[2019-07-29] MEDS: ASPIRIN 81 MG CHEWABLE TABLET PO SCH (09:00)
[2019-07-29] MEDS: MULTIVITAMINS WITH IRON TABLET PO SCH (09:00)
[2019-07-29] MEDS: BENZTROPINE MESYLATE 1 MG TABLET PO SCH ×2 (12:24→16:35)
[2019-07-29] MEDS: CloZAPine 100 MG TABLET PO SCH ×2 (12:24→20:27)
[2019-07-29 18:37] VITALS: BP 125/73
[2019-07-29] MEDS: SIMVASTATIN 40 MG TABLET PO SCH (20:27)
[2019-07-30 04:31] VITALS: BP 134/89
[2019-07-30] MEDS: FERROUS SULFATE 325 MG EC TABLET PO SCH ×2 (06:31→16:54)
[2019-07-30 08:53] VITALS: BP 136/79
[2019-07-30] MEDS: ASPIRIN 81 MG CHEWABLE TABLET PO SCH (08:53)
[2019-07-30] MEDS: FAMOTIDINE 20 MG TABLET PO SCH (08:53)
[2019-07-30] MEDS: DIVALPROEX SODIUM 250 MG DR TABLET PO SCH ×3 (08:55→16:56)
[2019-07-30] MEDS: AmLODIPine BESYLATE 10 MG TABLET PO SCH (08:55)
[2019-07-30] MEDS: METOPROLOL SUCCINATE 25 MG ER TABLET PO SCH (08:56)
[2019-07-30] MEDS: MULTIVITAMINS WITH IRON TABLET PO SCH (08:56)
[2019-07-30] MEDS: LORATADINE 10 MG TABLET PO SCH (08:56)
[2019-07-30] MEDS: BENZTROPINE MESYLATE 1 MG TABLET PO SCH ×2 (08:57→16:54)
[2019-07-30] MEDS: CloZAPine 100 MG TABLET PO SCH ×2 (08:57→20:22)
[2019-07-30 17:06] VITALS: BP 121/71
[2019-07-30] MEDS: SIMVASTATIN 40 MG TABLET PO SCH (20:21)
[2019-07-31 03:40] VITALS: BP 143/77
[2019-07-31] MEDS: ACETAMINOPHEN 325 MG TABLET PO PRN (04:06)
[2019-07-31] MEDS: FERROUS SULFATE 325 MG EC TABLET PO SCH ×2 (06:45→17:13)
[2019-07-31 08:28] VITALS: BP 124/74
[2019-07-31] MEDS: LORATADINE 10 MG TABLET PO SCH (08:30)
[2019-07-31] MEDS: METOPROLOL SUCCINATE 25 MG ER TABLET PO SCH (08:30)
[2019-07-31] MEDS: AmLODIPine BESYLATE 10 MG TABLET PO SCH (08:31)
[2019-07-31] MEDS: FAMOTIDINE 20 MG TABLET PO SCH (08:31)
[2019-07-31] MEDS: MULTIVITAMINS WITH IRON TABLET PO SCH (08:31)
[2019-07-31] MEDS: CloZAPine 100 MG TABLET PO SCH (08:31)
[2019-07-31] MEDS: ASPIRIN 81 MG CHEWABLE TABLET PO SCH (08:31)
[2019-07-31] MEDS: BENZTROPINE MESYLATE 1 MG TABLET PO SCH ×2 (08:31→17:13)
[2019-07-31] MEDS: DIVALPROEX SODIUM 250 MG DR TABLET PO SCH ×3 (08:31→17:13)
[2019-07-31 19:32] VITALS: BP 126/60
[2019-07-31] MEDS: CloZAPine 100 MG RAPDIS TABLET PO SCH (20:09)
[2019-07-31] MEDS: SIMVASTATIN 40 MG TABLET PO SCH (20:09)
[2019-08-01] MEDS: FERROUS SULFATE 325 MG EC TABLET PO SCH ×2 (06:35→16:46)
[2019-08-01 08:00] VITALS: BP 158/85
[2019-08-01] MEDS: MULTIVITAMINS WITH IRON TABLET PO SCH (09:06)
[2019-08-01] MEDS: ASPIRIN 81 MG CHEWABLE TABLET PO SCH (09:07)
[2019-08-01] MEDS: DIVALPROEX SODIUM 250 MG DR TABLET PO SCH ×3 (09:07→16:46)
[2019-08-01] MEDS: FAMOTIDINE 20 MG TABLET PO SCH (09:07)
[2019-08-01] MEDS: LORATADINE 10 MG TABLET PO SCH (09:07)
[2019-08-01] MEDS: AmLODIPine BESYLATE 10 MG TABLET PO SCH (09:07)
[2019-08-01] MEDS: METOPROLOL SUCCINATE 25 MG ER TABLET PO SCH (09:07)
[2019-08-01] MEDS: BENZTROPINE MESYLATE 1 MG TABLET PO SCH ×2 (09:08→16:46)
[2019-08-01] MEDS: CloZAPine 100 MG RAPDIS TABLET PO SCH ×2 (09:08→20:50)
[2019-08-01 16:08] VITALS: BP 138/75
[2019-08-01] MEDS: SIMVASTATIN 40 MG TABLET PO SCH (20:50)
[2019-08-02 03:31] VITALS: BP 151/87
[2019-08-02] MEDS: ACETAMINOPHEN 325 MG TABLET PO PRN (04:54)
[2019-08-02] MEDS: FERROUS SULFATE 325 MG EC TABLET PO SCH ×2 (06:37→17:32)
[2019-08-02 09:08] LABS: BASOPHILS % (AUTO) 0.7 % (0.0-2.0); EOSINOPHILS % (AUTO) 7.1 % (1.0-6.0); HEMATOCRIT 35.5 % (41-53); HEMOGLOBIN 12.3 g/dL (13.5-17.5); LYMPHOCYTES # (AUTO) 2.2 K/uL (1.0-4.8); MEAN CORPUSCULAR HEMOGLOBIN 31.2 pg (26.0-34.0); MEAN CORPUSCULAR HGB CONC 34.5 G/dL (31.0-37.0); MEAN CORPUSCULAR VOLUME 90 fL (80-100); MONOCYTES # (AUTO) 0.7 K/uL (0.1-1.0); MONOCYTES % (AUTO) 8.8 % (2.0-9.0); NEUTROPHILS # (AUTO) 4.3 K/uL (1.8-7.7); NEUTROPHILS % (AUTO) 55.4 % (40.0-70.0); PLATELET COUNT (AUTO) 214 K/uL (150-450); RED BLOOD CELL COUNT(AUTO) 3.93 MIL/uL (4.50-5.90); RED CELL DISTRIBUTION WIDTH 13.7 % (11.5-14.5)
[2019-08-02 09:30] VITALS: BP 158/79
[2019-08-02] MEDS: LORATADINE 10 MG TABLET PO SCH (11:55)
[2019-08-02] MEDS: CloZAPine 100 MG RAPDIS TABLET PO SCH ×2 (11:55→20:30)
[2019-08-02] MEDS: DIVALPROEX SODIUM 250 MG DR TABLET PO SCH ×3 (11:56→17:32)
[2019-08-02] MEDS: BENZTROPINE MESYLATE 1 MG TABLET PO SCH ×2 (11:56→17:32)
[2019-08-02] MEDS: ASPIRIN 81 MG CHEWABLE TABLET PO SCH (11:56)
[2019-08-02] MEDS: FAMOTIDINE 20 MG TABLET PO SCH (11:56)
[2019-08-02] MEDS: AmLODIPine BESYLATE 10 MG TABLET PO SCH (11:56)
[2019-08-02] MEDS: MULTIVITAMINS WITH IRON TABLET PO SCH (11:56)
[2019-08-02] MEDS: METOPROLOL SUCCINATE 25 MG ER TABLET PO SCH (11:57)
[2019-08-02] MEDS: SIMVASTATIN 40 MG TABLET PO SCH (20:29)
[2019-08-03 01:19] VITALS: BP 147/72
[2019-08-03] MEDS: FERROUS SULFATE 325 MG EC TABLET PO SCH ×2 (06:36→16:33)
[2019-08-03] MEDS: CloZAPine 100 MG RAPDIS TABLET PO SCH ×2 (08:21→20:02)
[2019-08-03] MEDS: MULTIVITAMINS WITH IRON TABLET PO SCH (08:21)
[2019-08-03] MEDS: BENZTROPINE MESYLATE 1 MG TABLET PO SCH ×2 (08:21→16:33)
[2019-08-03] MEDS: FAMOTIDINE 20 MG TABLET PO SCH (08:21)
[2019-08-03] MEDS: LORATADINE 10 MG TABLET PO SCH (08:21)
[2019-08-03] MEDS: AmLODIPine BESYLATE 10 MG TABLET PO SCH (08:22)
[2019-08-03] MEDS: DIVALPROEX SODIUM 250 MG DR TABLET PO SCH ×3 (08:22→16:33)
[2019-08-03] MEDS: METOPROLOL SUCCINATE 25 MG ER TABLET PO SCH (08:22)
[2019-08-03] MEDS: ASPIRIN 81 MG CHEWABLE TABLET PO SCH (08:22)
[2019-08-03 09:32] VITALS: BP 145/85
[2019-08-03 17:03] VITALS: BP 129/67
[2019-08-03] MEDS: SIMVASTATIN 40 MG TABLET PO SCH (20:03)
[2019-08-04] MEDS: FERROUS SULFATE 325 MG EC TABLET PO SCH ×2 (06:54→17:32)
[2019-08-04] MEDS: DIVALPROEX SODIUM 250 MG DR TABLET PO SCH ×3 (08:29→17:33)
[2019-08-04] MEDS: LORATADINE 10 MG TABLET PO SCH (08:29)
[2019-08-04] MEDS: AmLODIPine BESYLATE 10 MG TABLET PO SCH (08:29)
[2019-08-04] MEDS: BENZTROPINE MESYLATE 1 MG TABLET PO SCH ×2 (08:29→17:33)
[2019-08-04] MEDS: METOPROLOL SUCCINATE 25 MG ER TABLET PO SCH (08:29)
[2019-08-04] MEDS: MULTIVITAMINS WITH IRON TABLET PO SCH (08:29)
[2019-08-04] MEDS: ASPIRIN 81 MG CHEWABLE TABLET PO SCH (08:31)
[2019-08-04] MEDS: CloZAPine 100 MG RAPDIS TABLET PO SCH ×2 (08:31→20:05)
[2019-08-04] MEDS: FAMOTIDINE 20 MG TABLET PO SCH (08:32)
[2019-08-04 09:30] VITALS: BP 140/80
[2019-08-04 17:00] VITALS: BP 135/65
[2019-08-04] MEDS: SIMVASTATIN 40 MG TABLET PO SCH (20:05)
[2019-08-04] MEDS: ZOLPIDEM TARTRATE 10 MG TABLET PO PRN (20:53)
[2019-08-05 04:54] VITALS: BP 150/86
[2019-08-05] MEDS: MAGNESIUM HYDROXIDE SUSPENSION 30 ML UDCUP PO PRN (05:05)
[2019-08-05] MEDS: FERROUS SULFATE 325 MG EC TABLET PO SCH ×2 (06:43→16:20)
[2019-08-05 08:00] VITALS: BP 141/93
[2019-08-05] MEDS: FAMOTIDINE 20 MG TABLET PO SCH (09:22)
[2019-08-05] MEDS: MULTIVITAMINS WITH IRON TABLET PO SCH (09:22)
[2019-08-05] MEDS: ASPIRIN 81 MG CHEWABLE TABLET PO SCH (09:22)
[2019-08-05] MEDS: DIVALPROEX SODIUM 250 MG DR TABLET PO SCH ×3 (09:23→16:19)
[2019-08-05] MEDS: METOPROLOL SUCCINATE 25 MG ER TABLET PO SCH (09:24)
[2019-08-05] MEDS: BENZTROPINE MESYLATE 1 MG TABLET PO SCH ×2 (09:24→16:19)
[2019-08-05] MEDS: AmLODIPine BESYLATE 10 MG TABLET PO SCH (09:24)
[2019-08-05] MEDS: CloZAPine 100 MG RAPDIS TABLET PO SCH ×2 (09:25→20:45)
[2019-08-05] MEDS: LORATADINE 10 MG TABLET PO SCH (09:27)
[2019-08-05 17:00] VITALS: BP 134/71
[2019-08-05] MEDS: SIMVASTATIN 40 MG TABLET PO SCH (20:44)
[2019-08-06] MEDS: FERROUS SULFATE 325 MG EC TABLET PO SCH ×2 (06:34→21:15)
[2019-08-06] MEDS: LORATADINE 10 MG TABLET PO SCH (08:02)
[2019-08-06] MEDS: ASPIRIN 81 MG CHEWABLE TABLET PO SCH (08:02)
[2019-08-06] MEDS: DIVALPROEX SODIUM 250 MG DR TABLET PO SCH ×3 (08:03→16:28)
[2019-08-06] MEDS: METOPROLOL SUCCINATE 25 MG ER TABLET PO SCH (08:04)
[2019-08-06] MEDS: MULTIVITAMINS WITH IRON TABLET PO SCH (08:04)
[2019-08-06] MEDS: FAMOTIDINE 20 MG TABLET PO SCH (08:04)
[2019-08-06] MEDS: BENZTROPINE MESYLATE 1 MG TABLET PO SCH ×2 (08:04→16:28)
[2019-08-06] MEDS: AmLODIPine BESYLATE 10 MG TABLET PO SCH (08:04)
[2019-08-06] MEDS: CloZAPine 100 MG RAPDIS TABLET PO SCH ×2 (08:16→21:15)
[2019-08-06 09:22] VITALS: BP 126/79
[2019-08-06 16:07] VITALS: BP 121/61
[2019-08-06] MEDS: SIMVASTATIN 40 MG TABLET PO SCH (21:15)
[2019-08-07] MEDS: FERROUS SULFATE 325 MG EC TABLET PO SCH ×2 (07:10→16:34)
[2019-08-07 09:36] VITALS: BP 147/81
[2019-08-07] MEDS: ASPIRIN 81 MG CHEWABLE TABLET PO SCH (10:34)
[2019-08-07] MEDS: AmLODIPine BESYLATE 10 MG TABLET PO SCH (10:34)
[2019-08-07] MEDS: METOPROLOL SUCCINATE 25 MG ER TABLET PO SCH (10:34)
[2019-08-07] MEDS: MULTIVITAMINS WITH IRON TABLET PO SCH (10:34)
[2019-08-07] MEDS: BENZTROPINE MESYLATE 1 MG TABLET PO SCH ×2 (10:34→16:08)
[2019-08-07] MEDS: FAMOTIDINE 20 MG TABLET PO SCH (10:34)
[2019-08-07] MEDS: LORATADINE 10 MG TABLET PO SCH (10:34)
[2019-08-07] MEDS: DIVALPROEX SODIUM 250 MG DR TABLET PO SCH ×4 (10:34→16:08)
[2019-08-07] MEDS: CloZAPine 100 MG RAPDIS TABLET PO SCH ×2 (10:35→20:18)
[2019-08-07 17:40] VITALS: BP 145/86
[2019-08-07] MEDS: SIMVASTATIN 40 MG TABLET PO SCH (20:18)
[2019-08-08] MEDS: FERROUS SULFATE 325 MG EC TABLET PO SCH ×2 (06:57→16:30)
[2019-08-08 08:29] VITALS: BP 133/84
[2019-08-08] MEDS: CloZAPine 100 MG RAPDIS TABLET PO SCH ×2 (09:07→20:29)
[2019-08-08] MEDS: AmLODIPine BESYLATE 10 MG TABLET PO SCH (09:07)
[2019-08-08] MEDS: DIVALPROEX SODIUM 250 MG DR TABLET PO SCH ×3 (09:07→16:23)
[2019-08-08] MEDS: MULTIVITAMINS WITH IRON TABLET PO SCH (09:07)
[2019-08-08] MEDS: LORATADINE 10 MG TABLET PO SCH (09:07)
[2019-08-08] MEDS: METOPROLOL SUCCINATE 25 MG ER TABLET PO SCH (09:07)
[2019-08-08] MEDS: FAMOTIDINE 20 MG TABLET PO SCH (09:07)
[2019-08-08] MEDS: ASPIRIN 81 MG CHEWABLE TABLET PO SCH (09:07)
[2019-08-08] MEDS: BENZTROPINE MESYLATE 1 MG TABLET PO SCH ×2 (09:07→16:23)
[2019-08-08 16:00] VITALS: BP 139/71
[2019-08-08] MEDS: SIMVASTATIN 40 MG TABLET PO SCH (20:30)
[2019-08-09 02:07] VITALS: BP 157/78
[2019-08-09 02:23] LABS: GLUCOMETER DEV NAME(LOC) 3E.I 2; GLUCOSE,POINT OF CARE 141 MG/DL (70-110)
[2019-08-09 02:44] VITALS: BP 122/76
[2019-08-09] MEDS: FERROUS SULFATE 325 MG EC TABLET PO SCH ×2 (06:40→16:30)
[2019-08-09 07:42] LABS: BASOPHILS % (AUTO) 0.5 % (0.0-2.0); EOSINOPHILS % (AUTO) 5.9 % (1.0-6.0); HEMOGLOBIN 13.5 g/dL (13.5-17.5); LYMPHOCYTES # (AUTO) 1.8 K/uL (1.0-4.8); LYMPHOCYTES % (AUTO) 19.4 % (22.0-44.0); MEAN CORPUSCULAR HEMOGLOBIN 31.1 pg (26.0-34.0); MEAN CORPUSCULAR HGB CONC 34.7 G/dL (31.0-37.0); MEAN CORPUSCULAR VOLUME 90 fL (80-100); MONOCYTES # (AUTO) 0.8 K/uL (0.1-1.0); MONOCYTES % (AUTO) 8.3 % (2.0-9.0); NEUTROPHILS # (AUTO) 6.2 K/uL (1.8-7.7); NEUTROPHILS % (AUTO) 65.9 % (40.0-70.0); PLATELET COUNT (AUTO) 163 K/uL (150-450); RED BLOOD CELL COUNT(AUTO) 4.35 MIL/uL (4.50-5.90); RED CELL DISTRIBUTION WIDTH 13.7 % (11.5-14.5)
[2019-08-09 08:29] VITALS: BP 129/78
[2019-08-09] MEDS: LORATADINE 10 MG TABLET PO SCH (09:00)
[2019-08-09] MEDS: BENZTROPINE MESYLATE 1 MG TABLET PO SCH ×2 (09:00→16:21)
[2019-08-09] MEDS: ASPIRIN 81 MG CHEWABLE TABLET PO SCH (09:00)
[2019-08-09] MEDS: MULTIVITAMINS WITH IRON TABLET PO SCH (09:00)
[2019-08-09] MEDS: CloZAPine 100 MG RAPDIS TABLET PO SCH ×2 (09:00→20:08)
[2019-08-09] MEDS: DIVALPROEX SODIUM 250 MG DR TABLET PO SCH ×3 (09:00→16:23)
[2019-08-09] MEDS: METOPROLOL SUCCINATE 25 MG ER TABLET PO SCH (09:00)
[2019-08-09] MEDS: AmLODIPine BESYLATE 10 MG TABLET PO SCH (09:00)
[2019-08-09] MEDS: FAMOTIDINE 20 MG TABLET PO SCH (09:00)
[2019-08-09] MEDS: DiphenhydrAMINE HCL 50 MG/ML VIAL IM PRN (09:10)
[2019-08-09] MEDS: HALOPERIDOL LACTATE 5 MG/ML VIAL IM PRN (09:12)
[2019-08-09] MEDS: SIMVASTATIN 40 MG TABLET PO SCH (20:08)
[2019-08-09 21:02] VITALS: BP 143/70
[2019-08-09] MEDS: MAG HYDROX/AL HYDROX/SIMETH ES 30 ML SUSPENSION UDCUP PO PRN (21:22)
[2019-08-10] VITALS: BP 128/73
[2019-08-10] MEDS: FERROUS SULFATE 325 MG EC TABLET PO SCH ×2 (06:34→16:32)
[2019-08-10 08:07] LABS: ANION GAP 7 mmol/L (8-16); CALCIUM, TOTAL 8.8 mg/dL (8.8-10.5); CARBON DIOXIDE 27 mmol/L (22-29); CHLORIDE 109 mmol/L (98-107); CREATININE 0.94 mg/dL (0.60-1.30); GLOMERULAR FILTR. RATE CALC > 60 mL/min (>60); GLUCOSE,RANDOM 121 mg/dL (70-110); POTASSIUM 4.5 mmol/L (3.5-5.1); SODIUM SERUM 143 mmol/L (136-145); UREA NITROGEN, BLOOD 24 mg/dL (7-18)
[2019-08-10] MEDS: CloZAPine 100 MG RAPDIS TABLET PO SCH ×2 (08:37→20:21)
[2019-08-10] MEDS: DIVALPROEX SODIUM 250 MG DR TABLET PO SCH ×3 (08:38→16:32)
[2019-08-10] MEDS: BENZTROPINE MESYLATE 1 MG TABLET PO SCH ×2 (08:38→16:33)
[2019-08-10] MEDS: MULTIVITAMINS WITH IRON TABLET PO SCH (08:38)
[2019-08-10] MEDS: ASPIRIN 81 MG CHEWABLE TABLET PO SCH (08:39)
[2019-08-10] MEDS: LORATADINE 10 MG TABLET PO SCH (08:39)
[2019-08-10] MEDS: METOPROLOL SUCCINATE 25 MG ER TABLET PO SCH (08:39)
[2019-08-10] MEDS: AmLODIPine BESYLATE 10 MG TABLET PO SCH (08:39)
[2019-08-10] MEDS: FAMOTIDINE 20 MG TABLET PO SCH (08:41)
[2019-08-10 16:00] VITALS: BP 128/79
[2019-08-10] MEDS: SIMVASTATIN 40 MG TABLET PO SCH (20:21)
[2019-08-11] MEDS: FERROUS SULFATE 325 MG EC TABLET PO SCH ×2 (06:50→16:39)
[2019-08-11 08:45] VITALS: BP 138/82
[2019-08-11] MEDS: MULTIVITAMINS WITH IRON TABLET PO SCH (09:06)
[2019-08-11] MEDS: AmLODIPine BESYLATE 10 MG TABLET PO SCH (09:06)
[2019-08-11] MEDS: DIVALPROEX SODIUM 250 MG DR TABLET PO SCH ×3 (09:06→16:39)
[2019-08-11] MEDS: BENZTROPINE MESYLATE 1 MG TABLET PO SCH ×2 (09:06→16:39)
[2019-08-11] MEDS: CloZAPine 100 MG RAPDIS TABLET PO SCH ×2 (09:06→20:03)
[2019-08-11] MEDS: FAMOTIDINE 20 MG TABLET PO SCH (09:06)
[2019-08-11] MEDS: ASPIRIN 81 MG CHEWABLE TABLET PO SCH (09:06)
[2019-08-11] MEDS: METOPROLOL SUCCINATE 25 MG ER TABLET PO SCH (09:08)
[2019-08-11] MEDS: LORATADINE 10 MG TABLET PO SCH (09:09)
[2019-08-11 16:18] VITALS: BP 122/62
[2019-08-11] MEDS: SIMVASTATIN 40 MG TABLET PO SCH (20:03)
[2019-08-12] MEDS: FERROUS SULFATE 325 MG EC TABLET PO SCH ×2 (06:41→17:22)
[2019-08-12] MEDS: LORATADINE 10 MG TABLET PO SCH ×2 (08:51→09:00)
[2019-08-12] MEDS: CloZAPine 100 MG RAPDIS TABLET PO SCH ×3 (08:51→20:27)
[2019-08-12] MEDS: METOPROLOL SUCCINATE 25 MG ER TABLET PO SCH ×2 (08:52→09:00)
[2019-08-12] MEDS: AmLODIPine BESYLATE 10 MG TABLET PO SCH ×2 (08:52→09:00)
[2019-08-12] MEDS: BENZTROPINE MESYLATE 1 MG TABLET PO SCH ×3 (08:52→17:22)
[2019-08-12] MEDS: ASPIRIN 81 MG CHEWABLE TABLET PO SCH ×2 (08:52→09:00)
[2019-08-12] MEDS: FAMOTIDINE 20 MG TABLET PO SCH ×2 (08:52→09:00)
[2019-08-12] MEDS: DIVALPROEX SODIUM 250 MG DR TABLET PO SCH ×4 (08:52→17:22)
[2019-08-12] MEDS: MULTIVITAMINS WITH IRON TABLET PO SCH ×2 (08:52→09:00)
[2019-08-12] MEDS: DiphenhydrAMINE HCL 50 MG/ML VIAL IM PRN (09:17)
[2019-08-12] MEDS: HALOPERIDOL LACTATE 5 MG/ML VIAL IM PRN (09:18)
[2019-08-12 09:51] VITALS: BP 146/79
[2019-08-12 16:00] VITALS: BP 137/71
[2019-08-12] MEDS: SIMVASTATIN 40 MG TABLET PO SCH (20:27)
[2019-08-13] VITALS: BP 146/78
[2019-08-13] MEDS: FERROUS SULFATE 325 MG EC TABLET PO SCH ×2 (06:33→16:38)
[2019-08-13 08:13] VITALS: BP 122/58
[2019-08-13] MEDS: METOPROLOL SUCCINATE 25 MG ER TABLET PO SCH (09:00)
[2019-08-13] MEDS: BENZTROPINE MESYLATE 1 MG TABLET PO SCH ×2 (09:00→16:38)
[2019-08-13] MEDS: LORATADINE 10 MG TABLET PO SCH (09:00)
[2019-08-13] MEDS: DIVALPROEX SODIUM 250 MG DR TABLET PO SCH ×3 (09:00→16:46)
[2019-08-13] MEDS: CloZAPine 100 MG RAPDIS TABLET PO SCH ×2 (09:00→20:39)
[2019-08-13] MEDS: AmLODIPine BESYLATE 10 MG TABLET PO SCH (09:00)
[2019-08-13] MEDS: MULTIVITAMINS WITH IRON TABLET PO SCH (09:00)
[2019-08-13] MEDS: FAMOTIDINE 20 MG TABLET PO SCH (09:00)
[2019-08-13] MEDS: ASPIRIN 81 MG CHEWABLE TABLET PO SCH (09:00)
[2019-08-13] MEDS: HALOPERIDOL LACTATE 5 MG/ML VIAL IM PRN (09:42)
[2019-08-13] MEDS: DiphenhydrAMINE HCL 50 MG/ML VIAL IM PRN (09:42)
[2019-08-13 16:00] VITALS: BP 145/82
[2019-08-13] MEDS: SIMVASTATIN 40 MG TABLET PO SCH (20:39)
[2019-08-14] MEDS: FERROUS SULFATE 325 MG EC TABLET PO SCH ×2 (06:57→16:28)
[2019-08-14] MEDS: CloZAPine 100 MG RAPDIS TABLET PO SCH ×2 (08:48→20:07)
[2019-08-14] MEDS: FAMOTIDINE 20 MG TABLET PO SCH (08:48)
[2019-08-14] MEDS: DIVALPROEX SODIUM 250 MG DR TABLET PO SCH ×3 (08:48→16:28)
[2019-08-14] MEDS: ASPIRIN 81 MG CHEWABLE TABLET PO SCH (08:48)
[2019-08-14] MEDS: LORATADINE 10 MG TABLET PO SCH (08:48)
[2019-08-14] MEDS: BENZTROPINE MESYLATE 1 MG TABLET PO SCH ×2 (08:48→16:28)
[2019-08-14] MEDS: AmLODIPine BESYLATE 10 MG TABLET PO SCH (08:48)
[2019-08-14] MEDS: MULTIVITAMINS WITH IRON TABLET PO SCH (08:58)
[2019-08-14] MEDS: METOPROLOL SUCCINATE 25 MG ER TABLET PO SCH (08:58)
[2019-08-14] MEDS: DiphenhydrAMINE HCL 50 MG/ML VIAL IM PRN (09:05)
[2019-08-14] MEDS: HALOPERIDOL LACTATE 5 MG/ML VIAL IM PRN (09:06)
[2019-08-14 16:00] VITALS: BP 144/75
[2019-08-14] MEDS: SIMVASTATIN 40 MG TABLET PO SCH (20:07)
[2019-08-14] MEDS: DOCUSATE SODIUM 100 MG CAPSULE PO PRN (20:08)
[2019-08-15 00:24] VITALS: BP 151/79
[2019-08-15] MEDS: FERROUS SULFATE 325 MG EC TABLET PO SCH ×2 (06:42→17:44)
[2019-08-15 08:00] VITALS: BP 132/77
[2019-08-15] MEDS: CloZAPine 100 MG RAPDIS TABLET PO SCH ×3 (09:00→20:37)
[2019-08-15] MEDS: BENZTROPINE MESYLATE 1 MG TABLET PO SCH ×2 (12:13→17:15)
[2019-08-15] MEDS: METOPROLOL SUCCINATE 25 MG ER TABLET PO SCH (12:14)
[2019-08-15] MEDS: ASPIRIN 81 MG CHEWABLE TABLET PO SCH (12:14)
[2019-08-15] MEDS: LORATADINE 10 MG TABLET PO SCH (12:14)
[2019-08-15] MEDS: AmLODIPine BESYLATE 10 MG TABLET PO SCH (12:14)
[2019-08-15] MEDS: FAMOTIDINE 20 MG TABLET PO SCH (12:15)
[2019-08-15] MEDS: DIVALPROEX SODIUM 250 MG DR TABLET PO SCH ×3 (12:15→17:14)
[2019-08-15] MEDS: MULTIVITAMINS WITH IRON TABLET PO SCH (12:15)
[2019-08-15] MEDS: SIMVASTATIN 40 MG TABLET PO SCH (20:37)
[2019-08-16 00:02] VITALS: BP 145/75
[2019-08-16] MEDS: FERROUS SULFATE 325 MG EC TABLET PO SCH ×2 (06:54→16:51)
[2019-08-16 07:27] LABS: BASOPHILS % (AUTO) 0.9 % (0.0-2.0); EOSINOPHILS % (AUTO) 8.8 % (1.0-6.0); HEMATOCRIT 36.7 % (41-53); HEMOGLOBIN 12.8 g/dL (13.5-17.5); LYMPHOCYTES # (AUTO) 2.7 K/uL (1.0-4.8); LYMPHOCYTES % (AUTO) 27.5 % (22.0-44.0); MEAN CORPUSCULAR HEMOGLOBIN 31.4 pg (26.0-34.0); MEAN CORPUSCULAR HGB CONC 34.8 G/dL (31.0-37.0); MEAN CORPUSCULAR VOLUME 90 fL (80-100); MONOCYTES # (AUTO) 1.2 K/uL (0.1-1.0); MONOCYTES % (AUTO) 12.4 % (2.0-9.0); NEUTROPHILS # (AUTO) 4.9 K/uL (1.8-7.7); NEUTROPHILS % (AUTO) 50.4 % (40.0-70.0); PLATELET COUNT (AUTO) 212 K/uL (150-450); RED BLOOD CELL COUNT(AUTO) 4.07 MIL/uL (4.50-5.90); RED CELL DISTRIBUTION WIDTH 13.9 % (11.5-14.5)
[2019-08-16 08:00] VITALS: BP 123/66
[2019-08-16] MEDS: CloZAPine 100 MG RAPDIS TABLET PO SCH ×2 (09:30→20:04)
[2019-08-16] MEDS: FAMOTIDINE 20 MG TABLET PO SCH (09:33)
[2019-08-16] MEDS: DIVALPROEX SODIUM 250 MG DR TABLET PO SCH ×3 (09:34→16:52)
[2019-08-16] MEDS: AmLODIPine BESYLATE 10 MG TABLET PO SCH (09:34)
[2019-08-16] MEDS: BENZTROPINE MESYLATE 1 MG TABLET PO SCH ×2 (09:34→16:51)
[2019-08-16] MEDS: ASPIRIN 81 MG CHEWABLE TABLET PO SCH (09:34)
[2019-08-16] MEDS: MULTIVITAMINS WITH IRON TABLET PO SCH (09:34)
[2019-08-16] MEDS: DOCUSATE SODIUM 100 MG CAPSULE PO PRN (09:34)
[2019-08-16] MEDS: LORATADINE 10 MG TABLET PO SCH (09:34)
[2019-08-16] MEDS: METOPROLOL SUCCINATE 25 MG ER TABLET PO SCH (09:35)
[2019-08-16 16:00] VITALS: BP 128/69
[2019-08-16] MEDS: SIMVASTATIN 40 MG TABLET PO SCH (20:04)
[2019-08-17] MEDS: FERROUS SULFATE 325 MG EC TABLET PO SCH ×2 (06:44→16:34)
[2019-08-17] MEDS: AmLODIPine BESYLATE 10 MG TABLET PO SCH (08:58)
[2019-08-17] MEDS: FAMOTIDINE 20 MG TABLET PO SCH (08:58)
[2019-08-17] MEDS: METOPROLOL SUCCINATE 25 MG ER TABLET PO SCH (08:58)
[2019-08-17] MEDS: ASPIRIN 81 MG CHEWABLE TABLET PO SCH (09:02)
[2019-08-17] MEDS: LORATADINE 10 MG TABLET PO SCH (09:02)
[2019-08-17] MEDS: DIVALPROEX SODIUM 250 MG DR TABLET PO SCH ×3 (09:02→16:01)
[2019-08-17] MEDS: BENZTROPINE MESYLATE 1 MG TABLET PO SCH ×2 (09:02→16:01)
[2019-08-17] MEDS: MULTIVITAMINS WITH IRON TABLET PO SCH (09:02)
[2019-08-17 09:09] VITALS: BP 132/72
[2019-08-17] MEDS: CloZAPine 100 MG RAPDIS TABLET PO SCH ×2 (12:51→21:00)
[2019-08-17 17:18] VITALS: BP 131/74
[2019-08-17] MEDS: SIMVASTATIN 40 MG TABLET PO SCH (21:00)
[2019-08-18 04:02] VITALS: BP 109/68
[2019-08-18] MEDS: FERROUS SULFATE 325 MG EC TABLET PO SCH ×2 (06:55→16:14)
[2019-08-18] MEDS: AmLODIPine BESYLATE 10 MG TABLET PO SCH (09:00)
[2019-08-18 09:16] VITALS: BP 138/77
[2019-08-18] MEDS: MULTIVITAMINS WITH IRON TABLET PO SCH (09:18)
[2019-08-18] MEDS: DIVALPROEX SODIUM 250 MG DR TABLET PO SCH ×3 (09:18→16:14)
[2019-08-18] MEDS: FAMOTIDINE 20 MG TABLET PO SCH (09:18)
[2019-08-18] MEDS: BENZTROPINE MESYLATE 1 MG TABLET PO SCH ×2 (09:19→16:14)
[2019-08-18] MEDS: LORATADINE 10 MG TABLET PO SCH (09:19)
[2019-08-18] MEDS: CloZAPine 100 MG RAPDIS TABLET PO SCH ×2 (09:19→20:11)
[2019-08-18] MEDS: ASPIRIN 81 MG CHEWABLE TABLET PO SCH (09:19)
[2019-08-18] MEDS: METOPROLOL SUCCINATE 25 MG ER TABLET PO SCH (09:20)
[2019-08-18 16:47] VITALS: BP 137/70
[2019-08-18] MEDS: SIMVASTATIN 40 MG TABLET PO SCH (20:11)
[2019-08-19] MEDS: FERROUS SULFATE 325 MG EC TABLET PO SCH ×2 (06:57→16:35)
[2019-08-19 08:00] VITALS: BP 143/58
[2019-08-19] MEDS: BENZTROPINE MESYLATE 1 MG TABLET PO SCH ×2 (09:43→16:35)
[2019-08-19] MEDS: DIVALPROEX SODIUM 250 MG DR TABLET PO SCH ×3 (09:43→16:35)
[2019-08-19] MEDS: LORATADINE 10 MG TABLET PO SCH (09:43)
[2019-08-19] MEDS: FAMOTIDINE 20 MG TABLET PO SCH (09:43)
[2019-08-19] MEDS: METOPROLOL SUCCINATE 25 MG ER TABLET PO SCH (09:43)
[2019-08-19] MEDS: ASPIRIN 81 MG CHEWABLE TABLET PO SCH (09:43)
[2019-08-19] MEDS: MULTIVITAMINS WITH IRON TABLET PO SCH (09:43)
[2019-08-19] MEDS: AmLODIPine BESYLATE 10 MG TABLET PO SCH (09:44)
[2019-08-19] MEDS: CloZAPine 100 MG RAPDIS TABLET PO SCH ×2 (09:44→20:45)
[2019-08-19 17:00] VITALS: BP 132/65
[2019-08-19] MEDS: SIMVASTATIN 40 MG TABLET PO SCH (20:46)
[2019-08-20] MEDS: FERROUS SULFATE 325 MG EC TABLET PO SCH ×2 (06:33→17:00)
[2019-08-20] MEDS: FAMOTIDINE 20 MG TABLET PO SCH (10:00)
[2019-08-20] MEDS: METOPROLOL SUCCINATE 25 MG ER TABLET PO SCH (10:00)
[2019-08-20] MEDS: ASPIRIN 81 MG CHEWABLE TABLET PO SCH (10:00)
[2019-08-20] MEDS: BENZTROPINE MESYLATE 1 MG TABLET PO SCH ×2 (10:00→16:59)
[2019-08-20] MEDS: MULTIVITAMINS WITH IRON TABLET PO SCH (10:00)
[2019-08-20] MEDS: DIVALPROEX SODIUM 250 MG DR TABLET PO SCH ×3 (10:00→17:00)
[2019-08-20] MEDS: LORATADINE 10 MG TABLET PO SCH (10:00)
[2019-08-20] MEDS: AmLODIPine BESYLATE 10 MG TABLET PO SCH (10:00)
[2019-08-20] MEDS: CloZAPine 100 MG RAPDIS TABLET PO SCH ×2 (10:01→20:14)
[2019-08-20 10:08] VITALS: BP 117/61
[2019-08-20 16:41] VITALS: BP 114/60
[2019-08-20] MEDS: SIMVASTATIN 40 MG TABLET PO SCH (20:14)
[2019-08-21] VITALS: BP 160/80
[2019-08-21] MEDS: ZOLPIDEM TARTRATE 10 MG TABLET PO PRN (01:01)
[2019-08-21] MEDS: FERROUS SULFATE 325 MG EC TABLET PO SCH ×2 (06:48→17:46)
[2019-08-21] MEDS: LORATADINE 10 MG TABLET PO SCH (08:43)
[2019-08-21] MEDS: MULTIVITAMINS WITH IRON TABLET PO SCH (08:43)
[2019-08-21] MEDS: CloZAPine 100 MG RAPDIS TABLET PO SCH ×2 (08:43→20:40)
[2019-08-21] MEDS: METOPROLOL SUCCINATE 25 MG ER TABLET PO SCH (08:43)
[2019-08-21] MEDS: BENZTROPINE MESYLATE 1 MG TABLET PO SCH ×2 (08:44→17:46)
[2019-08-21] MEDS: FAMOTIDINE 20 MG TABLET PO SCH (08:44)
[2019-08-21] MEDS: DIVALPROEX SODIUM 250 MG DR TABLET PO SCH ×3 (08:44→17:46)
[2019-08-21] MEDS: ASPIRIN 81 MG CHEWABLE TABLET PO SCH (08:44)
[2019-08-21] MEDS: AmLODIPine BESYLATE 10 MG TABLET PO SCH (08:44)
[2019-08-21 16:00] VITALS: BP 152/69
[2019-08-21] MEDS: SIMVASTATIN 40 MG TABLET PO SCH (20:40)
[2019-08-22] MEDS: FERROUS SULFATE 325 MG EC TABLET PO SCH ×2 (06:45→16:28)
[2019-08-22 08:00] VITALS: BP_SYST 61
[2019-08-22] MEDS: DIVALPROEX SODIUM 250 MG DR TABLET PO SCH ×3 (10:50→16:28)
[2019-08-22] MEDS: FAMOTIDINE 20 MG TABLET PO SCH (10:51)
[2019-08-22] MEDS: MULTIVITAMINS WITH IRON TABLET PO SCH (10:51)
[2019-08-22] MEDS: LORATADINE 10 MG TABLET PO SCH (10:51)
[2019-08-22] MEDS: ASPIRIN 81 MG CHEWABLE TABLET PO SCH (10:51)
[2019-08-22] MEDS: METOPROLOL SUCCINATE 25 MG ER TABLET PO SCH (10:52)
[2019-08-22] MEDS: BENZTROPINE MESYLATE 1 MG TABLET PO SCH ×2 (10:52→16:28)
[2019-08-22] MEDS: AmLODIPine BESYLATE 10 MG TABLET PO SCH (10:52)
[2019-08-22] MEDS: CloZAPine 100 MG RAPDIS TABLET PO SCH ×2 (10:53→20:18)
[2019-08-22 18:14] VITALS: BP 125/71
[2019-08-22] MEDS: SIMVASTATIN 40 MG TABLET PO SCH (20:18)
[2019-08-23] MEDS: FERROUS SULFATE 325 MG EC TABLET PO SCH ×2 (06:55→17:04)
[2019-08-23 07:37] LABS: EOSINOPHILS % (AUTO) 7.7 % (1.0-6.0); HEMATOCRIT 38.3 % (41-53); HEMOGLOBIN 12.9 g/dL (13.5-17.5); LYMPHOCYTES # (AUTO) 2.7 K/uL (1.0-4.8); LYMPHOCYTES % (AUTO) 29.9 % (22.0-44.0); MEAN CORPUSCULAR HEMOGLOBIN 30.3 pg (26.0-34.0); MEAN CORPUSCULAR HGB CONC 33.8 G/dL (31.0-37.0); MEAN CORPUSCULAR VOLUME 90 fL (80-100); MONOCYTES # (AUTO) 0.9 K/uL (0.1-1.0); MONOCYTES % (AUTO) 9.7 % (2.0-9.0); NEUTROPHILS # (AUTO) 4.6 K/uL (1.8-7.7); NEUTROPHILS % (AUTO) 51.7 % (40.0-70.0); PLATELET COUNT (AUTO) 225 K/uL (150-450); RED BLOOD CELL COUNT(AUTO) 4.27 MIL/uL (4.50-5.90); RED CELL DISTRIBUTION WIDTH 13.8 % (11.5-14.5)
[2019-08-23] MEDS: CloZAPine 100 MG RAPDIS TABLET PO SCH ×2 (08:35→20:37)
[2019-08-23] MEDS: DIVALPROEX SODIUM 250 MG DR TABLET PO SCH ×3 (08:43→17:04)
[2019-08-23] MEDS: LORATADINE 10 MG TABLET PO SCH (08:44)
[2019-08-23] MEDS: FAMOTIDINE 20 MG TABLET PO SCH (08:44)
[2019-08-23] MEDS: MULTIVITAMINS WITH IRON TABLET PO SCH (08:44)
[2019-08-23] MEDS: AmLODIPine BESYLATE 10 MG TABLET PO SCH (08:44)
[2019-08-23] MEDS: ASPIRIN 81 MG CHEWABLE TABLET PO SCH (08:44)
[2019-08-23] MEDS: METOPROLOL SUCCINATE 25 MG ER TABLET PO SCH (08:44)
[2019-08-23] MEDS: BENZTROPINE MESYLATE 1 MG TABLET PO SCH ×2 (08:44→17:04)
[2019-08-23 09:14] VITALS: BP 106/55
[2019-08-23 16:00] VITALS: BP 143/76
[2019-08-23] MEDS: SIMVASTATIN 40 MG TABLET PO SCH (20:38)
[2019-08-23] MEDS: DiphenhydrAMINE HCL 50 MG/ML VIAL IM PRN (20:41)
[2019-08-23] MEDS: HALOPERIDOL LACTATE 5 MG/ML VIAL IM PRN (20:42)
[2019-08-23] MEDS: ZOLPIDEM TARTRATE 10 MG TABLET PO PRN (22:50)
[2019-08-24] MEDS: FERROUS SULFATE 325 MG EC TABLET PO SCH ×2 (06:49→17:30)
[2019-08-24] MEDS: CloZAPine 100 MG RAPDIS TABLET PO SCH ×3 (09:00→20:34)
[2019-08-24 09:26] VITALS: BP 131/80
[2019-08-24] MEDS: LORATADINE 10 MG TABLET PO SCH (09:34)
[2019-08-24] MEDS: AmLODIPine BESYLATE 10 MG TABLET PO SCH (09:35)
[2019-08-24] MEDS: BENZTROPINE MESYLATE 1 MG TABLET PO SCH ×2 (09:35→16:06)
[2019-08-24] MEDS: FAMOTIDINE 20 MG TABLET PO SCH (09:35)
[2019-08-24] MEDS: DIVALPROEX SODIUM 250 MG DR TABLET PO SCH ×3 (09:35→17:30)
[2019-08-24] MEDS: METOPROLOL SUCCINATE 25 MG ER TABLET PO SCH (09:35)
[2019-08-24] MEDS: ASPIRIN 81 MG CHEWABLE TABLET PO SCH (09:35)
[2019-08-24] MEDS: MULTIVITAMINS WITH IRON TABLET PO SCH (09:37)
[2019-08-24] MEDS: DiphenhydrAMINE HCL 50 MG/ML VIAL IM PRN (10:17)
[2019-08-24] MEDS: HALOPERIDOL LACTATE 5 MG/ML VIAL IM PRN (10:34)
[2019-08-24 17:00] VITALS: BP 147/78
[2019-08-24] MEDS: SIMVASTATIN 40 MG TABLET PO SCH (20:34)
[2019-08-25 03:34] VITALS: BP 156/77
[2019-08-25] MEDS: FERROUS SULFATE 325 MG EC TABLET PO SCH ×2 (06:37→17:42)
[2019-08-25] MEDS: METOPROLOL SUCCINATE 25 MG ER TABLET PO SCH ×2 (09:00→10:09)
[2019-08-25] MEDS: DIVALPROEX SODIUM 250 MG DR TABLET PO SCH ×4 (09:00→17:42)
[2019-08-25] MEDS: BENZTROPINE MESYLATE 1 MG TABLET PO SCH ×3 (09:00→17:42)
[2019-08-25] MEDS: ASPIRIN 81 MG CHEWABLE TABLET PO SCH ×2 (09:00→10:10)
[2019-08-25] MEDS: CloZAPine 100 MG RAPDIS TABLET PO SCH ×3 (09:00→20:29)
[2019-08-25] MEDS: FAMOTIDINE 20 MG TABLET PO SCH ×2 (09:00→10:08)
[2019-08-25] MEDS: MULTIVITAMINS WITH IRON TABLET PO SCH ×2 (09:00→10:08)
[2019-08-25] MEDS: AmLODIPine BESYLATE 10 MG TABLET PO SCH ×2 (09:00→10:08)
[2019-08-25] MEDS: LORATADINE 10 MG TABLET PO SCH ×2 (09:00→10:10)
[2019-08-25] MEDS: DiphenhydrAMINE HCL 50 MG/ML VIAL IM PRN ×2 (12:04→20:32)
[2019-08-25] MEDS: HALOPERIDOL LACTATE 5 MG/ML VIAL IM PRN ×2 (12:05→20:32)
[2019-08-25 16:00] VITALS: BP 139/81
[2019-08-25] MEDS: SIMVASTATIN 40 MG TABLET PO SCH (20:29)
[2019-08-26 02:15] VITALS: BP 152/75
[2019-08-26] MEDS: ZOLPIDEM TARTRATE 10 MG TABLET PO PRN (02:52)
[2019-08-26] MEDS: FERROUS SULFATE 325 MG EC TABLET PO SCH ×2 (07:09→16:55)
[2019-08-26] MEDS: FAMOTIDINE 20 MG TABLET PO SCH (09:00)
[2019-08-26] MEDS: MULTIVITAMINS WITH IRON TABLET PO SCH (09:00)
[2019-08-26] MEDS: AmLODIPine BESYLATE 10 MG TABLET PO SCH (09:00)
[2019-08-26] MEDS: DIVALPROEX SODIUM 250 MG DR TABLET PO SCH ×3 (09:00→16:55)
[2019-08-26] MEDS: ASPIRIN 81 MG CHEWABLE TABLET PO SCH (09:00)
[2019-08-26] MEDS: METOPROLOL SUCCINATE 25 MG ER TABLET PO SCH (09:00)
[2019-08-26] MEDS: LORATADINE 10 MG TABLET PO SCH (09:00)
[2019-08-26] MEDS: BENZTROPINE MESYLATE 1 MG TABLET PO SCH ×2 (09:00→16:55)
[2019-08-26] MEDS: CloZAPine 100 MG RAPDIS TABLET PO SCH ×2 (09:00→20:57)
[2019-08-26 09:32] VITALS: BP 137/71
[2019-08-26] MEDS: DiphenhydrAMINE HCL 50 MG/ML VIAL IM PRN ×2 (12:32→20:59)
[2019-08-26] MEDS: HALOPERIDOL LACTATE 5 MG/ML VIAL IM PRN ×2 (12:33→21:00)
[2019-08-26 16:00] VITALS: BP 134/74
[2019-08-26] MEDS: SIMVASTATIN 40 MG TABLET PO SCH (20:57)
[2019-08-27 01:36] VITALS: BP 148/91
[2019-08-27] MEDS: ZOLPIDEM TARTRATE 10 MG TABLET PO PRN (02:49)
[2019-08-27] MEDS: FERROUS SULFATE 325 MG EC TABLET PO SCH ×2 (07:07→16:30)
[2019-08-27] MEDS: CloZAPine 100 MG RAPDIS TABLET PO SCH ×3 (09:00→21:00)
[2019-08-27] MEDS: LORATADINE 10 MG TABLET PO SCH (09:31)
[2019-08-27] MEDS: MULTIVITAMINS WITH IRON TABLET PO SCH (09:31)
[2019-08-27] MEDS: ASPIRIN 81 MG CHEWABLE TABLET PO SCH (09:32)
[2019-08-27] MEDS: DIVALPROEX SODIUM 250 MG DR TABLET PO SCH ×3 (09:32→16:20)
[2019-08-27] MEDS: FAMOTIDINE 20 MG TABLET PO SCH (09:32)
[2019-08-27] MEDS: AmLODIPine BESYLATE 10 MG TABLET PO SCH (09:32)
[2019-08-27] MEDS: BENZTROPINE MESYLATE 1 MG TABLET PO SCH ×2 (09:32→16:03)
[2019-08-27] MEDS: METOPROLOL SUCCINATE 25 MG ER TABLET PO SCH (09:34)
[2019-08-27 09:40] VITALS: BP 137/72
[2019-08-27 16:00] VITALS: BP 134/68
[2019-08-27] MEDS: SIMVASTATIN 40 MG TABLET PO SCH (21:09)
[2019-08-27] MEDS: DiphenhydrAMINE HCL 50 MG/ML VIAL IM PRN (21:46)
[2019-08-27] MEDS: HALOPERIDOL LACTATE 5 MG/ML VIAL IM PRN (21:47)
[2019-08-28 04:39] VITALS: BP 119/78
[2019-08-28] MEDS: CloZAPine 100 MG RAPDIS TABLET PO SCH ×2 (09:00→21:00)
[2019-08-28 09:20] VITALS: BP 135/60
[2019-08-28] MEDS: AmLODIPine BESYLATE 10 MG TABLET PO SCH (09:24)
[2019-08-28] MEDS: METOPROLOL SUCCINATE 25 MG ER TABLET PO SCH (09:24)
[2019-08-28] MEDS: ASPIRIN 81 MG CHEWABLE TABLET PO SCH (09:24)
[2019-08-28] MEDS: LORATADINE 10 MG TABLET PO SCH (09:25)
[2019-08-28] MEDS: DIVALPROEX SODIUM 250 MG DR TABLET PO SCH ×3 (09:25→17:47)
[2019-08-28] MEDS: MULTIVITAMINS WITH IRON TABLET PO SCH (09:25)
[2019-08-28] MEDS: BENZTROPINE MESYLATE 1 MG TABLET PO SCH ×2 (09:25→17:46)
[2019-08-28] MEDS: FAMOTIDINE 20 MG TABLET PO SCH (09:25)
[2019-08-28] MEDS: FERROUS SULFATE 325 MG EC TABLET PO SCH ×2 (09:27→17:46)
[2019-08-28] MEDS: DiphenhydrAMINE HCL 50 MG/ML VIAL IM PRN ×2 (09:29→21:26)
[2019-08-28] MEDS: HALOPERIDOL LACTATE 5 MG/ML VIAL IM PRN ×2 (09:30→21:28)
[2019-08-28 16:00] VITALS: BP 134/79
[2019-08-28] MEDS: SIMVASTATIN 40 MG TABLET PO SCH (21:26)
[2019-08-29 03:20] VITALS: BP 121/67
[2019-08-29] MEDS: FERROUS SULFATE 325 MG EC TABLET PO SCH ×2 (06:46→16:19)
[2019-08-29] MEDS: CloZAPine 100 MG RAPDIS TABLET PO SCH ×3 (07:50→20:42)
[2019-08-29] MEDS: LORATADINE 10 MG TABLET PO SCH (07:51)
[2019-08-29] MEDS: DIVALPROEX SODIUM 250 MG DR TABLET PO SCH ×3 (07:51→16:19)
[2019-08-29] MEDS: BENZTROPINE MESYLATE 1 MG TABLET PO SCH ×2 (07:51→16:19)
[2019-08-29] MEDS: METOPROLOL SUCCINATE 25 MG ER TABLET PO SCH (07:51)
[2019-08-29] MEDS: FAMOTIDINE 20 MG TABLET PO SCH (07:51)
[2019-08-29] MEDS: MULTIVITAMINS WITH IRON TABLET PO SCH (07:51)
[2019-08-29] MEDS: AmLODIPine BESYLATE 10 MG TABLET PO SCH (07:52)
[2019-08-29] MEDS: ASPIRIN 81 MG CHEWABLE TABLET PO SCH (07:52)
[2019-08-29 09:19] VITALS: BP 128/63
[2019-08-29 16:49] VITALS: BP 109/56
[2019-08-29] MEDS: SIMVASTATIN 40 MG TABLET PO SCH (20:02)
[2019-08-29] MEDS: ZOLPIDEM TARTRATE 10 MG TABLET PO PRN (21:22)
[2019-08-30 01:43] VITALS: BP 125/69
[2019-08-30] MEDS: FERROUS SULFATE 325 MG EC TABLET PO SCH ×2 (06:34→16:59)
[2019-08-30 07:31] LABS: EOSINOPHILS % (AUTO) 7.5 % (1.0-6.0); HEMATOCRIT 37.9 % (41-53); HEMOGLOBIN 13.1 g/dL (13.5-17.5); LYMPHOCYTES # (AUTO) 2.6 K/uL (1.0-4.8); MEAN CORPUSCULAR HEMOGLOBIN 31.3 pg (26.0-34.0); MEAN CORPUSCULAR HGB CONC 34.5 G/dL (31.0-37.0); MEAN CORPUSCULAR VOLUME 91 fL (80-100); MONOCYTES # (AUTO) 0.9 K/uL (0.1-1.0); MONOCYTES % (AUTO) 11.4 % (2.0-9.0); NEUTROPHILS % (AUTO) 48.1 % (40.0-70.0); PLATELET COUNT (AUTO) 226 K/uL (150-450); RED BLOOD CELL COUNT(AUTO) 4.18 MIL/uL (4.50-5.90); RED CELL DISTRIBUTION WIDTH 13.7 % (11.5-14.5)
[2019-08-30] MEDS: CloZAPine 100 MG RAPDIS TABLET PO SCH ×2 (07:51→20:22)
[2019-08-30] MEDS: DIVALPROEX SODIUM 250 MG DR TABLET PO SCH ×3 (08:00→16:59)
[2019-08-30] MEDS: FAMOTIDINE 20 MG TABLET PO SCH (08:00)
[2019-08-30] MEDS: ASPIRIN 81 MG CHEWABLE TABLET PO SCH (08:01)
[2019-08-30] MEDS: BENZTROPINE MESYLATE 1 MG TABLET PO SCH ×2 (08:01→16:59)
[2019-08-30] MEDS: AmLODIPine BESYLATE 10 MG TABLET PO SCH (08:02)
[2019-08-30] MEDS: LORATADINE 10 MG TABLET PO SCH (08:02)
[2019-08-30] MEDS: MULTIVITAMINS WITH IRON TABLET PO SCH (08:02)
[2019-08-30] MEDS: METOPROLOL SUCCINATE 25 MG ER TABLET PO SCH (08:02)
[2019-08-30] MEDS: LORazepam 2 MG TABLET PO PRN (09:02)
[2019-08-30 09:15] VITALS: BP 117/67
[2019-08-30 16:00] VITALS: BP 120/68
[2019-08-30] MEDS: SIMVASTATIN 40 MG TABLET PO SCH (20:22)
[2019-08-30] MEDS: DiphenhydrAMINE HCL 50 MG/ML VIAL IM PRN (20:24)
[2019-08-30] MEDS: HALOPERIDOL LACTATE 5 MG/ML VIAL IM PRN (20:25)
[2019-08-31 04:00] VITALS: BP 148/79
[2019-08-31] MEDS: LORazepam 2 MG TABLET PO PRN (04:02)
[2019-08-31] MEDS: FERROUS SULFATE 325 MG EC TABLET PO SCH ×2 (07:03→16:58)
[2019-08-31 08:00] VITALS: BP 147/74
[2019-08-31] MEDS: METOPROLOL SUCCINATE 25 MG ER TABLET PO SCH (09:27)
[2019-08-31] MEDS: LORATADINE 10 MG TABLET PO SCH (09:27)
[2019-08-31] MEDS: AmLODIPine BESYLATE 10 MG TABLET PO SCH (09:27)
[2019-08-31] MEDS: MULTIVITAMINS WITH IRON TABLET PO SCH (09:27)
[2019-08-31] MEDS: FAMOTIDINE 20 MG TABLET PO SCH (09:27)
[2019-08-31] MEDS: ASPIRIN 81 MG CHEWABLE TABLET PO SCH (09:27)
[2019-08-31] MEDS: BENZTROPINE MESYLATE 1 MG TABLET PO SCH ×2 (09:27→16:58)
[2019-08-31] MEDS: DIVALPROEX SODIUM 250 MG DR TABLET PO SCH ×3 (09:27→16:58)
[2019-08-31] MEDS: CloZAPine 100 MG RAPDIS TABLET PO SCH ×2 (09:27→21:00)
[2019-08-31 16:25] VITALS: BP 131/73
[2019-08-31] MEDS: SIMVASTATIN 40 MG TABLET PO SCH (21:00)
[2019-08-31] MEDS: DiphenhydrAMINE HCL 50 MG/ML VIAL IM PRN (21:22)
[2019-08-31] MEDS: HALOPERIDOL LACTATE 5 MG/ML VIAL IM PRN (21:22)
[2019-09-01] MEDS: ZOLPIDEM TARTRATE 10 MG TABLET PO PRN (02:07)
[2019-09-01 05:23] VITALS: BP 112/69
[2019-09-01] MEDS: FERROUS SULFATE 325 MG EC TABLET PO SCH ×2 (06:44→17:30)
[2019-09-01] MEDS: CloZAPine 100 MG RAPDIS TABLET PO SCH ×2 (08:28→21:00)
[2019-09-01] MEDS: ASPIRIN 81 MG CHEWABLE TABLET PO SCH (08:29)
[2019-09-01] MEDS: AmLODIPine BESYLATE 10 MG TABLET PO SCH (08:29)
[2019-09-01] MEDS: METOPROLOL SUCCINATE 25 MG ER TABLET PO SCH (08:29)
[2019-09-01] MEDS: FAMOTIDINE 20 MG TABLET PO SCH (08:29)
[2019-09-01] MEDS: BENZTROPINE MESYLATE 1 MG TABLET PO SCH ×2 (08:29→17:00)
[2019-09-01] MEDS: LORATADINE 10 MG TABLET PO SCH (08:30)
[2019-09-01] MEDS: DIVALPROEX SODIUM 250 MG DR TABLET PO SCH ×3 (08:30→17:00)
[2019-09-01] MEDS: MULTIVITAMINS WITH IRON TABLET PO SCH (08:30)
[2019-09-01 08:41] VITALS: BP 131/84
[2019-09-01] MEDS: SIMVASTATIN 40 MG TABLET PO SCH (21:25)
[2019-09-01] MEDS: DiphenhydrAMINE HCL 50 MG/ML VIAL IM PRN (21:32)
[2019-09-01] MEDS: HALOPERIDOL LACTATE 5 MG/ML VIAL IM PRN (21:32)
[2019-09-02 02:00] VITALS: BP 142/71
[2019-09-02] MEDS: LORazepam 2 MG TABLET PO PRN (03:41)
[2019-09-02] MEDS: FERROUS SULFATE 325 MG EC TABLET PO SCH ×2 (06:40→17:35)
[2019-09-02 08:00] VITALS: BP 155/75
[2019-09-02] MEDS: CloZAPine 100 MG RAPDIS TABLET PO SCH ×2 (09:13→20:47)
[2019-09-02] MEDS: FAMOTIDINE 20 MG TABLET PO SCH (09:14)
[2019-09-02] MEDS: DIVALPROEX SODIUM 250 MG DR TABLET PO SCH ×3 (09:14→17:35)
[2019-09-02] MEDS: MULTIVITAMINS WITH IRON TABLET PO SCH (09:14)
[2019-09-02] MEDS: BENZTROPINE MESYLATE 1 MG TABLET PO SCH ×2 (09:15→17:35)
[2019-09-02] MEDS: AmLODIPine BESYLATE 10 MG TABLET PO SCH (09:15)
[2019-09-02] MEDS: ASPIRIN 81 MG CHEWABLE TABLET PO SCH (09:15)
[2019-09-02] MEDS: LORATADINE 10 MG TABLET PO SCH (09:15)
[2019-09-02] MEDS: METOPROLOL SUCCINATE 25 MG ER TABLET PO SCH (09:16)
[2019-09-02 16:01] VITALS: BP 154/71
[2019-09-02 17:07] VITALS: BP 154/71
[2019-09-02] MEDS: SIMVASTATIN 40 MG TABLET PO SCH (20:47)
[2019-09-02] MEDS: DiphenhydrAMINE HCL 50 MG/ML VIAL IM PRN (20:59)
[2019-09-02] MEDS: HALOPERIDOL LACTATE 5 MG/ML VIAL IM PRN (21:00)
[2019-09-03] MEDS: LORazepam 2 MG TABLET PO PRN (03:27)
[2019-09-03 03:38] VITALS: BP 146/70
[2019-09-03] MEDS: FERROUS SULFATE 325 MG EC TABLET PO SCH ×2 (06:56→16:35)
[2019-09-03] MEDS: CloZAPine 100 MG RAPDIS TABLET PO SCH ×2 (08:27→15:14)
[2019-09-03] MEDS: FAMOTIDINE 20 MG TABLET PO SCH (08:28)
[2019-09-03] MEDS: BENZTROPINE MESYLATE 1 MG TABLET PO SCH ×2 (08:28→16:35)
[2019-09-03] MEDS: METOPROLOL SUCCINATE 25 MG ER TABLET PO SCH (08:28)
[2019-09-03] MEDS: MULTIVITAMINS WITH IRON TABLET PO SCH (08:28)
[2019-09-03] MEDS: DIVALPROEX SODIUM 250 MG DR TABLET PO SCH ×4 (08:28→18:49)
[2019-09-03] MEDS: AmLODIPine BESYLATE 10 MG TABLET PO SCH (08:28)
[2019-09-03] MEDS: LORATADINE 10 MG TABLET PO SCH (08:28)
[2019-09-03] MEDS: ASPIRIN 81 MG CHEWABLE TABLET PO SCH (08:30)
[2019-09-03 08:43] VITALS: BP 118/62
[2019-09-03] MEDS ORDERED: CloZAPine 100 MG RAPDIS TABLET PO SCH (11:15)
[2019-09-03 16:59] VITALS: BP 126/71
[2019-09-03] MEDS: SIMVASTATIN 40 MG TABLET PO SCH (20:40)
[2019-09-04] MEDS: FERROUS SULFATE 325 MG EC TABLET PO SCH ×2 (06:41→16:30)
[2019-09-04] MEDS: BENZTROPINE MESYLATE 1 MG TABLET PO SCH ×2 (08:45→16:17)
[2019-09-04] MEDS: FAMOTIDINE 20 MG TABLET PO SCH (08:45)
[2019-09-04] MEDS: METOPROLOL SUCCINATE 25 MG ER TABLET PO SCH (08:45)
[2019-09-04] MEDS: MULTIVITAMINS WITH IRON TABLET PO SCH (08:45)
[2019-09-04] MEDS: LORATADINE 10 MG TABLET PO SCH (08:46)
[2019-09-04] MEDS: DIVALPROEX SODIUM 250 MG DR TABLET PO SCH ×3 (08:46→20:04)
[2019-09-04] MEDS: LORazepam 2 MG TABLET PO PRN (08:46)
[2019-09-04] MEDS: CloZAPine 100 MG RAPDIS TABLET PO SCH ×2 (08:46→14:57)
[2019-09-04] MEDS: ASPIRIN 81 MG CHEWABLE TABLET PO SCH (08:48)
[2019-09-04] MEDS: AmLODIPine BESYLATE 10 MG TABLET PO SCH (08:48)
[2019-09-04] MEDS: ACETAMINOPHEN 325 MG TABLET PO PRN (08:52)
[2019-09-04 11:03] VITALS: BP 142/82
[2019-09-04 16:01] VITALS: BP 123/60
[2019-09-04] MEDS: SIMVASTATIN 40 MG TABLET PO SCH (20:04)
[2019-09-05] MEDS: FERROUS SULFATE 325 MG EC TABLET PO SCH ×2 (06:34→17:43)
[2019-09-05 08:00] VITALS: BP 124/70
[2019-09-05] MEDS: ASPIRIN 81 MG CHEWABLE TABLET PO SCH (09:08)
[2019-09-05] MEDS: BENZTROPINE MESYLATE 1 MG TABLET PO SCH ×2 (09:08→17:43)
[2019-09-05] MEDS: LORATADINE 10 MG TABLET PO SCH (09:08)
[2019-09-05] MEDS: DIVALPROEX SODIUM 250 MG DR TABLET PO SCH ×3 (09:08→18:05)
[2019-09-05] MEDS: MULTIVITAMINS WITH IRON TABLET PO SCH (09:09)
[2019-09-05] MEDS: METOPROLOL SUCCINATE 25 MG ER TABLET PO SCH (09:09)
[2019-09-05] MEDS: AmLODIPine BESYLATE 10 MG TABLET PO SCH (09:09)
[2019-09-05] MEDS: FAMOTIDINE 20 MG TABLET PO SCH (09:09)
[2019-09-05] MEDS: CloZAPine 100 MG RAPDIS TABLET PO SCH ×2 (09:20→14:48)
[2019-09-05] MEDS: DiphenhydrAMINE HCL 50 MG/ML VIAL IM PRN (14:49)
[2019-09-05] MEDS: HALOPERIDOL LACTATE 5 MG/ML VIAL IM PRN (14:51)
[2019-09-05 16:27] VITALS: BP 119/63
[2019-09-05] MEDS: SIMVASTATIN 40 MG TABLET PO SCH (20:30)
[2019-09-06] MEDS: LORazepam 2 MG TABLET PO PRN (04:01)
[2019-09-06 04:39] VITALS: BP 127/73
[2019-09-06] MEDS: FERROUS SULFATE 325 MG EC TABLET PO SCH ×2 (06:35→16:54)
[2019-09-06 07:52] LABS: BASOPHILS % (AUTO) 0.6 % (0.0-2.0); EOSINOPHILS % (AUTO) 6.1 % (1.0-6.0); HEMOGLOBIN 13.1 g/dL (13.5-17.5); LYMPHOCYTES # (AUTO) 2.4 K/uL (1.0-4.8); MEAN CORPUSCULAR HEMOGLOBIN 30.9 pg (26.0-34.0); MEAN CORPUSCULAR HGB CONC 34.5 G/dL (31.0-37.0); MEAN CORPUSCULAR VOLUME 90 fL (80-100); MONOCYTES # (AUTO) 0.9 K/uL (0.1-1.0); MONOCYTES % (AUTO) 10.1 % (2.0-9.0); NEUTROPHILS # (AUTO) 5.2 K/uL (1.8-7.7); NEUTROPHILS % (AUTO) 57.2 % (40.0-70.0); PLATELET COUNT (AUTO) 192 K/uL (150-450); RED BLOOD CELL COUNT(AUTO) 4.24 MIL/uL (4.50-5.90); RED CELL DISTRIBUTION WIDTH 13.3 % (11.5-14.5)
[2019-09-06 08:00] VITALS: BP 131/78
[2019-09-06] MEDS: ASPIRIN 81 MG CHEWABLE TABLET PO SCH (09:00)
[2019-09-06] MEDS: METOPROLOL SUCCINATE 25 MG ER TABLET PO SCH (09:00)
[2019-09-06] MEDS: FAMOTIDINE 20 MG TABLET PO SCH (09:00)
[2019-09-06] MEDS: AmLODIPine BESYLATE 10 MG TABLET PO SCH (09:00)
[2019-09-06] MEDS: MULTIVITAMINS WITH IRON TABLET PO SCH (09:00)
[2019-09-06] MEDS: LORATADINE 10 MG TABLET PO SCH (09:00)
[2019-09-06] MEDS: DIVALPROEX SODIUM 250 MG DR TABLET PO SCH ×3 (09:00→20:40)
[2019-09-06] MEDS: BENZTROPINE MESYLATE 1 MG TABLET PO SCH ×2 (09:00→16:55)
[2019-09-06] MEDS: CloZAPine 100 MG RAPDIS TABLET PO SCH ×2 (09:00→14:39)
[2019-09-06] MEDS: DiphenhydrAMINE HCL 50 MG/ML VIAL IM PRN (09:44)
[2019-09-06] MEDS: HALOPERIDOL LACTATE 5 MG/ML VIAL IM PRN (09:44)
[2019-09-06] MEDS ORDERED: LORazepam 1 MG TABLET PO PRN ×2 (14:30→16:30)
[2019-09-06 16:21] VITALS: BP 120/79
[2019-09-06 16:22] VITALS: BP 120/79
[2019-09-06] MEDS: SIMVASTATIN 40 MG TABLET PO SCH (20:41)
[2019-09-07] MEDS: FERROUS SULFATE 325 MG EC TABLET PO SCH ×2 (06:58→16:41)
[2019-09-07 08:00] VITALS: BP 130/72
[2019-09-07] MEDS: CloZAPine 100 MG RAPDIS TABLET PO SCH ×2 (08:35→14:44)
[2019-09-07] MEDS: LORATADINE 10 MG TABLET PO SCH (08:35)
[2019-09-07] MEDS: MULTIVITAMINS WITH IRON TABLET PO SCH (08:35)
[2019-09-07] MEDS: BENZTROPINE MESYLATE 1 MG TABLET PO SCH ×2 (08:36→16:41)
[2019-09-07] MEDS: AmLODIPine BESYLATE 10 MG TABLET PO SCH (08:36)
[2019-09-07] MEDS: ASPIRIN 81 MG CHEWABLE TABLET PO SCH (08:36)
[2019-09-07] MEDS: DIVALPROEX SODIUM 250 MG DR TABLET PO SCH ×3 (08:38→19:00)
[2019-09-07] MEDS: FAMOTIDINE 20 MG TABLET PO SCH (08:45)
[2019-09-07] MEDS: METOPROLOL SUCCINATE 25 MG ER TABLET PO SCH (08:48)
[2019-09-07] MEDS: ACETAMINOPHEN 325 MG TABLET PO PRN (08:50)
[2019-09-07 16:27] VITALS: BP 152/76
[2019-09-07] MEDS: SIMVASTATIN 40 MG TABLET PO SCH (20:32)
[2019-09-08] MEDS: FERROUS SULFATE 325 MG EC TABLET PO SCH ×2 (06:55→16:35)
[2019-09-08 08:00] VITALS: BP 144/87
[2019-09-08] MEDS: CloZAPine 100 MG RAPDIS TABLET PO SCH ×2 (10:26→15:12)
[2019-09-08] MEDS: FAMOTIDINE 20 MG TABLET PO SCH (10:27)
[2019-09-08] MEDS: METOPROLOL SUCCINATE 25 MG ER TABLET PO SCH (10:27)
[2019-09-08] MEDS: MULTIVITAMINS WITH IRON TABLET PO SCH (10:28)
[2019-09-08] MEDS: ASPIRIN 81 MG CHEWABLE TABLET PO SCH (10:28)
[2019-09-08] MEDS: BENZTROPINE MESYLATE 1 MG TABLET PO SCH ×2 (10:28→16:34)
[2019-09-08] MEDS: LORATADINE 10 MG TABLET PO SCH (10:28)
[2019-09-08] MEDS: DIVALPROEX SODIUM 250 MG DR TABLET PO SCH ×3 (10:28→18:17)
[2019-09-08] MEDS: AmLODIPine BESYLATE 10 MG TABLET PO SCH (10:29)
[2019-09-08 16:17] VITALS: BP 129/71
[2019-09-08] MEDS: SIMVASTATIN 40 MG TABLET PO SCH (21:03)
[2019-09-08] MEDS: ZOLPIDEM TARTRATE 10 MG TABLET PO PRN (22:14)
[2019-09-09 00:25] VITALS: BP 138/71
[2019-09-09] MEDS: FERROUS SULFATE 325 MG EC TABLET PO SCH ×2 (06:59→16:43)
[2019-09-09 07:23] LABS: ANION GAP 7 mmol/L (8-16); CALCIUM, TOTAL 8.9 mg/dL (8.8-10.5); CARBON DIOXIDE 28 mmol/L (22-29); CHLORIDE 106 mmol/L (98-107); CREATININE 1.04 mg/dL (0.60-1.30); GLOMERULAR FILTR. RATE CALC > 60 mL/min (>60); GLUCOSE,RANDOM 135 mg/dL (70-110); POTASSIUM 4.2 mmol/L (3.5-5.1); SODIUM SERUM 141 mmol/L (136-145); UREA NITROGEN, BLOOD 21 mg/dL (7-18)
[2019-09-09 08:00] VITALS: BP 126/69
[2019-09-09] MEDS: BENZTROPINE MESYLATE 1 MG TABLET PO SCH ×2 (08:31→16:43)
[2019-09-09] MEDS: METOPROLOL SUCCINATE 25 MG ER TABLET PO SCH (08:31)
[2019-09-09] MEDS: FAMOTIDINE 20 MG TABLET PO SCH (08:31)
[2019-09-09] MEDS: DIVALPROEX SODIUM 250 MG DR TABLET PO SCH ×3 (08:31→20:30)
[2019-09-09] MEDS: ASPIRIN 81 MG CHEWABLE TABLET PO SCH (08:31)
[2019-09-09] MEDS: LORATADINE 10 MG TABLET PO SCH (08:31)
[2019-09-09] MEDS: MULTIVITAMINS WITH IRON TABLET PO SCH (08:32)
[2019-09-09] MEDS: AmLODIPine BESYLATE 10 MG TABLET PO SCH (08:32)
[2019-09-09] MEDS: CloZAPine 100 MG RAPDIS TABLET PO SCH ×2 (08:34→15:00)
[2019-09-09 16:01] VITALS: BP 114/65
[2019-09-09] MEDS: SIMVASTATIN 40 MG TABLET PO SCH (20:30)
[2019-09-10] MEDS: FERROUS SULFATE 325 MG EC TABLET PO SCH ×2 (06:35→17:30)
[2019-09-10] MEDS: LORATADINE 10 MG TABLET PO SCH (08:54)
[2019-09-10] MEDS: DIVALPROEX SODIUM 250 MG DR TABLET PO SCH ×3 (08:54→20:50)
[2019-09-10] MEDS: BENZTROPINE MESYLATE 1 MG TABLET PO SCH ×2 (08:54→16:12)
[2019-09-10] MEDS: ASPIRIN 81 MG CHEWABLE TABLET PO SCH (08:54)
[2019-09-10] MEDS: CloZAPine 100 MG RAPDIS TABLET PO SCH ×2 (08:55→14:35)
[2019-09-10] MEDS: MULTIVITAMINS WITH IRON TABLET PO SCH (08:56)
[2019-09-10] MEDS: AmLODIPine BESYLATE 10 MG TABLET PO SCH (08:56)
[2019-09-10] MEDS: FAMOTIDINE 20 MG TABLET PO SCH (08:56)
[2019-09-10] MEDS: METOPROLOL SUCCINATE 25 MG ER TABLET PO SCH (08:57)
[2019-09-10 09:54] VITALS: BP 120/68
[2019-09-10 16:00] VITALS: BP 121/60
[2019-09-10] MEDS: SIMVASTATIN 40 MG TABLET PO SCH (20:50)
[2019-09-11] MEDS: FERROUS SULFATE 325 MG EC TABLET PO SCH ×2 (06:53→16:34)
[2019-09-11 08:00] VITALS: BP 128/75
[2019-09-11] MEDS: AmLODIPine BESYLATE 10 MG TABLET PO SCH (10:10)
[2019-09-11] MEDS: BENZTROPINE MESYLATE 1 MG TABLET PO SCH ×2 (10:10→16:27)
[2019-09-11] MEDS: ASPIRIN 81 MG CHEWABLE TABLET PO SCH (10:10)
[2019-09-11] MEDS: FAMOTIDINE 20 MG TABLET PO SCH (10:10)
[2019-09-11] MEDS: MULTIVITAMINS WITH IRON TABLET PO SCH (10:10)
[2019-09-11] MEDS: CloZAPine 100 MG RAPDIS TABLET PO SCH ×2 (10:10→14:52)
[2019-09-11] MEDS: DIVALPROEX SODIUM 250 MG DR TABLET PO SCH ×3 (10:10→19:51)
[2019-09-11] MEDS: LORATADINE 10 MG TABLET PO SCH (10:11)
[2019-09-11] MEDS: METOPROLOL SUCCINATE 25 MG ER TABLET PO SCH (10:12)
[2019-09-11 16:00] VITALS: BP 107/60
[2019-09-11] MEDS: SIMVASTATIN 40 MG TABLET PO SCH (20:05)
[2019-09-12] MEDS: FERROUS SULFATE 325 MG EC TABLET PO SCH ×2 (06:49→17:35)
[2019-09-12] MEDS: CloZAPine 100 MG RAPDIS TABLET PO SCH ×2 (09:54→15:01)
[2019-09-12] MEDS: FAMOTIDINE 20 MG TABLET PO SCH (09:54)
[2019-09-12] MEDS: DIVALPROEX SODIUM 250 MG DR TABLET PO SCH ×3 (09:55→19:42)
[2019-09-12] MEDS: LORATADINE 10 MG TABLET PO SCH (09:56)
[2019-09-12] MEDS: ASPIRIN 81 MG CHEWABLE TABLET PO SCH (09:56)
[2019-09-12] MEDS: METOPROLOL SUCCINATE 25 MG ER TABLET PO SCH (09:56)
[2019-09-12] MEDS: MULTIVITAMINS WITH IRON TABLET PO SCH (09:56)
[2019-09-12] MEDS: AmLODIPine BESYLATE 10 MG TABLET PO SCH (09:56)
[2019-09-12] MEDS: BENZTROPINE MESYLATE 1 MG TABLET PO SCH ×2 (09:57→17:14)
[2019-09-12 12:00] VITALS: BP 143/83
[2019-09-12 16:00] VITALS: BP 111/65
[2019-09-12] MEDS: SIMVASTATIN 40 MG TABLET PO SCH (20:04)
[2019-09-13] MEDS: FERROUS SULFATE 325 MG EC TABLET PO SCH ×2 (06:55→17:28)
[2019-09-13 07:01] LABS: BASOPHILS % (AUTO) 0.5 % (0.0-2.0); EOSINOPHILS % (AUTO) 8.9 % (1.0-6.0); HEMATOCRIT 39.7 % (41-53); HEMOGLOBIN 13.3 g/dL (13.5-17.5); LYMPHOCYTES # (AUTO) 2.5 K/uL (1.0-4.8); LYMPHOCYTES % (AUTO) 29.7 % (22.0-44.0); MEAN CORPUSCULAR HEMOGLOBIN 30.1 pg (26.0-34.0); MEAN CORPUSCULAR HGB CONC 33.6 G/dL (31.0-37.0); MEAN CORPUSCULAR VOLUME 90 fL (80-100); MONOCYTES # (AUTO) 1.1 K/uL (0.1-1.0); MONOCYTES % (AUTO) 13.5 % (2.0-9.0); NEUTROPHILS # (AUTO) 3.9 K/uL (1.8-7.7); NEUTROPHILS % (AUTO) 47.4 % (40.0-70.0); PLATELET COUNT (AUTO) 172 K/uL (150-450); RED BLOOD CELL COUNT(AUTO) 4.43 MIL/uL (4.50-5.90); RED CELL DISTRIBUTION WIDTH 13.5 % (11.5-14.5)
[2019-09-13 08:00] VITALS: BP 124/73
[2019-09-13] MEDS: ASPIRIN 81 MG CHEWABLE TABLET PO SCH (09:39)
[2019-09-13] MEDS: MULTIVITAMINS WITH IRON TABLET PO SCH (09:39)
[2019-09-13] MEDS: AmLODIPine BESYLATE 10 MG TABLET PO SCH (09:39)
[2019-09-13] MEDS: FAMOTIDINE 20 MG TABLET PO SCH (09:39)
[2019-09-13] MEDS: METOPROLOL SUCCINATE 25 MG ER TABLET PO SCH (09:39)
[2019-09-13] MEDS: CloZAPine 100 MG RAPDIS TABLET PO SCH ×2 (09:39→14:51)
[2019-09-13] MEDS: DIVALPROEX SODIUM 250 MG DR TABLET PO SCH ×3 (09:39→19:52)
[2019-09-13] MEDS: BENZTROPINE MESYLATE 1 MG TABLET PO SCH ×2 (09:39→17:06)
[2019-09-13] MEDS: LORATADINE 10 MG TABLET PO SCH (09:40)
[2019-09-13 17:01] VITALS: BP 121/69
[2019-09-13] MEDS: SIMVASTATIN 40 MG TABLET PO SCH (20:22)
[2019-09-14 05:47] VITALS: BP 137/77
[2019-09-14] MEDS: FERROUS SULFATE 325 MG EC TABLET PO SCH ×2 (07:08→16:37)
[2019-09-14 08:00] VITALS: BP 123/72
[2019-09-14] MEDS: MULTIVITAMINS WITH IRON TABLET PO SCH (10:24)
[2019-09-14] MEDS: CloZAPine 100 MG RAPDIS TABLET PO SCH ×2 (10:24→14:05)
[2019-09-14] MEDS: DIVALPROEX SODIUM 250 MG DR TABLET PO SCH ×3 (10:24→19:00)
[2019-09-14] MEDS: METOPROLOL SUCCINATE 25 MG ER TABLET PO SCH (10:25)
[2019-09-14] MEDS: LORATADINE 10 MG TABLET PO SCH (10:25)
[2019-09-14] MEDS: BENZTROPINE MESYLATE 1 MG TABLET PO SCH ×2 (10:25→16:37)
[2019-09-14] MEDS: ASPIRIN 81 MG CHEWABLE TABLET PO SCH (10:25)
[2019-09-14] MEDS: FAMOTIDINE 20 MG TABLET PO SCH (10:26)
[2019-09-14] MEDS: AmLODIPine BESYLATE 10 MG TABLET PO SCH (10:26)
[2019-09-14 16:33] VITALS: BP 112/68
[2019-09-14] MEDS: SIMVASTATIN 40 MG TABLET PO SCH (20:53)
[2019-09-15] MEDS: FERROUS SULFATE 325 MG EC TABLET PO SCH ×2 (06:41→16:46)
[2019-09-15 09:32] VITALS: BP 103/56
[2019-09-15] MEDS: BENZTROPINE MESYLATE 1 MG TABLET PO SCH ×2 (09:37→16:46)
[2019-09-15] MEDS: AmLODIPine BESYLATE 10 MG TABLET PO SCH (09:37)
[2019-09-15] MEDS: CloZAPine 100 MG RAPDIS TABLET PO SCH ×2 (09:38→14:58)
[2019-09-15] MEDS: DIVALPROEX SODIUM 250 MG DR TABLET PO SCH ×3 (09:38→19:00)
[2019-09-15] MEDS: ASPIRIN 81 MG CHEWABLE TABLET PO SCH (09:40)
[2019-09-15] MEDS: LORATADINE 10 MG TABLET PO SCH (09:42)
[2019-09-15] MEDS: FAMOTIDINE 20 MG TABLET PO SCH (09:44)
[2019-09-15] MEDS: METOPROLOL SUCCINATE 25 MG ER TABLET PO SCH (09:44)
[2019-09-15] MEDS: MULTIVITAMINS WITH IRON TABLET PO SCH (09:44)
[2019-09-15 16:54] VITALS: BP 139/73
[2019-09-15] MEDS: SIMVASTATIN 40 MG TABLET PO SCH (21:02)
[2019-09-16] MEDS: FERROUS SULFATE 325 MG EC TABLET PO SCH ×2 (06:45→17:03)
[2019-09-16] MEDS: ASPIRIN 81 MG CHEWABLE TABLET PO SCH (08:31)
[2019-09-16] MEDS: LORATADINE 10 MG TABLET PO SCH (08:31)
[2019-09-16] MEDS: MULTIVITAMINS WITH IRON TABLET PO SCH (08:31)
[2019-09-16] MEDS: CloZAPine 100 MG RAPDIS TABLET PO SCH ×2 (08:31→15:28)
[2019-09-16] MEDS: BENZTROPINE MESYLATE 1 MG TABLET PO SCH ×2 (08:31→17:03)
[2019-09-16] MEDS: AmLODIPine BESYLATE 10 MG TABLET PO SCH (08:31)
[2019-09-16] MEDS: FAMOTIDINE 20 MG TABLET PO SCH (08:31)
[2019-09-16] MEDS: METOPROLOL SUCCINATE 25 MG ER TABLET PO SCH (08:31)
[2019-09-16] MEDS: DIVALPROEX SODIUM 250 MG DR TABLET PO SCH ×3 (08:32→18:43)
[2019-09-16 09:27] VITALS: BP 142/79
[2019-09-16 16:00] VITALS: BP 120/69
[2019-09-16] MEDS: SIMVASTATIN 40 MG TABLET PO SCH (20:46)
[2019-09-17] MEDS: FERROUS SULFATE 325 MG EC TABLET PO SCH ×2 (06:35→16:59)
[2019-09-17 08:30] VITALS: BP 130/72
[2019-09-17] MEDS: LORATADINE 10 MG TABLET PO SCH (09:06)
[2019-09-17] MEDS: MULTIVITAMINS WITH IRON TABLET PO SCH (09:06)
[2019-09-17] MEDS: DIVALPROEX SODIUM 250 MG DR TABLET PO SCH ×3 (09:06→19:53)
[2019-09-17] MEDS: FAMOTIDINE 20 MG TABLET PO SCH (09:06)
[2019-09-17] MEDS: AmLODIPine BESYLATE 10 MG TABLET PO SCH (09:07)
[2019-09-17] MEDS: ASPIRIN 81 MG CHEWABLE TABLET PO SCH (09:07)
[2019-09-17] MEDS: BENZTROPINE MESYLATE 1 MG TABLET PO SCH ×2 (09:07→16:59)
[2019-09-17] MEDS: METOPROLOL SUCCINATE 25 MG ER TABLET PO SCH (09:07)
[2019-09-17] MEDS: CloZAPine 100 MG RAPDIS TABLET PO SCH ×2 (09:08→14:42)
[2019-09-17 16:00] VITALS: BP 127/71
[2019-09-17] MEDS: SIMVASTATIN 40 MG TABLET PO SCH (21:15)
[2019-09-18 04:53] VITALS: BP 112/68
[2019-09-18] MEDS: FERROUS SULFATE 325 MG EC TABLET PO SCH ×2 (06:32→17:35)
[2019-09-18 08:00] VITALS: BP 130/61
[2019-09-18] MEDS: FAMOTIDINE 20 MG TABLET PO SCH (09:43)
[2019-09-18] MEDS: AmLODIPine BESYLATE 10 MG TABLET PO SCH (09:43)
[2019-09-18] MEDS: BENZTROPINE MESYLATE 1 MG TABLET PO SCH ×2 (09:43→17:35)
[2019-09-18] MEDS: CloZAPine 100 MG RAPDIS TABLET PO SCH ×2 (09:43→15:05)
[2019-09-18] MEDS: LORATADINE 10 MG TABLET PO SCH (09:43)
[2019-09-18] MEDS: MULTIVITAMINS WITH IRON TABLET PO SCH (09:43)
[2019-09-18] MEDS: METOPROLOL SUCCINATE 25 MG ER TABLET PO SCH (09:44)
[2019-09-18] MEDS: DIVALPROEX SODIUM 250 MG DR TABLET PO SCH ×3 (09:44→20:45)
[2019-09-18] MEDS: ASPIRIN 81 MG CHEWABLE TABLET PO SCH (09:44)
[2019-09-18 16:00] VITALS: BP 138/82
[2019-09-18] MEDS: SIMVASTATIN 40 MG TABLET PO SCH (20:46)
[2019-09-19] MEDS: FERROUS SULFATE 325 MG EC TABLET PO SCH ×2 (06:54→17:35)
[2019-09-19 08:00] VITALS: BP 139/81
[2019-09-19] MEDS: METOPROLOL SUCCINATE 25 MG ER TABLET PO SCH (09:07)
[2019-09-19] MEDS: LORATADINE 10 MG TABLET PO SCH (09:08)
[2019-09-19] MEDS: DIVALPROEX SODIUM 250 MG DR TABLET PO SCH ×3 (09:08→18:03)
[2019-09-19] MEDS: MULTIVITAMINS WITH IRON TABLET PO SCH (09:08)
[2019-09-19] MEDS: FAMOTIDINE 20 MG TABLET PO SCH (09:08)
[2019-09-19] MEDS: AmLODIPine BESYLATE 10 MG TABLET PO SCH (09:08)
[2019-09-19] MEDS: BENZTROPINE MESYLATE 1 MG TABLET PO SCH ×2 (09:08→17:35)
[2019-09-19] MEDS: ASPIRIN 81 MG CHEWABLE TABLET PO SCH (09:08)
[2019-09-19] MEDS: CloZAPine 100 MG RAPDIS TABLET PO SCH ×2 (09:09→14:54)
[2019-09-19 16:00] VITALS: BP 137/61
[2019-09-19] MEDS: SIMVASTATIN 40 MG TABLET PO SCH (20:30)
[2019-09-19] MEDS: ZOLPIDEM TARTRATE 10 MG TABLET PO PRN (23:12)
[2019-09-20] VITALS (7 sets, daily range): BP systolic 116–150; BP diastolic 67–80
[2019-09-20] MEDS: FERROUS SULFATE 325 MG EC TABLET PO SCH ×2 (06:41→17:33)
[2019-09-20 07:39] LABS: BASOPHILS % (AUTO) 0.6 % (0.0-2.0); EOSINOPHILS % (AUTO) 5.7 % (1.0-6.0); HEMATOCRIT 38.5 % (41-53); HEMOGLOBIN 13.1 g/dL (13.5-17.5); LYMPHOCYTES # (AUTO) 2.5 K/uL (1.0-4.8); LYMPHOCYTES % (AUTO) 29.3 % (22.0-44.0); MEAN CORPUSCULAR HEMOGLOBIN 30.4 pg (26.0-34.0); MEAN CORPUSCULAR HGB CONC 34.1 G/dL (31.0-37.0); MEAN CORPUSCULAR VOLUME 89 fL (80-100); MONOCYTES # (AUTO) 0.8 K/uL (0.1-1.0); MONOCYTES % (AUTO) 9.1 % (2.0-9.0); NEUTROPHILS # (AUTO) 4.7 K/uL (1.8-7.7); NEUTROPHILS % (AUTO) 55.3 % (40.0-70.0); PLATELET COUNT (AUTO) 203 K/uL (150-450); RED BLOOD CELL COUNT(AUTO) 4.33 MIL/uL (4.50-5.90); RED CELL DISTRIBUTION WIDTH 13.6 % (11.5-14.5)
[2019-09-20] MEDS: METOPROLOL SUCCINATE 25 MG ER TABLET PO SCH (08:46)
[2019-09-20] MEDS: DIVALPROEX SODIUM 250 MG DR TABLET PO SCH ×3 (08:46→18:04)
[2019-09-20] MEDS: AmLODIPine BESYLATE 10 MG TABLET PO SCH (08:47)
[2019-09-20] MEDS: BENZTROPINE MESYLATE 1 MG TABLET PO SCH ×2 (08:47→17:33)
[2019-09-20] MEDS: MULTIVITAMINS WITH IRON TABLET PO SCH (08:47)
[2019-09-20] MEDS: ASPIRIN 81 MG CHEWABLE TABLET PO SCH (08:47)
[2019-09-20] MEDS: LORATADINE 10 MG TABLET PO SCH (08:47)
[2019-09-20] MEDS: FAMOTIDINE 20 MG TABLET PO SCH (08:48)
[2019-09-20] MEDS: CloZAPine 100 MG RAPDIS TABLET PO SCH ×2 (08:48→14:38)
[2019-09-20] MEDS: SIMVASTATIN 40 MG TABLET PO SCH (20:18)
[2019-09-21 00:15] VITALS: BP 135/78
[2019-09-21] MEDS: FERROUS SULFATE 325 MG EC TABLET PO SCH ×2 (06:50→16:34)
[2019-09-21] MEDS: LORATADINE 10 MG TABLET PO SCH (10:03)
[2019-09-21] MEDS: CloZAPine 100 MG RAPDIS TABLET PO SCH ×2 (10:03→14:48)
[2019-09-21] MEDS: FAMOTIDINE 20 MG TABLET PO SCH (10:03)
[2019-09-21] MEDS: DIVALPROEX SODIUM 250 MG DR TABLET PO SCH ×3 (10:03→19:09)
[2019-09-21] MEDS: MULTIVITAMINS WITH IRON TABLET PO SCH (10:03)
[2019-09-21] MEDS: AmLODIPine BESYLATE 10 MG TABLET PO SCH (10:03)
[2019-09-21] MEDS: BENZTROPINE MESYLATE 1 MG TABLET PO SCH ×2 (10:04→16:34)
[2019-09-21] MEDS: ASPIRIN 81 MG CHEWABLE TABLET PO SCH (10:04)
[2019-09-21] MEDS: METOPROLOL SUCCINATE 25 MG ER TABLET PO SCH (10:06)
[2019-09-21 16:00] VITALS: BP 125/79
[2019-09-21] MEDS: SIMVASTATIN 40 MG TABLET PO SCH (20:15)
[2019-09-22] MEDS: ZOLPIDEM TARTRATE 10 MG TABLET PO PRN (00:31)
[2019-09-22 00:41] VITALS: BP 154/78
[2019-09-22] MEDS: FERROUS SULFATE 325 MG EC TABLET PO SCH ×2 (06:50→16:33)
[2019-09-22] MEDS: LORATADINE 10 MG TABLET PO SCH (09:14)
[2019-09-22] MEDS: DIVALPROEX SODIUM 250 MG DR TABLET PO SCH ×3 (09:14→19:18)
[2019-09-22] MEDS: METOPROLOL SUCCINATE 25 MG ER TABLET PO SCH (09:15)
[2019-09-22] MEDS: MULTIVITAMINS WITH IRON TABLET PO SCH (09:15)
[2019-09-22] MEDS: FAMOTIDINE 20 MG TABLET PO SCH (09:15)
[2019-09-22] MEDS: BENZTROPINE MESYLATE 1 MG TABLET PO SCH ×2 (09:16→16:33)
[2019-09-22] MEDS: AmLODIPine BESYLATE 10 MG TABLET PO SCH (09:16)
[2019-09-22] MEDS: ASPIRIN 81 MG CHEWABLE TABLET PO SCH (09:16)
[2019-09-22] MEDS: CloZAPine 100 MG RAPDIS TABLET PO SCH ×2 (09:17→14:56)
[2019-09-22 09:24] VITALS: BP 134/78
[2019-09-22 16:50] VITALS: BP 120/60
[2019-09-22] MEDS: SIMVASTATIN 40 MG TABLET PO SCH (20:21)
[2019-09-23] MEDS: ZOLPIDEM TARTRATE 10 MG TABLET PO PRN (00:19)
[2019-09-23 00:50] VITALS: BP 153/71
[2019-09-23] MEDS: FERROUS SULFATE 325 MG EC TABLET PO SCH ×2 (06:49→17:16)
[2019-09-23 08:00] VITALS: BP 141/79
[2019-09-23] MEDS: MULTIVITAMINS WITH IRON TABLET PO SCH (09:00)
[2019-09-23] MEDS: FAMOTIDINE 20 MG TABLET PO SCH (09:00)
[2019-09-23] MEDS: METOPROLOL SUCCINATE 25 MG ER TABLET PO SCH (09:00)
[2019-09-23] MEDS: BENZTROPINE MESYLATE 1 MG TABLET PO SCH ×2 (09:00→17:16)
[2019-09-23] MEDS: LORATADINE 10 MG TABLET PO SCH (09:00)
[2019-09-23] MEDS: DIVALPROEX SODIUM 250 MG DR TABLET PO SCH ×3 (09:00→18:00)
[2019-09-23] MEDS: AmLODIPine BESYLATE 10 MG TABLET PO SCH (09:00)
[2019-09-23] MEDS: CloZAPine 100 MG RAPDIS TABLET PO SCH ×2 (09:00→15:02)
[2019-09-23] MEDS: ASPIRIN 81 MG CHEWABLE TABLET PO SCH (09:00)
[2019-09-23] MEDS: DiphenhydrAMINE HCL 50 MG/ML VIAL IM PRN (09:10)
[2019-09-23] MEDS: HALOPERIDOL LACTATE 5 MG/ML VIAL IM PRN (09:10)
[2019-09-23 16:33] VITALS: BP 133/82
[2019-09-23 16:35] VITALS: BP 133/82
[2019-09-23] MEDS: SIMVASTATIN 40 MG TABLET PO SCH (21:32)
[2019-09-24] MEDS: ZOLPIDEM TARTRATE 10 MG TABLET PO PRN (02:08)
[2019-09-24] MEDS: FERROUS SULFATE 325 MG EC TABLET PO SCH ×2 (06:34→17:36)
[2019-09-24 08:00] VITALS: BP 150/80
[2019-09-24] MEDS: METOPROLOL SUCCINATE 25 MG ER TABLET PO SCH (09:10)
[2019-09-24] MEDS: LORATADINE 10 MG TABLET PO SCH (09:10)
[2019-09-24] MEDS: BENZTROPINE MESYLATE 1 MG TABLET PO SCH ×2 (09:10→17:36)
[2019-09-24] MEDS: DIVALPROEX SODIUM 250 MG DR TABLET PO SCH ×3 (09:10→19:41)
[2019-09-24] MEDS: FAMOTIDINE 20 MG TABLET PO SCH (09:10)
[2019-09-24] MEDS: ASPIRIN 81 MG CHEWABLE TABLET PO SCH (09:10)
[2019-09-24] MEDS: MULTIVITAMINS WITH IRON TABLET PO SCH (09:10)
[2019-09-24] MEDS: AmLODIPine BESYLATE 10 MG TABLET PO SCH (09:11)
[2019-09-24] MEDS: CloZAPine 100 MG RAPDIS TABLET PO SCH ×2 (09:11→14:59)
[2019-09-24 09:44] VITALS: BP 150/80
[2019-09-24] MEDS: ACETAMINOPHEN 325 MG TABLET PO PRN (09:47)
[2019-09-24] MEDS: IBUPROFEN 400 MG TABLET PO PRN (09:47)
[2019-09-24 17:12] VITALS: BP 125/65
[2019-09-24] MEDS: SIMVASTATIN 40 MG TABLET PO SCH (20:09)
[2019-09-25 06:01] VITALS: BP 130/83
[2019-09-25] MEDS: FERROUS SULFATE 325 MG EC TABLET PO SCH ×2 (06:50→17:09)
[2019-09-25 08:00] VITALS: BP 138/80
[2019-09-25] MEDS: DIVALPROEX SODIUM 250 MG DR TABLET PO SCH ×3 (08:28→20:24)
[2019-09-25] MEDS: CloZAPine 100 MG RAPDIS TABLET PO SCH ×2 (08:28→14:41)
[2019-09-25] MEDS: MULTIVITAMINS WITH IRON TABLET PO SCH (08:28)
[2019-09-25] MEDS: AmLODIPine BESYLATE 10 MG TABLET PO SCH (08:28)
[2019-09-25] MEDS: LORATADINE 10 MG TABLET PO SCH (08:28)
[2019-09-25] MEDS: ASPIRIN 81 MG CHEWABLE TABLET PO SCH (08:28)
[2019-09-25] MEDS: BENZTROPINE MESYLATE 1 MG TABLET PO SCH ×2 (08:28→17:09)
[2019-09-25] MEDS: METOPROLOL SUCCINATE 25 MG ER TABLET PO SCH (08:28)
[2019-09-25] MEDS: FAMOTIDINE 20 MG TABLET PO SCH (08:29)
[2019-09-25 17:16] VITALS: BP 136/66
[2019-09-25 18:09] VITALS: BP 120/66
[2019-09-25] MEDS: SIMVASTATIN 40 MG TABLET PO SCH (20:25)
[2019-09-26 03:07] VITALS: BP 130/67
[2019-09-26] MEDS: ZOLPIDEM TARTRATE 10 MG TABLET PO PRN (03:07)
[2019-09-26] MEDS: FERROUS SULFATE 325 MG EC TABLET PO SCH ×2 (06:35→16:49)
[2019-09-26 08:00] VITALS: BP 134/85
[2019-09-26] MEDS: DIVALPROEX SODIUM 250 MG DR TABLET PO SCH ×3 (08:05→18:10)
[2019-09-26] MEDS: FAMOTIDINE 20 MG TABLET PO SCH (08:05)
[2019-09-26] MEDS: BENZTROPINE MESYLATE 1 MG TABLET PO SCH ×2 (08:06→16:49)
[2019-09-26] MEDS: MULTIVITAMINS WITH IRON TABLET PO SCH (08:06)
[2019-09-26] MEDS: LORATADINE 10 MG TABLET PO SCH (08:06)
[2019-09-26] MEDS: ASPIRIN 81 MG CHEWABLE TABLET PO SCH (08:06)
[2019-09-26] MEDS: AmLODIPine BESYLATE 10 MG TABLET PO SCH (08:06)
[2019-09-26] MEDS: CloZAPine 100 MG RAPDIS TABLET PO SCH ×2 (08:07→15:06)
[2019-09-26] MEDS: METOPROLOL SUCCINATE 25 MG ER TABLET PO SCH (08:07)
[2019-09-26 16:00] VITALS: BP 126/66
[2019-09-26] MEDS: SIMVASTATIN 40 MG TABLET PO SCH (20:51)
[2019-09-26 21:04] VITALS: BP 121/68
[2019-09-27 01:55] VITALS: BP 134/87
[2019-09-27] MEDS: FERROUS SULFATE 325 MG EC TABLET PO SCH ×2 (06:40→17:06)
[2019-09-27 06:42] LABS: BASOPHILS % (AUTO) 0.3 % (0.0-2.0); EOSINOPHILS % (AUTO) 4.3 % (1.0-6.0); HEMOGLOBIN 13.7 g/dL (13.5-17.5); LYMPHOCYTES # (AUTO) 2.9 K/uL (1.0-4.8); LYMPHOCYTES % (AUTO) 20.8 % (22.0-44.0); MEAN CORPUSCULAR HEMOGLOBIN 30.8 pg (26.0-34.0); MEAN CORPUSCULAR HGB CONC 34.1 G/dL (31.0-37.0); MEAN CORPUSCULAR VOLUME 90 fL (80-100); MONOCYTES % (AUTO) 7.4 % (2.0-9.0); NEUTROPHILS # (AUTO) 9.2 K/uL (1.8-7.7); NEUTROPHILS % (AUTO) 67.2 % (40.0-70.0); PLATELET COUNT (AUTO) 212 K/uL (150-450); RED BLOOD CELL COUNT(AUTO) 4.44 MIL/uL (4.50-5.90); RED CELL DISTRIBUTION WIDTH 13.7 % (11.5-14.5)
[2019-09-27 08:00] VITALS: BP 142/75
[2019-09-27] MEDS: DIVALPROEX SODIUM 250 MG DR TABLET PO SCH ×3 (10:26→18:00)
[2019-09-27] MEDS: MULTIVITAMINS WITH IRON TABLET PO SCH (10:26)
[2019-09-27] MEDS: FAMOTIDINE 20 MG TABLET PO SCH (10:26)
[2019-09-27] MEDS: CloZAPine 100 MG RAPDIS TABLET PO SCH ×2 (10:27→14:35)
[2019-09-27] MEDS: ASPIRIN 81 MG CHEWABLE TABLET PO SCH (10:27)
[2019-09-27] MEDS: LORATADINE 10 MG TABLET PO SCH (10:27)
[2019-09-27] MEDS: METOPROLOL SUCCINATE 25 MG ER TABLET PO SCH (10:27)
[2019-09-27] MEDS: AmLODIPine BESYLATE 10 MG TABLET PO SCH (10:27)
[2019-09-27] MEDS: BENZTROPINE MESYLATE 1 MG TABLET PO SCH ×2 (10:27→17:06)
[2019-09-27 16:00] VITALS: BP 133/73
[2019-09-27] MEDS: SIMVASTATIN 40 MG TABLET PO SCH (20:17)
[2019-09-28 00:23] VITALS: BP 175/82
[2019-09-28 01:20] VITALS: BP 154/82
[2019-09-28] MEDS: FERROUS SULFATE 325 MG EC TABLET PO SCH ×2 (06:53→17:30)
[2019-09-28] MEDS: LORATADINE 10 MG TABLET PO SCH (09:00)
[2019-09-28] MEDS: METOPROLOL SUCCINATE 25 MG ER TABLET PO SCH (09:00)
[2019-09-28] MEDS: CloZAPine 100 MG RAPDIS TABLET PO SCH ×2 (09:00→15:03)
[2019-09-28] MEDS: ASPIRIN 81 MG CHEWABLE TABLET PO SCH (09:00)
[2019-09-28] MEDS: BENZTROPINE MESYLATE 1 MG TABLET PO SCH ×2 (09:00→17:00)
[2019-09-28] MEDS: AmLODIPine BESYLATE 10 MG TABLET PO SCH (09:00)
[2019-09-28] MEDS: DIVALPROEX SODIUM 250 MG DR TABLET PO SCH ×3 (09:00→19:00)
[2019-09-28] MEDS: MULTIVITAMINS WITH IRON TABLET PO SCH (09:00)
[2019-09-28] MEDS: FAMOTIDINE 20 MG TABLET PO SCH (09:00)
[2019-09-28] MEDS: DiphenhydrAMINE HCL 50 MG/ML VIAL IM PRN (09:58)
[2019-09-28] MEDS: HALOPERIDOL LACTATE 5 MG/ML VIAL IM PRN (09:58)
[2019-09-28 10:54] VITALS: BP 131/77
[2019-09-28] MEDS: SIMVASTATIN 40 MG TABLET PO SCH (20:16)
[2019-09-29] MEDS: FERROUS SULFATE 325 MG EC TABLET PO SCH ×2 (06:42→16:34)
[2019-09-29 09:33] VITALS: BP 104/67
[2019-09-29] MEDS: CloZAPine 100 MG RAPDIS TABLET PO SCH ×2 (09:46→14:47)
[2019-09-29] MEDS: LORATADINE 10 MG TABLET PO SCH (09:49)
[2019-09-29] MEDS: FAMOTIDINE 20 MG TABLET PO SCH (09:49)
[2019-09-29] MEDS: BENZTROPINE MESYLATE 1 MG TABLET PO SCH ×2 (09:49→16:34)
[2019-09-29] MEDS: ASPIRIN 81 MG CHEWABLE TABLET PO SCH (09:49)
[2019-09-29] MEDS: DIVALPROEX SODIUM 250 MG DR TABLET PO SCH ×3 (09:49→18:51)
[2019-09-29] MEDS: METOPROLOL SUCCINATE 25 MG ER TABLET PO SCH (09:49)
[2019-09-29] MEDS: MULTIVITAMINS WITH IRON TABLET PO SCH (09:49)
[2019-09-29] MEDS: AmLODIPine BESYLATE 10 MG TABLET PO SCH (09:49)
[2019-09-29 16:00] VITALS: BP 119/69
[2019-09-29] MEDS: SIMVASTATIN 40 MG TABLET PO SCH (20:24)
[2019-09-29 20:51] VITALS: BP 115/63
[2019-09-30] MEDS: FERROUS SULFATE 325 MG EC TABLET PO SCH ×2 (06:36→17:19)
[2019-09-30] MEDS: BENZTROPINE MESYLATE 1 MG TABLET PO SCH ×2 (10:37→17:19)
[2019-09-30] MEDS: CloZAPine 100 MG RAPDIS TABLET PO SCH ×2 (10:37→14:41)
[2019-09-30] MEDS: MULTIVITAMINS WITH IRON TABLET PO SCH (10:37)
[2019-09-30] MEDS: AmLODIPine BESYLATE 10 MG TABLET PO SCH (10:37)
[2019-09-30] MEDS: METOPROLOL SUCCINATE 25 MG ER TABLET PO SCH (10:37)
[2019-09-30] MEDS: DIVALPROEX SODIUM 250 MG DR TABLET PO SCH ×3 (10:37→20:02)
[2019-09-30] MEDS: ASPIRIN 81 MG CHEWABLE TABLET PO SCH (10:38)
[2019-09-30] MEDS: FAMOTIDINE 20 MG TABLET PO SCH (10:38)
[2019-09-30] MEDS: LORATADINE 10 MG TABLET PO SCH (10:39)
[2019-09-30 10:56] VITALS: BP 147/77
[2019-09-30 17:04] VITALS: BP 135/62
[2019-09-30] MEDS: SIMVASTATIN 40 MG TABLET PO SCH (20:02)
[2019-10-01] MEDS: FERROUS SULFATE 325 MG EC TABLET PO SCH ×2 (06:50→16:38)
[2019-10-01] MEDS: AmLODIPine BESYLATE 10 MG TABLET PO SCH (10:39)
[2019-10-01] MEDS: BENZTROPINE MESYLATE 1 MG TABLET PO SCH ×2 (10:39→16:38)
[2019-10-01] MEDS: MULTIVITAMINS WITH IRON TABLET PO SCH (10:39)
[2019-10-01] MEDS: FAMOTIDINE 20 MG TABLET PO SCH (10:39)
[2019-10-01] MEDS: CloZAPine 100 MG RAPDIS TABLET PO SCH ×2 (10:39→14:59)
[2019-10-01] MEDS: DIVALPROEX SODIUM 250 MG DR TABLET PO SCH ×3 (10:39→20:04)
[2019-10-01] MEDS: ASPIRIN 81 MG CHEWABLE TABLET PO SCH (10:39)
[2019-10-01] MEDS: METOPROLOL SUCCINATE 25 MG ER TABLET PO SCH (10:39)
[2019-10-01] MEDS: LORATADINE 10 MG TABLET PO SCH (10:40)
[2019-10-01 12:42] VITALS: BP 130/77
[2019-10-01 16:00] VITALS: BP 142/64
[2019-10-01] MEDS: SIMVASTATIN 40 MG TABLET PO SCH (20:04)
[2019-10-02] MEDS: FERROUS SULFATE 325 MG EC TABLET PO SCH ×3 (06:32→18:05)
[2019-10-02 08:53] VITALS: BP 138/80
[2019-10-02] MEDS: ASPIRIN 81 MG CHEWABLE TABLET PO SCH (09:48)
[2019-10-02] MEDS: BENZTROPINE MESYLATE 1 MG TABLET PO SCH ×2 (09:48→17:00)
[2019-10-02] MEDS: AmLODIPine BESYLATE 10 MG TABLET PO SCH (09:48)
[2019-10-02] MEDS: FAMOTIDINE 20 MG TABLET PO SCH (09:48)
[2019-10-02] MEDS: DIVALPROEX SODIUM 250 MG DR TABLET PO SCH ×3 (09:48→19:00)
[2019-10-02] MEDS: LORATADINE 10 MG TABLET PO SCH (09:49)
[2019-10-02] MEDS: CloZAPine 100 MG RAPDIS TABLET PO SCH ×2 (09:49→14:46)
[2019-10-02] MEDS: METOPROLOL SUCCINATE 25 MG ER TABLET PO SCH (09:49)
[2019-10-02] MEDS: MULTIVITAMINS WITH IRON TABLET PO SCH (09:49)
[2019-10-02 16:30] VITALS: BP 146/76
[2019-10-02] MEDS: SIMVASTATIN 40 MG TABLET PO SCH (21:00)
[2019-10-03] MEDS: FERROUS SULFATE 325 MG EC TABLET PO SCH ×2 (06:36→17:53)
[2019-10-03 08:00] VITALS: BP 121/73
[2019-10-03] MEDS: LORATADINE 10 MG TABLET PO SCH (08:58)
[2019-10-03] MEDS: BENZTROPINE MESYLATE 1 MG TABLET PO SCH ×2 (08:58→17:53)
[2019-10-03] MEDS: MULTIVITAMINS WITH IRON TABLET PO SCH (08:58)
[2019-10-03] MEDS: DIVALPROEX SODIUM 250 MG DR TABLET PO SCH ×3 (08:58→19:51)
[2019-10-03] MEDS: METOPROLOL SUCCINATE 25 MG ER TABLET PO SCH (08:58)
[2019-10-03] MEDS: ASPIRIN 81 MG CHEWABLE TABLET PO SCH (08:58)
[2019-10-03] MEDS: FAMOTIDINE 20 MG TABLET PO SCH (08:58)
[2019-10-03] MEDS: AmLODIPine BESYLATE 10 MG TABLET PO SCH (08:58)
[2019-10-03] MEDS: CloZAPine 100 MG RAPDIS TABLET PO SCH ×2 (08:59→14:57)
[2019-10-03 16:00] VITALS: BP 141/65
[2019-10-03 18:44] VITALS: BP 141/65
[2019-10-03] MEDS: SIMVASTATIN 40 MG TABLET PO SCH (20:49)
[2019-10-04] MEDS: FERROUS SULFATE 325 MG EC TABLET PO SCH ×2 (06:50→17:33)
[2019-10-04 07:29] LABS: BASOPHILS % (AUTO) 0.8 % (0.0-2.0); EOSINOPHILS % (AUTO) 9.9 % (1.0-6.0); HEMATOCRIT 42.8 % (41-53); HEMOGLOBIN 14.4 g/dL (13.5-17.5); LYMPHOCYTES # (AUTO) 2.5 K/uL (1.0-4.8); LYMPHOCYTES % (AUTO) 30.5 % (22.0-44.0); MEAN CORPUSCULAR HEMOGLOBIN 30.1 pg (26.0-34.0); MEAN CORPUSCULAR HGB CONC 33.8 G/dL (31.0-37.0); MEAN CORPUSCULAR VOLUME 89 fL (80-100); MONOCYTES # (AUTO) 0.9 K/uL (0.1-1.0); MONOCYTES % (AUTO) 10.5 % (2.0-9.0); NEUTROPHILS % (AUTO) 48.3 % (40.0-70.0); PLATELET COUNT (AUTO) 181 K/uL (150-450); RED BLOOD CELL COUNT(AUTO) 4.79 MIL/uL (4.50-5.90); RED CELL DISTRIBUTION WIDTH 13.3 % (11.5-14.5)
[2019-10-04 09:12] VITALS: BP 123/79
[2019-10-04] MEDS: DIVALPROEX SODIUM 250 MG DR TABLET PO SCH ×3 (10:53→20:35)
[2019-10-04] MEDS: ASPIRIN 81 MG CHEWABLE TABLET PO SCH (10:53)
[2019-10-04] MEDS: AmLODIPine BESYLATE 10 MG TABLET PO SCH (10:53)
[2019-10-04] MEDS: FAMOTIDINE 20 MG TABLET PO SCH (10:53)
[2019-10-04] MEDS: MULTIVITAMINS WITH IRON TABLET PO SCH (10:53)
[2019-10-04] MEDS: BENZTROPINE MESYLATE 1 MG TABLET PO SCH ×2 (10:53→17:33)
[2019-10-04] MEDS: LORATADINE 10 MG TABLET PO SCH (10:53)
[2019-10-04] MEDS: CloZAPine 100 MG RAPDIS TABLET PO SCH ×2 (10:53→14:51)
[2019-10-04] MEDS: METOPROLOL SUCCINATE 25 MG ER TABLET PO SCH (10:53)
[2019-10-04 17:12] VITALS: BP 133/79
[2019-10-04] MEDS: SIMVASTATIN 40 MG TABLET PO SCH (20:36)
[2019-10-05] MEDS: FERROUS SULFATE 325 MG EC TABLET PO SCH ×2 (06:38→17:11)
[2019-10-05 08:00] VITALS: BP 136/80
[2019-10-05] MEDS: CloZAPine 100 MG RAPDIS TABLET PO SCH ×2 (10:19→15:01)
[2019-10-05] MEDS: METOPROLOL SUCCINATE 25 MG ER TABLET PO SCH (10:24)
[2019-10-05] MEDS: MULTIVITAMINS WITH IRON TABLET PO SCH (10:24)
[2019-10-05] MEDS: BENZTROPINE MESYLATE 1 MG TABLET PO SCH ×2 (10:25→17:11)
[2019-10-05] MEDS: DIVALPROEX SODIUM 250 MG DR TABLET PO SCH ×3 (10:25→19:34)
[2019-10-05] MEDS: FAMOTIDINE 20 MG TABLET PO SCH (10:25)
[2019-10-05] MEDS: AmLODIPine BESYLATE 10 MG TABLET PO SCH (10:25)
[2019-10-05] MEDS: ASPIRIN 81 MG CHEWABLE TABLET PO SCH (10:25)
[2019-10-05] MEDS: LORATADINE 10 MG TABLET PO SCH (10:26)
[2019-10-05 16:30] VITALS: BP 131/66
[2019-10-05] MEDS: SIMVASTATIN 40 MG TABLET PO SCH (21:00)
[2019-10-06] MEDS: FERROUS SULFATE 325 MG EC TABLET PO SCH ×2 (06:58→17:16)
[2019-10-06 08:00] VITALS: BP 140/84
[2019-10-06] MEDS: FAMOTIDINE 20 MG TABLET PO SCH (08:43)
[2019-10-06] MEDS: AmLODIPine BESYLATE 10 MG TABLET PO SCH (08:43)
[2019-10-06] MEDS: DIVALPROEX SODIUM 250 MG DR TABLET PO SCH ×3 (08:43→20:39)
[2019-10-06] MEDS: ASPIRIN 81 MG CHEWABLE TABLET PO SCH (08:43)
[2019-10-06] MEDS: BENZTROPINE MESYLATE 1 MG TABLET PO SCH ×2 (08:43→17:16)
[2019-10-06] MEDS: CloZAPine 100 MG RAPDIS TABLET PO SCH ×2 (08:43→14:37)
[2019-10-06] MEDS: METOPROLOL SUCCINATE 25 MG ER TABLET PO SCH (08:43)
[2019-10-06] MEDS: LORATADINE 10 MG TABLET PO SCH (08:44)
[2019-10-06] MEDS: MULTIVITAMINS WITH IRON TABLET PO SCH (08:45)
[2019-10-06 16:00] VITALS: BP 142/76
[2019-10-06] MEDS: SIMVASTATIN 40 MG TABLET PO SCH (20:39)
[2019-10-07] MEDS: FERROUS SULFATE 325 MG EC TABLET PO SCH ×2 (06:53→17:09)
[2019-10-07 09:13] VITALS: BP 161/85
[2019-10-07] MEDS: AmLODIPine BESYLATE 10 MG TABLET PO SCH (09:58)
[2019-10-07] MEDS: MULTIVITAMINS WITH IRON TABLET PO SCH (09:58)
[2019-10-07] MEDS: LORATADINE 10 MG TABLET PO SCH (09:58)
[2019-10-07] MEDS: METOPROLOL SUCCINATE 25 MG ER TABLET PO SCH (09:58)
[2019-10-07] MEDS: BENZTROPINE MESYLATE 1 MG TABLET PO SCH ×2 (09:58→17:09)
[2019-10-07] MEDS: ASPIRIN 81 MG CHEWABLE TABLET PO SCH (09:58)
[2019-10-07] MEDS: CloZAPine 100 MG RAPDIS TABLET PO SCH ×2 (09:58→14:34)
[2019-10-07] MEDS: DIVALPROEX SODIUM 250 MG DR TABLET PO SCH ×3 (09:58→20:01)
[2019-10-07] MEDS: FAMOTIDINE 20 MG TABLET PO SCH (09:58)
[2019-10-07 17:07] VITALS: BP 133/54
[2019-10-07] MEDS: SIMVASTATIN 40 MG TABLET PO SCH (21:00)
[2019-10-08] MEDS: FERROUS SULFATE 325 MG EC TABLET PO SCH ×2 (06:34→17:32)
[2019-10-08 08:00] VITALS: BP 143/83
[2019-10-08] MEDS: CloZAPine 100 MG RAPDIS TABLET PO SCH ×2 (08:35→14:34)
[2019-10-08] MEDS: METOPROLOL SUCCINATE 25 MG ER TABLET PO SCH (08:35)
[2019-10-08] MEDS: FAMOTIDINE 20 MG TABLET PO SCH (08:35)
[2019-10-08] MEDS: DIVALPROEX SODIUM 250 MG DR TABLET PO SCH ×3 (08:36→18:33)
[2019-10-08] MEDS: BENZTROPINE MESYLATE 1 MG TABLET PO SCH ×2 (08:36→17:33)
[2019-10-08] MEDS: MULTIVITAMINS WITH IRON TABLET PO SCH (08:36)
[2019-10-08] MEDS: ASPIRIN 81 MG CHEWABLE TABLET PO SCH (08:36)
[2019-10-08] MEDS: LORATADINE 10 MG TABLET PO SCH (08:36)
[2019-10-08] MEDS: AmLODIPine BESYLATE 10 MG TABLET PO SCH (08:37)
[2019-10-08 16:44] VITALS: BP 126/82
[2019-10-08] MEDS: SIMVASTATIN 40 MG TABLET PO SCH (20:34)
[2019-10-09] MEDS: FERROUS SULFATE 325 MG EC TABLET PO SCH ×2 (07:03→17:10)
[2019-10-09 08:00] VITALS: BP 152/77
[2019-10-09] MEDS: ASPIRIN 81 MG CHEWABLE TABLET PO SCH (10:07)
[2019-10-09] MEDS: LORATADINE 10 MG TABLET PO SCH (10:08)
[2019-10-09] MEDS: BENZTROPINE MESYLATE 1 MG TABLET PO SCH ×2 (10:08→17:09)
[2019-10-09] MEDS: DIVALPROEX SODIUM 250 MG DR TABLET PO SCH ×3 (10:08→20:26)
[2019-10-09] MEDS: AmLODIPine BESYLATE 10 MG TABLET PO SCH (10:09)
[2019-10-09] MEDS: METOPROLOL SUCCINATE 25 MG ER TABLET PO SCH (10:09)
[2019-10-09] MEDS: MULTIVITAMINS WITH IRON TABLET PO SCH (10:09)
[2019-10-09] MEDS: FAMOTIDINE 20 MG TABLET PO SCH (10:09)
[2019-10-09] MEDS: CloZAPine 100 MG RAPDIS TABLET PO SCH ×2 (10:14→14:58)
[2019-10-09 16:33] VITALS: BP 136/79
[2019-10-09] MEDS: SIMVASTATIN 40 MG TABLET PO SCH (20:26)
[2019-10-10] MEDS: FERROUS SULFATE 325 MG EC TABLET PO SCH ×2 (07:09→17:36)
[2019-10-10 08:22] VITALS: BP 148/87
[2019-10-10] MEDS: SIMVASTATIN 40 MG TABLET PO SCH (10:44)
[2019-10-10] MEDS: AmLODIPine BESYLATE 10 MG TABLET PO SCH (10:44)
[2019-10-10] MEDS: MULTIVITAMINS WITH IRON TABLET PO SCH (10:45)
[2019-10-10] MEDS: FAMOTIDINE 20 MG TABLET PO SCH (10:45)
[2019-10-10] MEDS: CloZAPine 100 MG RAPDIS TABLET PO SCH ×2 (10:45→14:57)
[2019-10-10] MEDS: METOPROLOL SUCCINATE 25 MG ER TABLET PO SCH (10:45)
[2019-10-10] MEDS: BENZTROPINE MESYLATE 1 MG TABLET PO SCH ×2 (10:45→17:36)
[2019-10-10] MEDS: DIVALPROEX SODIUM 250 MG DR TABLET PO SCH ×3 (10:45→19:34)
[2019-10-10] MEDS: ASPIRIN 81 MG CHEWABLE TABLET PO SCH (10:45)
[2019-10-10] MEDS: LORATADINE 10 MG TABLET PO SCH (10:45)
[2019-10-10 18:23] VITALS: BP 114/78
[2019-10-11] MEDS: FERROUS SULFATE 325 MG EC TABLET PO SCH ×2 (07:20→16:56)
[2019-10-11 07:38] LABS: BASOPHILS % (AUTO) 0.6 % (0.0-2.0); EOSINOPHILS % (AUTO) 7.5 % (1.0-6.0); LYMPHOCYTES # (AUTO) 2.8 K/uL (1.0-4.8); LYMPHOCYTES % (AUTO) 35.1 % (22.0-44.0); MEAN CORPUSCULAR HEMOGLOBIN 31.1 pg (26.0-34.0); MEAN CORPUSCULAR HGB CONC 34.9 G/dL (31.0-37.0); MEAN CORPUSCULAR VOLUME 89 fL (80-100); MONOCYTES # (AUTO) 0.7 K/uL (0.1-1.0); MONOCYTES % (AUTO) 8.7 % (2.0-9.0); NEUTROPHILS # (AUTO) 3.8 K/uL (1.8-7.7); NEUTROPHILS % (AUTO) 48.1 % (40.0-70.0); PLATELET COUNT (AUTO) 182 K/uL (150-450); RED BLOOD CELL COUNT(AUTO) 4.82 MIL/uL (4.50-5.90); RED CELL DISTRIBUTION WIDTH 13.2 % (11.5-14.5)
[2019-10-11 09:25] VITALS: BP 140/87
[2019-10-11] MEDS: DIVALPROEX SODIUM 250 MG DR TABLET PO SCH ×3 (11:15→20:12)
[2019-10-11] MEDS: FAMOTIDINE 20 MG TABLET PO SCH (11:15)
[2019-10-11] MEDS: CloZAPine 100 MG RAPDIS TABLET PO SCH ×2 (11:16→15:17)
[2019-10-11] MEDS: AmLODIPine BESYLATE 10 MG TABLET PO SCH (11:17)
[2019-10-11] MEDS: LORATADINE 10 MG TABLET PO SCH (11:17)
[2019-10-11] MEDS: MULTIVITAMINS WITH IRON TABLET PO SCH (11:17)
[2019-10-11] MEDS: ASPIRIN 81 MG CHEWABLE TABLET PO SCH (11:18)
[2019-10-11] MEDS: BENZTROPINE MESYLATE 1 MG TABLET PO SCH ×2 (11:18→16:56)
[2019-10-11] MEDS: METOPROLOL SUCCINATE 25 MG ER TABLET PO SCH (11:21)
[2019-10-11 16:40] VITALS: BP 144/89
[2019-10-11] MEDS: SIMVASTATIN 40 MG TABLET PO SCH (20:13)
[2019-10-12 01:00] VITALS: BP 144/81
[2019-10-12] MEDS: FERROUS SULFATE 325 MG EC TABLET PO SCH ×2 (06:38→17:40)
[2019-10-12] MEDS: FAMOTIDINE 20 MG TABLET PO SCH (09:18)
[2019-10-12] MEDS: MULTIVITAMINS WITH IRON TABLET PO SCH (09:18)
[2019-10-12] MEDS: DIVALPROEX SODIUM 250 MG DR TABLET PO SCH ×3 (09:18→19:17)
[2019-10-12] MEDS: ASPIRIN 81 MG CHEWABLE TABLET PO SCH (09:18)
[2019-10-12] MEDS: CloZAPine 100 MG RAPDIS TABLET PO SCH ×2 (09:18→15:20)
[2019-10-12] MEDS: AmLODIPine BESYLATE 10 MG TABLET PO SCH (09:18)
[2019-10-12] MEDS: LORATADINE 10 MG TABLET PO SCH (09:18)
[2019-10-12] MEDS: BENZTROPINE MESYLATE 1 MG TABLET PO SCH ×2 (09:19→17:40)
[2019-10-12] MEDS: METOPROLOL SUCCINATE 25 MG ER TABLET PO SCH (09:19)
[2019-10-12 09:48] VITALS: BP 160/89
[2019-10-12 16:38] VITALS: BP 134/74
[2019-10-12] MEDS: SIMVASTATIN 40 MG TABLET PO SCH (20:44)
[2019-10-13] MEDS: FERROUS SULFATE 325 MG EC TABLET PO SCH ×2 (07:00→18:33)
[2019-10-13] MEDS: DIVALPROEX SODIUM 250 MG DR TABLET PO SCH ×3 (08:41→18:33)
[2019-10-13] MEDS: ASPIRIN 81 MG CHEWABLE TABLET PO SCH (08:41)
[2019-10-13] MEDS: FAMOTIDINE 20 MG TABLET PO SCH (08:41)
[2019-10-13] MEDS: BENZTROPINE MESYLATE 1 MG TABLET PO SCH ×2 (08:41→17:00)
[2019-10-13] MEDS: METOPROLOL SUCCINATE 25 MG ER TABLET PO SCH (08:41)
[2019-10-13] MEDS: MULTIVITAMINS WITH IRON TABLET PO SCH (08:41)
[2019-10-13] MEDS: LORATADINE 10 MG TABLET PO SCH (08:41)
[2019-10-13] MEDS: CloZAPine 100 MG RAPDIS TABLET PO SCH ×2 (08:41→14:11)
[2019-10-13] MEDS: AmLODIPine BESYLATE 10 MG TABLET PO SCH (08:44)
[2019-10-13 09:26] VITALS: BP 134/76
[2019-10-13 17:01] VITALS: BP 136/83
[2019-10-13] MEDS: MAGNESIUM HYDROXIDE SUSPENSION 30 ML UDCUP PO PRN (18:40)
[2019-10-13] MEDS: SIMVASTATIN 40 MG TABLET PO SCH (21:32)
[2019-10-14] MEDS: FERROUS SULFATE 325 MG EC TABLET PO SCH ×2 (06:53→17:30)
[2019-10-14] MEDS: DIVALPROEX SODIUM 250 MG DR TABLET PO SCH ×3 (08:32→19:23)
[2019-10-14] MEDS: ASPIRIN 81 MG CHEWABLE TABLET PO SCH (08:33)
[2019-10-14] MEDS: FAMOTIDINE 20 MG TABLET PO SCH (08:33)
[2019-10-14] MEDS: BENZTROPINE MESYLATE 1 MG TABLET PO SCH ×2 (08:33→17:30)
[2019-10-14] MEDS: MULTIVITAMINS WITH IRON TABLET PO SCH (08:33)
[2019-10-14] MEDS: CloZAPine 100 MG RAPDIS TABLET PO SCH ×2 (08:33→14:48)
[2019-10-14] MEDS: AmLODIPine BESYLATE 10 MG TABLET PO SCH (08:33)
[2019-10-14] MEDS: LORATADINE 10 MG TABLET PO SCH (08:33)
[2019-10-14] MEDS: METOPROLOL SUCCINATE 25 MG ER TABLET PO SCH (08:36)
[2019-10-14 09:32] VITALS: BP 121/75
[2019-10-14 19:24] VITALS: BP 115/69
[2019-10-14] MEDS: SIMVASTATIN 40 MG TABLET PO SCH (21:02)
[2019-10-15 06:19] VITALS: BP 116/59
[2019-10-15] MEDS: FERROUS SULFATE 325 MG EC TABLET PO SCH ×3 (06:52→17:45)
[2019-10-15] MEDS: ASPIRIN 81 MG CHEWABLE TABLET PO SCH (11:01)
[2019-10-15] MEDS: BENZTROPINE MESYLATE 1 MG TABLET PO SCH ×2 (11:01→17:45)
[2019-10-15] MEDS: AmLODIPine BESYLATE 10 MG TABLET PO SCH (11:01)
[2019-10-15] MEDS: METOPROLOL SUCCINATE 25 MG ER TABLET PO SCH (11:01)
[2019-10-15] MEDS: MULTIVITAMINS WITH IRON TABLET PO SCH (11:01)
[2019-10-15] MEDS: CloZAPine 100 MG RAPDIS TABLET PO SCH ×2 (11:02→14:43)
[2019-10-15] MEDS: LORATADINE 10 MG TABLET PO SCH (11:02)
[2019-10-15] MEDS: DIVALPROEX SODIUM 250 MG DR TABLET PO SCH ×3 (11:02→18:49)
[2019-10-15] MEDS: FAMOTIDINE 20 MG TABLET PO SCH (11:02)
[2019-10-15 16:29] VITALS: BP 102/65
[2019-10-15] MEDS: SIMVASTATIN 40 MG TABLET PO SCH (21:39)
[2019-10-16 02:05] VITALS: BP 121/66
[2019-10-16] MEDS: FERROUS SULFATE 325 MG EC TABLET PO SCH ×2 (06:38→18:08)
[2019-10-16 08:00] VITALS: BP 134/78
[2019-10-16] MEDS: CloZAPine 100 MG RAPDIS TABLET PO SCH ×2 (10:29→14:42)
[2019-10-16] MEDS: AmLODIPine BESYLATE 10 MG TABLET PO SCH (10:29)
[2019-10-16] MEDS: BENZTROPINE MESYLATE 1 MG TABLET PO SCH ×2 (10:29→18:08)
[2019-10-16] MEDS: FAMOTIDINE 20 MG TABLET PO SCH (10:29)
[2019-10-16] MEDS: METOPROLOL SUCCINATE 25 MG ER TABLET PO SCH (10:30)
[2019-10-16] MEDS: DIVALPROEX SODIUM 250 MG DR TABLET PO SCH ×3 (10:30→18:08)
[2019-10-16] MEDS: MULTIVITAMINS WITH IRON TABLET PO SCH (10:30)
[2019-10-16] MEDS: ASPIRIN 81 MG CHEWABLE TABLET PO SCH (10:38)
[2019-10-16] MEDS: LORATADINE 10 MG TABLET PO SCH (10:38)
[2019-10-16 16:52] VITALS: BP 129/80
[2019-10-16] MEDS: SIMVASTATIN 40 MG TABLET PO SCH (21:21)
[2019-10-17 01:22] VITALS: BP 130/76
[2019-10-17] MEDS: FERROUS SULFATE 325 MG EC TABLET PO SCH ×2 (06:47→18:00)
[2019-10-17 09:34] VITALS: BP 133/71
[2019-10-17] MEDS: MULTIVITAMINS WITH IRON TABLET PO SCH (09:45)
[2019-10-17] MEDS: CloZAPine 100 MG RAPDIS TABLET PO SCH ×2 (09:46→14:52)
[2019-10-17] MEDS: AmLODIPine BESYLATE 10 MG TABLET PO SCH (09:46)
[2019-10-17] MEDS: METOPROLOL SUCCINATE 25 MG ER TABLET PO SCH (09:46)
[2019-10-17] MEDS: BENZTROPINE MESYLATE 1 MG TABLET PO SCH ×2 (09:46→18:00)
[2019-10-17] MEDS: LORATADINE 10 MG TABLET PO SCH (09:46)
[2019-10-17] MEDS: DIVALPROEX SODIUM 250 MG DR TABLET PO SCH ×3 (09:46→18:00)
[2019-10-17] MEDS: FAMOTIDINE 20 MG TABLET PO SCH (09:46)
[2019-10-17] MEDS: ASPIRIN 81 MG CHEWABLE TABLET PO SCH (09:46)
[2019-10-17 16:38] VITALS: BP 121/76
[2019-10-17] MEDS: SIMVASTATIN 40 MG TABLET PO SCH (20:59)
[2019-10-18] MEDS: FERROUS SULFATE 325 MG EC TABLET PO SCH ×2 (06:38→17:39)
[2019-10-18 06:58] LABS: BASOPHILS % (AUTO) 0.7 % (0.0-2.0); HEMATOCRIT 41.1 % (41-53); HEMOGLOBIN 13.9 g/dL (13.5-17.5); LYMPHOCYTES # (AUTO) 2.9 K/uL (1.0-4.8); LYMPHOCYTES % (AUTO) 32.3 % (22.0-44.0); MEAN CORPUSCULAR HEMOGLOBIN 30.5 pg (26.0-34.0); MEAN CORPUSCULAR HGB CONC 33.9 G/dL (31.0-37.0); MEAN CORPUSCULAR VOLUME 90 fL (80-100); MONOCYTES # (AUTO) 0.9 K/uL (0.1-1.0); MONOCYTES % (AUTO) 9.4 % (2.0-9.0); NEUTROPHILS # (AUTO) 4.1 K/uL (1.8-7.7); NEUTROPHILS % (AUTO) 45.6 % (40.0-70.0); PLATELET COUNT (AUTO) 181 K/uL (150-450); RED BLOOD CELL COUNT(AUTO) 4.57 MIL/uL (4.50-5.90); RED CELL DISTRIBUTION WIDTH 13.4 % (11.5-14.5)
[2019-10-18 08:56] VITALS: BP 123/68
[2019-10-18] MEDS: LORATADINE 10 MG TABLET PO SCH (09:28)
[2019-10-18] MEDS: BENZTROPINE MESYLATE 1 MG TABLET PO SCH ×2 (09:28→17:39)
[2019-10-18] MEDS: DIVALPROEX SODIUM 250 MG DR TABLET PO SCH ×3 (09:28→18:46)
[2019-10-18] MEDS: CloZAPine 100 MG RAPDIS TABLET PO SCH ×2 (09:28→14:01)
[2019-10-18] MEDS: METOPROLOL SUCCINATE 25 MG ER TABLET PO SCH (09:28)
[2019-10-18] MEDS: AmLODIPine BESYLATE 10 MG TABLET PO SCH (09:28)
[2019-10-18] MEDS: ASPIRIN 81 MG CHEWABLE TABLET PO SCH (09:28)
[2019-10-18] MEDS: MULTIVITAMINS WITH IRON TABLET PO SCH (09:29)
[2019-10-18] MEDS: FAMOTIDINE 20 MG TABLET PO SCH (09:29)
[2019-10-18 16:30] VITALS: BP 155/74
[2019-10-18] MEDS: SIMVASTATIN 40 MG TABLET PO SCH (20:54)
[2019-10-19] MEDS: FERROUS SULFATE 325 MG EC TABLET PO SCH ×2 (06:56→18:04)
[2019-10-19 08:21] VITALS: BP 112/65
[2019-10-19] MEDS: CloZAPine 100 MG RAPDIS TABLET PO SCH ×2 (11:17→14:44)
[2019-10-19] MEDS: METOPROLOL SUCCINATE 25 MG ER TABLET PO SCH (11:17)
[2019-10-19] MEDS: MULTIVITAMINS WITH IRON TABLET PO SCH (11:17)
[2019-10-19] MEDS: FAMOTIDINE 20 MG TABLET PO SCH (11:18)
[2019-10-19] MEDS: ASPIRIN 81 MG CHEWABLE TABLET PO SCH (11:18)
[2019-10-19] MEDS: LORATADINE 10 MG TABLET PO SCH (11:18)
[2019-10-19] MEDS: BENZTROPINE MESYLATE 1 MG TABLET PO SCH ×2 (11:18→18:03)
[2019-10-19] MEDS: AmLODIPine BESYLATE 10 MG TABLET PO SCH (11:20)
[2019-10-19] MEDS: DIVALPROEX SODIUM 250 MG DR TABLET PO SCH ×4 (11:20→19:30)
[2019-10-19 16:14] VITALS: BP 75/60
[2019-10-19] MEDS: SIMVASTATIN 40 MG TABLET PO SCH (20:47)
[2019-10-20] MEDS: FERROUS SULFATE 325 MG EC TABLET PO SCH ×2 (07:12→18:13)
[2019-10-20 08:47] VITALS: BP 116/60
[2019-10-20 08:47] LABS: BASOPHILS % (AUTO) 0.9 % (0.0-2.0); EOSINOPHILS % (AUTO) 11.8 % (1.0-6.0); HEMATOCRIT 39.9 % (41-53); HEMOGLOBIN 13.6 g/dL (13.5-17.5); LYMPHOCYTES # (AUTO) 2.5 K/uL (1.0-4.8); LYMPHOCYTES % (AUTO) 36.3 % (22.0-44.0); MEAN CORPUSCULAR HEMOGLOBIN 30.5 pg (26.0-34.0); MEAN CORPUSCULAR HGB CONC 34.1 G/dL (31.0-37.0); MEAN CORPUSCULAR VOLUME 89 fL (80-100); MONOCYTES # (AUTO) 0.6 K/uL (0.1-1.0); MONOCYTES % (AUTO) 9.3 % (2.0-9.0); NEUTROPHILS # (AUTO) 2.9 K/uL (1.8-7.7); NEUTROPHILS % (AUTO) 41.7 % (40.0-70.0); PLATELET COUNT (AUTO) 171 K/uL (150-450); RED BLOOD CELL COUNT(AUTO) 4.47 MIL/uL (4.50-5.90); RED CELL DISTRIBUTION WIDTH 13.5 % (11.5-14.5)
[2019-10-20 08:56] LABS: ANION GAP 5 mmol/L (8-16); CALCIUM, TOTAL 8.7 mg/dL (8.8-10.5); CARBON DIOXIDE 30 mmol/L (22-29); CHLORIDE 107 mmol/L (98-107); CREATININE 1.02 mg/dL (0.60-1.30); GLOMERULAR FILTR. RATE CALC > 60 mL/min (>60); GLUCOSE,RANDOM 102 mg/dL (70-110); POTASSIUM 3.5 mmol/L (3.5-5.1); SODIUM SERUM 142 mmol/L (136-145); UREA NITROGEN, BLOOD 20 mg/dL (7-18)
[2019-10-20] MEDS: ASPIRIN 81 MG CHEWABLE TABLET PO SCH (10:24)
[2019-10-20] MEDS: DIVALPROEX SODIUM 250 MG DR TABLET PO SCH ×3 (10:24→18:14)
[2019-10-20] MEDS: CloZAPine 100 MG RAPDIS TABLET PO SCH ×2 (10:24→14:36)
[2019-10-20] MEDS: LORATADINE 10 MG TABLET PO SCH (10:25)
[2019-10-20] MEDS: METOPROLOL SUCCINATE 25 MG ER TABLET PO SCH (10:25)
[2019-10-20] MEDS: AmLODIPine BESYLATE 10 MG TABLET PO SCH (10:25)
[2019-10-20] MEDS: MULTIVITAMINS WITH IRON TABLET PO SCH (10:25)
[2019-10-20] MEDS: FAMOTIDINE 20 MG TABLET PO SCH (10:25)
[2019-10-20] MEDS: BENZTROPINE MESYLATE 1 MG TABLET PO SCH ×2 (10:25→18:13)
[2019-10-20 16:13] VITALS: BP 126/74
[2019-10-20] MEDS: SIMVASTATIN 40 MG TABLET PO SCH (20:51)
[2019-10-21] MEDS: FERROUS SULFATE 325 MG EC TABLET PO SCH ×2 (07:02→17:25)
[2019-10-21 08:40] VITALS: BP 125/73
[2019-10-21] MEDS: MULTIVITAMINS WITH IRON TABLET PO SCH (08:47)
[2019-10-21] MEDS: METOPROLOL SUCCINATE 25 MG ER TABLET PO SCH (08:47)
[2019-10-21] MEDS: DIVALPROEX SODIUM 250 MG DR TABLET PO SCH ×3 (08:47→19:17)
[2019-10-21] MEDS: CloZAPine 100 MG RAPDIS TABLET PO SCH ×2 (08:47→15:23)
[2019-10-21] MEDS: FAMOTIDINE 20 MG TABLET PO SCH (08:48)
[2019-10-21] MEDS: ASPIRIN 81 MG CHEWABLE TABLET PO SCH (08:48)
[2019-10-21] MEDS: BENZTROPINE MESYLATE 1 MG TABLET PO SCH ×2 (08:48→17:25)
[2019-10-21] MEDS: AmLODIPine BESYLATE 10 MG TABLET PO SCH (08:48)
[2019-10-21] MEDS: LORATADINE 10 MG TABLET PO SCH (08:49)
[2019-10-21 16:25] VITALS: BP 112/71
[2019-10-21] MEDS: SIMVASTATIN 40 MG TABLET PO SCH (21:28)
[2019-10-22] MEDS: FERROUS SULFATE 325 MG EC TABLET PO SCH ×2 (06:43→17:09)
[2019-10-22 08:00] VITALS: BP 109/76
[2019-10-22] MEDS: AmLODIPine BESYLATE 10 MG TABLET PO SCH (10:28)
[2019-10-22] MEDS: FAMOTIDINE 20 MG TABLET PO SCH (10:28)
[2019-10-22] MEDS: METOPROLOL SUCCINATE 25 MG ER TABLET PO SCH (10:29)
[2019-10-22] MEDS: ASPIRIN 81 MG CHEWABLE TABLET PO SCH (10:29)
[2019-10-22] MEDS: BENZTROPINE MESYLATE 1 MG TABLET PO SCH ×2 (10:29→17:09)
[2019-10-22] MEDS: CloZAPine 100 MG RAPDIS TABLET PO SCH ×2 (10:29→15:12)
[2019-10-22] MEDS: DIVALPROEX SODIUM 250 MG DR TABLET PO SCH ×3 (10:29→19:08)
[2019-10-22] MEDS: MULTIVITAMINS WITH IRON TABLET PO SCH (10:29)
[2019-10-22] MEDS: LORATADINE 10 MG TABLET PO SCH (10:29)
[2019-10-22 16:34] VITALS: BP 125/81
[2019-10-22] MEDS: SIMVASTATIN 40 MG TABLET PO SCH (20:24)
[2019-10-23 02:41] VITALS: BP 134/68
[2019-10-23] MEDS: FERROUS SULFATE 325 MG EC TABLET PO SCH ×2 (06:53→17:32)
[2019-10-23 09:00] VITALS: BP 141/80
[2019-10-23] MEDS: AmLODIPine BESYLATE 10 MG TABLET PO SCH (09:07)
[2019-10-23] MEDS: METOPROLOL SUCCINATE 25 MG ER TABLET PO SCH (09:07)
[2019-10-23] MEDS: LORATADINE 10 MG TABLET PO SCH (09:07)
[2019-10-23] MEDS: MULTIVITAMINS WITH IRON TABLET PO SCH (09:07)
[2019-10-23] MEDS: CloZAPine 100 MG RAPDIS TABLET PO SCH ×2 (09:08→15:00)
[2019-10-23] MEDS: ASPIRIN 81 MG CHEWABLE TABLET PO SCH (09:08)
[2019-10-23] MEDS: DIVALPROEX SODIUM 250 MG DR TABLET PO SCH ×3 (09:08→17:32)
[2019-10-23] MEDS: FAMOTIDINE 20 MG TABLET PO SCH (09:08)
[2019-10-23] MEDS: BENZTROPINE MESYLATE 1 MG TABLET PO SCH ×2 (09:08→17:30)
[2019-10-23 17:00] VITALS: BP 103/63
[2019-10-23] MEDS: SIMVASTATIN 40 MG TABLET PO SCH (21:40)
[2019-10-24 01:35] VITALS: BP 134/70
[2019-10-24] MEDS: FERROUS SULFATE 325 MG EC TABLET PO SCH ×2 (06:37→16:27)
[2019-10-24 08:00] VITALS: BP 117/59
[2019-10-24] MEDS: CloZAPine 100 MG RAPDIS TABLET PO SCH ×2 (11:13→14:37)
[2019-10-24] MEDS: FAMOTIDINE 20 MG TABLET PO SCH (11:14)
[2019-10-24] MEDS: MULTIVITAMINS WITH IRON TABLET PO SCH (11:14)
[2019-10-24] MEDS: DIVALPROEX SODIUM 250 MG DR TABLET PO SCH ×3 (11:14→18:20)
[2019-10-24] MEDS: METOPROLOL SUCCINATE 25 MG ER TABLET PO SCH (11:15)
[2019-10-24] MEDS: AmLODIPine BESYLATE 10 MG TABLET PO SCH (11:15)
[2019-10-24] MEDS: ASPIRIN 81 MG CHEWABLE TABLET PO SCH (11:16)
[2019-10-24] MEDS: LORATADINE 10 MG TABLET PO SCH (11:21)
[2019-10-24] MEDS: BENZTROPINE MESYLATE 1 MG TABLET PO SCH ×2 (11:21→16:27)
[2019-10-24 17:10] VITALS: BP 121/71
[2019-10-24] MEDS: SIMVASTATIN 40 MG TABLET PO SCH (21:19)
[2019-10-25 03:39] VITALS: BP 125/81
[2019-10-25] MEDS: FERROUS SULFATE 325 MG EC TABLET PO SCH ×2 (07:03→17:39)
[2019-10-25 08:00] VITALS: BP 106/61
[2019-10-25] MEDS: CloZAPine 100 MG RAPDIS TABLET PO SCH ×2 (10:15→14:59)
[2019-10-25] MEDS: DIVALPROEX SODIUM 250 MG DR TABLET PO SCH ×3 (10:15→18:23)
[2019-10-25] MEDS: FAMOTIDINE 20 MG TABLET PO SCH (10:24)
[2019-10-25] MEDS: METOPROLOL SUCCINATE 25 MG ER TABLET PO SCH (10:25)
[2019-10-25] MEDS: ASPIRIN 81 MG CHEWABLE TABLET PO SCH (10:25)
[2019-10-25] MEDS: LORATADINE 10 MG TABLET PO SCH (10:25)
[2019-10-25] MEDS: BENZTROPINE MESYLATE 1 MG TABLET PO SCH ×2 (10:25→17:39)
[2019-10-25] MEDS: MULTIVITAMINS WITH IRON TABLET PO SCH (10:25)
[2019-10-25] MEDS: AmLODIPine BESYLATE 10 MG TABLET PO SCH (10:25)
[2019-10-25 16:36] VITALS: BP 109/71
[2019-10-25] MEDS: SIMVASTATIN 40 MG TABLET PO SCH (21:24)
[2019-10-26 00:25] VITALS: BP 138/67
[2019-10-26] MEDS: FERROUS SULFATE 325 MG EC TABLET PO SCH ×2 (06:41→17:45)
[2019-10-26 08:16] VITALS: BP 116/60
[2019-10-26] MEDS: AmLODIPine BESYLATE 10 MG TABLET PO SCH (10:17)
[2019-10-26] MEDS: FAMOTIDINE 20 MG TABLET PO SCH (10:17)
[2019-10-26] MEDS: BENZTROPINE MESYLATE 1 MG TABLET PO SCH ×2 (10:17→17:45)
[2019-10-26] MEDS: DIVALPROEX SODIUM 250 MG DR TABLET PO SCH ×3 (10:17→19:00)
[2019-10-26] MEDS: ASPIRIN 81 MG CHEWABLE TABLET PO SCH (10:17)
[2019-10-26] MEDS: LORATADINE 10 MG TABLET PO SCH (10:18)
[2019-10-26] MEDS: METOPROLOL SUCCINATE 25 MG ER TABLET PO SCH (10:18)
[2019-10-26] MEDS: MULTIVITAMINS WITH IRON TABLET PO SCH (10:18)
[2019-10-26] MEDS: CloZAPine 100 MG RAPDIS TABLET PO SCH ×2 (10:19→14:32)
[2019-10-26 19:33] VITALS: BP 120/75
[2019-10-26] MEDS: SIMVASTATIN 40 MG TABLET PO SCH (21:00)
[2019-10-27 06:42] LABS: BASOPHILS % (AUTO) 0.9 % (0.0-2.0); EOSINOPHILS % (AUTO) 7.3 % (1.0-6.0); HEMOGLOBIN 13.4 g/dL (13.5-17.5); LYMPHOCYTES # (AUTO) 2.7 K/uL (1.0-4.8); LYMPHOCYTES % (AUTO) 27.4 % (22.0-44.0); MEAN CORPUSCULAR HEMOGLOBIN 30.5 pg (26.0-34.0); MEAN CORPUSCULAR HGB CONC 34.2 G/dL (31.0-37.0); MEAN CORPUSCULAR VOLUME 89 fL (80-100); MONOCYTES % (AUTO) 10.3 % (2.0-9.0); NEUTROPHILS # (AUTO) 5.3 K/uL (1.8-7.7); NEUTROPHILS % (AUTO) 54.1 % (40.0-70.0); PLATELET COUNT (AUTO) 168 K/uL (150-450); RED BLOOD CELL COUNT(AUTO) 4.37 MIL/uL (4.50-5.90); RED CELL DISTRIBUTION WIDTH 13.5 % (11.5-14.5)
[2019-10-27] MEDS: FERROUS SULFATE 325 MG EC TABLET PO SCH ×2 (06:58→16:23)
[2019-10-27] MEDS: ASPIRIN 81 MG CHEWABLE TABLET PO SCH (09:25)
[2019-10-27] MEDS: CloZAPine 25 MG RAPDIS TABLET PO SCH (09:25)
[2019-10-27] MEDS: DIVALPROEX SODIUM 250 MG DR TABLET PO SCH ×3 (09:25→19:58)
[2019-10-27] MEDS: FAMOTIDINE 20 MG TABLET PO SCH (09:25)
[2019-10-27] MEDS: BENZTROPINE MESYLATE 1 MG TABLET PO SCH ×2 (09:26→16:23)
[2019-10-27] MEDS: LORATADINE 10 MG TABLET PO SCH (09:26)
[2019-10-27] MEDS: MULTIVITAMINS WITH IRON TABLET PO SCH (09:26)
[2019-10-27] MEDS: AmLODIPine BESYLATE 10 MG TABLET PO SCH (09:26)
[2019-10-27] MEDS: METOPROLOL SUCCINATE 25 MG ER TABLET PO SCH (09:27)
[2019-10-27 09:29] VITALS: BP 107/58
[2019-10-27] MEDS: CloZAPine 100 MG RAPDIS TABLET PO SCH (14:50)
[2019-10-27 16:02] VITALS: BP 123/70
[2019-10-27] MEDS: SIMVASTATIN 40 MG TABLET PO SCH (21:07)
[2019-10-28 04:21] VITALS: BP 121/69
[2019-10-28] MEDS: FERROUS SULFATE 325 MG EC TABLET PO SCH ×2 (07:01→17:14)
[2019-10-28 09:20] VITALS: BP 118/76
[2019-10-28] MEDS: CloZAPine 25 MG RAPDIS TABLET PO SCH (11:32)
[2019-10-28] MEDS: BENZTROPINE MESYLATE 1 MG TABLET PO SCH ×2 (11:33→17:14)
[2019-10-28] MEDS: MULTIVITAMINS WITH IRON TABLET PO SCH (11:33)
[2019-10-28] MEDS: METOPROLOL SUCCINATE 25 MG ER TABLET PO SCH (11:33)
[2019-10-28] MEDS: DIVALPROEX SODIUM 250 MG DR TABLET PO SCH ×3 (11:33→19:43)
[2019-10-28] MEDS: AmLODIPine BESYLATE 10 MG TABLET PO SCH (11:33)
[2019-10-28] MEDS: LORATADINE 10 MG TABLET PO SCH (11:33)
[2019-10-28] MEDS: FAMOTIDINE 20 MG TABLET PO SCH (11:33)
[2019-10-28] MEDS: ASPIRIN 81 MG CHEWABLE TABLET PO SCH (11:35)
[2019-10-28] MEDS: CloZAPine 100 MG RAPDIS TABLET PO SCH (15:10)
[2019-10-28 17:05] VITALS: BP 107/61
[2019-10-28] MEDS: SIMVASTATIN 40 MG TABLET PO SCH (21:19)
[2019-10-29] MEDS: FERROUS SULFATE 325 MG EC TABLET PO SCH ×2 (06:36→16:38)
[2019-10-29] MEDS: DIVALPROEX SODIUM 250 MG DR TABLET PO SCH ×3 (09:23→18:41)
[2019-10-29] MEDS: MULTIVITAMINS WITH IRON TABLET PO SCH (09:23)
[2019-10-29] MEDS: CloZAPine 25 MG RAPDIS TABLET PO SCH (09:24)
[2019-10-29] MEDS: FAMOTIDINE 20 MG TABLET PO SCH (09:24)
[2019-10-29] MEDS: METOPROLOL SUCCINATE 25 MG ER TABLET PO SCH (09:24)
[2019-10-29] MEDS: BENZTROPINE MESYLATE 1 MG TABLET PO SCH ×2 (09:24→16:08)
[2019-10-29] MEDS: ASPIRIN 81 MG CHEWABLE TABLET PO SCH (09:24)
[2019-10-29] MEDS: LORATADINE 10 MG TABLET PO SCH (09:24)
[2019-10-29] MEDS: AmLODIPine BESYLATE 10 MG TABLET PO SCH (09:24)
[2019-10-29 09:26] VITALS: BP 115/64
[2019-10-29] MEDS: CloZAPine 100 MG RAPDIS TABLET PO SCH (14:52)
[2019-10-29 16:54] VITALS: BP 126/81
[2019-10-29] MEDS: SIMVASTATIN 40 MG TABLET PO SCH (21:04)
[2019-10-30] MEDS: FERROUS SULFATE 325 MG EC TABLET PO SCH ×2 (07:03→17:26)
[2019-10-30 08:20] VITALS: BP 133/79
[2019-10-30] MEDS: CloZAPine 25 MG RAPDIS TABLET PO SCH (10:01)
[2019-10-30] MEDS: FAMOTIDINE 20 MG TABLET PO SCH (10:02)
[2019-10-30] MEDS: AmLODIPine BESYLATE 10 MG TABLET PO SCH (10:02)
[2019-10-30] MEDS: DIVALPROEX SODIUM 250 MG DR TABLET PO SCH ×4 (10:02→20:03)
[2019-10-30] MEDS: METOPROLOL SUCCINATE 25 MG ER TABLET PO SCH (10:02)
[2019-10-30] MEDS: BENZTROPINE MESYLATE 1 MG TABLET PO SCH ×2 (10:02→17:26)
[2019-10-30] MEDS: MULTIVITAMINS WITH IRON TABLET PO SCH (10:02)
[2019-10-30] MEDS: LORATADINE 10 MG TABLET PO SCH (10:02)
[2019-10-30] MEDS: ASPIRIN 81 MG CHEWABLE TABLET PO SCH (10:02)
[2019-10-30] MEDS: CloZAPine 100 MG RAPDIS TABLET PO SCH (15:02)
[2019-10-30 16:49] VITALS: BP 111/65
[2019-10-30] MEDS: SIMVASTATIN 40 MG TABLET PO SCH (20:41)
[2019-10-31] MEDS: FERROUS SULFATE 325 MG EC TABLET PO SCH ×2 (06:58→17:48)
[2019-10-31] MEDS: MULTIVITAMINS WITH IRON TABLET PO SCH (09:21)
[2019-10-31] MEDS: FAMOTIDINE 20 MG TABLET PO SCH (09:21)
[2019-10-31] MEDS: METOPROLOL SUCCINATE 25 MG ER TABLET PO SCH (09:21)
[2019-10-31] MEDS: CloZAPine 25 MG RAPDIS TABLET PO SCH (09:21)
[2019-10-31] MEDS: DIVALPROEX SODIUM 250 MG DR TABLET PO SCH ×3 (09:21→18:03)
[2019-10-31] MEDS: AmLODIPine BESYLATE 10 MG TABLET PO SCH (09:22)
[2019-10-31] MEDS: LORATADINE 10 MG TABLET PO SCH (09:22)
[2019-10-31] MEDS: ASPIRIN 81 MG CHEWABLE TABLET PO SCH (09:22)
[2019-10-31] MEDS: BENZTROPINE MESYLATE 1 MG TABLET PO SCH ×2 (09:22→17:48)
[2019-10-31 13:16] VITALS: BP 126/74
[2019-10-31] MEDS: CloZAPine 100 MG RAPDIS TABLET PO SCH (14:47)
[2019-10-31 16:54] VITALS: BP 120/80
[2019-10-31] MEDS: SIMVASTATIN 40 MG TABLET PO SCH (21:16)
[2019-11-01] MEDS: FERROUS SULFATE 325 MG EC TABLET PO SCH ×2 (06:50→17:35)
[2019-11-01] MEDS: BENZTROPINE MESYLATE 1 MG TABLET PO SCH ×2 (09:24→17:35)
[2019-11-01] MEDS: DIVALPROEX SODIUM 250 MG DR TABLET PO SCH ×3 (09:24→19:00)
[2019-11-01] MEDS: AmLODIPine BESYLATE 10 MG TABLET PO SCH (09:24)
[2019-11-01] MEDS: FAMOTIDINE 20 MG TABLET PO SCH (09:24)
[2019-11-01] MEDS: LORATADINE 10 MG TABLET PO SCH (09:24)
[2019-11-01] MEDS: MULTIVITAMINS WITH IRON TABLET PO SCH (09:24)
[2019-11-01] MEDS: METOPROLOL SUCCINATE 25 MG ER TABLET PO SCH (09:24)
[2019-11-01] MEDS: ASPIRIN 81 MG CHEWABLE TABLET PO SCH (09:25)
[2019-11-01] MEDS: CloZAPine 25 MG RAPDIS TABLET PO SCH (09:25)
[2019-11-01 14:07] VITALS: BP 122/84
[2019-11-01] MEDS: CloZAPine 100 MG RAPDIS TABLET PO SCH (16:11)
[2019-11-01 16:30] VITALS: BP 129/68
[2019-11-01] MEDS: SIMVASTATIN 40 MG TABLET PO SCH (20:29)
[2019-11-02] MEDS: FERROUS SULFATE 325 MG EC TABLET PO SCH ×2 (07:00→17:04)
[2019-11-02] MEDS: AmLODIPine BESYLATE 10 MG TABLET PO SCH (10:21)
[2019-11-02] MEDS: CloZAPine 25 MG RAPDIS TABLET PO SCH (10:21)
[2019-11-02] MEDS: FAMOTIDINE 20 MG TABLET PO SCH (10:21)
[2019-11-02] MEDS: DIVALPROEX SODIUM 250 MG DR TABLET PO SCH ×3 (10:21→21:19)
[2019-11-02] MEDS: MULTIVITAMINS WITH IRON TABLET PO SCH (10:22)
[2019-11-02] MEDS: LORATADINE 10 MG TABLET PO SCH (10:22)
[2019-11-02] MEDS: BENZTROPINE MESYLATE 1 MG TABLET PO SCH ×2 (10:22→17:04)
[2019-11-02] MEDS: METOPROLOL SUCCINATE 25 MG ER TABLET PO SCH (10:22)
[2019-11-02] MEDS: ASPIRIN 81 MG CHEWABLE TABLET PO SCH (10:26)
[2019-11-02] MEDS: CloZAPine 100 MG RAPDIS TABLET PO SCH (14:32)
[2019-11-02 16:44] VITALS: BP 113/63
[2019-11-02] MEDS: SIMVASTATIN 40 MG TABLET PO SCH (21:19)
[2019-11-03] MEDS: FERROUS SULFATE 325 MG EC TABLET PO SCH ×2 (06:46→17:16)
[2019-11-03 07:49] LABS: BASOPHILS % (AUTO) 0.9 % (0.0-2.0); EOSINOPHILS % (AUTO) 9.3 % (1.0-6.0); HEMOGLOBIN 13.8 g/dL (13.5-17.5); LYMPHOCYTES # (AUTO) 2.5 K/uL (1.0-4.8); LYMPHOCYTES % (AUTO) 29.8 % (22.0-44.0); MEAN CORPUSCULAR HEMOGLOBIN 31.5 pg (26.0-34.0); MEAN CORPUSCULAR HGB CONC 35.4 G/dL (31.0-37.0); MEAN CORPUSCULAR VOLUME 89 fL (80-100); MONOCYTES # (AUTO) 0.8 K/uL (0.1-1.0); MONOCYTES % (AUTO) 9.9 % (2.0-9.0); NEUTROPHILS # (AUTO) 4.1 K/uL (1.8-7.7); NEUTROPHILS % (AUTO) 50.1 % (40.0-70.0); PLATELET COUNT (AUTO) 185 K/uL (150-450); RED BLOOD CELL COUNT(AUTO) 4.39 MIL/uL (4.50-5.90); RED CELL DISTRIBUTION WIDTH 13.6 % (11.5-14.5)
[2019-11-03 08:00] VITALS: BP 146/78
[2019-11-03] MEDS: AmLODIPine BESYLATE 10 MG TABLET PO SCH (11:14)
[2019-11-03] MEDS: CloZAPine 25 MG RAPDIS TABLET PO SCH (11:14)
[2019-11-03] MEDS: MULTIVITAMINS WITH IRON TABLET PO SCH (11:14)
[2019-11-03] MEDS: ASPIRIN 81 MG CHEWABLE TABLET PO SCH (11:14)
[2019-11-03] MEDS: DIVALPROEX SODIUM 250 MG DR TABLET PO SCH ×3 (11:14→20:13)
[2019-11-03] MEDS: LORATADINE 10 MG TABLET PO SCH (11:15)
[2019-11-03] MEDS: BENZTROPINE MESYLATE 1 MG TABLET PO SCH ×2 (11:15→17:16)
[2019-11-03] MEDS: FAMOTIDINE 20 MG TABLET PO SCH (11:16)
[2019-11-03] MEDS: METOPROLOL SUCCINATE 25 MG ER TABLET PO SCH (11:17)
[2019-11-03] MEDS: CloZAPine 100 MG RAPDIS TABLET PO SCH (14:56)
[2019-11-03 16:30] VITALS: BP 118/61
[2019-11-03] MEDS: SIMVASTATIN 40 MG TABLET PO SCH (20:13)
[2019-11-04 00:42] VITALS: BP 129/73
[2019-11-04] MEDS: FERROUS SULFATE 325 MG EC TABLET PO SCH ×2 (06:42→17:13)
[2019-11-04 09:49] VITALS: BP 110/64
[2019-11-04] MEDS: METOPROLOL SUCCINATE 25 MG ER TABLET PO SCH (09:52)
[2019-11-04] MEDS: CloZAPine 25 MG RAPDIS TABLET PO SCH (09:52)
[2019-11-04] MEDS: DIVALPROEX SODIUM 250 MG DR TABLET PO SCH ×3 (09:52→18:38)
[2019-11-04] MEDS: FAMOTIDINE 20 MG TABLET PO SCH (09:52)
[2019-11-04] MEDS: BENZTROPINE MESYLATE 1 MG TABLET PO SCH ×2 (09:52→17:13)
[2019-11-04] MEDS: ASPIRIN 81 MG CHEWABLE TABLET PO SCH (09:52)
[2019-11-04] MEDS: MULTIVITAMINS WITH IRON TABLET PO SCH (09:52)
[2019-11-04] MEDS: LORATADINE 10 MG TABLET PO SCH (09:52)
[2019-11-04] MEDS: AmLODIPine BESYLATE 10 MG TABLET PO SCH (09:52)
[2019-11-04] MEDS: CloZAPine 100 MG RAPDIS TABLET PO SCH (15:01)
[2019-11-04 16:53] VITALS: BP 128/60
[2019-11-04] MEDS: SIMVASTATIN 40 MG TABLET PO SCH (21:21)
[2019-11-05 00:46] VITALS: BP 132/67
[2019-11-05] MEDS: FERROUS SULFATE 325 MG EC TABLET PO SCH ×2 (06:40→17:23)
[2019-11-05] MEDS: LORATADINE 10 MG TABLET PO SCH (08:43)
[2019-11-05] MEDS: BENZTROPINE MESYLATE 1 MG TABLET PO SCH ×2 (08:43→17:23)
[2019-11-05] MEDS: ASPIRIN 81 MG CHEWABLE TABLET PO SCH (08:43)
[2019-11-05] MEDS: DIVALPROEX SODIUM 250 MG DR TABLET PO SCH ×3 (08:43→19:30)
[2019-11-05] MEDS: AmLODIPine BESYLATE 10 MG TABLET PO SCH (08:43)
[2019-11-05] MEDS: MULTIVITAMINS WITH IRON TABLET PO SCH (08:44)
[2019-11-05] MEDS: CloZAPine 25 MG RAPDIS TABLET PO SCH (08:44)
[2019-11-05] MEDS: FAMOTIDINE 20 MG TABLET PO SCH (08:44)
[2019-11-05] MEDS: METOPROLOL SUCCINATE 25 MG ER TABLET PO SCH (08:44)
[2019-11-05] MEDS: CloZAPine 100 MG RAPDIS TABLET PO SCH (14:01)
[2019-11-05 16:40] VITALS: BP 126/82
[2019-11-05] MEDS: SIMVASTATIN 40 MG TABLET PO SCH (20:26)
[2019-11-06] MEDS: FERROUS SULFATE 325 MG EC TABLET PO SCH ×2 (07:16→17:07)
[2019-11-06 08:00] VITALS: BP 115/76
[2019-11-06] MEDS: BENZTROPINE MESYLATE 1 MG TABLET PO SCH ×2 (08:34→17:07)
[2019-11-06] MEDS: AmLODIPine BESYLATE 10 MG TABLET PO SCH (08:34)
[2019-11-06] MEDS: FAMOTIDINE 20 MG TABLET PO SCH (08:34)
[2019-11-06] MEDS: LORATADINE 10 MG TABLET PO SCH (08:34)
[2019-11-06] MEDS: ASPIRIN 81 MG CHEWABLE TABLET PO SCH (08:34)
[2019-11-06] MEDS: METOPROLOL SUCCINATE 25 MG ER TABLET PO SCH (08:35)
[2019-11-06] MEDS: DIVALPROEX SODIUM 250 MG DR TABLET PO SCH ×3 (08:36→20:00)
[2019-11-06] MEDS: CloZAPine 25 MG RAPDIS TABLET PO SCH (08:37)
[2019-11-06] MEDS: MULTIVITAMINS WITH IRON TABLET PO SCH (08:43)
[2019-11-06] MEDS: CloZAPine 100 MG RAPDIS TABLET PO SCH (14:32)
[2019-11-06 16:29] VITALS: BP 112/68
[2019-11-06] MEDS: SIMVASTATIN 40 MG TABLET PO SCH (20:00)
[2019-11-07] MEDS: FERROUS SULFATE 325 MG EC TABLET PO SCH ×2 (06:36→17:19)
[2019-11-07 08:00] VITALS: BP 128/84
[2019-11-07] MEDS: MULTIVITAMINS WITH IRON TABLET PO SCH (10:08)
[2019-11-07] MEDS: ASPIRIN 81 MG CHEWABLE TABLET PO SCH (10:08)
[2019-11-07] MEDS: FAMOTIDINE 20 MG TABLET PO SCH (10:09)
[2019-11-07] MEDS: DIVALPROEX SODIUM 250 MG DR TABLET PO SCH ×3 (10:09→18:41)
[2019-11-07] MEDS: LORATADINE 10 MG TABLET PO SCH (10:09)
[2019-11-07] MEDS: CloZAPine 25 MG RAPDIS TABLET PO SCH (10:09)
[2019-11-07] MEDS: AmLODIPine BESYLATE 10 MG TABLET PO SCH (10:09)
[2019-11-07] MEDS: BENZTROPINE MESYLATE 1 MG TABLET PO SCH ×2 (10:24→17:19)
[2019-11-07] MEDS: METOPROLOL SUCCINATE 25 MG ER TABLET PO SCH (10:24)
[2019-11-07] MEDS: CloZAPine 100 MG RAPDIS TABLET PO SCH (14:39)
[2019-11-07 16:52] VITALS: BP 135/76
[2019-11-07] MEDS: SIMVASTATIN 40 MG TABLET PO SCH (20:53)
[2019-11-08] MEDS: FERROUS SULFATE 325 MG EC TABLET PO SCH ×2 (07:04→16:52)
[2019-11-08 08:00] VITALS: BP 108/69
[2019-11-08] MEDS: CloZAPine 25 MG RAPDIS TABLET PO SCH (10:21)
[2019-11-08] MEDS: MULTIVITAMINS WITH IRON TABLET PO SCH (10:21)
[2019-11-08] MEDS: ASPIRIN 81 MG CHEWABLE TABLET PO SCH (10:21)
[2019-11-08] MEDS: LORATADINE 10 MG TABLET PO SCH (10:22)
[2019-11-08] MEDS: FAMOTIDINE 20 MG TABLET PO SCH (10:22)
[2019-11-08] MEDS: DIVALPROEX SODIUM 250 MG DR TABLET PO SCH ×3 (10:22→20:00)
[2019-11-08] MEDS: AmLODIPine BESYLATE 10 MG TABLET PO SCH (10:22)
[2019-11-08] MEDS: BENZTROPINE MESYLATE 1 MG TABLET PO SCH ×2 (10:22→16:52)
[2019-11-08] MEDS: METOPROLOL SUCCINATE 25 MG ER TABLET PO SCH (10:22)
[2019-11-08] MEDS: CloZAPine 100 MG RAPDIS TABLET PO SCH (14:52)
[2019-11-08] MEDS: SIMVASTATIN 40 MG TABLET PO SCH (20:42)
[2019-11-09 01:33] VITALS: BP 113/71
[2019-11-09] MEDS: FERROUS SULFATE 325 MG EC TABLET PO SCH ×2 (07:00→16:46)
[2019-11-09 09:00] VITALS: BP 129/69
[2019-11-09] MEDS: METOPROLOL SUCCINATE 25 MG ER TABLET PO SCH (10:58)
[2019-11-09] MEDS: LORATADINE 10 MG TABLET PO SCH (10:58)
[2019-11-09] MEDS: MULTIVITAMINS WITH IRON TABLET PO SCH (10:58)
[2019-11-09] MEDS: CloZAPine 25 MG RAPDIS TABLET PO SCH (10:58)
[2019-11-09] MEDS: ASPIRIN 81 MG CHEWABLE TABLET PO SCH (10:59)
[2019-11-09] MEDS: DIVALPROEX SODIUM 250 MG DR TABLET PO SCH ×3 (10:59→20:00)
[2019-11-09] MEDS: BENZTROPINE MESYLATE 1 MG TABLET PO SCH ×2 (10:59→16:46)
[2019-11-09] MEDS: AmLODIPine BESYLATE 10 MG TABLET PO SCH (10:59)
[2019-11-09] MEDS: FAMOTIDINE 20 MG TABLET PO SCH (11:33)
[2019-11-09] MEDS: CloZAPine 100 MG RAPDIS TABLET PO SCH (14:02)
[2019-11-09 17:16] VITALS: BP 101/89
[2019-11-09] MEDS: SIMVASTATIN 40 MG TABLET PO SCH (20:13)
[2019-11-10] MEDS: FERROUS SULFATE 325 MG EC TABLET PO SCH ×2 (06:38→17:47)
[2019-11-10 07:10] LABS: BASOPHILS % (AUTO) 0.9 % (0.0-2.0); EOSINOPHILS % (AUTO) 10.2 % (1.0-6.0); HEMATOCRIT 37.9 % (41-53); HEMOGLOBIN 12.9 g/dL (13.5-17.5); LYMPHOCYTES # (AUTO) 2.8 K/uL (1.0-4.8); LYMPHOCYTES % (AUTO) 31.6 % (22.0-44.0); MEAN CORPUSCULAR HEMOGLOBIN 30.7 pg (26.0-34.0); MEAN CORPUSCULAR HGB CONC 34.2 G/dL (31.0-37.0); MEAN CORPUSCULAR VOLUME 90 fL (80-100); MONOCYTES # (AUTO) 0.9 K/uL (0.1-1.0); NEUTROPHILS # (AUTO) 4.2 K/uL (1.8-7.7); NEUTROPHILS % (AUTO) 47.3 % (40.0-70.0); PLATELET COUNT (AUTO) 153 K/uL (150-450); RED BLOOD CELL COUNT(AUTO) 4.21 MIL/uL (4.50-5.90); RED CELL DISTRIBUTION WIDTH 14.1 % (11.5-14.5)
[2019-11-10] MEDS: MULTIVITAMINS WITH IRON TABLET PO SCH (09:19)
[2019-11-10] MEDS: LORATADINE 10 MG TABLET PO SCH (09:19)
[2019-11-10] MEDS: FAMOTIDINE 20 MG TABLET PO SCH (09:19)
[2019-11-10] MEDS: DIVALPROEX SODIUM 250 MG DR TABLET PO SCH ×3 (09:19→18:04)
[2019-11-10] MEDS: METOPROLOL SUCCINATE 25 MG ER TABLET PO SCH (09:20)
[2019-11-10] MEDS: AmLODIPine BESYLATE 10 MG TABLET PO SCH (09:20)
[2019-11-10] MEDS: CloZAPine 25 MG RAPDIS TABLET PO SCH (09:20)
[2019-11-10] MEDS: ASPIRIN 81 MG CHEWABLE TABLET PO SCH (09:20)
[2019-11-10] MEDS: BENZTROPINE MESYLATE 1 MG TABLET PO SCH ×2 (09:20→17:47)
[2019-11-10 10:06] VITALS: BP 114/64
[2019-11-10] MEDS: CloZAPine 100 MG RAPDIS TABLET PO SCH (14:26)
[2019-11-10] MEDS: SIMVASTATIN 40 MG TABLET PO SCH (21:06)
[2019-11-11] MEDS: FERROUS SULFATE 325 MG EC TABLET PO SCH ×2 (06:34→17:01)
[2019-11-11 08:00] VITALS: BP 132/70
[2019-11-11] MEDS: DIVALPROEX SODIUM 250 MG DR TABLET PO SCH ×3 (10:09→19:22)
[2019-11-11] MEDS: FAMOTIDINE 20 MG TABLET PO SCH (10:09)
[2019-11-11] MEDS: LORATADINE 10 MG TABLET PO SCH (10:09)
[2019-11-11] MEDS: BENZTROPINE MESYLATE 1 MG TABLET PO SCH ×2 (10:09→17:01)
[2019-11-11] MEDS: METOPROLOL SUCCINATE 25 MG ER TABLET PO SCH (10:10)
[2019-11-11] MEDS: ASPIRIN 81 MG CHEWABLE TABLET PO SCH (10:10)
[2019-11-11] MEDS: AmLODIPine BESYLATE 10 MG TABLET PO SCH (10:11)
[2019-11-11] MEDS: MULTIVITAMINS WITH IRON TABLET PO SCH (10:16)
[2019-11-11] MEDS: CloZAPine 25 MG RAPDIS TABLET PO SCH (10:17)
[2019-11-11] MEDS: CloZAPine 100 MG RAPDIS TABLET PO SCH (14:50)
[2019-11-11 16:30] VITALS: BP 101/68
[2019-11-11] MEDS: SIMVASTATIN 40 MG TABLET PO SCH (20:18)
[2019-11-12] MEDS: FERROUS SULFATE 325 MG EC TABLET PO SCH ×2 (06:29→17:04)
[2019-11-12 09:35] VITALS: BP 125/71
[2019-11-12] MEDS: FAMOTIDINE 20 MG TABLET PO SCH (09:52)
[2019-11-12] MEDS: AmLODIPine BESYLATE 10 MG TABLET PO SCH (09:52)
[2019-11-12] MEDS: METOPROLOL SUCCINATE 25 MG ER TABLET PO SCH (09:52)
[2019-11-12] MEDS: MULTIVITAMINS WITH IRON TABLET PO SCH (09:52)
[2019-11-12] MEDS: CloZAPine 25 MG RAPDIS TABLET PO SCH (09:52)
[2019-11-12] MEDS: DIVALPROEX SODIUM 250 MG DR TABLET PO SCH ×3 (09:53→18:20)
[2019-11-12] MEDS: LORATADINE 10 MG TABLET PO SCH (09:53)
[2019-11-12] MEDS: ASPIRIN 81 MG CHEWABLE TABLET PO SCH (09:53)
[2019-11-12] MEDS: BENZTROPINE MESYLATE 1 MG TABLET PO SCH ×2 (09:54→17:04)
[2019-11-12] MEDS: CloZAPine 100 MG RAPDIS TABLET PO SCH (14:57)
[2019-11-12 16:00] VITALS: BP 150/72
[2019-11-12] MEDS: SIMVASTATIN 40 MG TABLET PO SCH (21:11)
[2019-11-13] MEDS: FERROUS SULFATE 325 MG EC TABLET PO SCH ×2 (06:42→17:21)
[2019-11-13 09:06] VITALS: BP 143/96
[2019-11-13] MEDS: MULTIVITAMINS WITH IRON TABLET PO SCH (09:20)
[2019-11-13] MEDS: CloZAPine 25 MG RAPDIS TABLET PO SCH (09:20)
[2019-11-13] MEDS: BENZTROPINE MESYLATE 1 MG TABLET PO SCH ×2 (09:21→17:21)
[2019-11-13] MEDS: AmLODIPine BESYLATE 10 MG TABLET PO SCH (09:21)
[2019-11-13] MEDS: METOPROLOL SUCCINATE 25 MG ER TABLET PO SCH (09:21)
[2019-11-13] MEDS: ASPIRIN 81 MG CHEWABLE TABLET PO SCH (09:21)
[2019-11-13] MEDS: FAMOTIDINE 20 MG TABLET PO SCH (09:21)
[2019-11-13] MEDS: DIVALPROEX SODIUM 250 MG DR TABLET PO SCH ×3 (09:21→19:58)
[2019-11-13] MEDS: LORATADINE 10 MG TABLET PO SCH (09:24)
[2019-11-13] MEDS: CloZAPine 100 MG RAPDIS TABLET PO SCH (14:56)
[2019-11-13 16:57] VITALS: BP 128/72
[2019-11-13] MEDS: SIMVASTATIN 40 MG TABLET PO SCH (20:54)
[2019-11-14 00:39] VITALS: BP 122/70
[2019-11-14] MEDS: FERROUS SULFATE 325 MG EC TABLET PO SCH ×2 (06:42→16:58)
[2019-11-14] MEDS: METOPROLOL SUCCINATE 25 MG ER TABLET PO SCH (08:26)
[2019-11-14] MEDS: FAMOTIDINE 20 MG TABLET PO SCH (08:26)
[2019-11-14] MEDS: BENZTROPINE MESYLATE 1 MG TABLET PO SCH ×2 (08:26→16:58)
[2019-11-14] MEDS: ASPIRIN 81 MG CHEWABLE TABLET PO SCH (08:26)
[2019-11-14] MEDS: AmLODIPine BESYLATE 10 MG TABLET PO SCH (08:26)
[2019-11-14] MEDS: CloZAPine 25 MG RAPDIS TABLET PO SCH (08:26)
[2019-11-14] MEDS: LORATADINE 10 MG TABLET PO SCH (08:26)
[2019-11-14] MEDS: MULTIVITAMINS WITH IRON TABLET PO SCH (08:26)
[2019-11-14] MEDS: DIVALPROEX SODIUM 250 MG DR TABLET PO SCH ×3 (08:26→19:24)
[2019-11-14 10:03] VITALS: BP 120/62
[2019-11-14] MEDS: CloZAPine 100 MG RAPDIS TABLET PO SCH (14:54)
[2019-11-14 16:28] VITALS: BP 156/81
[2019-11-14 16:31] VITALS: BP 156/81
[2019-11-14] MEDS: SIMVASTATIN 40 MG TABLET PO SCH (20:22)
[2019-11-15] MEDS: MAGNESIUM HYDROXIDE SUSPENSION 30 ML UDCUP PO PRN (00:01)
[2019-11-15 01:08] VITALS: BP 129/76
[2019-11-15] MEDS: FERROUS SULFATE 325 MG EC TABLET PO SCH ×2 (06:56→16:44)
[2019-11-15 08:17] VITALS: BP 144/84
[2019-11-15] MEDS: FAMOTIDINE 20 MG TABLET PO SCH (09:02)
[2019-11-15] MEDS: AmLODIPine BESYLATE 10 MG TABLET PO SCH (09:02)
[2019-11-15] MEDS: MULTIVITAMINS WITH IRON TABLET PO SCH (09:02)
[2019-11-15] MEDS: METOPROLOL SUCCINATE 25 MG ER TABLET PO SCH (09:03)
[2019-11-15] MEDS: ASPIRIN 81 MG CHEWABLE TABLET PO SCH (09:03)
[2019-11-15] MEDS: LORATADINE 10 MG TABLET PO SCH (09:03)
[2019-11-15] MEDS: BENZTROPINE MESYLATE 1 MG TABLET PO SCH ×2 (09:03→16:44)
[2019-11-15] MEDS: CloZAPine 25 MG RAPDIS TABLET PO SCH (09:04)
[2019-11-15] MEDS: DIVALPROEX SODIUM 250 MG DR TABLET PO SCH ×3 (09:06→18:56)
[2019-11-15] MEDS: CloZAPine 100 MG RAPDIS TABLET PO SCH (14:27)
[2019-11-15 16:30] VITALS: BP 132/74
[2019-11-15] MEDS: SIMVASTATIN 40 MG TABLET PO SCH (20:59)
[2019-11-16] MEDS: FERROUS SULFATE 325 MG EC TABLET PO SCH ×2 (06:44→16:06)
[2019-11-16] MEDS: CloZAPine 25 MG RAPDIS TABLET PO SCH (09:00)
[2019-11-16] MEDS: BENZTROPINE MESYLATE 1 MG TABLET PO SCH ×2 (09:01→16:06)
[2019-11-16] MEDS: FAMOTIDINE 20 MG TABLET PO SCH (09:01)
[2019-11-16] MEDS: ASPIRIN 81 MG CHEWABLE TABLET PO SCH (09:02)
[2019-11-16] MEDS: DIVALPROEX SODIUM 250 MG DR TABLET PO SCH ×3 (09:02→18:16)
[2019-11-16] MEDS: LORATADINE 10 MG TABLET PO SCH (09:02)
[2019-11-16] MEDS: MULTIVITAMINS WITH IRON TABLET PO SCH (09:02)
[2019-11-16] MEDS: METOPROLOL SUCCINATE 25 MG ER TABLET PO SCH (09:02)
[2019-11-16] MEDS: AmLODIPine BESYLATE 10 MG TABLET PO SCH (09:03)
[2019-11-16] MEDS: CloZAPine 100 MG RAPDIS TABLET PO SCH (15:02)
[2019-11-16 16:00] VITALS: BP 113/59
[2019-11-16 17:19] VITALS: BP 113/59
[2019-11-16] MEDS: SIMVASTATIN 40 MG TABLET PO SCH (20:25)
[2019-11-17] MEDS: MAG HYDROX/AL HYDROX/SIMETH ES 30 ML SUSPENSION UDCUP PO PRN (02:20)
[2019-11-17] MEDS: FERROUS SULFATE 325 MG EC TABLET PO SCH ×2 (06:57→16:46)
[2019-11-17 08:00] VITALS: BP 113/59
[2019-11-17 08:26] LABS: BASOPHILS % (AUTO) 0.9 % (0.0-2.0); HEMATOCRIT 34.3 % (41-53); HEMOGLOBIN 11.8 g/dL (13.5-17.5); LYMPHOCYTES # (AUTO) 3.1 K/uL (1.0-4.8); LYMPHOCYTES % (AUTO) 36.6 % (22.0-44.0); MEAN CORPUSCULAR HEMOGLOBIN 31.1 pg (26.0-34.0); MEAN CORPUSCULAR HGB CONC 34.5 G/dL (31.0-37.0); MEAN CORPUSCULAR VOLUME 90 fL (80-100); MONOCYTES # (AUTO) 0.8 K/uL (0.1-1.0); MONOCYTES % (AUTO) 9.6 % (2.0-9.0); NEUTROPHILS # (AUTO) 3.6 K/uL (1.8-7.7); NEUTROPHILS % (AUTO) 41.9 % (40.0-70.0); PLATELET COUNT (AUTO) 174 K/uL (150-450); RED BLOOD CELL COUNT(AUTO) 3.81 MIL/uL (4.50-5.90)
[2019-11-17] MEDS: ASPIRIN 81 MG CHEWABLE TABLET PO SCH (09:14)
[2019-11-17] MEDS: AmLODIPine BESYLATE 10 MG TABLET PO SCH (09:14)
[2019-11-17] MEDS: DIVALPROEX SODIUM 250 MG DR TABLET PO SCH ×3 (09:15→19:25)
[2019-11-17] MEDS: FAMOTIDINE 20 MG TABLET PO SCH (09:15)
[2019-11-17] MEDS: MULTIVITAMINS WITH IRON TABLET PO SCH (09:15)
[2019-11-17] MEDS: LORATADINE 10 MG TABLET PO SCH (09:15)
[2019-11-17] MEDS: METOPROLOL SUCCINATE 25 MG ER TABLET PO SCH (09:15)
[2019-11-17] MEDS: BENZTROPINE MESYLATE 1 MG TABLET PO SCH ×2 (09:15→16:46)
[2019-11-17] MEDS: CloZAPine 25 MG RAPDIS TABLET PO SCH (09:15)
[2019-11-17 09:24] VITALS: BP 132/65
[2019-11-17] MEDS: CloZAPine 100 MG RAPDIS TABLET PO SCH (14:05)
[2019-11-17 17:02] VITALS: BP 110/66
[2019-11-17] MEDS: SIMVASTATIN 40 MG TABLET PO SCH (20:18)
[2019-11-18 00:02] VITALS: BP 153/77
[2019-11-18] MEDS: FERROUS SULFATE 325 MG EC TABLET PO SCH ×2 (06:49→17:01)
[2019-11-18 08:00] VITALS: BP 132/76
[2019-11-18] MEDS: MULTIVITAMINS WITH IRON TABLET PO SCH (09:38)
[2019-11-18] MEDS: DIVALPROEX SODIUM 250 MG DR TABLET PO SCH ×3 (09:38→19:03)
[2019-11-18] MEDS: METOPROLOL SUCCINATE 25 MG ER TABLET PO SCH (09:39)
[2019-11-18] MEDS: LORATADINE 10 MG TABLET PO SCH (09:40)
[2019-11-18] MEDS: BENZTROPINE MESYLATE 1 MG TABLET PO SCH ×2 (09:40→17:01)
[2019-11-18] MEDS: FAMOTIDINE 20 MG TABLET PO SCH (09:40)
[2019-11-18] MEDS: CloZAPine 25 MG RAPDIS TABLET PO SCH (09:40)
[2019-11-18] MEDS: ASPIRIN 81 MG CHEWABLE TABLET PO SCH (09:40)
[2019-11-18] MEDS: AmLODIPine BESYLATE 10 MG TABLET PO SCH (09:42)
[2019-11-18] MEDS: CloZAPine 100 MG RAPDIS TABLET PO SCH (14:45)
[2019-11-18 16:29] VITALS: BP 125/70
[2019-11-18] MEDS: SIMVASTATIN 40 MG TABLET PO SCH (20:10)
[2019-11-19] MEDS: FERROUS SULFATE 325 MG EC TABLET PO SCH ×2 (06:47→16:31)
[2019-11-19 08:55] VITALS: BP 124/69
[2019-11-19] MEDS: ASPIRIN 81 MG CHEWABLE TABLET PO SCH (09:48)
[2019-11-19] MEDS: LORATADINE 10 MG TABLET PO SCH (09:48)
[2019-11-19] MEDS: DIVALPROEX SODIUM 250 MG DR TABLET PO SCH ×3 (09:49→19:35)
[2019-11-19] MEDS: MULTIVITAMINS WITH IRON TABLET PO SCH (09:49)
[2019-11-19] MEDS: METOPROLOL SUCCINATE 25 MG ER TABLET PO SCH (09:49)
[2019-11-19] MEDS: AmLODIPine BESYLATE 10 MG TABLET PO SCH (09:50)
[2019-11-19] MEDS: FAMOTIDINE 20 MG TABLET PO SCH (09:50)
[2019-11-19] MEDS: CloZAPine 25 MG RAPDIS TABLET PO SCH (09:50)
[2019-11-19] MEDS: BENZTROPINE MESYLATE 1 MG TABLET PO SCH ×2 (09:50→16:31)
[2019-11-19] MEDS: CloZAPine 100 MG RAPDIS TABLET PO SCH (14:05)
[2019-11-19 16:09] VITALS: BP 130/80
[2019-11-19] MEDS: SIMVASTATIN 40 MG TABLET PO SCH (20:10)
[2019-11-20] MEDS: FERROUS SULFATE 325 MG EC TABLET PO SCH ×2 (06:57→17:02)
[2019-11-20 08:00] VITALS: BP 109/56
[2019-11-20] MEDS: CloZAPine 25 MG RAPDIS TABLET PO SCH (09:47)
[2019-11-20] MEDS: DIVALPROEX SODIUM 250 MG DR TABLET PO SCH ×3 (09:47→19:44)
[2019-11-20] MEDS: BENZTROPINE MESYLATE 1 MG TABLET PO SCH ×2 (09:48→17:02)
[2019-11-20] MEDS: METOPROLOL SUCCINATE 25 MG ER TABLET PO SCH (09:48)
[2019-11-20] MEDS: LORATADINE 10 MG TABLET PO SCH (09:48)
[2019-11-20] MEDS: AmLODIPine BESYLATE 10 MG TABLET PO SCH (09:48)
[2019-11-20] MEDS: FAMOTIDINE 20 MG TABLET PO SCH (09:48)
[2019-11-20] MEDS: MULTIVITAMINS WITH IRON TABLET PO SCH (09:48)
[2019-11-20] MEDS: ASPIRIN 81 MG CHEWABLE TABLET PO SCH (09:48)
[2019-11-20] MEDS: CloZAPine 100 MG RAPDIS TABLET PO SCH (14:51)
[2019-11-20 16:43] VITALS: BP 130/78
[2019-11-20] MEDS: SIMVASTATIN 40 MG TABLET PO SCH (20:41)
[2019-11-21] MEDS: FERROUS SULFATE 325 MG EC TABLET PO SCH ×2 (06:55→17:49)
[2019-11-21 09:23] VITALS: BP 125/66
[2019-11-21] MEDS: MULTIVITAMINS WITH IRON TABLET PO SCH (10:30)
[2019-11-21] MEDS: FAMOTIDINE 20 MG TABLET PO SCH (10:30)
[2019-11-21] MEDS: ASPIRIN 81 MG CHEWABLE TABLET PO SCH (10:30)
[2019-11-21] MEDS: AmLODIPine BESYLATE 10 MG TABLET PO SCH (10:30)
[2019-11-21] MEDS: DIVALPROEX SODIUM 250 MG DR TABLET PO SCH ×3 (10:30→19:53)
[2019-11-21] MEDS: CloZAPine 25 MG RAPDIS TABLET PO SCH (10:30)
[2019-11-21] MEDS: LORATADINE 10 MG TABLET PO SCH (10:30)
[2019-11-21] MEDS: METOPROLOL SUCCINATE 25 MG ER TABLET PO SCH (10:31)
[2019-11-21] MEDS: BENZTROPINE MESYLATE 1 MG TABLET PO SCH ×2 (10:31→17:49)
[2019-11-21] MEDS: CloZAPine 100 MG RAPDIS TABLET PO SCH (15:35)
[2019-11-21 16:23] VITALS: BP 113/62
[2019-11-21] MEDS: SIMVASTATIN 40 MG TABLET PO SCH (20:00)
[2019-11-22] MEDS: FERROUS SULFATE 325 MG EC TABLET PO SCH ×2 (07:10→16:40)
[2019-11-22 08:49] VITALS: BP 122/61
[2019-11-22] MEDS: MULTIVITAMINS WITH IRON TABLET PO SCH (10:46)
[2019-11-22] MEDS: METOPROLOL SUCCINATE 25 MG ER TABLET PO SCH (10:46)
[2019-11-22] MEDS: DIVALPROEX SODIUM 250 MG DR TABLET PO SCH ×3 (10:47→19:48)
[2019-11-22] MEDS: ASPIRIN 81 MG CHEWABLE TABLET PO SCH (10:47)
[2019-11-22] MEDS: CloZAPine 25 MG RAPDIS TABLET PO SCH (10:47)
[2019-11-22] MEDS: FAMOTIDINE 20 MG TABLET PO SCH (10:47)
[2019-11-22] MEDS: LORATADINE 10 MG TABLET PO SCH (10:47)
[2019-11-22] MEDS: AmLODIPine BESYLATE 10 MG TABLET PO SCH (10:47)
[2019-11-22] MEDS: BENZTROPINE MESYLATE 1 MG TABLET PO SCH ×2 (10:47→16:40)
[2019-11-22] MEDS: CloZAPine 100 MG RAPDIS TABLET PO SCH (15:18)
[2019-11-22 16:23] VITALS: BP 122/68
[2019-11-22 16:24] VITALS: BP 122/68
[2019-11-22] MEDS: SIMVASTATIN 40 MG TABLET PO SCH (20:18)
[2019-11-23 06:19] VITALS: BP 118/65
[2019-11-23] MEDS: FERROUS SULFATE 325 MG EC TABLET PO SCH (06:53)
[2019-11-23] MEDS: FAMOTIDINE 20 MG TABLET PO SCH (08:52)
[2019-11-23] MEDS: MULTIVITAMINS WITH IRON TABLET PO SCH (08:52)
[2019-11-23] MEDS: ASPIRIN 81 MG CHEWABLE TABLET PO SCH (08:53)
[2019-11-23] MEDS: DIVALPROEX SODIUM 250 MG DR TABLET PO SCH (08:53)
[2019-11-23] MEDS: LORATADINE 10 MG TABLET PO SCH (08:53)
[2019-11-23] MEDS: CloZAPine 25 MG RAPDIS TABLET PO SCH (08:53)
[2019-11-23] MEDS: BENZTROPINE MESYLATE 1 MG TABLET PO SCH (08:53)
[2019-11-23] MEDS: METOPROLOL SUCCINATE 25 MG ER TABLET PO SCH (09:08)
[2019-11-23] MEDS: AmLODIPine BESYLATE 10 MG TABLET PO SCH (09:09)
[2019-11-23] MEDS: IBUPROFEN 400 MG TABLET PO PRN (11:49)
[2019-11-23] MEDS: ACETAMINOPHEN 325 MG TABLET PO PRN (11:49)
[2019-11-23 13:27] LABS: COVID AG,FIA SOURCE NASOPHARYNGEAL
== END 2019-11-23 13:20 | disposition short-term general hospital (02) | DRG 885 ==
LOC: 3EC 16:15 → 3EI 07-26 23:02 → 6N 11-23 12:42
PROVIDERS: ADMIT Psychiatry & Neurology Child & Adolescent Psychiatry; ATTEND Psychiatry & Neurology Child & Adolescent Psychiatry
DX: F25.0 Schizoaffective disorder, bipolar type (principal); U07.1 COVID-19; I10 Essential (primary) hypertension; E78.5 Hyperlipidemia, unspecified; E11.9 Type 2 diabetes mellitus without complications; F19.10 Other psychoactive substance abuse, uncomplicated; D64.9 Anemia, unspecified; Z91.19 Patient's noncompliance with other medical treatment and regimen
CPT/HCPCS: 80159; 87081; 87426; 92610; J1200; J1630; J2060

== ENCOUNTER 2022-02-14 11:26 | Inpatient (IN) | payer MEDICARE, MEDICAID ==
[~2022-02-14] VITALS: Ht 182.9 cm; Wt 72.7 kg
[~2022-02-14 11:26] MED LIST changes: -ARIP15TA2 PO; +ARIP15TA27 PO; -FERR-89 PO; +FERR325T27 PO
[2022-02-14] MEDS ORDERED: MULT-1203 PO (11:48)
[2022-02-14] MEDS ORDERED: PROP1DRO4 IO (11:48)
[2022-02-14] MEDS ORDERED: MAGN-169 PO (11:48)
[2022-02-14] MEDS ORDERED: ARIP10TA38 PO (11:48)
[2022-02-14] MEDS ORDERED: CLOZ25TA55 PO (11:48)
[2022-02-14] MEDS ORDERED: RISP1SOL11 PO (11:48)
[2022-02-14] MEDS ORDERED: MIRT-149 PO (11:48)
[2022-02-14] MEDS ORDERED: DIVA125C20 PO (11:48)
[2022-02-14 12:12] LABS: COVID AG,FIA SOURCE NASOPHARYNGEAL
[2022-02-14 12:14] LABS: BASOPHILS % (AUTO) 0.6 % (0.0-2.0); EOSINOPHILS % (AUTO) 2.4 % (1.0-6.0); HEMATOCRIT 36.9 % (41-53); HEMOGLOBIN 12.5 g/dL (13.5-17.5); LYMPHOCYTES # (AUTO) 2.5 K/uL (1.0-4.8); LYMPHOCYTES % (AUTO) 25.7 % (22.0-44.0); MEAN CORPUSCULAR HEMOGLOBIN 30.2 pg (26.0-34.0); MEAN CORPUSCULAR HGB CONC 33.8 G/dL (31.0-37.0); MEAN CORPUSCULAR VOLUME 89 fL (80-100); MONOCYTES # (AUTO) 0.7 K/uL (0.1-1.0); MONOCYTES % (AUTO) 7.1 % (2.0-9.0); NEUTROPHILS # (AUTO) 6.2 K/uL (1.8-7.7); NEUTROPHILS % (AUTO) 64.2 % (40.0-70.0); PLATELET COUNT (AUTO) 285 K/uL (150-450); RED BLOOD CELL COUNT(AUTO) 4.13 MIL/uL (4.50-5.90); RED CELL DISTRIBUTION WIDTH 15.5 % (11.5-14.5)
[2022-02-14 12:22] LABS: ANION GAP 4 mmol/L (8-16); CALCIUM, TOTAL 9.4 mg/dL (8.8-10.5); CARBON DIOXIDE 28 mmol/L (22-29); CHLORIDE 105 mmol/L (98-107); CREATININE 0.91 mg/dL (0.60-1.30); GLUCOSE,RANDOM 120 mg/dL (70-110); POTASSIUM 5.1 mmol/L (3.5-5.1); SODIUM SERUM 137 mmol/L (136-145); UREA NITROGEN, BLOOD 19 mg/dL (7-18)
[2022-02-14 12:23] LABS: GLOMERULAR FILTR. RATE CALC > 60 mL/min (>60)
[2022-02-14 12:27] LABS: ALANINE AMINOTRANSFERASE 24 U/L (12-78); ALBUMIN 3.5 g/dL (3.4-5.0); ALKALINE PHOSPHATASE 68 U/L (46-116); ASPARTATE AMINOTRANSFERASE 18 U/L (15-37); BILIRUBIN,TOTAL 0.3 mg/dL (0.1-1.0); TOTAL PROTEIN, SERUM 6.9 g/dL (6.4-8.2); VALPROIC ACID 27 mcg/mL (50-100)
[2022-02-14 12:39] LABS: APPEARANCE,URINE CLEAR (CLEAR); BILIRUBIN,URINE NEGATIVE (NEGATIVE); GLUCOSE, URINE (UA) NEGATIVE (NEGATIVE); KETONES,URINE NEGATIVE (NEGATIVE); LEUKOCYTE ESTERASE ,URINE NEGATIVE (NEGATIVE); NITRATE,URINE NEGATIVE (NEGATIVE); OCCULT BLOOD,URINE NEGATIVE (NEGATIVE); PH,URINE 5.5 (5.0-8.0); PROTEIN,URINE TRACE mg/dL (NEGATIVE); SPECIFIC GRAVITIY, URINE 1.023 (1.003-1.030); UROBILINOGEN,URINE <=1.0 mg/dL (<=1.0)
[2022-02-14 12:43] LABS: AMPHET/METH SCREEN,URINE NEGATIVE (NEGATIVE); BARBITURATE SCREEN, URINE NEGATIVE (NEGATIVE); BENZODIAZEPINES SCREEN,URINE NEGATIVE (NEGATIVE); CANNABINOID SCREEN,URINE NEGATIVE (NEGATIVE); COCAINE SCREEN,URINE NEGATIVE (NEGATIVE); METHADONE SCREEN, URINE NEGATIVE (NEGATIVE); OPIATE SCREEN,URINE NEGATIVE (NEGATIVE); PHENCYCLIDINE SCREEN,URINE NEGATIVE (NEGATIVE)
[2022-02-14] MEDS ORDERED: LORazepam 2 MG TABLET PO PRN (12:45)
[2022-02-14 17:00] VITALS: BP 167/81
[2022-02-14] MEDS ORDERED: IBUPROFEN 400 MG TABLET PO PRN (17:00)
[2022-02-14] MEDS ORDERED: MAGNESIUM HYDROXIDE SUSPENSION 30 ML UDCUP PO PRN (17:00)
[2022-02-14] MEDS ORDERED: LOPERAMIDE HCL 2 MG CAPSULE PO PRN (17:00)
[2022-02-14] MEDS ORDERED: DOCUSATE SODIUM 100 MG CAPSULE PO PRN (17:00)
[2022-02-14] MEDS ORDERED: PETROLATUM,WHITE 28 GM JELLY TP PRN (17:00)
[2022-02-14] MEDS ORDERED: ALBUTEROL SULFATE HFA 90 MCG/PUFF 8 GM INHALER IH PRN (17:00)
[2022-02-14] MEDS ORDERED: CloNIDine HCL 0.1 MG TABLET PO PRN (17:00)
[2022-02-14] MEDS ORDERED: GuaiFENesin/D-METHORPHAN [SUGAR-FREE] 200-20MG/10 ML SYRUP UDCUP PO PRN (17:00)
[2022-02-14] MEDS ORDERED: MAG HYDROX/AL HYDROX/SIMETH ES 30 ML SUSPENSION UDCUP PO PRN (17:00)
[2022-02-14] MEDS ORDERED: NICOTINE 14 MG/24 HOUR PATCH TD PRN (17:00)
[2022-02-14] MEDS ORDERED: ACETAMINOPHEN 325 MG TABLET PO PRN (17:00)
[2022-02-14] MEDS ORDERED: ONDANSETRON HCL 4 MG TABLET PO PRN (17:00)
[2022-02-14] MEDS ORDERED: INFLUENZA VIRUS VACCINE QVS 2022-23 (6MO+)/PF 60 MCG/0.5 ML SYRINGE IM. ONE (17:45)
[2022-02-14] MEDS: HALOPERIDOL 5 MG TABLET PO PRN (20:56)
[2022-02-15] MEDS: HALOPERIDOL 5 MG TABLET PO PRN (01:00)
[2022-02-15 08:00] VITALS: BP 165/90
[2022-02-15] MEDS: MULTIVITAMINS, THERAPEUTIC TABLET PO SCH (08:35)
[2022-02-15] MEDS: ARIPiprazole 10 MG TABLET PO SCH (15:17)
[2022-02-15 16:08] VITALS: BP 149/84
[2022-02-15] MEDS: DIVALPROEX SODIUM 125 MG DR CAPSULE PO SCH (16:33)
[2022-02-15] MEDS: CloZAPine 25 MG TABLET PO SCH (20:16)
[2022-02-15] MEDS: MIRTAZAPINE 30 MG TABLET PO SCH (20:16)
[2022-02-16] MEDS: ARIPiprazole 10 MG TABLET PO SCH (08:23)
[2022-02-16] MEDS: MULTIVITAMINS, THERAPEUTIC TABLET PO SCH (08:23)
[2022-02-16] MEDS: DIVALPROEX SODIUM 125 MG DR CAPSULE PO SCH ×4 (08:23→17:00)
[2022-02-16] MEDS: CloZAPine 25 MG TABLET PO SCH ×2 (08:23→20:57)
[2022-02-16] MEDS: MIRTAZAPINE 30 MG TABLET PO SCH (20:57)
[2022-02-17 08:24] VITALS: BP 132/77
[2022-02-17] MEDS: CloZAPine 25 MG TABLET PO SCH ×2 (09:00→21:14)
[2022-02-17] MEDS: DIVALPROEX SODIUM 125 MG DR CAPSULE PO SCH ×3 (09:00→17:00)
[2022-02-17] MEDS: ARIPiprazole 10 MG TABLET PO SCH (09:54)
[2022-02-17] MEDS: MULTIVITAMINS, THERAPEUTIC TABLET PO SCH (09:54)
[2022-02-17 16:09] VITALS: BP 131/71
[2022-02-17 21:01] VITALS: BP 153/75
[2022-02-17] MEDS: MIRTAZAPINE 30 MG TABLET PO SCH (21:14)
[2022-02-18] MEDS: ARIPiprazole 10 MG TABLET PO SCH (09:00)
[2022-02-18] MEDS: CloZAPine 25 MG TABLET PO SCH ×2 (09:00→21:05)
[2022-02-18] MEDS: MULTIVITAMINS, THERAPEUTIC TABLET PO SCH (09:00)
[2022-02-18] MEDS: DIVALPROEX SODIUM 125 MG DR CAPSULE PO SCH ×3 (09:00→17:47)
[2022-02-18] MEDS: ChlorproMAZINE HCL 50 MG/2 ML AMP IM PRN (09:43)
[2022-02-18 10:10] VITALS: BP 139/59
[2022-02-18 16:07] VITALS: BP 141/75
[2022-02-18] MEDS: MIRTAZAPINE 30 MG TABLET PO SCH (21:05)
[2022-02-19] MEDS: MULTIVITAMINS, THERAPEUTIC TABLET PO SCH (08:29)
[2022-02-19] MEDS: CloZAPine 25 MG TABLET PO SCH ×2 (08:30→20:29)
[2022-02-19] MEDS: DIVALPROEX SODIUM 125 MG DR CAPSULE PO SCH ×3 (08:31→16:54)
[2022-02-19] MEDS: ARIPiprazole 10 MG TABLET PO SCH (08:31)
[2022-02-19 08:45] VITALS: BP 146/60
[2022-02-19 16:26] VITALS: BP 167/97
[2022-02-19] MEDS: MIRTAZAPINE 30 MG TABLET PO SCH (20:29)
[2022-02-20 07:32] LABS: COVID AG,FIA SOURCE NASAL SWAB
[2022-02-20 08:45] VITALS: BP 148/72
[2022-02-20] MEDS: ARIPiprazole 10 MG TABLET PO SCH (08:53)
[2022-02-20] MEDS: MULTIVITAMINS, THERAPEUTIC TABLET PO SCH (08:53)
[2022-02-20] MEDS: CloZAPine 25 MG TABLET PO SCH ×2 (08:54→20:38)
[2022-02-20] MEDS: DIVALPROEX SODIUM 125 MG DR CAPSULE PO SCH ×3 (08:59→17:04)
[2022-02-20] MEDS ORDERED: HALOPERIDOL LACTATE 5 MG/ML VIAL IM PRN (09:00)
[2022-02-20 16:56] VITALS: BP 156/78
[2022-02-20] MEDS: MIRTAZAPINE 30 MG TABLET PO SCH (20:38)
[2022-02-21 07:18] LABS: BASOPHILS % (AUTO) 0.6 % (0.0-2.0); EOSINOPHILS % (AUTO) 3.3 % (1.0-6.0); HEMATOCRIT 35.7 % (41-53); HEMOGLOBIN 12.1 g/dL (13.5-17.5); LYMPHOCYTES % (AUTO) 34.1 % (22.0-44.0); MEAN CORPUSCULAR HEMOGLOBIN 30.2 pg (26.0-34.0); MEAN CORPUSCULAR VOLUME 89 fL (80-100); MONOCYTES # (AUTO) 0.9 K/uL (0.1-1.0); NEUTROPHILS # (AUTO) 4.4 K/uL (1.8-7.7); PLATELET COUNT (AUTO) 267 K/uL (150-450); RED BLOOD CELL COUNT(AUTO) 4.02 MIL/uL (4.50-5.90); RED CELL DISTRIBUTION WIDTH 14.9 % (11.5-14.5)
[2022-02-21 08:00] VITALS: BP 125/64
[2022-02-21] MEDS: CloZAPine 25 MG TABLET PO SCH ×2 (09:39→21:21)
[2022-02-21] MEDS: ARIPiprazole 10 MG TABLET PO SCH (09:39)
[2022-02-21] MEDS: DIVALPROEX SODIUM 125 MG DR CAPSULE PO SCH ×4 (09:39→17:31)
[2022-02-21] MEDS: MULTIVITAMINS, THERAPEUTIC TABLET PO SCH (09:40)
[2022-02-21 12:40] VITALS: BP 125/65
[2022-02-21 16:03] VITALS: BP 110/81
[2022-02-21] MEDS: MIRTAZAPINE 30 MG TABLET PO SCH (21:18)
[2022-02-22 08:00] VITALS: BP 162/77
[2022-02-22] MEDS: ARIPiprazole 10 MG TABLET PO SCH (09:00)
[2022-02-22] MEDS: CloZAPine 25 MG TABLET PO SCH ×2 (09:00→20:29)
[2022-02-22] MEDS: MULTIVITAMINS, THERAPEUTIC TABLET PO SCH (09:00)
[2022-02-22] MEDS: ChlorproMAZINE HCL 50 MG/2 ML AMP IM PRN (09:55)
[2022-02-22] MEDS: DIVALPROEX SODIUM 125 MG DR CAPSULE PO SCH ×3 (09:55→17:57)
[2022-02-22 16:10] VITALS: BP 131/68
[2022-02-22] MEDS: MIRTAZAPINE 30 MG TABLET PO SCH (20:29)
[2022-02-23 08:20] VITALS: BP 155/78
[2022-02-23] MEDS: CloZAPine 25 MG TABLET PO SCH (10:25)
[2022-02-23] MEDS: MULTIVITAMINS, THERAPEUTIC TABLET PO SCH (10:25)
[2022-02-23] MEDS: ARIPiprazole 10 MG TABLET PO SCH (10:25)
[2022-02-23] MEDS: DIVALPROEX SODIUM 125 MG DR CAPSULE PO SCH ×3 (10:25→18:21)
[2022-02-23] MEDS ORDERED: ARIPiprazole LAUROXIL ER SUSPENSION 882 MG/3.2 ML SYRINGE IM ONE (11:30)
[2022-02-23] MEDS ORDERED: ARIPiprazole LAUROXIL,SUBMICR. ER SUSPENSION 675 MG/2.4 ML SYRINGE IM ONE (11:30)
[2022-02-23 17:48] VITALS: BP 155/77
[2022-02-23] MEDS: CloZAPine 25 MG RAPDIS TABLET PO SCH (20:41)
[2022-02-23] MEDS: MIRTAZAPINE 30 MG TABLET PO SCH (20:42)
[2022-02-24] MEDS: MULTIVITAMINS, THERAPEUTIC TABLET PO SCH (08:50)
[2022-02-24] MEDS: CloZAPine 25 MG RAPDIS TABLET PO SCH ×2 (08:50→20:25)
[2022-02-24] MEDS: DIVALPROEX SODIUM 125 MG DR CAPSULE PO SCH ×5 (09:15→17:00)
[2022-02-24 09:24] VITALS: BP 168/90
[2022-02-24 16:13] VITALS: BP 136/75
[2022-02-24] MEDS: MIRTAZAPINE 30 MG TABLET PO SCH (20:26)
[2022-02-24] MEDS: ZOLPIDEM TARTRATE 10 MG TABLET PO PRN (21:00)
[2022-02-25 09:41] VITALS: BP 133/77
[2022-02-25] MEDS: DIVALPROEX SODIUM 125 MG DR CAPSULE PO SCH ×3 (10:42→17:00)
[2022-02-25] MEDS: CloZAPine 25 MG RAPDIS TABLET PO SCH ×2 (10:43→20:23)
[2022-02-25] MEDS: MULTIVITAMINS, THERAPEUTIC TABLET PO SCH (10:44)
[2022-02-25 16:17] VITALS: BP 144/68
[2022-02-25] MEDS: MIRTAZAPINE 30 MG TABLET PO SCH (20:24)
[2022-02-26] MEDS: CloZAPine 25 MG RAPDIS TABLET PO SCH ×2 (10:09→20:28)
[2022-02-26] MEDS: DIVALPROEX SODIUM 125 MG DR CAPSULE PO SCH ×3 (10:09→17:22)
[2022-02-26] MEDS: MULTIVITAMINS, THERAPEUTIC TABLET PO SCH (10:10)
[2022-02-26 10:12] VITALS: BP 150/84
[2022-02-26 16:13] VITALS: BP 134/65
[2022-02-26] MEDS: MIRTAZAPINE 30 MG TABLET PO SCH (20:28)
[2022-02-27 08:01] LABS: COVID AG,FIA SOURCE NASAL SWAB
[2022-02-27] MEDS: CloZAPine 25 MG RAPDIS TABLET PO SCH ×2 (08:40→20:49)
[2022-02-27] MEDS: MULTIVITAMINS, THERAPEUTIC TABLET PO SCH (08:40)
[2022-02-27] MEDS: DIVALPROEX SODIUM 125 MG DR CAPSULE PO SCH ×3 (08:41→17:30)
[2022-02-27 09:26] VITALS: BP 146/85
[2022-02-27 16:00] VITALS: BP 151/76
[2022-02-27] MEDS: MIRTAZAPINE 30 MG TABLET PO SCH (20:50)
[2022-02-28] MEDS: CloZAPine 25 MG RAPDIS TABLET PO SCH ×2 (08:54→20:32)
[2022-02-28] MEDS: DIVALPROEX SODIUM 125 MG DR CAPSULE PO SCH ×3 (08:54→16:20)
[2022-02-28] MEDS: MULTIVITAMINS, THERAPEUTIC TABLET PO SCH (08:55)
[2022-02-28 09:00] VITALS: BP 146/78
[2022-02-28 16:18] VITALS: BP 141/69
[2022-02-28] MEDS: ZOLPIDEM TARTRATE 10 MG TABLET PO PRN (20:35)
[2022-02-28] MEDS: MIRTAZAPINE 30 MG TABLET PO SCH (20:35)
[2022-03-01 09:00] VITALS: BP 149/70
[2022-03-01] MEDS: MULTIVITAMINS, THERAPEUTIC TABLET PO SCH (09:07)
[2022-03-01] MEDS: DIVALPROEX SODIUM 125 MG DR CAPSULE PO SCH ×3 (09:07→16:28)
[2022-03-01] MEDS: CloZAPine 25 MG RAPDIS TABLET PO SCH ×2 (09:09→20:24)
[2022-03-01 16:00] VITALS: BP 154/70
[2022-03-01] MEDS: MIRTAZAPINE 30 MG TABLET PO SCH (20:24)
[2022-03-02 08:49] VITALS: BP 122/78
[2022-03-02] MEDS: DIVALPROEX SODIUM 125 MG DR CAPSULE PO SCH ×3 (09:46→16:12)
[2022-03-02] MEDS: CloZAPine 25 MG RAPDIS TABLET PO SCH ×2 (09:46→20:43)
[2022-03-02] MEDS: MULTIVITAMINS, THERAPEUTIC TABLET PO SCH (09:47)
[2022-03-02 16:02] VITALS: BP 126/74
[2022-03-02] MEDS: MIRTAZAPINE 30 MG TABLET PO SCH (20:43)
[2022-03-03 08:59] VITALS: BP 151/74
[2022-03-03] MEDS: CloZAPine 25 MG RAPDIS TABLET PO SCH ×2 (11:20→20:56)
[2022-03-03] MEDS: MULTIVITAMINS, THERAPEUTIC TABLET PO SCH (11:21)
[2022-03-03] MEDS: DIVALPROEX SODIUM 125 MG DR CAPSULE PO SCH ×3 (11:24→18:19)
[2022-03-03 16:28] VITALS: BP 144/72
[2022-03-03] MEDS: MIRTAZAPINE 30 MG TABLET PO SCH (20:56)
[2022-03-04] MEDS: DIVALPROEX SODIUM 125 MG DR CAPSULE PO SCH ×3 (08:49→17:32)
[2022-03-04] MEDS: CloZAPine 25 MG RAPDIS TABLET PO SCH ×2 (08:49→20:20)
[2022-03-04] MEDS: MULTIVITAMINS, THERAPEUTIC TABLET PO SCH (08:49)
[2022-03-04 09:33] VITALS: BP 124/75
[2022-03-04] MEDS: MIRTAZAPINE 30 MG TABLET PO SCH (20:20)
[2022-03-05 06:45] LABS: BASOPHILS % (AUTO) 0.5 % (0.0-2.0); HEMATOCRIT 37.1 % (41-53); HEMOGLOBIN 12.2 g/dL (13.5-17.5); LYMPHOCYTES # (AUTO) 3.1 K/uL (1.0-4.8); LYMPHOCYTES % (AUTO) 32.3 % (22.0-44.0); MEAN CORPUSCULAR HEMOGLOBIN 29.2 pg (26.0-34.0); MEAN CORPUSCULAR HGB CONC 32.8 G/dL (31.0-37.0); MEAN CORPUSCULAR VOLUME 89 fL (80-100); MONOCYTES # (AUTO) 0.7 K/uL (0.1-1.0); MONOCYTES % (AUTO) 7.4 % (2.0-9.0); NEUTROPHILS # (AUTO) 5.3 K/uL (1.8-7.7); NEUTROPHILS % (AUTO) 55.8 % (40.0-70.0); PLATELET COUNT (AUTO) 306 K/uL (150-450); RED BLOOD CELL COUNT(AUTO) 4.17 MIL/uL (4.50-5.90); RED CELL DISTRIBUTION WIDTH 14.6 % (11.5-14.5)
[2022-03-05 09:00] VITALS: BP 151/83
[2022-03-05] MEDS: MULTIVITAMINS, THERAPEUTIC TABLET PO SCH (09:05)
[2022-03-05] MEDS: CloZAPine 25 MG RAPDIS TABLET PO SCH ×2 (09:06→20:23)
[2022-03-05] MEDS: DIVALPROEX SODIUM 125 MG DR CAPSULE PO SCH ×3 (09:07→16:20)
[2022-03-05 16:15] VITALS: BP 155/89
[2022-03-05] MEDS: MIRTAZAPINE 30 MG TABLET PO SCH (20:23)
[2022-03-06 06:43] LABS: COVID AG,FIA SOURCE NASAL SWAB
[2022-03-06] MEDS: MULTIVITAMINS, THERAPEUTIC TABLET PO SCH (08:52)
[2022-03-06] MEDS: DIVALPROEX SODIUM 125 MG DR CAPSULE PO SCH ×3 (08:53→16:44)
[2022-03-06] MEDS: CloZAPine 25 MG RAPDIS TABLET PO SCH ×2 (08:54→20:24)
[2022-03-06 16:24] VITALS: BP 156/88
[2022-03-06] MEDS: MIRTAZAPINE 30 MG TABLET PO SCH (20:24)
[2022-03-07] MEDS: DIVALPROEX SODIUM 125 MG DR CAPSULE PO SCH ×3 (08:09→16:56)
[2022-03-07] MEDS: CloZAPine 25 MG RAPDIS TABLET PO SCH ×2 (08:09→21:11)
[2022-03-07] MEDS: MULTIVITAMINS, THERAPEUTIC TABLET PO SCH (08:09)
[2022-03-07 09:06] VITALS: BP 146/72
[2022-03-07 16:11] VITALS: BP 139/69
[2022-03-07] MEDS: MIRTAZAPINE 30 MG TABLET PO SCH (21:11)
[2022-03-08 08:48] VITALS: BP 126/65
[2022-03-08] MEDS: CloZAPine 25 MG RAPDIS TABLET PO SCH ×2 (09:26→20:53)
[2022-03-08] MEDS: MULTIVITAMINS, THERAPEUTIC TABLET PO SCH (09:26)
[2022-03-08] MEDS: DIVALPROEX SODIUM 125 MG DR CAPSULE PO SCH ×3 (09:36→17:16)
[2022-03-08 16:09] VITALS: BP 139/58
[2022-03-08] MEDS: MIRTAZAPINE 30 MG TABLET PO SCH (20:53)
[2022-03-09 08:19] VITALS: BP 148/81
[2022-03-09] MEDS: CloZAPine 25 MG RAPDIS TABLET PO SCH ×2 (08:32→20:21)
[2022-03-09] MEDS: DIVALPROEX SODIUM 125 MG DR CAPSULE PO SCH ×3 (08:32→16:41)
[2022-03-09] MEDS: MULTIVITAMINS, THERAPEUTIC TABLET PO SCH (08:33)
[2022-03-09] MEDS: MUPIROCIN CALCIUM 2% 22 GM OINTMENT NASAL SCH (16:27)
[2022-03-09 17:21] VITALS: BP 146/62
[2022-03-09] MEDS: MIRTAZAPINE 30 MG TABLET PO SCH (20:21)
[2022-03-10] MEDS: MULTIVITAMINS, THERAPEUTIC TABLET PO SCH (08:50)
[2022-03-10] MEDS: DIVALPROEX SODIUM 125 MG DR CAPSULE PO SCH ×3 (08:51→17:26)
[2022-03-10] MEDS: CloZAPine 25 MG RAPDIS TABLET PO SCH ×2 (08:52→20:53)
[2022-03-10] MEDS: MUPIROCIN CALCIUM 2% 22 GM OINTMENT NASAL SCH ×2 (08:53→17:26)
[2022-03-10 16:10] VITALS: BP 141/61
[2022-03-10] MEDS: MIRTAZAPINE 30 MG TABLET PO SCH (20:53)
[2022-03-11 08:00] VITALS: BP 136/67
[2022-03-11] MEDS: MULTIVITAMINS, THERAPEUTIC TABLET PO SCH (08:52)
[2022-03-11] MEDS: CloZAPine 25 MG RAPDIS TABLET PO SCH ×2 (08:52→20:23)
[2022-03-11] MEDS: DIVALPROEX SODIUM 125 MG DR CAPSULE PO SCH ×3 (08:53→16:42)
[2022-03-11] MEDS: MUPIROCIN CALCIUM 2% 22 GM OINTMENT NASAL SCH ×2 (08:54→16:43)
[2022-03-11 09:00] VITALS: BP 122/88
[2022-03-11 16:00] VITALS: BP 134/58
[2022-03-11] MEDS: MIRTAZAPINE 30 MG TABLET PO SCH (20:23)
[2022-03-12] MEDS: MUPIROCIN CALCIUM 2% 22 GM OINTMENT NASAL SCH ×2 (08:55→18:28)
[2022-03-12] MEDS: CloZAPine 25 MG RAPDIS TABLET PO SCH ×2 (08:55→20:08)
[2022-03-12] MEDS: MULTIVITAMINS, THERAPEUTIC TABLET PO SCH (08:55)
[2022-03-12] MEDS: DIVALPROEX SODIUM 125 MG DR CAPSULE PO SCH ×3 (08:57→18:28)
[2022-03-12 08:59] VITALS: BP 157/84
[2022-03-12 16:00] VITALS: BP 133/67
[2022-03-12] MEDS: MIRTAZAPINE 30 MG TABLET PO SCH (20:07)
[2022-03-13 06:44] LABS: COVID AG,FIA SOURCE NASAL SWAB
[2022-03-13] MEDS: MULTIVITAMINS, THERAPEUTIC TABLET PO SCH (08:53)
[2022-03-13] MEDS: DIVALPROEX SODIUM 125 MG DR CAPSULE PO SCH ×3 (08:53→17:07)
[2022-03-13] MEDS: MUPIROCIN CALCIUM 2% 22 GM OINTMENT NASAL SCH ×2 (08:55→17:07)
[2022-03-13 09:01] VITALS: BP 151/79
[2022-03-13] MEDS: CloZAPine 25 MG RAPDIS TABLET PO SCH ×2 (10:15→20:22)
[2022-03-13 16:07] VITALS: BP 135/81
[2022-03-13] MEDS: MIRTAZAPINE 30 MG TABLET PO SCH (20:22)
[2022-03-14 08:15] VITALS: BP 143/74
[2022-03-14] MEDS: MUPIROCIN CALCIUM 2% 22 GM OINTMENT NASAL SCH (08:28)
[2022-03-14] MEDS: DIVALPROEX SODIUM 125 MG DR CAPSULE PO SCH ×3 (08:28→16:46)
[2022-03-14] MEDS: CloZAPine 25 MG RAPDIS TABLET PO SCH ×2 (08:28→20:33)
[2022-03-14] MEDS: MULTIVITAMINS, THERAPEUTIC TABLET PO SCH (08:28)
[2022-03-14 16:21] VITALS: BP 116/83
[2022-03-14] MEDS: MIRTAZAPINE 30 MG TABLET PO SCH (20:33)
[2022-03-15 08:33] VITALS: BP 154/82
[2022-03-15] MEDS: MULTIVITAMINS, THERAPEUTIC TABLET PO SCH (09:04)
[2022-03-15] MEDS: DIVALPROEX SODIUM 125 MG DR CAPSULE PO SCH ×2 (09:04→12:34)
[2022-03-15] MEDS: CloZAPine 25 MG RAPDIS TABLET PO SCH (09:04)
[2022-03-15] MEDS ORDERED: CLOZ25TA PO (09:54)
[2022-03-15] MEDS ORDERED: DIVA125C20 PO (09:54)
[2022-03-15] MEDS ORDERED: MIRT-93 PO (09:54)
[2022-03-15] MEDS ORDERED: ARIP882S2 IM (09:54)
[2022-03-25] MEDS ORDERED: ARIPiprazole LAUROXIL ER SUSPENSION 882 MG/3.2 ML SYRINGE IM SCH (09:00)
== END 2022-03-15 15:35 | disposition home or self-care (01) | DRG 885 ==
LOC: EMS 11:46 → 3EX 14:54
PROVIDERS: ADMIT Psychiatry & Neurology Psychiatry; ATTEND Psychiatry & Neurology Psychiatry
DX: F25.0 Schizoaffective disorder, bipolar type (principal); Z20.822 Contact with and (suspected) exposure to COVID-19; D64.9 Anemia, unspecified; E78.00 Pure hypercholesterolemia, unspecified; I69.320 Aphasia following cerebral infarction; Z79.899 Other long term (current) drug therapy; Z91.51 Personal history of suicidal behavior; E11.9 Type 2 diabetes mellitus without complications; I10 Essential (primary) hypertension
CPT/HCPCS: 74230; 80053; 80159; 80164; 81003; 85025; 87081; 92507; 92526; 92610; 92611; 99285; G0378; G0480; J1630; J3230; Q9967

== ENCOUNTER 2022-03-31 15:09 | Inpatient (IN) | payer MEDICARE, MEDICAID ==
[~2022-03-31] VITALS: Ht 175.3 cm; Wt 66.2 kg
[~2022-03-31 15:09] MED LIST changes: -AMLO-258 PO; -ARIP15TA27 PO; +ARIP882S2 IM; -ASPI81TA39 PO; +CLOZ25TA PO; -DIVA-85 PO; +DIVA125C20 PO; -ENAL20 PO; -FERR325T27 PO; -GABA-1216 PO; -LORA10TA7 PO; -METO25XL PO; +MIRT-93 PO; -SIMV-261 PO
[2022-03-31 16:54] LABS: BASOPHILS % (AUTO) 0.7 % (0.0-2.0); EOSINOPHILS % (AUTO) 3.2 % (1.0-6.0); HEMATOCRIT 38.1 % (41-53); HEMOGLOBIN 12.5 g/dL (13.5-17.5); LYMPHOCYTES # (AUTO) 2.2 K/uL (1.0-4.8); LYMPHOCYTES % (AUTO) 22.7 % (22.0-44.0); MEAN CORPUSCULAR HEMOGLOBIN 29.3 pg (26.0-34.0); MEAN CORPUSCULAR HGB CONC 32.8 G/dL (31.0-37.0); MEAN CORPUSCULAR VOLUME 89 fL (80-100); MONOCYTES # (AUTO) 0.8 K/uL (0.1-1.0); MONOCYTES % (AUTO) 8.7 % (2.0-9.0); NEUTROPHILS # (AUTO) 6.2 K/uL (1.8-7.7); NEUTROPHILS % (AUTO) 64.7 % (40.0-70.0); PLATELET COUNT (AUTO) 282 K/uL (150-450); RED BLOOD CELL COUNT(AUTO) 4.26 MIL/uL (4.50-5.90)
[2022-03-31 17:01] LABS: AMPHET/METH SCREEN,URINE NEGATIVE (NEGATIVE); BARBITURATE SCREEN, URINE NEGATIVE (NEGATIVE); BENZODIAZEPINES SCREEN,URINE NEGATIVE (NEGATIVE); CANNABINOID SCREEN,URINE NEGATIVE (NEGATIVE); COCAINE SCREEN,URINE NEGATIVE (NEGATIVE); METHADONE SCREEN, URINE NEGATIVE (NEGATIVE); OPIATE SCREEN,URINE NEGATIVE (NEGATIVE)
[2022-03-31 17:02] LABS: PHENCYCLIDINE SCREEN,URINE NEGATIVE (NEGATIVE)
[2022-03-31 17:04] LABS: ANION GAP 9 mmol/L (8-16); CALCIUM, TOTAL 9.2 mg/dL (8.8-10.5); CARBON DIOXIDE 27 mmol/L (22-29); CHLORIDE 103 mmol/L (98-107); CREATININE 0.89 mg/dL (0.60-1.30); GLOMERULAR FILTR. RATE CALC > 60 mL/min (>60); GLUCOSE,RANDOM 93 mg/dL (70-110); POTASSIUM 4.1 mmol/L (3.5-5.1); SODIUM SERUM 139 mmol/L (136-145); UREA NITROGEN, BLOOD 19 mg/dL (7-18)
[2022-03-31 17:10] LABS: ALANINE AMINOTRANSFERASE 26 U/L (12-78); ALBUMIN 3.7 g/dL (3.4-5.0); ALKALINE PHOSPHATASE 74 U/L (46-116); ASPARTATE AMINOTRANSFERASE 31 U/L (15-37); BILIRUBIN,TOTAL 0.4 mg/dL (0.1-1.0); TOTAL PROTEIN, SERUM 7.5 g/dL (6.4-8.2); VALPROIC ACID 7 mcg/mL (50-100)
[2022-03-31 21:52] LABS: COVID AG,FIA SOURCE NASOPHARYNGEAL
[2022-04-01 15:23] LABS: APPEARANCE,URINE CLEAR (CLEAR); BILIRUBIN,URINE NEGATIVE (NEGATIVE); GLUCOSE, URINE (UA) NEGATIVE (NEGATIVE); KETONES,URINE TRACE mg/dL (NEGATIVE); LEUKOCYTE ESTERASE ,URINE SMALL (NEGATIVE); NITRATE,URINE NEGATIVE (NEGATIVE); OCCULT BLOOD,URINE NEGATIVE (NEGATIVE); PH,URINE 5.5 (5.0-8.0); PROTEIN,URINE TRACE mg/dL (NEGATIVE); SPECIFIC GRAVITIY, URINE 1.029 (1.003-1.030); UROBILINOGEN,URINE <=1.0 mg/dL (<=1.0)
[2022-04-01 15:37] LABS: BACTERIA,URINE Rare /HPF (None Seen); RBC,URINE 0-2 /HPF (0-2); SQUAMOUS EPITHELIAL CELL,UR Rare /LPF (None Seen)
[2022-04-01] MEDS: ZOLPIDEM TARTRATE 10 MG TABLET PO PRN (23:52)
[2022-04-02 11:27] VITALS: BP 140/80
[2022-04-02] MEDS ORDERED: ARIPiprazole LAUROXIL ER SUSPENSION 882 MG/3.2 ML SYRINGE IM SCH (15:00)
[2022-04-02] MEDS: DIVALPROEX SODIUM 125 MG DR CAPSULE PO SCH ×2 (15:23→16:27)
[2022-04-02] MEDS: CloZAPine 25 MG RAPDIS TABLET PO SCH ×2 (15:27→20:54)
[2022-04-02 16:05] VITALS: BP 101/79
[2022-04-02 20:30] VITALS: BP 137/99
[2022-04-02] MEDS: MIRTAZAPINE 30 MG TABLET PO SCH (20:54)
[2022-04-03 08:44] VITALS: BP 161/84
[2022-04-03] MEDS: DIVALPROEX SODIUM 125 MG DR CAPSULE PO SCH ×3 (13:35→16:15)
[2022-04-03] MEDS: CloZAPine 25 MG RAPDIS TABLET PO SCH ×2 (13:36→21:16)
[2022-04-03 16:01] VITALS: BP 140/83
[2022-04-03] MEDS ORDERED: NICOTINE 14 MG/24 HOUR PATCH TD PRN (19:30)
[2022-04-03] MEDS ORDERED: ONDANSETRON HCL 4 MG TABLET PO PRN (19:30)
[2022-04-03] MEDS ORDERED: ALBUTEROL SULFATE HFA 90 MCG/PUFF 8 GM INHALER IH PRN (19:30)
[2022-04-03] MEDS ORDERED: MAGNESIUM HYDROXIDE SUSPENSION 30 ML UDCUP PO PRN (19:30)
[2022-04-03] MEDS ORDERED: MAG HYDROX/AL HYDROX/SIMETH ES 30 ML SUSPENSION UDCUP PO PRN (19:30)
[2022-04-03] MEDS ORDERED: GuaiFENesin/D-METHORPHAN [SUGAR-FREE] 200-20MG/10 ML SYRUP UDCUP PO PRN (19:30)
[2022-04-03] MEDS ORDERED: DOCUSATE SODIUM 100 MG CAPSULE PO PRN (19:30)
[2022-04-03] MEDS ORDERED: CloNIDine HCL 0.1 MG TABLET PO PRN (19:30)
[2022-04-03] MEDS ORDERED: ACETAMINOPHEN 325 MG TABLET PO PRN (19:30)
[2022-04-03] MEDS ORDERED: IBUPROFEN 400 MG TABLET PO PRN (19:30)
[2022-04-03] MEDS ORDERED: LOPERAMIDE HCL 2 MG CAPSULE PO PRN (19:30)
[2022-04-03] MEDS ORDERED: PETROLATUM,WHITE 28 GM JELLY TP PRN (19:30)
[2022-04-03] MEDS: MIRTAZAPINE 30 MG TABLET PO SCH (21:16)
[2022-04-04] MEDS: DIVALPROEX SODIUM 125 MG DR CAPSULE PO SCH ×3 (08:30→17:08)
[2022-04-04] MEDS: CloZAPine 25 MG RAPDIS TABLET PO SCH ×2 (08:31→20:39)
[2022-04-04 08:45] VITALS: BP 144/86
[2022-04-04] MEDS: MUPIROCIN CALCIUM 2% 22 GM OINTMENT NASAL SCH (17:08)
[2022-04-04 17:37] VITALS: BP 163/90
[2022-04-04] MEDS: MIRTAZAPINE 30 MG TABLET PO SCH (20:40)
[2022-04-05] MEDS: MUPIROCIN CALCIUM 2% 22 GM OINTMENT NASAL SCH ×2 (08:17→16:26)
[2022-04-05] MEDS: DIVALPROEX SODIUM 125 MG DR CAPSULE PO SCH ×3 (08:18→16:26)
[2022-04-05] MEDS: CloZAPine 25 MG RAPDIS TABLET PO SCH ×2 (08:18→20:38)
[2022-04-05] MEDS: HALOPERIDOL 5 MG TABLET PO PRN (13:00)
[2022-04-05 16:00] VITALS: BP 120/79
[2022-04-05] MEDS: MIRTAZAPINE 30 MG TABLET PO SCH (20:38)
[2022-04-06 07:32] LABS: HEMOGLOBIN A1C 5.9 % (3.8-5.6)
[2022-04-06 07:43] LABS: CHOL/HDL RATIO 2.8 (4.2-7.3)
[2022-04-06 08:51] VITALS: BP 138/77
[2022-04-06] MEDS: MUPIROCIN CALCIUM 2% 22 GM OINTMENT NASAL SCH ×2 (08:59→17:38)
[2022-04-06] MEDS: CloZAPine 25 MG RAPDIS TABLET PO SCH ×2 (08:59→20:34)
[2022-04-06] MEDS: DIVALPROEX SODIUM 125 MG DR CAPSULE PO SCH ×3 (08:59→17:38)
[2022-04-06 17:46] VITALS: BP 160/84
[2022-04-06] MEDS: MIRTAZAPINE 30 MG TABLET PO SCH (20:34)
[2022-04-07 08:40] LABS: COVID AG,FIA SOURCE NASAL SWAB
[2022-04-07 09:58] VITALS: BP 141/85
[2022-04-07] MEDS: CloZAPine 25 MG RAPDIS TABLET PO SCH ×2 (10:29→21:06)
[2022-04-07] MEDS: DIVALPROEX SODIUM 125 MG DR CAPSULE PO SCH ×3 (10:30→18:00)
[2022-04-07] MEDS: MUPIROCIN CALCIUM 2% 22 GM OINTMENT NASAL SCH ×2 (10:30→18:00)
[2022-04-07] MEDS: HALOPERIDOL 5 MG TABLET PO PRN (10:34)
[2022-04-07] MEDS: LORazepam 1 MG TABLET PO PRN (10:34)
[2022-04-07 16:00] VITALS: BP 162/79
[2022-04-07] MEDS: MIRTAZAPINE 30 MG TABLET PO SCH (21:06)
[2022-04-08] MEDS: CloZAPine 25 MG RAPDIS TABLET PO SCH ×2 (08:29→21:19)
[2022-04-08] MEDS: DIVALPROEX SODIUM 125 MG DR CAPSULE PO SCH ×3 (08:29→16:23)
[2022-04-08 09:36] VITALS: BP 161/67
[2022-04-08] MEDS: MUPIROCIN CALCIUM 2% 22 GM OINTMENT NASAL SCH ×2 (10:08→16:22)
[2022-04-08 16:19] VITALS: BP 148/82
[2022-04-08 20:32] VITALS: BP 145/86
[2022-04-08] MEDS: MIRTAZAPINE 30 MG TABLET PO SCH (21:20)
[2022-04-09 06:33] LABS: BASOPHILS % (AUTO) 0.5 % (0.0-2.0); EOSINOPHILS % (AUTO) 5.3 % (1.0-6.0); HEMATOCRIT 37.9 % (41-53); HEMOGLOBIN 12.7 g/dL (13.5-17.5); LYMPHOCYTES # (AUTO) 2.2 K/uL (1.0-4.8); LYMPHOCYTES % (AUTO) 29.6 % (22.0-44.0); MEAN CORPUSCULAR HEMOGLOBIN 29.5 pg (26.0-34.0); MEAN CORPUSCULAR HGB CONC 33.5 G/dL (31.0-37.0); MEAN CORPUSCULAR VOLUME 88 fL (80-100); MONOCYTES # (AUTO) 0.7 K/uL (0.1-1.0); MONOCYTES % (AUTO) 9.7 % (2.0-9.0); NEUTROPHILS # (AUTO) 4.1 K/uL (1.8-7.7); NEUTROPHILS % (AUTO) 54.9 % (40.0-70.0); PLATELET COUNT (AUTO) 250 K/uL (150-450); RED CELL DISTRIBUTION WIDTH 14.7 % (11.5-14.5)
[2022-04-09] MEDS: DIVALPROEX SODIUM 125 MG DR CAPSULE PO SCH ×3 (08:46→18:36)
[2022-04-09] MEDS: MUPIROCIN CALCIUM 2% 22 GM OINTMENT NASAL SCH (08:48)
[2022-04-09] MEDS: CloZAPine 25 MG RAPDIS TABLET PO SCH ×2 (08:48→12:32)
[2022-04-09 10:39] VITALS: BP 148/78
[2022-04-09 16:30] VITALS: BP 167/83
[2022-04-09] MEDS: MIRTAZAPINE 30 MG TABLET PO SCH (20:32)
[2022-04-09 22:24] VITALS: BP 140/85
[2022-04-10 06:49] LABS: BASOPHILS % (AUTO) 0.6 % (0.0-2.0); EOSINOPHILS % (AUTO) 3.7 % (1.0-6.0); HEMATOCRIT 36.4 % (41-53); HEMOGLOBIN 12.3 g/dL (13.5-17.5); LYMPHOCYTES # (AUTO) 2.1 K/uL (1.0-4.8); LYMPHOCYTES % (AUTO) 27.8 % (22.0-44.0); MEAN CORPUSCULAR HEMOGLOBIN 29.7 pg (26.0-34.0); MEAN CORPUSCULAR HGB CONC 33.7 G/dL (31.0-37.0); MEAN CORPUSCULAR VOLUME 88 fL (80-100); MONOCYTES % (AUTO) 12.9 % (2.0-9.0); NEUTROPHILS # (AUTO) 4.2 K/uL (1.8-7.7); PLATELET COUNT (AUTO) 268 K/uL (150-450); RED BLOOD CELL COUNT(AUTO) 4.13 MIL/uL (4.50-5.90); RED CELL DISTRIBUTION WIDTH 14.4 % (11.5-14.5)
[2022-04-10 08:00] VITALS: BP 110/61
[2022-04-10] MEDS: CloZAPine 25 MG RAPDIS TABLET PO SCH ×2 (08:46→20:37)
[2022-04-10] MEDS: DIVALPROEX SODIUM 125 MG DR CAPSULE PO SCH ×3 (08:46→16:34)
[2022-04-10 16:36] VITALS: BP 163/81
[2022-04-10] MEDS: MIRTAZAPINE 30 MG TABLET PO SCH (20:37)
[2022-04-11] MEDS: DIVALPROEX SODIUM 125 MG DR CAPSULE PO SCH ×3 (08:16→16:03)
[2022-04-11] MEDS: CloZAPine 25 MG RAPDIS TABLET PO SCH ×2 (08:16→21:34)
[2022-04-11] MEDS: HALOPERIDOL 5 MG TABLET PO PRN ×3 (08:18→21:34)
[2022-04-11 09:00] VITALS: BP 172/87
[2022-04-11 16:00] VITALS: BP 171/87
[2022-04-11 17:33] VITALS: BP 136/75
[2022-04-11] MEDS: MIRTAZAPINE 30 MG TABLET PO SCH (21:34)
[2022-04-12] MEDS: DIVALPROEX SODIUM 125 MG DR CAPSULE PO SCH ×3 (08:36→16:32)
[2022-04-12] MEDS: CloZAPine 25 MG RAPDIS TABLET PO SCH ×2 (08:37→20:53)
[2022-04-12 08:45] VITALS: BP 141/68
[2022-04-12 16:07] VITALS: BP 150/74
[2022-04-12] MEDS: LORazepam 1 MG TABLET PO PRN (19:15)
[2022-04-12] MEDS: MIRTAZAPINE 30 MG TABLET PO SCH (20:53)
[2022-04-12] MEDS: ZOLPIDEM TARTRATE 10 MG TABLET PO PRN (20:53)
[2022-04-13 08:59] VITALS: BP 142/87
[2022-04-13] MEDS: DIVALPROEX SODIUM 125 MG DR CAPSULE PO SCH ×3 (09:44→17:46)
[2022-04-13] MEDS: CloZAPine 25 MG RAPDIS TABLET PO SCH ×2 (09:45→20:25)
[2022-04-13 16:06] VITALS: BP 144/74
[2022-04-13] MEDS: MIRTAZAPINE 30 MG TABLET PO SCH (20:25)
[2022-04-14 07:43] LABS: COVID AG,FIA SOURCE NASAL SWAB
[2022-04-14 08:00] VITALS: BP 146/67
[2022-04-14] MEDS: CloZAPine 25 MG RAPDIS TABLET PO SCH ×2 (08:47→20:50)
[2022-04-14] MEDS: DIVALPROEX SODIUM 125 MG DR CAPSULE PO SCH ×3 (08:47→17:10)
[2022-04-14] MEDS: AmLODIPine BESYLATE 5 MG TABLET PO SCH (08:47)
[2022-04-14] MEDS: HALOPERIDOL 5 MG TABLET PO PRN ×2 (08:47→19:50)
[2022-04-14] MEDS: LORazepam 1 MG TABLET PO PRN ×2 (09:06→19:50)
[2022-04-14 16:00] VITALS: BP 150/82
[2022-04-14] MEDS: MIRTAZAPINE 30 MG TABLET PO SCH (20:50)
[2022-04-14] MEDS: ZOLPIDEM TARTRATE 10 MG TABLET PO PRN (20:50)
[2022-04-15 08:00] VITALS: BP 137/94
[2022-04-15] MEDS: HALOPERIDOL 5 MG TABLET PO PRN (10:30)
[2022-04-15] MEDS: LORazepam 1 MG TABLET PO PRN (10:30)
[2022-04-15] MEDS: DIVALPROEX SODIUM 125 MG DR CAPSULE PO SCH ×3 (11:12→18:02)
[2022-04-15] MEDS: CloZAPine 25 MG RAPDIS TABLET PO SCH ×2 (11:15→20:41)
[2022-04-15] MEDS: AmLODIPine BESYLATE 5 MG TABLET PO SCH (11:16)
[2022-04-15 16:15] VITALS: BP 165/64
[2022-04-15] MEDS: MIRTAZAPINE 30 MG TABLET PO SCH (20:41)
[2022-04-16] MEDS: CloZAPine 25 MG RAPDIS TABLET PO SCH ×2 (09:01→20:18)
[2022-04-16] MEDS: AmLODIPine BESYLATE 5 MG TABLET PO SCH (09:01)
[2022-04-16] MEDS: DIVALPROEX SODIUM 125 MG DR CAPSULE PO SCH ×3 (09:01→17:15)
[2022-04-16 09:30] VITALS: BP 153/85
[2022-04-16 16:20] VITALS: BP 138/64
[2022-04-16] MEDS: MIRTAZAPINE 30 MG TABLET PO SCH (20:18)
[2022-04-17 00:05] VITALS: BP 146/78
[2022-04-17] MEDS: LORazepam 1 MG TABLET PO PRN (00:08)
[2022-04-17] MEDS: DIVALPROEX SODIUM 125 MG DR CAPSULE PO SCH ×3 (08:20→16:21)
[2022-04-17] MEDS: AmLODIPine BESYLATE 5 MG TABLET PO SCH (08:20)
[2022-04-17] MEDS: CloZAPine 25 MG RAPDIS TABLET PO SCH ×2 (08:21→20:06)
[2022-04-17 09:27] VITALS: BP 154/76
[2022-04-17 16:13] VITALS: BP 149/85
[2022-04-17 17:58] LABS: BASOPHILS % (AUTO) 0.7 % (0.0-2.0); EOSINOPHILS % (AUTO) 2.5 % (1.0-6.0); HEMATOCRIT 38.1 % (41-53); HEMOGLOBIN 12.5 g/dL (13.5-17.5); LYMPHOCYTES # (AUTO) 2.8 K/uL (1.0-4.8); LYMPHOCYTES % (AUTO) 30.5 % (22.0-44.0); MEAN CORPUSCULAR HEMOGLOBIN 29.3 pg (26.0-34.0); MEAN CORPUSCULAR VOLUME 89 fL (80-100); MONOCYTES # (AUTO) 0.9 K/uL (0.1-1.0); MONOCYTES % (AUTO) 10.1 % (2.0-9.0); NEUTROPHILS # (AUTO) 5.2 K/uL (1.8-7.7); NEUTROPHILS % (AUTO) 56.2 % (40.0-70.0); PLATELET COUNT (AUTO) 299 K/uL (150-450); RED BLOOD CELL COUNT(AUTO) 4.28 MIL/uL (4.50-5.90); RED CELL DISTRIBUTION WIDTH 14.8 % (11.5-14.5)
[2022-04-17] MEDS: MIRTAZAPINE 30 MG TABLET PO SCH (20:05)
[2022-04-18] MEDS: DIVALPROEX SODIUM 125 MG DR CAPSULE PO SCH ×3 (08:43→16:19)
[2022-04-18] MEDS: CloZAPine 25 MG RAPDIS TABLET PO SCH ×2 (08:44→20:36)
[2022-04-18] MEDS: AmLODIPine BESYLATE 5 MG TABLET PO SCH (08:44)
[2022-04-18 16:00] VITALS: BP 146/96
[2022-04-18] MEDS: MIRTAZAPINE 30 MG TABLET PO SCH (20:36)
[2022-04-19] MEDS ORDERED: DIVA125C20 PO (04:22)
[2022-04-19] MEDS ORDERED: MIRT-93 PO (04:22)
[2022-04-19] MEDS ORDERED: CLOZ25TA PO (04:22)
[2022-04-19] MEDS ORDERED: AMLO-257 PO (04:22)
[2022-04-19] MEDS ORDERED: ARIP882S2 IM (04:22)
[2022-04-19] MEDS: DIVALPROEX SODIUM 125 MG DR CAPSULE PO SCH (08:15)
[2022-04-19] MEDS: CloZAPine 25 MG RAPDIS TABLET PO SCH (08:15)
[2022-04-19] MEDS: AmLODIPine BESYLATE 5 MG TABLET PO SCH (08:15)
[2022-04-19 08:32] VITALS: BP 148/89
[2022-04-19 10:29] LABS: COVID AG,FIA SOURCE NASAL SWAB
== END 2022-04-19 11:05 | DRG 885 ==
LOC: EMS 15:12 → 3EX 04-02 09:43
PROVIDERS: ADMIT Psychiatry & Neurology Psychiatry; ATTEND Psychiatry & Neurology Psychiatry
DX: F25.0 Schizoaffective disorder, bipolar type (principal); E43 Unspecified severe protein-calorie malnutrition; N18.9 Chronic kidney disease, unspecified; Z20.822 Contact with and (suspected) exposure to COVID-19; E11.22 Type 2 diabetes mellitus with diabetic chronic kidney disease; D64.9 Anemia, unspecified; E78.00 Pure hypercholesterolemia, unspecified; I12.9 Hypertensive chronic kidney disease with stage 1 through stage 4 chronic kidney disease, or unspecified chronic kidney disease; I69.320 Aphasia following cerebral infarction; Z59.00 Homelessness unspecified; Z79.899 Other long term (current) drug therapy; Z91.199 Patient's noncompliance with other medical treatment and regimen due to unspecified reason; Z91.51 Personal history of suicidal behavior; Z68.21 Body mass index [BMI] 21.0-21.9, adult
CPT/HCPCS: 80053; 80061; 80164; 80307; 81001; 83036; 85025; 87081; 87086; 87186; 99285; G0378; G0480; Q9967

== ENCOUNTER 2022-05-13 09:51 | Inpatient (IN) | payer MEDICARE, MEDICAID ==
[~2022-05-13] VITALS: Ht 177.8 cm; Wt 67.1 kg
[~2022-05-13 09:51] MED LIST changes: +AMLO-257 PO
[2022-05-13] MEDS ORDERED: LORA-1000 PO (10:16)
[2022-05-13] MEDS ORDERED: ZOLP-280 PO (10:16)
[2022-05-13] MEDS ORDERED: LORA-999 PO (10:16)
[2022-05-13] MEDS ORDERED: CLOZ25TA PO (10:23)
[2022-05-13] MEDS ORDERED: DEPAKOTE PO (10:23)
[2022-05-13] MEDS ORDERED: MIRT-89 PO (10:23)
[2022-05-13] MEDS ORDERED: IPRA4AER IH (10:23)
[2022-05-13] MEDS ORDERED: ARIP2TAB3 PO (10:23)
[2022-05-13] MEDS ORDERED: AMLO5TAB66 PO (10:23)
[2022-05-13 10:53] LABS: BASOPHILS % (AUTO) 0.4 % (0.0-2.0); EOSINOPHILS % (AUTO) 3.2 % (1.0-6.0); HEMATOCRIT 39.2 % (41-53); HEMOGLOBIN 12.7 g/dL (13.5-17.5); LYMPHOCYTES # (AUTO) 1.8 K/uL (1.0-4.8); LYMPHOCYTES % (AUTO) 22.6 % (22.0-44.0); MEAN CORPUSCULAR HEMOGLOBIN 28.6 pg (26.0-34.0); MEAN CORPUSCULAR HGB CONC 32.5 G/dL (31.0-37.0); MEAN CORPUSCULAR VOLUME 88 fL (80-100); MONOCYTES # (AUTO) 0.5 K/uL (0.1-1.0); NEUTROPHILS # (AUTO) 5.4 K/uL (1.8-7.7); NEUTROPHILS % (AUTO) 67.8 % (40.0-70.0); PLATELET COUNT (AUTO) 256 K/uL (150-450); RED BLOOD CELL COUNT(AUTO) 4.45 MIL/uL (4.50-5.90); RED CELL DISTRIBUTION WIDTH 14.1 % (11.5-14.5)
[2022-05-13 11:00] LABS: ANION GAP 8 mmol/L (8-16); CALCIUM, TOTAL 8.8 mg/dL (8.8-10.5); CARBON DIOXIDE 28 mmol/L (22-29); CHLORIDE 108 mmol/L (98-107); CREATININE 0.93 mg/dL (0.60-1.30); GLOMERULAR FILTR. RATE CALC > 60 mL/min (>60); GLUCOSE,RANDOM 120 mg/dL (70-110); POTASSIUM 4.7 mmol/L (3.5-5.1); SODIUM SERUM 144 mmol/L (136-145); UREA NITROGEN, BLOOD 16 mg/dL (7-18)
[2022-05-13 11:06] LABS: ALANINE AMINOTRANSFERASE 26 U/L (12-78); ALBUMIN 3.1 g/dL (3.4-5.0); ALKALINE PHOSPHATASE 80 U/L (46-116); ASPARTATE AMINOTRANSFERASE 25 U/L (15-37); BILIRUBIN,TOTAL 0.3 mg/dL (0.1-1.0); TOTAL PROTEIN, SERUM 6.4 g/dL (6.4-8.2)
[2022-05-13] MEDS ORDERED: HALOPERIDOL LACTATE 5 MG/ML VIAL IVP ONE (12:30)
[2022-05-13] MEDS ORDERED: DIVA-111 PO (12:31)
[2022-05-13] MEDS ORDERED: HALOPERIDOL LACTATE 5 MG/ML VIAL IM ONE (12:45)
[2022-05-13 12:57] LABS: APPEARANCE,URINE CLEAR (CLEAR); BILIRUBIN,URINE NEGATIVE (NEGATIVE); GLUCOSE, URINE (UA) NEGATIVE (NEGATIVE); KETONES,URINE NEGATIVE (NEGATIVE); LEUKOCYTE ESTERASE ,URINE NEGATIVE (NEGATIVE); NITRATE,URINE NEGATIVE (NEGATIVE); OCCULT BLOOD,URINE NEGATIVE (NEGATIVE); PH,URINE 6.5 (5.0-8.0); PROTEIN,URINE NEGATIVE (NEGATIVE); SPECIFIC GRAVITIY, URINE 1.014 (1.003-1.030); UROBILINOGEN,URINE <=1.0 mg/dL (<=1.0)
[2022-05-13 12:58] LABS: AMPHET/METH SCREEN,URINE NEGATIVE (NEGATIVE); BARBITURATE SCREEN, URINE NEGATIVE (NEGATIVE); BENZODIAZEPINES SCREEN,URINE NEGATIVE (NEGATIVE); CANNABINOID SCREEN,URINE NEGATIVE (NEGATIVE); COCAINE SCREEN,URINE NEGATIVE (NEGATIVE); METHADONE SCREEN, URINE NEGATIVE (NEGATIVE); OPIATE SCREEN,URINE NEGATIVE (NEGATIVE); PHENCYCLIDINE SCREEN,URINE NEGATIVE (NEGATIVE)
[2022-05-13] MEDS ORDERED: LORazepam 2 MG TABLET PO PRN (13:00)
[2022-05-13] MEDS ORDERED: GuaiFENesin [SUGAR-FREE] 200 MG/10 ML SOLUTION UDCUP PO PRN (15:30)
[2022-05-13] MEDS ORDERED: AZITHROMYCIN 500 MG TABLET PO ONE (15:30)
[2022-05-13 16:20] LABS: COVID AG,FIA SOURCE NASAL SWAB
[2022-05-14] MEDS: ZOLPIDEM TARTRATE 10 MG TABLET PO PRN ×3 (00:08→03:16)
[2022-05-14] MEDS: HALOPERIDOL 5 MG TABLET PO PRN ×2 (02:46→21:32)
[2022-05-14 06:37] LABS: GLUCOSE,POINT OF CARE 125 MG/DL (70-110)
[2022-05-14 15:37] VITALS: BP 154/92
[2022-05-14 16:30] VITALS: BP 154/92
[2022-05-14 16:35] VITALS: BP 154/92
[2022-05-14 16:50] VITALS: BP 154/92
[2022-05-14] MEDS ORDERED: ACETAMINOPHEN 325 MG TABLET PO PRN (17:30)
[2022-05-14] MEDS ORDERED: PETROLATUM,WHITE 28 GM JELLY TP PRN (17:30)
[2022-05-14] MEDS ORDERED: CloNIDine HCL 0.1 MG TABLET PO PRN (17:30)
[2022-05-14] MEDS ORDERED: DOCUSATE SODIUM 100 MG CAPSULE PO PRN (17:30)
[2022-05-14] MEDS ORDERED: ONDANSETRON HCL 4 MG TABLET PO PRN (17:30)
[2022-05-14] MEDS ORDERED: GuaiFENesin/D-METHORPHAN [SUGAR-FREE] 200-20MG/10 ML SYRUP UDCUP PO PRN (17:30)
[2022-05-14] MEDS ORDERED: MAG HYDROX/AL HYDROX/SIMETH ES 30 ML SUSPENSION UDCUP PO PRN (17:30)
[2022-05-14] MEDS ORDERED: IBUPROFEN 400 MG TABLET PO PRN (17:30)
[2022-05-14] MEDS ORDERED: NICOTINE 14 MG/24 HOUR PATCH TD PRN (17:30)
[2022-05-14] MEDS ORDERED: MAGNESIUM HYDROXIDE SUSPENSION 30 ML UDCUP PO PRN (17:30)
[2022-05-14] MEDS ORDERED: LOPERAMIDE HCL 2 MG CAPSULE PO PRN (17:30)
[2022-05-14] MEDS ORDERED: ALBUTEROL SULFATE HFA 90 MCG/PUFF 8 GM INHALER IH PRN (17:30)
[2022-05-14] MEDS ORDERED: DENTURE ADHESIVE 68 GM CREAM DT PRN (18:15)
[2022-05-14] MEDS: DIVALPROEX SODIUM 125 MG DR CAPSULE PO SCH (20:41)
[2022-05-14] MEDS: MIRTAZAPINE 30 MG TABLET PO SCH (20:42)
[2022-05-14] MEDS: CloZAPine 25 MG RAPDIS TABLET PO SCH (20:43)
[2022-05-14 21:37] VITALS: BP 148/93
[2022-05-15] MEDS: DIVALPROEX SODIUM 125 MG DR CAPSULE PO SCH ×4 (08:24→20:37)
[2022-05-15] MEDS: CloZAPine 25 MG RAPDIS TABLET PO SCH ×2 (08:24→20:36)
[2022-05-15] MEDS: AmLODIPine BESYLATE 5 MG TABLET PO SCH (08:25)
[2022-05-15 09:29] VITALS: BP 146/77
[2022-05-15 17:16] VITALS: BP 164/96
[2022-05-15] MEDS ORDERED: HALOPERIDOL LACTATE 5 MG/ML VIAL IM ONE (19:15)
[2022-05-15] MEDS ORDERED: DiphenhydrAMINE HCL 50 MG/ML VIAL IM ONE (19:15)
[2022-05-15] MEDS ORDERED: LORazepam 2 MG/ML VIAL IM ONE (19:15)
[2022-05-15] MEDS: MIRTAZAPINE 30 MG TABLET PO SCH (20:36)
[2022-05-15 20:59] VITALS: BP 128/83
[2022-05-16] MEDS: DIVALPROEX SODIUM 125 MG DR CAPSULE PO SCH (08:10)
[2022-05-16] MEDS: CloZAPine 25 MG RAPDIS TABLET PO SCH ×2 (08:11→20:40)
[2022-05-16] MEDS: AmLODIPine BESYLATE 5 MG TABLET PO SCH (08:39)
[2022-05-16 08:58] VITALS: BP 134/104
[2022-05-16] MEDS: VALPROIC ACID 250 MG/5 ML SOLUTION UDCUP PO SCH ×2 (16:31→20:41)
[2022-05-16] MEDS: HALOPERIDOL 5 MG TABLET PO PRN (20:40)
[2022-05-16] MEDS: MIRTAZAPINE 30 MG TABLET PO SCH (20:42)
[2022-05-16 21:10] VITALS: BP 169/92
[2022-05-17] MEDS: CloZAPine 25 MG RAPDIS TABLET PO SCH ×2 (08:35→20:40)
[2022-05-17] MEDS: VALPROIC ACID 250 MG/5 ML SOLUTION UDCUP PO SCH ×3 (08:35→20:40)
[2022-05-17] MEDS: AmLODIPine BESYLATE 5 MG TABLET PO SCH (08:35)
[2022-05-17 08:50] VITALS: BP 153/96
[2022-05-17] MEDS: HALOPERIDOL 5 MG TABLET PO PRN (16:00)
[2022-05-17 17:52] VITALS: BP 138/76
[2022-05-17] MEDS: MIRTAZAPINE 30 MG TABLET PO SCH (20:40)
[2022-05-17 21:24] VITALS: BP 144/79
[2022-05-18 08:43] VITALS: BP_SYST 154; BP_SYST 166; BP_DIAS 104; BP_DIAS 98
[2022-05-18] MEDS: VALPROIC ACID 250 MG/5 ML SOLUTION UDCUP PO SCH ×3 (09:00→21:00)
[2022-05-18] MEDS: AmLODIPine BESYLATE 5 MG TABLET PO SCH (09:00)
[2022-05-18] MEDS: CloZAPine 25 MG RAPDIS TABLET PO SCH ×2 (09:00→21:00)
[2022-05-18] MEDS ORDERED: ChlorproMAZINE HCL 50 MG/2 ML AMP IM ONE (11:15)
[2022-05-18] MEDS ORDERED: HALOPERIDOL LACTATE 5 MG/ML VIAL IM ONE (11:15)
[2022-05-18] MEDS ORDERED: ChlorproMAZINE HCL 50 MG/2 ML AMP ONE (11:19)
[2022-05-18 16:21] VITALS: BP 128/85
[2022-05-18 20:48] VITALS: BP 143/80
[2022-05-18] MEDS: MIRTAZAPINE 30 MG TABLET PO SCH (21:00)
[2022-05-18] MEDS: ChlorproMAZINE HCL 50 MG/2 ML AMP IM PRN (21:58)
[2022-05-18] MEDS: HALOPERIDOL LACTATE 5 MG/ML VIAL IM PRN (22:02)
[2022-05-19] MEDS: AmLODIPine BESYLATE 5 MG TABLET PO SCH (10:18)
[2022-05-19] MEDS: VALPROIC ACID 250 MG/5 ML SOLUTION UDCUP PO SCH ×3 (10:20→21:03)
[2022-05-19] MEDS: CloZAPine 25 MG RAPDIS TABLET PO SCH ×2 (10:33→21:03)
[2022-05-19] MEDS: MIRTAZAPINE 30 MG TABLET PO SCH (21:03)
[2022-05-20 00:28] VITALS: BP 148/80
[2022-05-20 08:08] LABS: COVID AG,FIA SOURCE NASAL SWAB
[2022-05-20] MEDS: VALPROIC ACID 250 MG/5 ML SOLUTION UDCUP PO SCH ×3 (08:24→20:16)
[2022-05-20] MEDS: CloZAPine 25 MG RAPDIS TABLET PO SCH ×2 (08:25→20:16)
[2022-05-20] MEDS: AmLODIPine BESYLATE 5 MG TABLET PO SCH (08:26)
[2022-05-20 09:03] VITALS: BP 163/83
[2022-05-20] MEDS: MIRTAZAPINE 30 MG TABLET PO SCH (20:16)
[2022-05-20 21:05] VITALS: BP 151/71
[2022-05-21] MEDS: CloZAPine 25 MG RAPDIS TABLET PO SCH ×2 (08:11→20:21)
[2022-05-21] MEDS: VALPROIC ACID 250 MG/5 ML SOLUTION UDCUP PO SCH ×3 (08:11→20:22)
[2022-05-21] MEDS: AmLODIPine BESYLATE 5 MG TABLET PO SCH (08:11)
[2022-05-21 08:54] VITALS: BP 149/90
[2022-05-21 16:28] LABS: BASOPHILS % (AUTO) 0.6 % (0.0-2.0); EOSINOPHILS % (AUTO) 1.2 % (1.0-6.0); HEMATOCRIT 35.3 % (41-53); HEMOGLOBIN 11.6 g/dL (13.5-17.5); LYMPHOCYTES % (AUTO) 17.2 % (22.0-44.0); MEAN CORPUSCULAR HEMOGLOBIN 28.8 pg (26.0-34.0); MEAN CORPUSCULAR HGB CONC 32.9 G/dL (31.0-37.0); MEAN CORPUSCULAR VOLUME 87 fL (80-100); MONOCYTES % (AUTO) 8.8 % (2.0-9.0); NEUTROPHILS # (AUTO) 8.4 K/uL (1.8-7.7); NEUTROPHILS % (AUTO) 72.2 % (40.0-70.0); PLATELET COUNT (AUTO) 292 K/uL (150-450); RED BLOOD CELL COUNT(AUTO) 4.05 MIL/uL (4.50-5.90); RED CELL DISTRIBUTION WIDTH 13.9 % (11.5-14.5)
[2022-05-21 16:48] VITALS: BP 127/76
[2022-05-21] MEDS: MIRTAZAPINE 30 MG TABLET PO SCH (20:22)
[2022-05-21 20:26] VITALS: BP 128/79
[2022-05-22 08:00] VITALS: BP 147/74
[2022-05-22] MEDS: CloZAPine 25 MG RAPDIS TABLET PO SCH ×2 (08:20→21:00)
[2022-05-22] MEDS: VALPROIC ACID 250 MG/5 ML SOLUTION UDCUP PO SCH ×3 (08:20→21:00)
[2022-05-22] MEDS: AmLODIPine BESYLATE 5 MG TABLET PO SCH (08:20)
[2022-05-22 16:00] VITALS: BP 150/98
[2022-05-22 20:10] VITALS: BP 124/72
[2022-05-22] MEDS: MIRTAZAPINE 30 MG TABLET PO SCH (21:00)
[2022-05-23] MEDS: CloZAPine 25 MG RAPDIS TABLET PO SCH ×2 (08:28→20:59)
[2022-05-23] MEDS: VALPROIC ACID 250 MG/5 ML SOLUTION UDCUP PO SCH ×3 (08:28→21:01)
[2022-05-23] MEDS: AmLODIPine BESYLATE 5 MG TABLET PO SCH (08:28)
[2022-05-23 09:39] VITALS: BP 120/89
[2022-05-23 16:37] VITALS: BP 132/82
[2022-05-23] MEDS: MIRTAZAPINE 30 MG TABLET PO SCH (20:59)
[2022-05-23] MEDS: ZOLPIDEM TARTRATE 10 MG TABLET PO PRN (21:00)
[2022-05-23 21:51] VITALS: BP 132/82
[2022-05-24 08:48] VITALS: BP 148/73
[2022-05-24] MEDS: AmLODIPine BESYLATE 5 MG TABLET PO SCH (09:52)
[2022-05-24] MEDS: VALPROIC ACID 250 MG/5 ML SOLUTION UDCUP PO SCH ×3 (09:53→20:49)
[2022-05-24] MEDS: CloZAPine 25 MG RAPDIS TABLET PO SCH ×2 (09:55→20:42)
[2022-05-24 20:25] VITALS: BP 132/65
[2022-05-24] MEDS: MIRTAZAPINE 30 MG TABLET PO SCH (20:42)
[2022-05-24] MEDS: HALOPERIDOL 5 MG TABLET PO PRN (20:43)
[2022-05-24] MEDS: ZOLPIDEM TARTRATE 10 MG TABLET PO PRN (21:30)
[2022-05-25 08:41] VITALS: BP 159/87
[2022-05-25] MEDS: CloZAPine 25 MG RAPDIS TABLET PO SCH ×2 (09:10→21:00)
[2022-05-25] MEDS: AmLODIPine BESYLATE 5 MG TABLET PO SCH (09:11)
[2022-05-25] MEDS: VALPROIC ACID 250 MG/5 ML SOLUTION UDCUP PO SCH ×3 (09:11→21:00)
[2022-05-25 16:56] VITALS: BP 133/69
[2022-05-25] MEDS: HALOPERIDOL LACTATE 5 MG/ML VIAL IM PRN ×2 (17:13→21:39)
[2022-05-25] MEDS: MIRTAZAPINE 30 MG TABLET PO SCH (21:00)
[2022-05-25] MEDS: ChlorproMAZINE HCL 50 MG/2 ML AMP IM PRN (21:40)
[2022-05-25 22:29] VITALS: BP 114/71
[2022-05-26] MEDS: CloZAPine 25 MG RAPDIS TABLET PO SCH ×2 (09:00→20:32)
[2022-05-26] MEDS: VALPROIC ACID 250 MG/5 ML SOLUTION UDCUP PO SCH ×3 (09:00→20:42)
[2022-05-26] MEDS: AmLODIPine BESYLATE 5 MG TABLET PO SCH (09:00)
[2022-05-26] MEDS: HALOPERIDOL LACTATE 5 MG/ML VIAL IM PRN (09:12)
[2022-05-26] MEDS: ChlorproMAZINE HCL 50 MG/2 ML AMP IM PRN (09:12)
[2022-05-26 09:48] VITALS: BP 162/93
[2022-05-26 16:00] VITALS: BP 139/86
[2022-05-26] MEDS: ZOLPIDEM TARTRATE 10 MG TABLET PO PRN (20:33)
[2022-05-26] MEDS: MIRTAZAPINE 30 MG TABLET PO SCH (20:33)
[2022-05-26] MEDS: HALOPERIDOL 5 MG TABLET PO PRN (20:33)
[2022-05-26 21:22] VITALS: BP 147/90
[2022-05-27 06:33] LABS: COVID AG,FIA SOURCE NASAL SWAB
[2022-05-27] MEDS: VALPROIC ACID 250 MG/5 ML SOLUTION UDCUP PO SCH ×3 (09:36→20:23)
[2022-05-27] MEDS: CloZAPine 25 MG RAPDIS TABLET PO SCH ×2 (09:36→20:23)
[2022-05-27] MEDS: AmLODIPine BESYLATE 5 MG TABLET PO SCH (09:36)
[2022-05-27 16:32] VITALS: BP 140/70
[2022-05-27] MEDS: MIRTAZAPINE 30 MG TABLET PO SCH (20:22)
[2022-05-27] MEDS: ZOLPIDEM TARTRATE 10 MG TABLET PO PRN (20:23)
[2022-05-27 20:24] VITALS: BP 132/75
[2022-05-28] MEDS ORDERED: ARIPiprazole LAUROXIL ER SUSPENSION 882 MG/3.2 ML SYRINGE IM SCH (09:00)
[2022-05-28 09:06] VITALS: BP 140/90
[2022-05-28] MEDS: CloZAPine 25 MG RAPDIS TABLET PO SCH ×2 (10:02→21:15)
[2022-05-28] MEDS: VALPROIC ACID 250 MG/5 ML SOLUTION UDCUP PO SCH ×3 (10:03→21:15)
[2022-05-28] MEDS: AmLODIPine BESYLATE 5 MG TABLET PO SCH (10:04)
[2022-05-28 15:21] LABS: BASOPHILS % (AUTO) 0.3 % (0.0-2.0); EOSINOPHILS % (AUTO) 1.1 % (1.0-6.0); HEMATOCRIT 33.2 % (41-53); HEMOGLOBIN 11.2 g/dL (13.5-17.5); LYMPHOCYTES # (AUTO) 2.9 K/uL (1.0-4.8); LYMPHOCYTES % (AUTO) 25.5 % (22.0-44.0); MEAN CORPUSCULAR HEMOGLOBIN 29.4 pg (26.0-34.0); MEAN CORPUSCULAR HGB CONC 33.7 G/dL (31.0-37.0); MEAN CORPUSCULAR VOLUME 87 fL (80-100); MONOCYTES # (AUTO) 1.4 K/uL (0.1-1.0); MONOCYTES % (AUTO) 11.9 % (2.0-9.0); NEUTROPHILS % (AUTO) 61.2 % (40.0-70.0); PLATELET COUNT (AUTO) 300 K/uL (150-450); RED CELL DISTRIBUTION WIDTH 13.4 % (11.5-14.5)
[2022-05-28 16:16] VITALS: BP 134/85
[2022-05-28 21:05] VITALS: BP 148/90
[2022-05-28] MEDS: MIRTAZAPINE 30 MG TABLET PO SCH (21:15)
[2022-05-29 08:06] VITALS: BP 132/96
[2022-05-29] MEDS: AmLODIPine BESYLATE 5 MG TABLET PO SCH (08:30)
[2022-05-29] MEDS: CloZAPine 25 MG RAPDIS TABLET PO SCH ×2 (08:30→20:33)
[2022-05-29] MEDS: VALPROIC ACID 250 MG/5 ML SOLUTION UDCUP PO SCH ×3 (08:30→20:33)
[2022-05-29 20:06] VITALS: BP 131/77
[2022-05-29] MEDS: MIRTAZAPINE 30 MG TABLET PO SCH (20:34)
[2022-05-30 10:02] VITALS: BP 137/87
[2022-05-30] MEDS: CloZAPine 25 MG RAPDIS TABLET PO SCH ×2 (10:09→20:52)
[2022-05-30] MEDS: AmLODIPine BESYLATE 5 MG TABLET PO SCH (10:09)
[2022-05-30] MEDS: VALPROIC ACID 250 MG/5 ML SOLUTION UDCUP PO SCH ×3 (10:10→20:52)
[2022-05-30 17:01] VITALS: BP 138/74
[2022-05-30] MEDS: MIRTAZAPINE 30 MG TABLET PO SCH (20:52)
[2022-05-30 21:39] VITALS: BP 138/76
[2022-05-31] MEDS: AmLODIPine BESYLATE 5 MG TABLET PO SCH (08:29)
[2022-05-31] MEDS: VALPROIC ACID 250 MG/5 ML SOLUTION UDCUP PO SCH ×3 (08:29→21:58)
[2022-05-31] MEDS: CloZAPine 25 MG RAPDIS TABLET PO SCH ×2 (08:30→21:58)
[2022-05-31 09:06] VITALS: BP 132/74
[2022-05-31 16:07] VITALS: BP 125/84
[2022-05-31 21:23] VITALS: BP 139/75
[2022-05-31] MEDS: MIRTAZAPINE 30 MG TABLET PO SCH (21:57)
[2022-06-01 08:47] VITALS: BP 143/80
[2022-06-01] MEDS: AmLODIPine BESYLATE 5 MG TABLET PO SCH (08:47)
[2022-06-01] MEDS: VALPROIC ACID 250 MG/5 ML SOLUTION UDCUP PO SCH ×3 (08:48→21:09)
[2022-06-01] MEDS: CloZAPine 25 MG RAPDIS TABLET PO SCH ×2 (08:49→21:10)
[2022-06-01 16:56] VITALS: BP_SYST 112; BP_SYST 141; BP_DIAS 65; BP_DIAS 74
[2022-06-01 20:07] VITALS: BP 128/67
[2022-06-01] MEDS: MIRTAZAPINE 30 MG TABLET PO SCH (21:10)
[2022-06-02 08:44] VITALS: BP 129/73
[2022-06-02] MEDS: AmLODIPine BESYLATE 5 MG TABLET PO SCH (09:01)
[2022-06-02] MEDS: VALPROIC ACID 250 MG/5 ML SOLUTION UDCUP PO SCH ×3 (09:02→20:17)
[2022-06-02] MEDS: CloZAPine 25 MG RAPDIS TABLET PO SCH ×2 (09:02→20:18)
[2022-06-02] MEDS: MIRTAZAPINE 30 MG TABLET PO SCH (20:18)
[2022-06-03 09:00] VITALS: BP 147/81
[2022-06-03] MEDS: VALPROIC ACID 250 MG/5 ML SOLUTION UDCUP PO SCH ×3 (09:35→21:22)
[2022-06-03] MEDS: CloZAPine 25 MG RAPDIS TABLET PO SCH ×2 (09:36→21:22)
[2022-06-03] MEDS: AmLODIPine BESYLATE 5 MG TABLET PO SCH (09:36)
[2022-06-03 16:00] VITALS: BP 108/55
[2022-06-03 20:36] VITALS: BP 121/84
[2022-06-03] MEDS: MIRTAZAPINE 30 MG TABLET PO SCH (21:22)
[2022-06-04 08:01] VITALS: BP 150/70
[2022-06-04] MEDS: CloZAPine 25 MG RAPDIS TABLET PO SCH ×2 (09:52→21:10)
[2022-06-04] MEDS: AmLODIPine BESYLATE 5 MG TABLET PO SCH (09:53)
[2022-06-04] MEDS: VALPROIC ACID 250 MG/5 ML SOLUTION UDCUP PO SCH ×3 (09:53→21:10)
[2022-06-04 16:15] VITALS: BP 109/61
[2022-06-04] MEDS: MIRTAZAPINE 30 MG TABLET PO SCH (21:10)
[2022-06-05 07:38] LABS: BASOPHILS % (AUTO) 0.7 % (0.0-2.0); EOSINOPHILS % (AUTO) 2.3 % (1.0-6.0); HEMATOCRIT 35.1 % (41-53); LYMPHOCYTES # (AUTO) 2.3 K/uL (1.0-4.8); MEAN CORPUSCULAR HEMOGLOBIN 29.5 pg (26.0-34.0); MEAN CORPUSCULAR HGB CONC 34.3 G/dL (31.0-37.0); MEAN CORPUSCULAR VOLUME 86 fL (80-100); MONOCYTES # (AUTO) 0.6 K/uL (0.1-1.0); MONOCYTES % (AUTO) 7.6 % (2.0-9.0); NEUTROPHILS # (AUTO) 4.6 K/uL (1.8-7.7); NEUTROPHILS % (AUTO) 59.4 % (40.0-70.0); PLATELET COUNT (AUTO) 349 K/uL (150-450); RED BLOOD CELL COUNT(AUTO) 4.08 MIL/uL (4.50-5.90); RED CELL DISTRIBUTION WIDTH 13.9 % (11.5-14.5)
[2022-06-05] MEDS: CloZAPine 25 MG RAPDIS TABLET PO SCH ×2 (09:09→21:07)
[2022-06-05] MEDS: AmLODIPine BESYLATE 5 MG TABLET PO SCH (09:10)
[2022-06-05] MEDS: VALPROIC ACID 250 MG/5 ML SOLUTION UDCUP PO SCH ×3 (09:10→21:07)
[2022-06-05 16:20] VITALS: BP 105/65
[2022-06-05 20:09] VITALS: BP 118/78
[2022-06-05 20:11] VITALS: BP 126/82
[2022-06-05] MEDS: MIRTAZAPINE 30 MG TABLET PO SCH (21:07)
[2022-06-06 07:42] LABS: COVID AG,FIA SOURCE NASAL SWAB
[2022-06-06] MEDS: CloZAPine 25 MG RAPDIS TABLET PO SCH ×2 (08:27→20:42)
[2022-06-06] MEDS: VALPROIC ACID 250 MG/5 ML SOLUTION UDCUP PO SCH ×3 (08:29→20:42)
[2022-06-06] MEDS: AmLODIPine BESYLATE 5 MG TABLET PO SCH (08:29)
[2022-06-06 08:47] VITALS: BP 119/76
[2022-06-06 16:07] VITALS: BP 141/72
[2022-06-06 20:12] VITALS: BP 124/61
[2022-06-06] MEDS: MIRTAZAPINE 30 MG TABLET PO SCH (20:42)
[2022-06-07] MEDS: CloZAPine 25 MG RAPDIS TABLET PO SCH ×2 (08:18→20:44)
[2022-06-07] MEDS: VALPROIC ACID 250 MG/5 ML SOLUTION UDCUP PO SCH ×3 (08:18→20:44)
[2022-06-07] MEDS: AmLODIPine BESYLATE 5 MG TABLET PO SCH (08:18)
[2022-06-07 09:11] VITALS: BP 130/79
[2022-06-07 16:04] VITALS: BP 134/65
[2022-06-07 20:39] VITALS: BP 124/76
[2022-06-07] MEDS: MIRTAZAPINE 30 MG TABLET PO SCH (20:44)
[2022-06-08 08:49] VITALS: BP 115/76
[2022-06-08] MEDS: CloZAPine 25 MG RAPDIS TABLET PO SCH ×2 (09:13→20:34)
[2022-06-08] MEDS: VALPROIC ACID 250 MG/5 ML SOLUTION UDCUP PO SCH ×3 (09:13→20:35)
[2022-06-08] MEDS: AmLODIPine BESYLATE 5 MG TABLET PO SCH (09:14)
[2022-06-08 16:05] VITALS: BP 147/66
[2022-06-08] MEDS: MIRTAZAPINE 30 MG TABLET PO SCH (20:35)
[2022-06-08 20:40] VITALS: BP 135/67
[2022-06-09 08:00] VITALS: BP 113/69
[2022-06-09] MEDS: CloZAPine 25 MG RAPDIS TABLET PO SCH ×2 (08:16→20:32)
[2022-06-09] MEDS: VALPROIC ACID 250 MG/5 ML SOLUTION UDCUP PO SCH ×3 (08:16→20:35)
[2022-06-09] MEDS: AmLODIPine BESYLATE 5 MG TABLET PO SCH (08:17)
[2022-06-09 16:56] VITALS: BP 145/71
[2022-06-09 20:16] VITALS: BP 150/70
[2022-06-09] MEDS: MIRTAZAPINE 30 MG TABLET PO SCH (20:32)
[2022-06-09] MEDS: ZOLPIDEM TARTRATE 10 MG TABLET PO PRN (20:33)
[2022-06-10 08:50] VITALS: BP 114/65
[2022-06-10] MEDS: AmLODIPine BESYLATE 5 MG TABLET PO SCH (09:19)
[2022-06-10] MEDS: VALPROIC ACID 250 MG/5 ML SOLUTION UDCUP PO SCH ×3 (09:19→20:30)
[2022-06-10] MEDS: CloZAPine 25 MG RAPDIS TABLET PO SCH ×2 (09:19→20:30)
[2022-06-10 16:38] VITALS: BP 114/55
[2022-06-10] MEDS: MIRTAZAPINE 30 MG TABLET PO SCH (20:30)
[2022-06-10] MEDS ORDERED: VALP250S23 PO (21:17)
[2022-06-10] MEDS ORDERED: ARIP882S2 IM (21:17)
[2022-06-10] MEDS ORDERED: MIRT-93 PO (21:17)
[2022-06-10] MEDS ORDERED: AMLO-257 PO (21:17)
[2022-06-10] MEDS ORDERED: CLOZ25TA PO (21:17)
[2022-06-10 21:21] VITALS: BP 121/63
[2022-06-11 08:51] VITALS: BP 116/78
[2022-06-11] MEDS: VALPROIC ACID 250 MG/5 ML SOLUTION UDCUP PO SCH (09:28)
[2022-06-11] MEDS: AmLODIPine BESYLATE 5 MG TABLET PO SCH (09:28)
[2022-06-11] MEDS: CloZAPine 25 MG RAPDIS TABLET PO SCH (09:29)
== END 2022-06-11 13:39 | DRG 885 ==
LOC: EMS 09:53 → 3EX 05-14 14:52 → 3EI 06-06 18:24 → 3EX 06-07 15:40
PROVIDERS: ADMIT Psychiatry & Neurology Psychiatry; ATTEND Psychiatry & Neurology Psychiatry
DX: F25.0 Schizoaffective disorder, bipolar type (principal); N18.9 Chronic kidney disease, unspecified; E78.00 Pure hypercholesterolemia, unspecified; E11.22 Type 2 diabetes mellitus with diabetic chronic kidney disease; J45.909 Unspecified asthma, uncomplicated; R13.10 Dysphagia, unspecified; D64.9 Anemia, unspecified; Z20.822 Contact with and (suspected) exposure to COVID-19; I12.9 Hypertensive chronic kidney disease with stage 1 through stage 4 chronic kidney disease, or unspecified chronic kidney disease; I69.320 Aphasia following cerebral infarction; Z63.4 Disappearance and death of family member; Z79.899 Other long term (current) drug therapy; Z79.84 Long term (current) use of oral hypoglycemic drugs
CPT/HCPCS: 70450; 71046; 80053; 80307; 81003; 82962; 85025; 87081; 92526; 92610; 99285; G0378; G0480; J1200; J1630; J2060; J3230; Q9967; 36415-L1; 36415-TC; U0003

== ENCOUNTER 2022-11-17 15:57 | Emergency (ER) | payer MEDICARE, MEDICAID ==
[~2022-11-17] VITALS: Ht 172.7 cm; Wt 77.3 kg
[~2022-11-17 15:57] MED LIST changes: -DIVA125C20 PO; +VALP250S23 PO
[2022-11-17 17:10] VITALS: TEMP 97.7
[2022-11-17 18:09] LABS: BASOPHILS % (AUTO) 0.3 % (0.0-2.0); EOSINOPHILS % (AUTO) 0.7 % (1.0-6.0); HEMATOCRIT 35.9 % (41-53); HEMOGLOBIN 11.8 g/dL (13.5-17.5); LYMPHOCYTES # (AUTO) 1.9 K/uL (1.0-4.8); LYMPHOCYTES % (AUTO) 15.7 % (22.0-44.0); MEAN CORPUSCULAR HEMOGLOBIN 30.4 pg (26.0-34.0); MEAN CORPUSCULAR HGB CONC 32.9 G/dL (31.0-37.0); MEAN CORPUSCULAR VOLUME 92 fL (80-100); MONOCYTES # (AUTO) 0.6 K/uL (0.1-1.0); MONOCYTES % (AUTO) 5.2 % (2.0-9.0); NEUTROPHILS # (AUTO) 9.6 K/uL (1.8-7.7); NEUTROPHILS % (AUTO) 78.1 % (40.0-70.0); PLATELET COUNT (AUTO) 334 K/uL (150-450); RED BLOOD CELL COUNT(AUTO) 3.89 MIL/uL (4.50-5.90); RED CELL DISTRIBUTION WIDTH 14.1 % (11.5-14.5); WHITE BLOOD COUNT (AUTO) 12.3 K/uL (4.5-11.0)
[2022-11-17 18:16] LABS: ANION GAP 6 mmol/L (8-16); CALCIUM, TOTAL 8.4 mg/dL (8.8-10.5); CARBON DIOXIDE 28 mmol/L (22-29); CHLORIDE 106 mmol/L (98-107); CREATININE 0.62 mg/dL (0.60-1.30); GLOMERULAR FILTR. RATE CALC > 60 mL/min (>60); GLUCOSE,RANDOM 106 mg/dL (70-110); POTASSIUM 3.7 mmol/L (3.5-5.1); SODIUM SERUM 140 mmol/L (136-145); UREA NITROGEN, BLOOD 22 mg/dL (7-18)
[2022-11-17 18:21] LABS: ALANINE AMINOTRANSFERASE 15 U/L (12-78); ALBUMIN 2.3 g/dL (3.4-5.0); ALKALINE PHOSPHATASE 52 U/L (46-116); ASPARTATE AMINOTRANSFERASE 17 U/L (15-37); BILIRUBIN,TOTAL 0.4 mg/dL (0.1-1.0); TOTAL PROTEIN, SERUM 5.1 g/dL (6.4-8.2)
[2022-11-17 18:23] LABS: ALCOHOL, BLOOD (SERUM) < 3 mg/dL (0-10)
[2022-11-17 20:16] LABS: PH,URINE DRUG SCREEN 6.5 (5.0-8.0)
[2022-11-17 20:22] LABS: AMPHET/METH SCREEN,URINE NEGATIVE (NEGATIVE); BARBITURATE SCREEN, URINE NEGATIVE (NEGATIVE); BENZODIAZEPINES SCREEN,URINE NEGATIVE (NEGATIVE); CANNABINOID SCREEN,URINE NEGATIVE (NEGATIVE); COCAINE SCREEN,URINE NEGATIVE (NEGATIVE); METHADONE SCREEN, URINE NEGATIVE (NEGATIVE); OPIATE SCREEN,URINE NEGATIVE (NEGATIVE); PHENCYCLIDINE SCREEN,URINE NEGATIVE (NEGATIVE)
[2022-11-17 20:25] LABS: ALCOHOL, URINE DRUG SCREEN NEGATIVE (NEGATIVE)
[2022-11-17 21:28] LABS: APPEARANCE,URINE CLEAR (CLEAR); BILIRUBIN,URINE NEGATIVE (NEGATIVE); COLOR,URINE COLORLESS (YELLOW); GLUCOSE, URINE (UA) NEGATIVE (NEGATIVE); KETONES,URINE NEGATIVE (NEGATIVE); LEUKOCYTE ESTERASE ,URINE NEGATIVE (NEGATIVE); NITRATE,URINE NEGATIVE (NEGATIVE); OCCULT BLOOD,URINE NEGATIVE (NEGATIVE); PH,URINE 6.5 (5.0-8.0); PROTEIN,URINE NEGATIVE (NEGATIVE); SPECIFIC GRAVITIY, URINE 1.015 (1.003-1.030); UROBILINOGEN,URINE <=1.0 mg/dL (<=1.0)
[2022-11-17 23:27] VITALS: BP 122/84; PULSE 67; RESP 16
== END 2022-11-17 23:46 | disposition home or self-care (01) ==
LOC: EMS 16:00
DX: F25.0 Schizoaffective disorder, bipolar type (principal); E11.9 Type 2 diabetes mellitus without complications; E78.00 Pure hypercholesterolemia, unspecified; N40.0 Benign prostatic hyperplasia without lower urinary tract symptoms; I25.10 Atherosclerotic heart disease of native coronary artery without angina pectoris; I10 Essential (primary) hypertension; Z98.890 Other specified postprocedural states
CPT/HCPCS: 99284; 80053; 85025; 36415; 80307; 81003; G0480

== ENCOUNTER 2024-05-04 13:12 | Inpatient (IN) | payer MEDICARE, MEDICAID ==
[~2024-05-04] VITALS: Ht 175.3 cm; Wt 69.9 kg
[~2024-05-04 13:12] MED LIST changes: -AMLO-257 PO; +AMLO10TA55 PO; -ARIP882S2 IM; +MIRT-149 PO; -MIRT-93 PO; +MULT1TAB28 PO
[2024-05-04 15:33] LABS: COVID AG,FIA SOURCE NASAL SWAB
[2024-05-04 16:13] LABS: SARS-COV2 (COVID) ANTIGEN,FIA Negative (Negative)
[2024-05-04 16:44] LABS: APPEARANCE,URINE CLEAR (CLEAR); BILIRUBIN,URINE NEGATIVE (NEGATIVE); COLOR,URINE LIGHT YELLOW (YELLOW); GLUCOSE, URINE (UA) NEGATIVE (NEGATIVE); KETONES,URINE NEGATIVE (NEGATIVE); LEUKOCYTE ESTERASE ,URINE TRACE (NEGATIVE); NITRATE,URINE NEGATIVE (NEGATIVE); OCCULT BLOOD,URINE NEGATIVE (NEGATIVE); PH,URINE 6.5 (5.0-8.0); PH,URINE DRUG SCREEN 6.5 (5.0-8.0); PROTEIN,URINE NEGATIVE (NEGATIVE); SPECIFIC GRAVITIY, URINE 1.024 (1.003-1.030); UROBILINOGEN,URINE <=1.0 mg/dL (<=1.0)
[2024-05-04 16:54] LABS: ALCOHOL, URINE DRUG SCREEN NEGATIVE (NEGATIVE); AMPHET/METH SCREEN,URINE NEGATIVE (NEGATIVE); BARBITURATE SCREEN, URINE NEGATIVE (NEGATIVE); BENZODIAZEPINES SCREEN,URINE NEGATIVE (NEGATIVE); CANNABINOID SCREEN,URINE NEGATIVE (NEGATIVE); COCAINE SCREEN,URINE NEGATIVE (NEGATIVE); METHADONE SCREEN, URINE NEGATIVE (NEGATIVE); OPIATE SCREEN,URINE NEGATIVE (NEGATIVE); PHENCYCLIDINE SCREEN,URINE NEGATIVE (NEGATIVE)
[2024-05-04] MEDS ORDERED: TUBERCULIN, PURIFIED PROTEIN DERIVATIVE 5 TU/0.1 ML SYRINGE ID ONE (17:30)
[2024-05-04] MEDS ORDERED: MAG HYDROX/ALUMINUM HYD/SIMETH ES 30 ML SUSPENSION UDCUP PO PRN (17:30)
[2024-05-04] MEDS ORDERED: PROMETHAZINE HCL 25 MG TABLET PO PRN (17:30)
[2024-05-04] MEDS ORDERED: GuaiFENesin/D-METHORPHAN [SUGAR-FREE] 200-20MG/10 ML SYRUP UDCUP PO PRN (17:30)
[2024-05-04] MEDS ORDERED: MAGNESIUM HYDROXIDE SUSPENSION 30 ML UDCUP PO PRN (17:30)
[2024-05-04 17:43] LABS: BACTERIA,URINE Rare /HPF (None Seen); RBC,URINE None Seen /HPF (0-2); WBC,URINE 0-2 /HPF (0-5)
[2024-05-04] MEDS: HydrOXYzine PAMOATE 50 MG CAPSULE PO PRN (19:37)
[2024-05-04] MEDS: OLANZapine 5 MG RAPDIS TABLET PO PRN (19:37)
[2024-05-04] MEDS: THIAMINE 100 MG TABLET PO SCH (21:00)
[2024-05-04] MEDS: DIVALPROEX SODIUM 500 MG ER TABLET PO SCH (21:00)
[2024-05-04] MEDS: MIRTAZAPINE 30 MG TABLET PO SCH (21:00)
[2024-05-04] MEDS: CloZAPine 100 MG TABLET PO SCH (21:00)
[2024-05-04] MEDS: MELATONIN 5 MG TABLET PO SCH (21:00)
[2024-05-05 00:08] LABS: BASOPHILS % (AUTO) 0.8 % (0.0-2.0); EOSINOPHILS % (AUTO) 5.8 % (1.0-6.0); HEMATOCRIT 34.5 % (41-53); HEMOGLOBIN 11.5 g/dL (13.5-17.5); LYMPHOCYTES # (AUTO) 2.2 K/uL (1.0-4.8); LYMPHOCYTES % (AUTO) 30.2 % (22.0-44.0); MEAN CORPUSCULAR HEMOGLOBIN 28.9 pg (26.0-34.0); MEAN CORPUSCULAR HGB CONC 33.4 G/dL (31.0-37.0); MEAN CORPUSCULAR VOLUME 87 fL (80-100); MONOCYTES # (AUTO) 0.5 K/uL (0.1-1.0); MONOCYTES % (AUTO) 6.8 % (2.0-9.0); NEUTROPHILS # (AUTO) 4.1 K/uL (1.8-7.7); NEUTROPHILS % (AUTO) 56.4 % (40.0-70.0); PLATELET COUNT (AUTO) 314 K/uL (150-450); RED BLOOD CELL COUNT(AUTO) 3.98 MIL/uL (4.50-5.90); RED CELL DISTRIBUTION WIDTH 15.2 % (11.5-14.5); WHITE BLOOD COUNT (AUTO) 7.3 K/uL (4.5-11.0)
[2024-05-05 00:17] LABS: ANION GAP 7 mmol/L (8-16); CALCIUM, TOTAL 8.4 mg/dL (8.8-10.5); CARBON DIOXIDE 25 mmol/L (22-29); CHLORIDE 108 mmol/L (98-107); CREATININE 0.88 mg/dL (0.60-1.30); GLOMERULAR FILTR. RATE CALC > 60 mL/min (>60); GLUCOSE,RANDOM 151 mg/dL (70-110); POTASSIUM 3.9 mmol/L (3.5-5.1); SODIUM SERUM 140 mmol/L (136-145); UREA NITROGEN, BLOOD 23 mg/dL (7-18)
[2024-05-05 00:23] LABS: ALBUMIN 2.5 g/dL (3.4-5.0); BILIRUBIN,DIRECT 0.1 mg/dL (0.00-0.20); BILIRUBIN,TOTAL 0.2 mg/dL (0.1-1.0); TOTAL PROTEIN, SERUM 6.1 g/dL (6.4-8.2)
[2024-05-05 00:40] LABS: ALCOHOL, BLOOD (SERUM) < 3 mg/dL (0-10)
[2024-05-05 05:09] LABS: CHOL/HDL RATIO 2.9 (4.2-7.3); THYROID STIMULATING HORMONE 0.9 uIU/mL (0.36-3.74)
[2024-05-05 05:44] LABS: HEMOGLOBIN A1C 6.3 % (3.8-5.6)
[2024-05-05 07:11] LABS: T4 (THYROXINE) 5.9 mcg/dL (4.7-13.3)
[2024-05-05 09:06] VITALS: O2SAT 100
[2024-05-05 09:40] VITALS: BP 152/87; PULSE 79; RESP 16; TEMP 97.8; O2SAT 97
[2024-05-05] MEDS: MULTIVITAMINS WITH MINERALS, THERAPEUTIC TABLET PO SCH (10:34)
[2024-05-05] MEDS: FOLIC ACID 1 MG TABLET PO SCH (10:35)
[2024-05-05 12:10] VITALS: BP 167/87
[2024-05-05] MEDS ORDERED: DOCUSATE SODIUM 250 MG CAPSULE PO PRN (12:30)
[2024-05-05] MEDS ORDERED: POLYETHYLENE GLYCOL 3350 17 GM PACKET PO PRN (12:30)
[2024-05-05] MEDS ORDERED: SENNOSIDES 8.6 MG TABLET PO PRN (12:30)
[2024-05-05] MEDS: AmLODIPine BESYLATE 5 MG TABLET PO SCH (12:47)
[2024-05-05] MEDS: LOSARTAN POTASSIUM 50 MG TABLET PO SCH (12:48)
[2024-05-05] MEDS: FUROSEMIDE 20 MG TABLET PO SCH (12:50)
[2024-05-05] MEDS: PANTOPRAZOLE SODIUM 40 MG DR TABLET PO SCH (12:50)
[2024-05-05] MEDS: ASPIRIN 81 MG DR TABLET PO SCH (12:54)
[2024-05-05] MEDS ORDERED: HALOPERIDOL 5 MG TABLET ONE (12:58)
[2024-05-05] MEDS ORDERED: LORazepam 2 MG TABLET ONE (12:59)
[2024-05-05] MEDS ORDERED: BACITRACIN 28 GM OINTMENT TP PRN (14:45)
[2024-05-05] MEDS: GABAPENTIN 400 MG CAPSULE PO ONE (15:01)
[2024-05-05 16:18] VITALS: BP 150/80
[2024-05-05 20:11] VITALS: BP 134/65; PULSE 84; RESP 19; TEMP 98.2; O2SAT 96
[2024-05-05] MEDS: TAMSULOSIN HCL 0.4 MG CAPSULE PO SCH (20:41)
[2024-05-05] MEDS: FLUTICASONE/SALMETEROL 250-50 MCG/INH INHALER [60] IH SCH (20:54)
[2024-05-06] MEDS: ZOLPIDEM TARTRATE 10 MG TABLET PO PRN (02:15)
[2024-05-06 08:07] VITALS: BP 145/98; PULSE 83; RESP 17; TEMP 97.7; O2SAT 98
[2024-05-06] MEDS: CLOTRIMAZOLE 1% 15 GM CREAM TP SCH (08:28)
[2024-05-06] MEDS ORDERED: CLOTRIMAZOLE 1%/BETAMETH DIP 0.05% 15 GM CREAM TP SCH (09:00)
[2024-05-06] MEDS: GABAPENTIN 300 MG CAPSULE PO PRN (10:25)
[2024-05-06] MEDS: DIVALPROEX SODIUM 250 MG ER TABLET PO SCH (20:40)
[2024-05-07] MEDS: LORazepam 2 MG/ML VIAL IM ONE (08:16)
[2024-05-07] MEDS: HALOPERIDOL LACTATE 5 MG/ML VIAL IM ONE (08:17)
[2024-05-07] MEDS: DiphenhydrAMINE HCL 50 MG/ML VIAL IM ONE (08:17)
[2024-05-07 08:19] VITALS: BP 149/111; PULSE 80; RESP 18; TEMP 97.4; O2SAT 98
[2024-05-07 08:36] VITALS: BP 137/72; PULSE 72; RESP 17; TEMP 98; O2SAT 99
[2024-05-07 20:14] VITALS: BP 156/86; PULSE 77; RESP 18; TEMP 98
[2024-05-07] MEDS: CloZAPine 25 MG TABLET PO SCH (20:48)
[2024-05-07] MEDS: CloZAPine 100 MG TABLET PO SCH (20:48)
[2024-05-07] MEDS ORDERED: MIRTAZAPINE 30 MG TABLET PO SCH (21:00)
[2024-05-08] MEDS: ACETAMINOPHEN 325 MG TABLET PO PRN (04:24)
[2024-05-08] MEDS: LITHIUM CARBONATE 300 MG CAPSULE PO SCH (09:00)
[2024-05-08] MEDS ORDERED: DIVA-85 PO (10:35)
[2024-05-08] MEDS ORDERED: MELA5TAB40 PO (10:35)
[2024-05-08] MEDS ORDERED: CLOZ25TA52 PO (10:35)
[2024-05-08] MEDS ORDERED: LITH300C3 PO (10:35)
[2024-05-08] MEDS ORDERED: CLOZ100T61 PO (10:35)
[2024-05-08] MEDS: MIRTAZAPINE 15 MG TABLET PO SCH (21:14)
[2024-05-08 21:18] VITALS: BP 149/83; PULSE 76; RESP 18; TEMP 97.5; O2SAT 97
[2024-05-09 08:03] VITALS: BP 137/86; PULSE 72; RESP 17; TEMP 97.5; O2SAT 96
[2024-05-09 21:24] VITALS: BP 150/96; PULSE 72; RESP 18; TEMP 97.1; O2SAT 98
[2024-05-10 09:28] VITALS: BP 157/81; PULSE 72; RESP 18; TEMP 97.1; O2SAT 96
[2024-05-10 20:14] VITALS: BP 141/79; PULSE 67; RESP 18; TEMP 97.3; O2SAT 98
[2024-05-11 08:58] LABS: BASOPHILS % (AUTO) 0.7 % (0.0-2.0); EOSINOPHILS % (AUTO) 2.8 % (1.0-6.0); HEMATOCRIT 35.8 % (41-53); HEMOGLOBIN 12.1 g/dL (13.5-17.5); LYMPHOCYTES # (AUTO) 2.5 K/uL (1.0-4.8); LYMPHOCYTES % (AUTO) 29.3 % (22.0-44.0); MEAN CORPUSCULAR HEMOGLOBIN 29.3 pg (26.0-34.0); MEAN CORPUSCULAR HGB CONC 33.9 G/dL (31.0-37.0); MEAN CORPUSCULAR VOLUME 87 fL (80-100); MONOCYTES % (AUTO) 12.1 % (2.0-9.0); NEUTROPHILS # (AUTO) 4.7 K/uL (1.8-7.7); NEUTROPHILS % (AUTO) 55.1 % (40.0-70.0); PLATELET COUNT (AUTO) 276 K/uL (150-450); RED BLOOD CELL COUNT(AUTO) 4.13 MIL/uL (4.50-5.90); RED CELL DISTRIBUTION WIDTH 14.8 % (11.5-14.5); WHITE BLOOD COUNT (AUTO) 8.5 K/uL (4.5-11.0)
[2024-05-11 09:26] VITALS: BP 156/77; PULSE 60; RESP 16; TEMP 97.5; O2SAT 98
[2024-05-11 12:07] LABS: CLOZAPINE & NORCLOZAPINE <40 ng/mL; NORCLOZAPINE <20 ng/mL (Not Estab.)
[2024-05-11 19:32] VITALS: RESP 16
[2024-05-11 20:00] VITALS: RESP 16
[2024-05-11 20:32] VITALS: RESP 16
[2024-05-12 08:21] VITALS: BP 130/78; PULSE 70; RESP 18; TEMP 97.3
[2024-05-12] MEDS: CloZAPine 25 MG TABLET PO SCH (20:31)
[2024-05-12 20:38] VITALS: BP 169/87; PULSE 81; TEMP 97.2
[2024-05-12 21:52] VITALS: BP 134/72; PULSE 72; O2SAT 98
[2024-05-13] MEDS: LOPERAMIDE HCL 2 MG CAPSULE PO PRN (10:36)
[2024-05-13 14:43] VITALS: PULSE 77; RESP 17; TEMP 97.5; O2SAT 96
[2024-05-13] MEDS: DIVALPROEX SODIUM 500 MG ER TABLET PO SCH (21:16)
[2024-05-14 00:18] VITALS: RESP 18
[2024-05-14 08:23] VITALS: BP 140/87; PULSE 72; RESP 16; TEMP 97.4; O2SAT 96
[2024-05-14] MEDS ORDERED: HALOPERIDOL LACTATE 5 MG/ML VIAL IM PRN (14:00)
[2024-05-15 09:09] VITALS: RESP 17
[2024-05-15 09:15] VITALS: BP 156/76; PULSE 98; RESP 18; O2SAT 97
[2024-05-15 20:00] VITALS: BP 129/84; PULSE 94; RESP 18; TEMP 97.8; O2SAT 98
[2024-05-16 04:18] VITALS: RESP 18
[2024-05-16 08:40] VITALS: BP 157/81; PULSE 73; RESP 18; TEMP 96.8; O2SAT 98
[2024-05-16 20:34] VITALS: BP 129/63; PULSE 66; RESP 17; TEMP 97.4; O2SAT 98
[2024-05-17 08:22] VITALS: BP 150/60; PULSE 60; RESP 18; TEMP 97.5; O2SAT 99
[2024-05-17] MEDS ORDERED: DiphenhydrAMINE HCL 50 MG/ML VIAL ONE (14:30)
[2024-05-17] MEDS ORDERED: LORazepam 2 MG/ML VIAL ONE (14:30)
[2024-05-17] MEDS ORDERED: ChlorproMAZINE HCL 50 MG/2 ML AMP ONE (14:31)
[2024-05-17] MEDS: LORazepam 2 MG/ML VIAL IM ONE (15:10)
[2024-05-17] MEDS: ChlorproMAZINE HCL 50 MG/2 ML AMP IM ONE (15:11)
[2024-05-17] MEDS: DiphenhydrAMINE HCL 50 MG/ML VIAL IM ONE (15:11)
[2024-05-18 08:50] VITALS: RESP 18
[2024-05-18] MEDS: LITHIUM CITRATE SOLUTION 8 MEQ/5 ML [8 MEQ = 300 MG] UDCUP PO SCH (16:31)
[2024-05-18] MEDS: CloZAPine 100 MG TABLET PO SCH (20:44)
[2024-05-18] MEDS: VALPROIC ACID 250 MG/5 ML SOLUTION UDCUP PO SCH (20:45)
[2024-05-19 08:08] VITALS: RESP 16
[2024-05-19 12:23] LABS: BASOPHILS % (AUTO) 0.3 % (0.0-2.0); EOSINOPHILS % (AUTO) 1.3 % (1.0-6.0); HEMATOCRIT 37.4 % (41-53); HEMOGLOBIN 12.4 g/dL (13.5-17.5); LYMPHOCYTES # (AUTO) 1.8 K/uL (1.0-4.8); LYMPHOCYTES % (AUTO) 22.2 % (22.0-44.0); MEAN CORPUSCULAR HEMOGLOBIN 29.1 pg (26.0-34.0); MEAN CORPUSCULAR HGB CONC 33.2 G/dL (31.0-37.0); MEAN CORPUSCULAR VOLUME 88 fL (80-100); MONOCYTES # (AUTO) 0.8 K/uL (0.1-1.0); MONOCYTES % (AUTO) 9.3 % (2.0-9.0); NEUTROPHILS # (AUTO) 5.4 K/uL (1.8-7.7); NEUTROPHILS % (AUTO) 66.9 % (40.0-70.0); PLATELET COUNT (AUTO) 268 K/uL (150-450); RED BLOOD CELL COUNT(AUTO) 4.27 MIL/uL (4.50-5.90); RED CELL DISTRIBUTION WIDTH 15.3 % (11.5-14.5)
[2024-05-19 20:59] VITALS: BP 146/71; PULSE 68; RESP 16; TEMP 97.5
[2024-05-20 08:35] VITALS: BP 124/68; PULSE 70; RESP 18; TEMP 98.1; O2SAT 99
[2024-05-20 20:49] VITALS: BP 146/88; PULSE 72; RESP 16; TEMP 97.6; O2SAT 99
[2024-05-21 08:29] VITALS: BP 139/83; PULSE 75; RESP 17; TEMP 97.6; O2SAT 100
[2024-05-21 09:51] LABS: VALPROIC ACID < 3 mcg/mL (50-100)
[2024-05-21 10:07] LABS: LITHIUM < 0.20 mmol/L (0.60-1.20)
[2024-05-21] MEDS: TERBINAFINE HCL 250 MG TABLET PO SCH (10:45)
[2024-05-21 20:17] VITALS: BP 139/88; PULSE 56; RESP 17; TEMP 97.9; O2SAT 98
[2024-05-22 08:51] VITALS: BP 149/62; PULSE 81; RESP 18; TEMP 97.3; O2SAT 98
[2024-05-22] MEDS: LITHIUM CITRATE SOLUTION 8 MEQ/5 ML [8 MEQ = 300 MG] UDCUP PO SCH (16:45)
[2024-05-22 20:08] VITALS: RESP 18
[2024-05-22] MEDS: VALPROIC ACID 250 MG/5 ML SOLUTION UDCUP PO SCH (21:42)
[2024-05-23 09:20] VITALS: BP 157/71; PULSE 75; RESP 18; TEMP 97.6; O2SAT 100
[2024-05-23 11:07] LABS: CLOZAPINE & NORCLOZAPINE <40 ng/mL; NORCLOZAPINE <20 ng/mL (Not Estab.)
[2024-05-23 20:43] VITALS: RESP 18
[2024-05-23 20:52] VITALS: BP 139/140; PULSE 75; RESP 18; TEMP 97.7; O2SAT 99
[2024-05-24 08:51] VITALS: BP 156/75; PULSE 61; RESP 18; TEMP 97.6; O2SAT 99
[2024-05-24] MEDS ORDERED: LORazepam 2 MG/ML VIAL ONE (15:13)
[2024-05-24] MEDS ORDERED: DiphenhydrAMINE HCL 50 MG/ML VIAL ONE (15:14)
[2024-05-24] MEDS ORDERED: ChlorproMAZINE HCL 50 MG/2 ML AMP ONE (15:14)
[2024-05-24] MEDS: DiphenhydrAMINE HCL 50 MG/ML VIAL IM ONE (15:35)
[2024-05-24] MEDS: ChlorproMAZINE HCL 50 MG/2 ML AMP IM ONE (15:35)
[2024-05-24] MEDS: LORazepam 2 MG/ML VIAL IM ONE (15:35)
[2024-05-24 21:30] VITALS: RESP 17
[2024-05-25 08:12] VITALS: BP 114/74; PULSE 98; RESP 15; TEMP 97.7; O2SAT 95
[2024-05-25 08:25] LABS: BASOPHILS % (AUTO) 0.6 % (0.0-2.0); EOSINOPHILS % (AUTO) 1.6 % (1.0-6.0); HEMATOCRIT 40.7 % (41-53); HEMOGLOBIN 13.5 g/dL (13.5-17.5); LYMPHOCYTES # (AUTO) 2.5 K/uL (1.0-4.8); MEAN CORPUSCULAR HGB CONC 33.1 G/dL (31.0-37.0); MEAN CORPUSCULAR VOLUME 88 fL (80-100); MONOCYTES # (AUTO) 0.8 K/uL (0.1-1.0); MONOCYTES % (AUTO) 8.1 % (2.0-9.0); NEUTROPHILS # (AUTO) 6.5 K/uL (1.8-7.7); NEUTROPHILS % (AUTO) 64.7 % (40.0-70.0); PLATELET COUNT (AUTO) 347 K/uL (150-450); RED BLOOD CELL COUNT(AUTO) 4.65 MIL/uL (4.50-5.90); RED CELL DISTRIBUTION WIDTH 15.2 % (11.5-14.5)
[2024-05-25] MEDS ORDERED: DiphenhydrAMINE HCL 50 MG/ML VIAL ONE (09:15)
[2024-05-25] MEDS ORDERED: LORazepam 2 MG/ML VIAL ONE (09:15)
[2024-05-25] MEDS: DiphenhydrAMINE HCL 50 MG/ML VIAL IM ONE (09:24)
[2024-05-25] MEDS: HALOPERIDOL LACTATE 5 MG/ML VIAL IM ONE (09:24)
[2024-05-25] MEDS: LORazepam 2 MG/ML VIAL IM ONE (09:24)
[2024-05-25] MEDS: CloZAPine 100 MG TABLET PO SCH (20:04)
[2024-05-26 08:13] VITALS: BP 140/81; PULSE 90; RESP 18; TEMP 97.5; O2SAT 96
[2024-05-26 20:47] VITALS: BP 158/97; PULSE 88; RESP 17; TEMP 98.4; O2SAT 100
[2024-05-27 09:25] VITALS: BP 150/81; PULSE 71; RESP 18; TEMP 97.7; O2SAT 99
[2024-05-27 20:26] VITALS: BP 132/63; PULSE 68; RESP 18; TEMP 97.3; O2SAT 97
[2024-05-28 08:40] VITALS: BP 149/90; PULSE 75; RESP 16; TEMP 97.3; O2SAT 100
[2024-05-28 09:00] LABS: LITHIUM 0.24 mmol/L (0.60-1.20)
[2024-05-28] MEDS ORDERED: LITH8SOL8 PO (15:19)
[2024-05-28] MEDS ORDERED: VALP250S23 PO (15:19)
[2024-05-28] MEDS ORDERED: CLOZ100T61 PO (15:19)
[2024-05-28 20:05] VITALS: BP 148/80; PULSE 63; RESP 17; TEMP 97.5; O2SAT 99
[2024-05-29 09:40] VITALS: BP 150/66; PULSE 75; RESP 19; TEMP 98.1; O2SAT 98
[2024-05-29 18:35] VITALS: RESP 18
[2024-05-29] MEDS: LITHIUM CITRATE SOLUTION 8 MEQ/5 ML [8 MEQ = 300 MG] UDCUP PO SCH (21:11)
[2024-05-29 22:15] LABS: GLUCOMETER DEV NAME(LOC) BV3N.2; GLUCOSE,POINT OF CARE 164 MG/DL (70-110)
[2024-05-30] MEDS ORDERED: LITHIUM CITRATE SOLUTION 8 MEQ/5 ML [8 MEQ = 300 MG] UDCUP PO SCH (09:00)
== END 2024-05-30 06:05 | disposition short-term general hospital (02) | DRG 885 ==
LOC: EMS 13:12 → B2X 05-05 06:09 → UNDOADMIN 05-05 06:09 → B2S 05-08 14:49 → B3A 05-11 23:18
PROVIDERS: ADMIT Psychiatry & Neurology Psychiatry; ATTEND Psychiatry & Neurology Psychiatry
PROC: GZHZZZZ Group Psychotherapy (ICD-10-PCS; principal; 2024-05-05)
PROC: GZ51ZZZ Individual Psychotherapy, Behavioral (ICD-10-PCS; 2024-05-05)
DX: F20.0 Paranoid schizophrenia (principal); N18.9 Chronic kidney disease, unspecified; G93.41 Metabolic encephalopathy; I69.951 Hemiplegia and hemiparesis following unspecified cerebrovascular disease affecting right dominant side; I25.10 Atherosclerotic heart disease of native coronary artery without angina pectoris; Z20.822 Contact with and (suspected) exposure to COVID-19; E11.22 Type 2 diabetes mellitus with diabetic chronic kidney disease; N40.0 Benign prostatic hyperplasia without lower urinary tract symptoms; E78.00 Pure hypercholesterolemia, unspecified; F41.9 Anxiety disorder, unspecified; J44.9 Chronic obstructive pulmonary disease, unspecified; D64.9 Anemia, unspecified; I12.9 Hypertensive chronic kidney disease with stage 1 through stage 4 chronic kidney disease, or unspecified chronic kidney disease; Z87.440 Personal history of urinary (tract) infections; Z91.148 Patient's other noncompliance with medication regimen for other reason
CPT/HCPCS: 70450; 70486; 72125; 80048; 80061; 80076; 80159; 80164; 80178; 80307; 81001; 82962; 83036; 84436; 84443; 85025; 86592; 87081; 90471; 90715; 99285; G0480; J1200; J1630; J2060; J3230; J3535

== ENCOUNTER 2024-05-08 07:30 | Emergency (ER) | payer MEDICARE, MEDICAID ==
[~2024-05-08] VITALS: Ht 177.8 cm; Wt 68.9 kg
[2024-05-08 07:43] VITALS: TEMP 98.2
[2024-05-08] MEDS: BACITRACIN 0.9 GM PACKET OINTMENT TP ONE (08:11)
[2024-05-08] MEDS: ACETAMINOPHEN 500 MG TABLET PO ONE (08:11)
[2024-05-08] MEDS: PERTUSS(ACELL),DIPH,TET/PF 0.5 ML SYRINGE [ADULT] IM. ONE (08:15)
[2024-05-08 10:16] VITALS: BP 173/78; PULSE 72; RESP 20; O2SAT 98
[2024-05-08] MEDS ORDERED: CLOZ100T61 PO (10:35)
[2024-05-08] MEDS ORDERED: CLOZ25TA52 PO (10:35)
[2024-05-08] MEDS ORDERED: DIVA-85 PO (10:35)
[2024-05-08] MEDS ORDERED: MELA5TAB40 PO (10:35)
[2024-05-08] MEDS ORDERED: LITH300C3 PO (10:35)
== END 2024-05-08 10:20 ==
LOC: EMS 07:31
DX: S00.83XA Contusion of other part of head, initial encounter (principal); S40.812A Abrasion of left upper arm, initial encounter; E11.9 Type 2 diabetes mellitus without complications; I10 Essential (primary) hypertension; E78.00 Pure hypercholesterolemia, unspecified; F20.9 Schizophrenia, unspecified; F41.9 Anxiety disorder, unspecified; J45.909 Unspecified asthma, uncomplicated; Z87.440 Personal history of urinary (tract) infections; Y04.0XXA Assault by unarmed brawl or fight, initial encounter; Y93.89 Activity, other specified; Y92.89 Other specified places as the place of occurrence of the external cause; Y99.8 Other external cause status
CPT/HCPCS: 70450; 70486; 72125; 90471; 90715; 99285